=== PATIENT | female | born 1955 | race Caucasian/White ===

== ENCOUNTER → 2016-12-19 | Outpatient (CLI) | payer MEDICARE, OTHER ==
[~2016-12-19] MED LIST: AMLO10 PO; ASPI325T PO; ATOR20TA PO; AUGM500T7 PO; Aspirin Chew CHEW; CLON1TAB PO; EZET10 PO; FENT50T T-DERMAL; GNP3TAB PO; HYDR-3583 PO; HYDR50TA15 PO; LACTG PO; LEVE500 PO; LEVEMIR SQ; LISI-363 PO; LISI-519 PO; MELA5TAB15 PO; METO-338 PO; NOVOLOGP2 SQ; NOVOLOGSS SQ; PANT40TA3 PO; PERC10TA27 PO; PLAV75TA29 PO; POTA-163 PO; SIME80CH CHEW; TIZA4 PO; TIZA4CAP3 PO; VENL-37 PO; VENL75XR PO; WELLTAB39 PO; ZETI10TA5 PO; ZOFR4TAB PO
--- NOTE | 2016-12-19 15:31 | RADRPT ---
EXAM DATE/TIME: 12/19/2016 14:30 [facility] COMPARISON: No previous studies available for comparison. INDICATIONS : Right upper quadrant pain. Evaluate for gallstones. ORAL CONTRAST: Prescribed oral contrast ingested. RADIATION DOSE: 9.96 CTDIvol (mGy) MEDICAL HISTORY : Cerebrovascular disease. Inflammatory bowel disease. Diabetes mellitus type 2. Hypertension. Gallstones. SURGICAL HISTORY : Right below the knee amputation. ENCOUNTER: Initial ACUITY: 4 - 6 months PAIN SCALE: 7/10 LOCATION: Right upper quadrant TECHNIQUE: Volumetric scanning of the abdomen and pelvis was performed. Using automated exposure control and adjustment of the mA and/or kV according to patient size, radiation dose was kept as low as reasonably achievable to obtain optimal diagnostic quality images. FINDINGS: Lung bases are clear. The liver is free of focal defects. Large gallstone is present in the gallbladder with lamination. The gallbladder does appear benign. The body of the stomach is markedly abnormal with marked thickening of the wall of the stomach. In g reatest dimension it measures 1.5 to 1.8 cm. 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 Pancreas is unremarkable. Adrenal glands appear normal. Right and left kidneys are unremarkable. In the pelvis there is a prominent uterus. The bladder is unremarkable. There is no evidence for div erticulitis. Extensive vascular calcifications are noted. Review of bone windows reveals significant degenerative changes in the lumbar spine. CONCLUSION: 1. Marked thickening of the wall of the stomach comprised mostly of the body suspicious for a neoplas tic process, adenocarcinoma linitis plastica type. 2. A large gallstone in a benign appearing gallbladder. 3. I do not see evidence for metastatic disease as yet. 4. Extensive degenerative changes lumbar spine. Krystian Painting MD FACR on December 19, 2016 at 15:11 Board Certified Radiologist. This report was verified electronically.
== END ==
LOC: HRAD 12:53
PROVIDERS: ATTEND Surgery
DX: K80.80 Other cholelithiasis without obstruction (principal)
CPT/HCPCS: 74176

== ENCOUNTER 2017-01-27 07:49 | Inpatient (IN) | payer MEDICARE, OTHER ==
[2017-01-27] VITALS (11 sets, daily range): BP systolic 124–176; BP diastolic 60–85; PULSE 90–133; RESP 18–23; TEMP 98.3–103.2; O2SAT 95–100
[~2017-01-27] VITALS: Ht 162.6 cm; Wt 82.2 kg
[~2017-01-27 07:49] MED LIST changes: -AMLO10 PO; -AUGM500T7 PO; -Aspirin Chew CHEW; -FENT50T T-DERMAL; -GNP3TAB PO; -HYDR-3583 PO; -HYDR50TA15 PO; -LACTG PO; -LISI-519 PO; -MELA5TAB15 PO; -METO-338 PO; -NOVOLOGP2 SQ; -PANT40TA3 PO; -PLAV75TA29 PO; -POTA-163 PO; -SIME80CH CHEW; -TIZA4 PO; -TIZA4CAP3 PO; -VENL75XR PO; -WELLTAB39 PO; -ZETI10TA5 PO; -ZOFR4TAB PO
[2017-01-27] MEDS ORDERED: SODIUM CHLOR 0.9% 1000 ML INJ 1,000 ML IV ONE ×3 (08:03→14:00)
[2017-01-27] MEDS ORDERED: VANCOMYCIN INJ 1,000 MG in SODIUM CHLOR 0.9% 250 ML INJ 250 ML IV STA (08:03)
[2017-01-27] MEDS ORDERED: SODIUM CHLOR 0.9% 1000 ML INJ 100 ML IV ONE (08:03)
[2017-01-27] MEDS ORDERED: PIPERACIL-TAZO 4.5 GM PREMIX 100 ML IV STA (08:03)
[2017-01-27] MEDS ORDERED: ACETAMINOPHEN 650 MG SUPP RECTAL ONE (08:15)
[2017-01-27 08:48] LABS: AUTOMATED NEUTROPHIL # 24.6 TH/MM3 (1.8-7.7); BASOPHIL % 0.1 % (0.0-2.0); HEMATOCRIT 40.9 % (35.0-46.0); LYMPHOCYTE # 1.7 TH/MM3 (1.0-4.8); MEAN CELL VOLUME 89.6 FL (80.0-100.0); MEAN CORPUSCULAR HEMOGLOBIN 29.9 PG (27.0-34.0); MEAN CORPUSCULAR HGB CONC 33.4 % (32.0-36.0); MONO % 4.6 % (0.0-8.0); NEUT % 89.3 % (16.0-70.0); PLATELET COUNT 258 TH/MM3 (150-450); RED BLOOD COUNT 4.57 MIL/MM3 (4.00-5.30); RED CELL DISTRIBUTION WIDTH 12.8 % (11.6-17.2); WHITE BLOOD COUNT 27.5 TH/MM3 (4.0-11.0)
[2017-01-27 08:49] LABS: HEMO FLAGS AUTO DIFF
[2017-01-27 08:59] LABS: ALT (GPT) 31 U/L (10-53); ANION GAP 11 MEQ/L (5-15); AST (GOT) 55 U/L (15-37); BICARBONATE 25.1 MEQ/L (21.0-32.0); BLOOD UREA NITROGEN 43 MG/DL (7-18); CHLORIDE 106 MEQ/L (98-107); GLOMERULAR FILTRATION RATE 15 ML/MIN (>89); POTASSIUM 3.9 MEQ/L (3.5-5.1); SODIUM (NA) 142 MEQ/L (136-145)
[2017-01-27 09:00] LABS: BLOOD GAS CARBOXYHEMOGLOBIN 1.1 % (0-4); BLOOD GAS HCO3 18 mmol/L (22-26); BLOOD GAS METHEMOGLOBIN 0.8 % (0-2); BLOOD GAS O2 HGB SATURATION 93 % (90-100); BLOOD GAS OXYGEN CONTENT 15.3 Vol % (12.0-20.0); BLOOD GAS PCO2 32 mmHg (38-42); BLOOD GAS PO2 77 mmHG (61-120); BLOOD GAS TOTAL HGB 11.7 G/DL (12.0-16.0); CRITICAL VALUE NO; DRAW SITE RT RADIAL; LITER FLOW 2 L/M; NUMBER OF ARTERIAL PUNCTURES 1; OXYGEN DEVICE NASAL CANNULA; STAT YES; TEMP CORR TO 98.6
[2017-01-27 09:01] LABS: ALKALINE PHOSPHATASE 769 U/L (45-117); TOTAL BILIRUBIN ADULT 0.5 MG/DL (0.2-1.0)
--- NOTE | 2017-01-27 09:06 | RADRPT ---
EXAM DATE/TIME: 01/27/2017 08:38 [facility] COMPARISON: CHEST SINGLE AP, June 24, 2015, 19:41. INDICATIONS : Fever. MEDICAL HISTORY : Hypertension. Diabetes mellitus type II. Arthritis. Smoker. SURGICAL HISTORY : None. ENCOUNTER: Initial ACUITY: 1 day PAIN SCORE: Non-responsive. LOCATION: Bilateral chest FINDINGS: Portable AP view of the chest demonstrates a normal-sized cardiac silhouette. Lungs are underinflated with mild opacity at the right lung base. No pleural effusion or pneumothorax is visualized. Bones a nd soft tissues demonstrate no acute finding. There is mild dextroscoliosis of the thoracic spine. Ce rvical spine hardware is visualized. CONCLUSION: Underinflation of mild airspace opacity at the right lung base with appearance favoring atelectasis o rome consolidation. Willy Suh MD on January 27, 2017 at 9:03 Board Certified Radiologist. This report was verified electronically.
[2017-01-27 09:33] LABS: BANDS 20 % (0-6); NEUTROPHIL # MANUAL DIFF 23.9 TH/MM3 (1.8-7.7); POLYS (SEG NEUTROPHILS) 67 % (16-70); WBC DIFF SAMPLE 100
[2017-01-27 09:34] LABS: PLATELET ESTIMATE SMEAR NORMAL (NORMAL); PLATELET MORPHOLOGY ENLARGED (NORMAL); SCAN/DIFF FINAL DIFF MANUAL
[2017-01-27 09:35] LABS: TOXIC VACUOLATION PRESENT (NONE SEEN)
--- NOTE | 2017-01-27 10:18 | PD ---
HPI Chief Complaint: Altered Mental Status Time Seen by Provider: 08:03 Travel History International Travel<30 days: No Contact w/Intl Traveler<30days: No Traveled to known affect area: No History of Present Illness HPI This is a 61-year-old female with a history of CVA, diabetes mellitus, hypertension, who [facility] with altered mental status and fever. The patient had a temperature 101.4 axillary by the paramedics. When they arrived they found her obtunded with vasoconstriction and difficulty finding pulses in her left dorsalis pedis and bilateral radial pulses. The patient is unable to give history secondary obtunded state. PFSH Past Medical History Arthritis: Yes Depression: Yes Cancer: No Cardiovascular Problems: Yes High Cholesterol: Yes Chest Pain: No Congestive Heart Failure: No Cerebrovascular Accident: Yes Diabetes: Yes Diminished Hearing: No Endocrine: Yes Gastrointestinal Disorders: No GERD: No Genitourinary: No Headaches: No Hypertension: Yes Immune Disorder: No Musculoskeletal: Yes (USES WHEELCHAIR) Neurologic: Yes (PERIPHERAL NEUROPATHY) Psychiatric: No Reproductive: No Respiratory: No Immunizations Current: Yes (PPD) Migraines: No Seizures: No Menopausal: No : 4 Para: 2 Miscarriage: 2 Past Surgical History Abdominal Surgery: Yes (4 C-SECTIONS) Section: Yes (X4) Gynecologic Surgery: Yes Other Surgery: Yes Social History Alcohol Use: No Tobacco Use: Yes (A LITTLE LESS THAN 1/2 PACK) Substance Use: No Allergies-Medications (Allergen,Severity, Reaction): Coded Allergies: *MDRO Multi-Drug Resistant Organism (Verified Allergy, Unknown, 01/26/16) Patient reported H/O MRSA Reported Meds & Prescriptions Reported Meds & Active Scripts Active Reported Tizanidine (Tizanidine HCl) 4 Mg Cap 4 Mg PO TID Melatonin 5 Mg Tab 5 Mg PO HS Review of Systems ROS Limitations: Clinical Condition, Altered Mental Status (patient appears septic and is unable to give history.) Except as stated in HPI: all other systems reviewed are Neg General / Constitutional: Positive: Fever HENT: Positive: Lightheadedness Genitourinary: Positive: Other (patient wears a diaper.) Musculoskeletal: Positive: Other (previous right BKA) Skin: Positive Other (pale and cool) Physical Exam Narrative GENERAL: Elderly ill appearing female in no acute respiratory distress. SKIN: Focused skin assessment cool and pale. HEAD: Atraumatic. Normocephalic. EYES: No scleral icterus. No injection or drainage. ENT: No nasal bleeding or discharge. Mucous membranes pink and dry. NECK: Trachea midline. No JVD. CARDIOVASCULAR: Tachycardic in the 130s. No obvious murmurs appreciated RESPIRATORY: No accessory muscle use. Decreased respiratory effort. I do not appreciate any Rales or rhonchi. GASTROINTESTINAL: Abdomen soft, non-tender, nondistended. Hepatic and splenic margins not palpable. MUSCULOSKELETAL: Previous right BKA. Patient had cool extremities. There were delayed cap refill in the left toes and bilateral hands. NEUROLOGICAL: Obtunded. The patient was observed moving however was not following commands. Data Data Last Documented VS Orders Electrocardiogram (01/27/17 08:03) Complete Blood Count With Diff (01/27/17 08:03) Comprehensive Metabolic Panel (01/27/17 08:03) Lactic Acid Sepsis Protocol (01/27/17 08:03) Urinalysis - C+S If Indicated (01/27/17 08:03) Blood Culture (01/27/17 08:03) Chest, Single Ap (01/27/17 08:03) Arterial Blood Gas (Abg) (01/27/17 08:03) Blood Glucose (01/27/17 08:03) Ecg Monitoring (01/27/17 08:03) Iv Access Insert/Monitor (01/27/17 08:03) Oximetry (01/27/17 08:03) Oxygen Administration (01/27/17 08:03) Vancomycin Inj (Vancomycin Inj) (01/27/17 08:03) Piperacil-Tazo 4.5 Gm Premix (Zosyn 4.5 (01/27/17 08:03) Sodium Chlor 0.9% 1000 Ml Inj (Ns 1000 M (01/27/17 08:03) Sodium Chlor 0.9% 1000 Ml Inj (Ns 1000 M (01/27/17 08:03) Sodium Chlor 0.9% 1000 Ml Inj (Ns 1000 M (01/27/17 08:03) C Diff Toxin Pcr (01/27/17 08:08) Acetaminophen Supp (Tylenol Supp) (01/27/17 08:15) Ct Brain W/O Iv Contrast(Rout) (01/27/17 10:52) Admit Order (Ed Use Only) (01/27/17 10:52) MDM Medical Decision Making Medical Screen Exam Complete: Yes Emergency Medical Condition: Yes Differential Diagnosis Sepsis versus CVA versus metabolic derangement. Narrative Course 61-year-old female sent from the prison for altered mental status. The patient had a fever and tachycardia. She met sepsis. SIRS criteria. The patient has been given IV fluid boluses. We do not have a clear source at this time so she was started on Zosyn. The patient has a white count over 20,000. The patient will be admitted to the ICU. The patient was discussed with the component assembler supervisor, Dr. Tam, who is agreed to admit the patient under his service. Critical Care Narrative Aggregate critical care time was 45 minutes. Time to perform other separately billable procedures was not included in the critical care time. My time did not include minutes spent treating any other patients simultaneously or on activities that did not directly contribute to the patient's treatment. The services I provided to this patient were to treat and/or prevent clinically significant deterioration that could result in: [-] I provided critical care services requiring my management, as noted below: Chart data review, documentation time, medication orders and management, vital sign assessments/reviewing monitor data, ordering and reviewing lab tests, ordering and interpreting/reviewing x-rays and diagnostic studies, care of the patient and discussion of the patient with the admitting physicians. Sepsis Criteria SIRS Criteria (2 or more): Temp > 100.9 or < 96.8, Heart rate over 90, WBC > 17274, < 4000 or > 10% bands Severe Sepsis (+one): Hypoperfusion, Lactate >2, Acute Oliguria/Renal Failure Multiple Organ Dysfunction Syn: Evidence -2 organs failing Diagnosis Primary Impression: Sepsis Additional Impressions: Dehydration Diarrhea Uncontrolled diabetes mellitus CKD (chronic kidney disease) stage 3, GFR 30-59 ml/min Patrick Hayes MD January 27, 2017 10:17 Platelet Count 258 TH/MM3 Mean Platelet Volume 10.9 FL Neutrophils (%) (Auto) 89.3 % Lymphocytes (%) (Auto) 6.0 % Monocytes (%) (Auto) 4.6 % Eosinophils (%) (Auto) 0.0 % Basophils (%) (Auto) 0.1 % Neutrophils # (Auto) 24.6 TH/MM3 Lymphocytes # (Auto) 1.7 TH/MM3 Monocytes # (Auto) 1.3 TH/MM3 Eosinophils # (Auto) 0.0 TH/MM3 Basophils # (Auto) 0.0 TH/MM3 CBC Comment AUTO DIFF Differential Total Cells 100 Counted Neutrophils % (Manual) 67 % Band Neutrophils % 20 % Lymphocytes % 8 % Monocytes % 5 % Neutrophils # (Manual) 23.9 TH/MM3 Differential Comment FINAL DIFF MANUAL Toxic Vacuolation PRESENT Platelet Estimate NORMAL Platelet Morphology Comment ENLARGED Red Cell Morphology Comment NORMAL Sodium Level 142 MEQ/L Potassium Level 3.9 MEQ/L Chloride Level 106 MEQ/L Carbon Dioxide Level 25.1 MEQ/L Anion Gap 11 MEQ/L Blood Urea Nitrogen 43 MG/DL Creatinine 3.13 MG/DL Estimat Glomerular Filtration 15 ML/MIN Rate Random Glucose 215 MG/DL Calcium Level 8.7 MG/DL Total Bilirubin 0.5 MG/DL Aspartate Amino Transf 55 U/L (AST/SGOT) Alanine Aminotransferase 31 U/L (ALT/SGPT) Alkaline Phosphatase 769 U/L Total Protein 7.2 GM/DL Albumin 3.0 GM/DL Lactic Acid Level 3.1 mmol/L Blood Gas Puncture Site RT RADIAL Blood Gas Patient Temperature 98.6 Blood Gas HCO3 18 mmol/L Blood Gas Base Excess -6.0 mmol/L Blood Gas Oxygen Saturation 93 % Arterial Blood pH 7.38 Arterial Blood Partial 32 mmHg Pressure CO2 Arterial Blood Partial 77 mmHG Pressure O2 Arterial Blood Oxygen Content 15.3 Vol % Arterial Blood 1.1 % Carboxyhemoglobin Arterial Blood Methemoglobin 0.8 % Blood Gas Hemoglobin 11.7 G/DL Oxygen Delivery Device NASAL CANNULA Blood Gas Liter Flow 2 L/M MDM Medical Decision Making Medical Screen Exam Complete: Yes Emergency Medical Condition: Yes Differential Diagnosis Sepsis versus CVA versus metabolic derangement. Patrick Hayes MD January 27, 2017 10:17
[2017-01-27] MEDS ORDERED: TIZA4CAP3 PO (10:22)
[2017-01-27] MEDS ORDERED: MELA5TAB15 PO (10:22)
[2017-01-27 10:38] LABS: LACTIC ACID GHOST NOT REPORTABLE
[2017-01-27 10:50] LABS: C. DIFF EPI 027 PRESUMPTIVE NEGATIVE (NEGATIVE); C. DIFF TOXIN PCR NEGATIVE (NEGATIVE)
[2017-01-27 11:17] LABS: BACTERIA, URINE MOD /hpf; BLOOD, URINE MOD (NEG); COMMENT (UR) CATH-CULTURE IND; CULTURE IF INDICATED CATH CULTURE IND; GLUCOSE,URINE NEG (NEG); HYALINE CAST, URINE 2 /lpf (RARE); KETONE, URINE NEG (NEG); NITRITE,URINE NEG (NEG); SQUAMOUS EPITHELIAL CELL URINE 1 /hpf (0-5); TRANSITIONAL EPI CELLS, URINE <1 /hpf; URINE COLOR DARK-YELLOW (YELLW/STRAW)
--- NOTE | 2017-01-27 11:58 | RADRPT ---
EXAM DATE/TIME: 01/27/2017 11:26 [facility] COMPARISON: CT BRAIN W/O CONTRAST, January 04, 2014, 12:47. CT ABDOMEN & PELVIS W/O CONTRAST, December 19, 2016, 14:3 0. INDICATIONS : Altered mental status, patient was found unresponsive. RADIATION DOSE: 56.35 CTDIvol (mGy) MEDICAL HISTORY : Hypertension. Cardiovascular disease Diabetes mellitus type 2.CVA SURGICAL HISTORY : ENCOUNTER: Initial ACUITY: 1 day PAIN SCALE: 1/10 LOCATION: TECHNIQUE: Multiple contiguous axial images were obtained of the head. Using automated exposure control and adj ustment of the mA and/or kV according to patient size, radiation dose was kept as low as reasonably a chievable to obtain optimal diagnostic quality images. FINDINGS: CEREBRUM: The ventricles are normal in size and configuration. There is no acute intracranial hemorrhage. No ma ss lesion is identified. The exam does demonstrate lacunar infarct in the left basal ganglia. POSTERIOR FOSSA: The cerebellum and brainstem are intact. The 4th ventricle is midline. The cerebellopontine angle i s unremarkable. EXTRACRANIAL: The visualized portion of the orbits is intact. SKULL: The calvaria is intact. No evidence of skull fracture. CONCLUSION: 1. Old lacunar infarct in the left basal ganglia stable compared to previous dated 01/04/14. 2. No acute intracranial abnormality identified. Christopher Painting MD on January 27, 2017 at 11:45 Board Certified Radiologist. This report was verified electronically.
[2017-01-27] MEDS ORDERED: RESP: ALBUTEROL 2.5 MG/IPRATROPIUM 0.5 MG NEB (PRN) INH (14:00)
[2017-01-27] MEDS ORDERED: MISCELLANEOUS NURSING INFORMATION XX SCH (14:00)
[2017-01-27] MEDS: INSULIN NovoLIN REGULAR SUPPLEMENTAL SCALE SQ SCH ×2 (14:00→20:00)
[2017-01-27] MEDS: PANTOPRAZOLE SODIUM 40 MG VIAL IV SCH (14:00)
[2017-01-27] MEDS: SODIUM CHLOR 0.9% 1000 ML INJ 1,000 ML IV SCH ×3 (14:00→21:00)
[2017-01-27] MEDS ORDERED: Vancomycin Consult Pharmacy 1 EA OTHER SCH (14:00)
[2017-01-27] MEDS ORDERED: CHLORHEXIDINE GLUCONATE 2 % 1 PACK (2 CLOTHS) TOP PRN (14:00)
[2017-01-27] MEDS ORDERED: GLUCAGON 1 MG/ML VIAL OTHER PRN (14:00)
[2017-01-27] MEDS ORDERED: DEXTROSE 50% IN WATER 50 ML VIAL(D50) IV PUSH PRN (14:00)
--- NOTE | 2017-01-27 14:43 | MH ---
cc: GIAN BRAGG M.D. DATE OF ADMISSION: 01/27/2017 DATE OF : 1955. HISTORY OF PRESENT ILLNESS: The patient is a 62 year-old female with past medical history of hypertension, diabetes mellitus, cerebrovascular accident in 2013, dyslipidemia, who presents from nursing facility with fever and altered mental status. She was found to have a temperature of 101.4 was brought in by paramedics and 103.4 rectally. When she arrived initially she was obtunded and unable to give any history secondary to her mental status. A CT scan of the brain was obtained which showed old lacunar infarct in the left basilar ganglia, stable compared to previous studies. No acute intracranial abnormalities identified. The patient was tachycardic, however, her blood pressure was 124/85. Her laboratory data is significant for lactic acid of 3.1, acute renal failure with a blood urea nitrogen of 43, creatinine of 3.13 respectively and leukocytosis with a white blood cell of 27.5. Her urinalysis was compatible with urinary tract infection. Chest x-ray in the emergency room showed under inflation of mild airspace opacity under right lung base with appearance favoring atelectasis over consolidation. In the emergency department she was given two liters of Crystalloids in addition to Vancomycin and Zosyn, she also received a Tylenol suppository 650 mg p.o. times one. After fluid resuscitation, the patients mental status improved and currently she is awake and alert. She reports abdominal pain associated with nausea and vomiting and decreased p.o. intake. She denies any chest pain, shortness of breath, cough, her lactic acid level measured at 3.1. PAST MEDICAL HISTORY: 1. Significant for arthritis. 2. Depression. 3. Hyperlipidemia. 4. Diabetes mellitus. 5. Hypertension. 6. Cerebrovascular accident in 2013. 7. Obesity. 8. Peripheral neuropathy. PAST SURGICAL HISTORY: Previous section times four. Right below-knee amputation. SOCIAL HISTORY: The patient is a nonsmoker, history of tobacco use she is a [facility] resident. ALLERGIES NO KNOWN DRUG ALLERGIES MEDICATIONS: 1. Aspirin 2. Levemir 3. Insulin 4. Percocet 5. Clonazepam 6. Atorvastatin 7. Lisinopril 8. Keppra 9. Zetia. FAMILY HISTORY: Noncontributory. REVIEW OF SYSTEMS As per history of present illness. The rest of the review of systems is limited as the patient is a poor historian. PHYSICAL EXAMINATION: IN GENERAL: A 62 year-old female, lying in bed in no acute respiratory distress. VITAL SIGNS: Temperature 103.2 rectally. Pulse of 92, currently respiratory rate of 18, blood pressure 137/75, saturation 96% on two liters of oxygen. HEAD, EYES, EARS, NOSE, AND THROAT: Atraumatic, normocephalic, Pupils equal, round, reactive to light and accommodation, extraocular muscles intact. Conjunctiva pink, nonicteric sclera, oral mucosa, dry mucous membranes. NECK: Supple, no jugular venous distention. Adenopathy or thyromegaly. Trachea in the midline. CARDIOVASCULAR SYSTEM: Regular rate and rhythm normal S1, S2, no murmurs, rubs or gallops noted. PULMONARY: Bilateral air entry. No rales or wheezing. ABDOMEN: The abdomen is soft. Tenderness on palpation noted, no guarding. Positive bowel sounds. EXTREMITIES: No clubbing, cyanosis or edema. Right below-knee amputation. NEUROLOGIC: Now awake and alert. Post hydration. RADIOLOGIC: Electrocardiogram showed sinus tachycardia with a rate of 101 beats per minute. Anterior septal changes. LABORATORY DATA: Sodium 142, potassium 3.9, chloride 106, co2 25, blood urea nitrogen 43, creatinine 3.13, glucose 215, lactic acid 3.1, aspartate aminotransferase 55, ALT 31, alkaline phosphatase 769, albumin 3, white blood count 27.5. Hemoglobin 13.7, hematocrit 40, platelet count 258. Bands 20, urinalysis showed small leukocyte Estrace, 44 red blood cell, 17 white blood cells, moderate bacteria. RADIOGRAPHIC STUDIES: CT brain showed old lacunar infarct, left basal ganglia. Stable compared to previous study. Otherwise no acute intracranial abnormalities identified. Chest x-ray showed under inflation of airspace opacity of the right lung base with appearance favoring atelectasis over consolidation. IMPRESSION 1. Respiratory insufficiency. 2. Abdominal pain. 3. Sepsis. 4. Urinary tract infection. 5. Lactic acidemia. 6. Acute renal failure. 7. Leukocytosis with bandemia. 8. Hypertension. 9. Diabetes mellitus and dyslipidemia. 10. History of cerebrovascular accident. 11. Obesity. 12. History of arthritis. RECOMMENDATIONS: 1. Monitor neuro-stats closely and avoid any sedatives. 2. CT scan of brain in the emergency room negative for acute intracranial abnormality. 3. Continue with oxygen and maintain stat's above 92%. 4. Bronchodilators in the form of Duoneb q six plus q 2 as needed for shortness of breath. 5. Monitor heart rate and blood pressure closely. Maintain MAP greater then 65 mmHg. Continue with aspirin 325 mg daily. 6. Hold antihypertensive medications for now. 7. Stereo lactic acid monitoring. The patient received two liters of crystalloids in the emergency department. We will give an additional 1 liter bolus of normal saline and continue with IV hydration. 8. Monitor renal function, intake and output and avoid nephrotoxins. Continue with intravenous fluids as stated above in the form of NS at 125 ml per hour and monitor electrolytes closely. 9. Keep npo for now and place on Protonix 40 mg IV daily for gastrointestinal prophylaxis. 10. Monitor liver function tests and we will obtain a CT scan of the abdomen and pelvis without contrast for further evaluation of her abdominal pain. Her C-Difficile tox and PCR is negative in the emergency department. 11. Continue with broad-spectrum antibiotics in the form of vancomycin and Zosyn, monitor for signs of infection which include fever and white blood count. 12. Adjust antibiotic dosage per renal function. Follow up on blood cultures and urine cultures which were preformed in the emergency department. In addition we will check a sputum culture with gram stain. 13. Place on sliding scale insulin with Accu check q six hours for glycemic control. 14. Gastrointestinal prophylaxis with Protonix 40 mg intravenous daily. 15. Deep venous thrombosis prophylaxis with sequential compression devices and Heparin subcutaneous. 16. Further recommendations will be based on hospital course. CRITICAL CARE TIME: 40 minutes excluding procedures. MD BRUNO Robb/yodit /2:05 PM /2:17 PM
--- NOTE | 2017-01-27 15:21 | EKG ---
Date Performed: 01/27/2017 Time Performed: 09:10:57 PTAGE: 61 years EKG: SINUS TACHYCARDIA INFERIOR MYOCARDIAL INFARCTION ANTEROSEPTAL MYOCARDIAL INFARCTION ABNORMA L ECG PREVIOUS TRACING : 07/11/2016 12.03 DOCTOR: Ramon Manuel Interpretating Date/Time 01/27/2017 15:20:24
[2017-01-27] MEDS ORDERED: VANCOMYCIN 500 MG/NS 100 ML IV ONE ×2 (15:30)
--- NOTE | 2017-01-27 15:36 | RADRPT ---
EXAM DATE/TIME: 01/27/2017 14:51 [facility] COMPARISON: No previous studies available for comparison. INDICATIONS : Patient complains of lower abdominal pain. ORAL CONTRAST: No oral contrast ingested. RADIATION DOSE: 10.08 CTDIvol (mGy) MEDICAL HISTORY : Cardiovascular disease. Hypertension. Diabetes mellitus type 2. SURGICAL HISTORY : section. ENCOUNTER: Initial ACUITY: 1 day PAIN SCALE: 6/10 LOCATION: Bilateral lower quadrant TECHNIQUE: Volumetric scanning of the abdomen and pelvis was performed. Using automated exposure control and ad justment of the mA and/or kV according to patient size, radiation dose was kept as low as reasonably achievable to obtain optimal diagnostic quality images. FINDINGS: LOWER LUNGS: There is mild atelectasis or scarring in the posterior lung bases. LIVER: Homogeneous density without lesion. There is no dilation of the biliary tree. The calcified gallston e in the gallbladder neck. Mild gallbladder distention.. SPLEEN: Normal size without lesion. PANCREAS: Within normal limits. KIDNEYS: Normal in size and shape. There is no mass, stone, or hydronephrosis. ADRENAL GLANDS: Within normal limits. VASCULAR: There is no aortic aneurysm. BOWEL/MESENTERY: Mild nonspecific fluid and gaseous distention of bowel. ABDOMINAL WALL: Within normal limits. RETROPERITONEUM: There is no lymphadenopathy. BLADDER: Decompressed with Quesada catheter. REPRODUCTIVE: Within normal limits. INGUINAL: There is no lymphadenopathy or hernia. MUSCULOSKELETAL: Within normal limits for patient age. CONCLUSION: Gallstone. Ileus bowel gas pattern. Willy Mackay MD on January 27, 2017 at 15:31 Board Certified Radiologist. This report was verified electronically.
[2017-01-27] MEDS: ASPIRIN 325 MG TAB PO SCH (16:29)
[2017-01-27] MEDS: PIPERACIL-TAZO 2.25 GM PREMIX 50 ML IV SCH ×2 (16:33→20:59)
[2017-01-27] MEDS: SENNOSIDES SYRUP 8.8 MG/5 ML CUP PO SCH (17:00)
--- NOTE | 2017-01-27 17:17 | PD.CONS ---
HPI Service Nephrology Consult Requested By Dr. Tam Reason for Consult ARF/ckd Primary Care Physician Unknown History of Present Illness 61 year old white female with Diabetes, Hypertension, CVA left side weakness, ischemic cardiomyopathy she is here with fever T max 103.2, AMS, abdominal pain , nausea, unable to eat or deink baseline creatinine was 1.08 in June 2016, currently higher and at 3.13, she has a Quesada catheter dark colored urine, Lactic acid was positive, UTI suspected. Review of Systems Constitutional: COMPLAINS OF: Fatigue Gastrointestinal: COMPLAINS OF: Abdominal pain, Nausea Neurologic: COMPLAINS OF: Localized weakness Psychiatric: COMPLAINS OF: Confusion Past Family Social History Allergies: Coded Allergies: *MDRO Multi-Drug Resistant Organism (Verified Allergy, Unknown, 01/26/16) Patient reported H/O MRSA Past Medical History DM HTN CKD PVD CAD non operable multi vessel disease Ischemic cardiomyopathy RIGHT BKA UTI Anemia CVA Past Surgical History Rt BKA stents in leg scar on neck patient do not recall Reported Medications Reported Meds & Active Scripts Active Reported Tizanidine (Tizanidine HCl) 4 Mg Cap 4 Mg PO TID Melatonin 5 Mg Tab 5 Mg PO HS Active Ordered Medications Current Medications Medications (Trade) Dose Ordered Sig/Jomar Route Start Time Stop Time Status Last Admin (Protonix Inj) 40 mg DAILY IV 01/27/17 14:00 01/27/17 14:00 Miscellaneous Information 1 [id number] XX 01/27/17 14:00 (Chlorhexidine 2% Cloth) 3 pack Taper DAILY@04 TOP 01/28/17 04:00 01/24/18 03:59 Chlorhexidine Gluconate 3 pack 3 pack UNSCH PRN TOP 01/27/17 14:00 (NS 1000 ml Inj) 1,000 ml @ 125 mls/hr Q8H IV 01/27/17 14:00 01/27/17 16:30 (D50w (Vial) Inj) 25 ml UNSCH PRN IV PUSH 01/27/17 14:00 (Glucagon Inj) 1 mg UNSCH PRN OTHER 01/27/17 14:00 Insulin Human Regular 1 1 Q6H SQ 01/27/17 14:00 Pharmacy Profile Note 0 ml @ 0 mls/hr UNSCH OTHER 01/27/17 14:00 (Zosyn 2.25 Gm Premix) 50 ml @ 100 mls/hr Q6H IV 01/27/17 15:00 01/27/17 16:33 (Heparin Inj) 5,000 units Q12HR SQ 01/27/17 21:00 (Aspirin) 325 mg DAILY PO 01/27/17 15:00 01/27/17 16:29 Family History noncontributory Social History [facility] Physical Exam Vital Signs Vital Signs Date Time Temp Pulse Resp B/P Pulse Ox O2 Delivery O2 Flow Rate FiO2 01/27/17 13:02 98.8 92 18 137/75 96 Nasal Cannula 2 01/27/17 11:00 92 20 131/77 96 Nasal Cannula 2 01/27/17 09:32 95 18 135/60 95 Nasal Cannula 2 01/27/17 08:30 Nasal Cannula 2 01/27/17 08:30 96 Room Air 2 01/27/17 08:30 96 Nasal Cannula 2 01/27/17 07:52 103.2 133 18 124/85 Physical Exam GENERAL: Well-nourished, well-developed ill appearing patient. SKIN: Warm and dry. HEAD: Normocephalic. EYES: No scleral icterus. No injection or drainage. NECK: Supple, trachea midline. No JVD or lymphadenopathy. CARDIOVASCULAR: Regular rate and rhythm without murmurs, gallops, or rubs. RESPIRATORY: Breath sounds equal bilaterally. No accessory muscle use. GASTROINTESTINAL: Abdomen soft, non-tender, nondistended. EXTREMITIES: No cyanosis, or edema. Right BKA. NEUROLOGICAL: Awake, alert, confused Laboratory Laboratory Tests Test 01/27/17 01/27/17 01/27/17 01/27/17 08:15 08:19 08:29 08:50 White Blood Count 27.5 Red Blood Count 4.57 Hemoglobin 13.7 Hematocrit 40.9 Mean Corpuscular Volume 89.6 Mean Corpuscular Hemoglobin 29.9 Mean Corpuscular Hemoglobin 33.4 Concent Red Cell Distribution Width 12.8 Platelet Count 258 Mean Platelet Volume 10.9 Neutrophils (%) (Auto) 89.3 Lymphocytes (%) (Auto) 6.0 Monocytes (%) (Auto) 4.6 Eosinophils (%) (Auto) 0.0 Basophils (%) (Auto) 0.1 Neutrophils # (Auto) 24.6 Lymphocytes # (Auto) 1.7 Monocytes # (Auto) 1.3 Eosinophils # (Auto) 0.0 Basophils # (Auto) 0.0 CBC Comment AUTO DIFF Differential Total Cells 100 Counted Neutrophils % (Manual) 67 Band Neutrophils % 20 Lymphocytes % 8 Monocytes % 5 Neutrophils # (Manual) 23.9 Differential Comment FINAL DIFF MANUAL Toxic Vacuolation PRESENT Platelet Estimate NORMAL Platelet Morphology Comment ENLARGED Red Cell Morphology Comment NORMAL Sodium Level 142 Potassium Level 3.9 Chloride Level 106 Carbon Dioxide Level 25.1 Anion Gap 11 Blood Urea Nitrogen 43 Creatinine 3.13 Estimat Glomerular Filtration 15 Rate Random Glucose 215 Calcium Level 8.7 Total Bilirubin 0.5 Aspartate Amino Transf 55 (AST/SGOT) Alanine Aminotransferase 31 (ALT/SGPT) Alkaline Phosphatase 769 Total Protein 7.2 Albumin 3.0 Lactic Acid Level 3.1 Stool C. difficile Toxin (PCR) NEGATIVE Stl C. difficile Toxin PRESUMPTIVE Epiderm 027 NEGATIVE Blood Gas Puncture Site RT RADIAL Blood Gas Patient Temperature 98.6 Blood Gas HCO3 18 Blood Gas Base Excess -6.0 Blood Gas Oxygen Saturation 93 Arterial Blood pH 7.38 Arterial Blood Partial 32 Pressure CO2 Arterial Blood Partial 77 Pressure O2 Arterial Blood Oxygen Content 15.3 Arterial Blood 1.1 Carboxyhemoglobin Arterial Blood Methemoglobin 0.8 Blood Gas Hemoglobin 11.7 Oxygen Delivery Device NASAL CANNULA Blood Gas Liter Flow 2 Test 01/27/17 01/27/17 10:55 15:10 Urine Color DARK-YELLOW Urine Turbidity CLOUDY Urine pH 5.0 Urine Specific Collins 1.026 Urine Protein 30 Urine Glucose (UA) NEG Urine Ketones NEG Urine Occult Blood MOD Urine Nitrite NEG Urine Bilirubin NEG Urine Urobilinogen LESS THAN 2.0 Urine Leukocyte Esterase SMALL Urine RBC 44 Urine WBC 17 Urine Squamous Epithelial 1 Cells Urine Transitional Epithelial <1 Cells Urine Amorphous Sediment OCC Urine Bacteria MOD Urine Hyaline Casts 2 Microscopic Urinalysis Comment CATH-CULTURE IND Lactic Acid Level 2.3 Date/Time Procedure Status Source Growth 01/27/17 15:10 Aerobic Blood Culture Received Blood Peripheral Pending 01/27/17 15:10 Anaerobic Blood Culture Received Blood Peripheral Pending 01/27/17 10:55 Urine Culture Received Urine Catheterized Urine Pending Result Diagram: 01/27/17 0815 01/27/17 0815 Imaging Last Impressions Head CT 01/27/17 1052 Signed Impressions: Service Date/Time: Friday, January 27, 2017 11:26 - CONCLUSION: 1. Old lacunar infarct in the left basal ganglia stable compared to previous dated 01/04/14. 2. No acute intracranial abnormality identified. Christopher Painting MD Chest X-Ray 01/27/17 0803 Signed Impressions: Service Date/Time: Friday, January 27, 2017 08:38 - CONCLUSION: Underinflation of mild airspace opacity at the right lung base with appearance favoring atelectasis over consolidation. Willy Suh MD Abdomen/Pelvis CT 01/27/17 0000 Signed Impressions: Service Date/Time: Friday, January 27, 2017 14:51 - CONCLUSION: Gallstone. Ileus bowel gas pattern. Willy Mackay MD Assessment and Plan Problem List: (1) Acute renal failure Plan: She has dehydration due to sepsis etiology of sepsis, UTI VS Other source BC/UC pending Hydrate and follow renal functions rule out pancreatitis Lipase in am (2) CKD (chronic kidney disease) stage 3, GFR 30-59 ml/min Plan: stable (3) Diabetes Plan: stable (4) Hypertension Plan: follow BP in ICU (5) Cholelithiasis Plan: follow lipase Problem Qualifiers (1) Diabetes: Salome Knowles MD January 27, 2017 17:17
[2017-01-27] MEDS: hydrALAZINE HCL 20 MG/ML VIAL IV PUSH PRN (17:42)
[2017-01-27] MEDS: MORPHINE SULFATE 4 MG/ML INJ IV PUSH PRN (17:43)
[2017-01-27] MEDS ORDERED: HYDROmorphone HCL PF 1 MG/ML VIAL IV ONE (20:45)
[2017-01-27] MEDS: RESP: ALBUTEROL 2.5 MG/IPRATROPIUM 0.5 MG NEB (SCH) INH (20:49)
[2017-01-27] MEDS: DOCUSATE SODIUM 100 MG/10 ML UDC PO SCH (20:59)
[2017-01-27] MEDS: HEPARIN SODIUM - SQ 10,000 UNITS/ML VIAL SQ SCH (21:00)
[2017-01-27] MEDS ORDERED: ACETAMINOPHEN 325 MG TAB PO PRN (21:00)
[2017-01-27 21:05] LABS: BICARBONATE 22.8 MEQ/L (21.0-32.0); POTASSIUM 3.5 MEQ/L (3.5-5.1)
[2017-01-27 21:44] LABS: CALCIUM-PROTEIN CORRECTED 8.2 MG/DL (8.5-10.1)
[2017-01-28] VITALS (26 sets, daily range): BP systolic 114–184; BP diastolic 64–91; PULSE 96–112; RESP 15–41; TEMP 88.2–100.9; O2SAT 94–99
[2017-01-28] MEDS ORDERED: CALCIUM GLUCONATE INJ 2 GM in SODIUM CHLORIDE 0.9% INJ 100 ML IV ONE (00:45)
[2017-01-28] MEDS: INSULIN NovoLIN REGULAR SUPPLEMENTAL SCALE SQ SCH ×4 (01:42→20:06)
[2017-01-28] MEDS: PIPERACIL-TAZO 2.25 GM PREMIX 50 ML IV SCH ×4 (01:43→20:05)
[2017-01-28] MEDS: MORPHINE SULFATE 4 MG/ML INJ IV PUSH PRN (01:43)
[2017-01-28] MEDS: hydrALAZINE HCL 20 MG/ML VIAL IV PUSH PRN ×2 (02:23→09:09)
[2017-01-28] MEDS: CHLORHEXIDINE GLUCONATE 2 % 1 PACK (2 CLOTHS) TOP SCH ×2 (02:24→20:06)
[2017-01-28] MEDS: RESP: ALBUTEROL 2.5 MG/IPRATROPIUM 0.5 MG NEB (SCH) INH ×4 (03:00→21:17)
[2017-01-28] MEDS: HYDROmorphone HCL PF 1 MG/ML VIAL IV PUSH PRN ×3 (03:36→20:03)
[2017-01-28 04:05] LABS: AUTOMATED NEUTROPHIL # 24.3 TH/MM3 (1.8-7.7); BASOPHIL % 0.1 % (0.0-2.0); HEMATOCRIT 32.5 % (35.0-46.0); LYMPH % 5.4 % (9.0-44.0); LYMPHOCYTE # 1.4 TH/MM3 (1.0-4.8); MEAN CELL VOLUME 88.4 FL (80.0-100.0); MEAN CORPUSCULAR HEMOGLOBIN 30.2 PG (27.0-34.0); MEAN CORPUSCULAR HGB CONC 34.1 % (32.0-36.0); MONO % 2.7 % (0.0-8.0); NEUT % 91.8 % (16.0-70.0); PLATELET COUNT 192 TH/MM3 (150-450); RED BLOOD COUNT 3.68 MIL/MM3 (4.00-5.30); WHITE BLOOD COUNT 26.5 TH/MM3 (4.0-11.0)
[2017-01-28 04:09] LABS: HEMO FLAGS AUTO DIFF
[2017-01-28 04:43] LABS: BANDS 22 % (0-6); METAMYELOCYTES 2 % (0-1); NEUTROPHIL # MANUAL DIFF 24.6 TH/MM3 (1.8-7.7); POLYS (SEG NEUTROPHILS) 69 % (16-70); SCAN/DIFF FINAL DIFF MANUAL; WBC DIFF SAMPLE 100
[2017-01-28 04:44] LABS: KERATOCYTES OCC (NORMAL); PLATELET ESTIMATE SMEAR NORMAL (NORMAL); PLATELET MORPHOLOGY NORMAL (NORMAL)
[2017-01-28 04:47] LABS: ALKALINE PHOSPHATASE 542 U/L (45-117); ALT (GPT) 32 U/L (10-53); AMYLASE 20 U/L (25-115); ANION GAP 9 MEQ/L (5-15); AST (GOT) 67 U/L (15-37); BLOOD UREA NITROGEN 43 MG/DL (7-18); CHLORIDE 115 MEQ/L (98-107); GLOMERULAR FILTRATION RATE 31 ML/MIN (>89); POTASSIUM 3.3 MEQ/L (3.5-5.1); SODIUM (NA) 146 MEQ/L (136-145); TOTAL BILIRUBIN ADULT 0.3 MG/DL (0.2-1.0)
[2017-01-28] MEDS: SODIUM CHLOR 0.9% 1000 ML INJ 1,000 ML IV SCH (06:23)
--- NOTE | 2017-01-28 07:29 | HHI.CCPN ---
Subjective Remarks/Hospital Course The patient is a 62 year-old female with past medical history of hypertension, diabetes mellitus, cerebrovascular accident in 2014, dyslipidemia, who presents from nursing facility with fever and altered mental status. She was found to have a temperature of 101.4 was brought in by paramedics and 103.4 rectally. When she arrived initially she was obtunded and unable to give any history secondary to her mental status. A CT scan of the brain was obtained which showed old lacunar infarct in the left basilar ganglia, stable compared to previous studies. No acute intracranial abnormalities identified. The patient was tachycardic, however, her blood pressure was 124/85. Her laboratory data is significant for lactic acid of 3.1, acute renal failure with a blood urea nitrogen of 43, creatinine of 3.13 respectively and leukocytosis with a white blood cell of 27.5. Her urinalysis was compatible with urinary tract infection. Chest x-ray in the emergency room showed under inflation of mild airspace opacity under right lung base with appearance favoring atelectasis over consolidation. In the emergency department she was given two liters of Crystalloids in addition to Vancomycin and Zosyn, she also received a Tylenol suppository 650 mg p.o. times one. After fluid resuscitation, the patients mental status improved and currently she is awake and alert. She reports abdominal pain associated with nausea and vomiting and decreased p.o. intake. She denies any chest pain, shortness of breath, cough, her lactic acid level measured at 3.1. Subjective 01/28: MAXIMUM TEMPERATURE 100.9 Hypertensive overnight. On nasal cannula. Remains confused. BM 1. Objective Vital Signs Date Time Temp Pulse Resp B/P Pulse Ox O2 Delivery O2 Flow Rate FiO2 01/28/17 06:00 100 01/28/17 04:00 100.9 15 173/77 95 01/27/17 20:50 Nasal Cannula 2.00 Intake and Output 01/27/17 01/27/17 01/28/17 08:00 16:00 00:00 Intake Total 780 ml Output Total 501 ml Balance 279 ml Result Diagram: 01/28/17 0339 01/28/17 0339 Other Results Microbiology Date/Time Procedure Status Source Growth 01/27/17 15:10 Aerobic Blood Culture Received Blood Peripheral Pending 01/27/17 15:10 Anaerobic Blood Culture Received Blood Peripheral Pending 01/27/17 10:55 Urine Culture Received Urine Catheterized Urine Pending Imaging Last Impressions Head CT 01/27/17 1052 Signed Impressions: Service Date/Time: Friday, January 27, 2017 11:26 - CONCLUSION: 1. Old lacunar infarct in the left basal ganglia stable compared to previous dated 01/04/14. 2. No acute intracranial abnormality identified. Christopher Painting MD Chest X-Ray 01/27/17 0803 Signed Impressions: Service Date/Time: Friday, January 27, 2017 08:38 - CONCLUSION: Underinflation of mild airspace opacity at the right lung base with appearance favoring atelectasis over consolidation. Willy Suh MD Abdomen/Pelvis CT 01/27/17 0000 Signed Impressions: Service Date/Time: Friday, January 27, 2017 14:51 - CONCLUSION: Gallstone. Ileus bowel gas pattern. Willy Mackay MD Objective Remarks GENERAL: 61-year-old female, critically ill currently resting in bed in no acute distress SKIN: Warm and dry. No rash HEAD: Atraumatic. Normocephalic. EYES: Pupils equal and round. No scleral icterus. No injection or drainage. ENT: No nasal bleeding or discharge. Mucous membranes pink and moist. NECK: Trachea midline. No JVD. CARDIOVASCULAR: Regular rate and rhythm. S1, S2. No S4. RESPIRATORY: No accessory muscle use. Clear to auscultation. Breath sounds equal bilaterally. GASTROINTESTINAL: Abdomen distended. Hypoactive bowel sounds appreciated. MUSCULOSKELETAL: Extremities without significant peripheral edema NEUROLOGICAL: Awake and alert. No obvious cranial nerve deficits. Motor grossly within normal limits. Five out of 5 muscle strength in the arms and legs. Normal speech. A/P Assessment and Plan Neuro/Psych: History of left basal ganglia CVA Depression Peripheral neuropathy Insomnia Holding home medication of Percocet unknown dosage Holding home medication Keppra unknown dosage Holding home medication clonazepam unknown dosage Holding melatonin for insomnia Continue aspirin 325 mg by mouth daily. Morphine/Dilaudid for pain management CV: Coronary artery disease - inoperable Ischemic cardiomyopathy ejection fraction 45% Hypertension Dyslipidemia Heart catheterization by Dr. Jordan 07/10 revealed EF 45%. LAD 70%, left circumflex 70 percent, RCA 80%. Not amenable To CABG Holding home medications Zetia 10 mg by mouth daily. Holding home medication atorvastatin unknown dosage daily On aspirin unknown dosage daily at home. Currently on 325 daily On lisinopril unknown dosage at home. Holding with acute kidney injury As needed labetalol/hydralazine/Nitropaste for hypertension Resp: Nasal cannula to maintain saturations greater than equal to 92% Incentive spirometry while awake Chest x-ray 01/27 revealed bilateral lower lobe atelectasis Bronchodilator therapy due nebs every 6 hours and every 2 hours when necessary dyspnea GI: Ileus Cholelithiasis CT abdomen/pelvis revealed cholelithiasis/ileus ADA diet Had one bowel movement overnight. Protonix for GI prophylaxis Colace/Senokot for bowel regimen Lipase 40 : Quesada for accurate I's and O's in a critically ill patient Endo: Diabetes mellitus neuropathy On Levemir unknown dosage with sliding scale insulin as nursing him. Sliding scale insulin Accu-Cheks every 6 hours to maintain euglycemia/low regimen Renal: Acute on chronic kidney injury Seen by nephrology. Creatinine currently 1.7 No indications for hemodialysis at this time. Switch fluids to half normal saline at 125 cc an hour with elevated sodium Heme: Leukocytosis with bandemia Normocytic anemia Follow CBC daily. Monitor trends ID: Urinary tract infection Day #2 Zosyn/vancomycin Pertinent cultures 01/27 - urine culture -pending 01/27 - blood cultures 2 - pending FEN: Hypernatremia Hypopotassemia Replace electrolytes as clinically indicated Switch IV fluids to half normal saline. Potassium 30 mEq by mouth 1 see orders MSK: Access - Utilize peripheral IV. Central line if indicated Prophylaxis - GI - Protonix - DVT - SCD/heparin subcutaneous Milind Morales MD January 28, 2017 07:29
[2017-01-28] MEDS ORDERED: NITROGLYCERIN 2% OINT 1 GM PACKET TOPICAL PRN (07:45)
[2017-01-28] MEDS: PANTOPRAZOLE SODIUM 40 MG VIAL IV SCH (08:59)
[2017-01-28] MEDS: HEPARIN SODIUM - SQ 10,000 UNITS/ML VIAL SQ SCH ×2 (08:59→19:52)
[2017-01-28] MEDS: SENNOSIDES SYRUP 8.8 MG/5 ML CUP PO SCH (08:59)
[2017-01-28] MEDS: DOCUSATE SODIUM 100 MG/10 ML UDC PO SCH ×2 (08:59→20:10)
[2017-01-28] MEDS: ASPIRIN 325 MG TAB PO SCH (08:59)
[2017-01-28] MEDS: SODIUM CHLOR 0.45% 1000 ML INJ 1,000 ML IV SCH ×2 (09:08→16:49)
[2017-01-28] MEDS ORDERED: DEXTROSE 50% IN WATER 50 ML SYRINGE ONE (09:22)
--- NOTE | 2017-01-28 10:26 | RADRPT ---
EXAM DATE/TIME: 01/28/2017 09:20 [facility] COMPARISON: CT ABDOMEN & PELVIS W/O CONTRAST, January 27, 2017, 14:51. INDICATIONS : Nausea/vomiting. Gallstones on abdomen CT. MEDICAL HISTORY : Hypercholesterolemia. Inflammatory bowel disease. Arthritis. Peripheral neuropathy. CVA. HTN. Abdomin al pain. Osteoporosis. Diabetes. Depression. MRSA. SURGICAL HISTORY : section. Right BKA. Stents in legs. Blood transfusions. ENCOUNTER: Initial ACUITY: 1 day PAIN SCORE: Nonresponsive. LOCATION: Bilateral upper quadrant MEASUREMENTS: LIVER: 11.6 cm length COMMON DUCT: 5 mm RIGHT KIDNEY: 10.0 x 4.0 x 4.5 cm SPLEEN: 9.0 cm length FINDINGS: Study is suboptimal due to overlying bowel gas. LIVER: Normal echotexture without focal lesion or ductal dilatation. The liver is increased in echogenicity . COMMON DUCT: No intraluminal mass or stone visualized. GALLBLADDER: There is a single nonmobile gallstone in the region of the neck measuring up to 1.8 cm with posterior shadowing. There is no definite wall thickening. There is minimal fluid in the right upper quadrant. PANCREAS: The visualized portions are within normal limits. RIGHT KIDNEY: No hydronephrosis, stone or mass. SPLEEN: No focal lesion. CONCLUSION: 1. Cholelithiasis with 1.8 cm gallstone in the region of the neck of the gallbladder which was nonmob ile. There is a small amount of adjacent free fluid. There is no evidence of biliary obstruction. 2. Fatty infiltration of the liver. Ang Moreno MD on January 28, 2017 at 10:21 Board Certified Radiologist. This report was verified electronically.
--- NOTE | 2017-01-28 12:29 | HHI.NPPN ---
Subjective History of Present Illness 61 year old white female with Diabetes, Hypertension, CVA left side weakness, ischemic cardiomyopathy she is here with fever T max 103.2, AMS, abdominal pain , nausea, unable to eat or drink baseline creatinine was 1.08 in June 2016, found to have CHRISTY. Additional Remarks Patient is alert, still not eating, not in distress. Review of Systems General Constitutional: Fatigue Respiratory Lungs: SOB Cardiovascular Cardiac: NOLASCO Objective Data Data 01/27/17 01/28/17 19:00 07:00 Intake Total 1615 ml Output Total 1 ml 900 ml Balance -1 ml 715 ml Intake Oral 0 ml IV Total 1615 ml Output Urine Total 900 ml Stool Total 1 ml # Bowel Movements 1 Vital Signs Date Time Temp Pulse Resp B/P Pulse Ox O2 Delivery O2 Flow Rate FiO2 01/28/17 08:17 98 Nasal Cannula 2.00 01/28/17 06:00 100 01/28/17 04:00 100.9 112 15 173/77 95 01/28/17 04:00 112 01/28/17 02:00 103 01/28/17 00:00 99 26 156/67 99 01/28/17 00:00 96 01/27/17 22:00 96 01/27/17 20:50 99 Nasal Cannula 2.00 01/27/17 20:00 98.6 100 19 153/69 100 01/27/17 20:00 100 01/27/17 18:30 103 23 161/75 100 01/27/17 18:00 91 01/27/17 16:00 98.3 90 22 176/68 99 01/27/17 16:00 97 01/27/17 13:02 98.8 92 18 137/75 96 Nasal Cannula 2 -: 01/28/17 0339 01/28/17 0339 Microbiology 01/27/17 Aerobic Blood Culture - Preliminary, Resulted NO GROWTH IN 1 DAY 01/27/17 Anaerobic Blood Culture - Preliminary, Resulted NO GROWTH IN 1 DAY Physical Exam General Appearance: No Acute Distress, Comfortable Eyes Eye Exam: Pupils Equal Throat Throat Exam: Oral Mucosa [place] & Moist Pulmonary Resp Exam: Breath Sounds Equal, No Distress, Rhonchi, Decreased Bases Cardiology CV Exam: Regular, Normal Sinus Rhythm Gastrointestinal/Abdomen GI Exam: Soft, Non-Tender, Bowel Sounds Present Extremeties Extremities Exam: No Edema (Rt. BKA.) Neurologic Neuro Exam: Alert, Awake Psychiatric Psych Exam: Appropriate Responses Assessment/Plan Problem List: (1) Acute renal failure Plan: She has dehydration due to sepsis etiology of sepsis, UTI VS Other source BC/UC pending Hydrate and follow renal functions Lipase is normal. Creatinine now improving. Continue IVF and antibiotics. (2) CKD (chronic kidney disease) stage 3, GFR 30-59 ml/min Plan: stable (3) Diabetes Plan: stable (4) Hypertension Plan: follow BP in ICU (5) Cholelithiasis Plan: follow lipase Problem Qualifiers (1) Diabetes: Salazar Mcgill MD January 28, 2017 12:29
[2017-01-29] VITALS (26 sets, daily range): BP systolic 139–164; BP diastolic 63–72; PULSE 81–101; RESP 8–33; TEMP 98.1–99.7; O2SAT 85–99
[2017-01-29] MEDS: SODIUM CHLOR 0.45% 1000 ML INJ 1,000 ML IV SCH ×3 (00:12→15:51)
[2017-01-29] MEDS: PIPERACIL-TAZO 2.25 GM PREMIX 50 ML IV SCH ×2 (00:13→08:45)
[2017-01-29] MEDS: INSULIN NovoLIN REGULAR SUPPLEMENTAL SCALE SQ SCH ×4 (02:00→22:10)
[2017-01-29] MEDS: LABETALOL HCL 100 MG/20 ML VIAL IV PUSH PRN ×2 (03:06→05:40)
[2017-01-29 05:24] LABS: AUTOMATED NEUTROPHIL # 25.7 TH/MM3 (1.8-7.7); EOSINOPHIL % 0.1 % (0.0-4.0); HEMATOCRIT 27.7 % (35.0-46.0); LYMPH % 4.5 % (9.0-44.0); LYMPHOCYTE # 1.2 TH/MM3 (1.0-4.8); MEAN CORPUSCULAR HEMOGLOBIN 29.7 PG (27.0-34.0); MEAN CORPUSCULAR HGB CONC 33.7 % (32.0-36.0); MONO % 2.4 % (0.0-8.0); PLATELET COUNT 176 TH/MM3 (150-450); RED BLOOD COUNT 3.15 MIL/MM3 (4.00-5.30); WHITE BLOOD COUNT 27.6 TH/MM3 (4.0-11.0)
[2017-01-29 05:37] LABS: HEMO FLAGS AUTO DIFF
[2017-01-29 05:40] LABS: ALKALINE PHOSPHATASE 413 U/L (45-117); ALT (GPT) 40 U/L (10-53); ANION GAP 9 MEQ/L (5-15); AST (GOT) 192 U/L (15-37); BICARBONATE 21.4 MEQ/L (21.0-32.0); BLOOD UREA NITROGEN 32 MG/DL (7-18); CHLORIDE 111 MEQ/L (98-107); GLOMERULAR FILTRATION RATE 40 ML/MIN (>89); MAGNESIUM 1.7 MG/DL (1.5-2.5); POTASSIUM 3.2 MEQ/L (3.5-5.1); SODIUM (NA) 141 MEQ/L (136-145); TOTAL BILIRUBIN ADULT 0.2 MG/DL (0.2-1.0)
[2017-01-29] MEDS: RESP: ALBUTEROL 2.5 MG/IPRATROPIUM 0.5 MG NEB (SCH) INH ×3 (08:13→20:34)
[2017-01-29] MEDS: hydrALAZINE HCL 20 MG/ML VIAL IV PUSH PRN ×2 (08:44→22:11)
[2017-01-29] MEDS: ASPIRIN 325 MG TAB PO SCH (08:44)
[2017-01-29] MEDS: SENNOSIDES SYRUP 8.8 MG/5 ML CUP PO SCH (08:44)
[2017-01-29] MEDS: DOCUSATE SODIUM 100 MG/10 ML UDC PO SCH ×2 (08:44→22:09)
[2017-01-29] MEDS: PANTOPRAZOLE SODIUM 40 MG VIAL IV SCH (08:44)
[2017-01-29] MEDS: HEPARIN SODIUM - SQ 10,000 UNITS/ML VIAL SQ SCH ×2 (08:44→22:09)
[2017-01-29] MEDS: HYDROmorphone HCL PF 1 MG/ML VIAL IV PUSH PRN ×4 (08:45→22:31)
[2017-01-29 09:56] LABS: BANDS 25 % (0-6); NEUTROPHIL # MANUAL DIFF 25.7 TH/MM3 (1.8-7.7); POLYS (SEG NEUTROPHILS) 68 % (16-70); WBC DIFF SAMPLE 100
[2017-01-29 09:59] LABS: ACANTHOCYTES 1+ (NORMAL); DOHLE BODIES PRESENT (NONE SEEN)
[2017-01-29 10:00] LABS: PLATELET ESTIMATE SMEAR NORMAL (NORMAL); PLATELET MORPHOLOGY NORMAL (NORMAL); SCAN/DIFF FINAL DIFF MANUAL
[2017-01-29] MEDS ORDERED: VANCOMYCIN 1,000 MG/NS 250 ML IV ONE ×2 (12:30)
--- NOTE | 2017-01-29 12:34 | HHI.NPPN ---
Subjective History of Present Illness 61 year old white female with Diabetes, Hypertension, CVA left side weakness, ischemic cardiomyopathy she is here with fever T max 103.2, AMS, abdominal pain , nausea, unable to eat or drink baseline creatinine was 1.08 in June 2016, found to have CHRISTY. Additional Remarks Patient is alert, still not eating, has mild abd. pain. Review of Systems General Constitutional: Fatigue Respiratory Lungs: SOB Cardiovascular Cardiac: NOLASCO Objective Data Data 01/28/17 01/29/17 19:00 07:00 Intake Total 1635 ml 1795 ml Output Total 550 ml 700 ml Balance 1085 ml 1095 ml Intake Oral 400 ml 175 ml IV Total 1235 ml 1620 ml Output Urine Total 550 ml 700 ml # Bowel Movements 1 3 Vital Signs Date Time Temp Pulse Resp B/P Pulse Ox O2 Delivery O2 Flow Rate FiO2 01/29/17 08:13 95 Nasal Cannula 2.00 01/29/17 06:00 82 01/29/17 04:00 99.7 87 20 154/67 94 01/29/17 04:00 87 01/29/17 02:00 90 01/29/17 00:00 98.1 97 16 152/67 95 01/29/17 00:00 97 01/28/17 22:00 103 01/28/17 21:17 97 Nasal Cannula 1.50 01/28/17 20:33 16 01/28/17 20:00 103 01/28/17 20:00 97.9 103 28 184/83 96 01/28/17 16:00 88.2 102 41 175/91 95 01/28/17 15:31 102 36 161/79 96 01/28/17 15:01 100 38 114/67 95 01/28/17 15:00 100 38 94 01/28/17 14:31 109 31 164/86 95 01/28/17 14:00 106 17 155/70 96 01/28/17 13:30 112 25 174/79 96 01/28/17 13:00 107 21 165/73 97 -: 01/29/17 0429 01/29/17428 Physical Exam General Appearance: No Acute Distress, Comfortable Eyes Eye Exam: Pupils Equal Throat Throat Exam: Oral Mucosa [place] & Moist Pulmonary Resp Exam: Breath Sounds Equal, No Distress, Rhonchi, Decreased Bases Cardiology CV Exam: Regular, Normal Sinus Rhythm Gastrointestinal/Abdomen GI Exam: Soft, Non-Tender, Bowel Sounds Present Extremeties Extremities Exam: No Edema (Rt. BKA.) Neurologic Neuro Exam: Alert, Awake Psychiatric Psych Exam: Appropriate Responses Assessment/Plan Problem List: (1) Acute renal failure Plan: She has dehydration due to sepsis etiology of sepsis, UTI VS Other source BC/UC pending Hydrate and follow renal functions Lipase is normal. Continue IVF and antibiotics. Creatinine continue to improve. Encourage oral intake. D/W daughter at bed side. (2) CKD (chronic kidney disease) stage 3, GFR 30-59 ml/min Plan: stable (3) Diabetes Plan: stable (4) Hypertension Plan: follow BP in ICU (5) Cholelithiasis Plan: follow lipase Problem Qualifiers (1) Diabetes: Salazar Mcgill MD January 29, 2017 12:34
[2017-01-29] MEDS: MAGNESIUM SULFATE 1 GM PREMIX 100 ML IV SCH ×2 (13:58→15:50)
[2017-01-29] MEDS: PIPERACIL-TAZO 3.375 GM PREMIX 50 ML IV SCH ×2 (13:58→22:09)
[2017-01-29] MEDS ORDERED: POTASSIUM CHLORIDE 10 MEQ CONTROLLED RELEASE TAB PO ONE (14:00)
--- NOTE | 2017-01-29 15:39 | HHI.CCPN ---
Subjective Remarks/Hospital Course The patient is a 62 year-old female with past medical history of hypertension, diabetes mellitus, cerebrovascular accident in 2014, dyslipidemia, who presents from nursing facility with fever and altered mental status. She was found to have a temperature of 101.4 was brought in by paramedics and 103.4 rectally. When she arrived initially she was obtunded and unable to give any history secondary to her mental status. A CT scan of the brain was obtained which showed old lacunar infarct in the left basilar ganglia, stable compared to previous studies. No acute intracranial abnormalities identified. The patient was tachycardic, however, her blood pressure was 124/85. Her laboratory data is significant for lactic acid of 3.1, acute renal failure with a blood urea nitrogen of 43, creatinine of 3.13 respectively and leukocytosis with a white blood cell of 27.5. Her urinalysis was compatible with urinary tract infection. Chest x-ray in the emergency room showed under inflation of mild airspace opacity under right lung base with appearance favoring atelectasis over consolidation. In the emergency department she was given two liters of Crystalloids in addition to Vancomycin and Zosyn, she also received a Tylenol suppository 650 mg p.o. times one. After fluid resuscitation, the patients mental status improved and currently she is awake and alert. She reports abdominal pain associated with nausea and vomiting and decreased p.o. intake. She denies any chest pain, shortness of breath, cough, her lactic acid level measured at 3.1. 01/28: MAXIMUM TEMPERATURE 100.9 Hypertensive overnight. On nasal cannula. Remains confused. BM 1. Subjective 01/29: Tmax 99.8. Still complaining of diffuse abdominal pain. Positive BM. Gretchen on 2 L nasal cannula. Creatinine much improved. Objective Vital Signs Date Time Temp Pulse Resp B/P Pulse Ox O2 Delivery O2 Flow Rate FiO2 01/29/17 08:13 95 Nasal Cannula 2.00 01/29/17 06:00 82 01/29/17 04:00 99.7 20 154/67 Intake and Output 01/28/17 01/28/17 01/29/17 08:00 16:00 00:00 Intake Total 835 ml 1635 ml 895 ml Output Total 400 ml 550 ml 400 ml Balance 435 ml 1085 ml 495 ml Result Diagram: 01/29/17 0429 01/29/17 0429 Other Results Microbiology Date/Time Procedure Status Source Growth 01/27/17 15:10 Aerobic Blood Culture - Preliminary Resulted Blood Peripheral NO GROWTH IN 2 DAYS 01/27/17 15:10 Anaerobic Blood Culture - Preliminary Resulted Blood Peripheral NO GROWTH IN 2 DAYS 01/27/17 10:55 Urine Culture - Final Complete Urine Catheterized Urine NO GROWTH IN 48 HOURS. Imaging Last Impressions Liver Ultrasound 01/28/17 0000 Signed Impressions: Service Date/Time: Saturday, January 28, 2017 09:20 - CONCLUSION: 1. Cholelithiasis with 1.8 cm gallstone in the region of the neck of the gallbladder which was nonmobile. There is a small amount of adjacent free fluid. There is no evidence of biliary obstruction. 2. Fatty infiltration of the liver. Ang Moreno MD Head CT 01/27/17 1052 Signed Impressions: Service Date/Time: Friday, January 27, 2017 11:26 - CONCLUSION: 1. Old lacunar infarct in the left basal ganglia stable compared to previous dated 01/04/14. 2. No acute intracranial abnormality identified. Christopher Painting MD Chest X-Ray 01/27/17 0803 Signed Impressions: Service Date/Time: Friday, January 27, 2017 08:38 - CONCLUSION: Underinflation of mild airspace opacity at the right lung base with appearance favoring atelectasis over consolidation. Willy Suh MD Abdomen/Pelvis CT 01/27/17 0000 Signed Impressions: Service Date/Time: Friday, January 27, 2017 14:51 - CONCLUSION: Gallstone. Ileus bowel gas pattern. Willy Mackay MD Objective Remarks GENERAL: 61-year-old female, critically ill currently resting in bed in no acute distress SKIN: Warm and dry. No rash HEAD: Atraumatic. Normocephalic. EYES: Pupils equal and round. No scleral icterus. No injection or drainage. ENT: No nasal bleeding or discharge. Mucous membranes pink and moist. NECK: Trachea midline. No JVD. CARDIOVASCULAR: Regular rate and rhythm. S1, S2. No S4. RESPIRATORY: No accessory muscle use. Clear to auscultation. Breath sounds equal bilaterally. GASTROINTESTINAL: Abdomen distended. Hypoactive bowel sounds appreciated. Tender to palpation epigastric region. MUSCULOSKELETAL: Extremities without significant peripheral edema NEUROLOGICAL: Awake and alert. No obvious cranial nerve deficits. Motor grossly within normal limits. Five out of 5 muscle strength in the arms and legs. Normal speech. A/P Assessment and Plan Neuro/Psych: History of left basal ganglia CVA Depression Peripheral neuropathy Insomnia Holding home medication of Percocet unknown dosage Holding home medication Keppra unknown dosage Holding home medication clonazepam unknown dosage Holding melatonin for insomnia Continue aspirin 325 mg by mouth daily. Dilaudid 0.5 mg every 2 hours when necessary for pain management CV: Coronary artery disease - inoperable Ischemic cardiomyopathy ejection fraction 45% Hypertension Dyslipidemia Heart catheterization by Dr. Jordan 07/10 revealed EF 45%. LAD 70%, left circumflex 70 percent, RCA 80%. Not amenable To CABG Holding home medications Zetia 10 mg by mouth daily. Holding home medication atorvastatin unknown dosage daily On aspirin unknown dosage daily at home. Currently on 325 milligrams daily On lisinopril unknown dosage at home. Holding with acute kidney injury As needed labetalol/hydralazine/Nitropaste for hypertension Resp: Nasal cannula to maintain saturations greater than equal to 92% Incentive spirometry while awake Chest x-ray 01/27 revealed bilateral lower lobe atelectasis Bronchodilator therapy due nebs every 6 hours and every 2 hours when necessary dyspnea GI: Ileus Cholelithiasis CT abdomen/pelvis revealed cholelithiasis/ileus Liver ultrasound 01/28 revealed gallstone in neck of gallbladder. Nonmobile. HIDA scan ordered today 01/29 ADA diet Had 4 bowel movement overnight. Protonix for GI prophylaxis Colace/Senokot for bowel regimen Lipase 40 : Quesada for accurate I's and O's in a critically ill patient Endo: Diabetes mellitus neuropathy On Levemir unknown dosage with sliding scale insulin as nursing him. Sliding scale insulin Accu-Cheks every 6 hours to maintain euglycemia/low regimen Renal: Acute on chronic kidney injury Seen by nephrology. Creatinine currently turning downward 1.34 No indications for hemodialysis at this time. Switch fluids to half normal saline at 75 cc an hour with elevated sodium Heme: Leukocytosis with bandemia Normocytic anemia Follow CBC daily. Monitor trends Gallbladder etiology questionable ID: Urinary tract infection Day #3 Zosyn/vancomycin Pertinent cultures 01/27 - urine culture -no growth 01/27 - blood cultures 2 -no growth FEN: Hypopotassemia Replace electrolytes as clinically indicated Switch IV fluids to half normal saline. Potassium 30 mEq by mouth 1 see orders MSK: Access - Utilize peripheral IV. Central line if indicated Prophylaxis - GI - Protonix - DVT - SCD/heparin subcutaneous Critical Care: The total care time was 35 minutes. Time to perform other separately billable procedures was not included in the critical care time. Milind Morales MD January 29, 2017 15:39
[2017-01-29] MEDS: POTASSIUM CHLOR 10 MEQ PREMIX 100 ML IV SCH ×3 (15:52→18:41)
--- NOTE | 2017-01-29 17:37 | RADRPT ---
EXAM DATE/TIME: 01/29/2017 16:30 [facility] COMPARISON: No previous studies available for comparison. INDICATIONS : Nasogastric tube placement. MEDICAL HISTORY : Hypercholesterolemia. Arthritis. Hypertension. SURGICAL HISTORY : section. ENCOUNTER: Subsequent ACUITY: 4 - 6 days PAIN SCORE: 10/10 LOCATION: Bilateral Abdomen FINDINGS: Supine view of the abdomen was performed. The abdominal bowel gas pattern again reveals gaseous dist ention of small and large bowel. No abnormal masses, calcifications, or organomegaly is seen. The os seous structures are unremarkable except for advanced degenerative changes in the lumbar spine. CONCLUSION: 1. NG tube in stomach. Stable ileus. Mal Moore MD on January 29, 2017 at 17:34 Board Certified Radiologist. This report was verified electronically.
--- NOTE | 2017-01-29 17:37 | RADRPT ---
EXAM DATE/TIME: 01/29/2017 15:39 [facility] COMPARISON: CT ABDOMEN & PELVIS W/O CONTRAST, January 27, 2017, 14:51. INDICATIONS : Evaluate for obstruction. MEDICAL HISTORY : Hypercholesterolemia. Inflammatory bowel disease. CVA. HTN. Osteoporosis. Diabetes. SURGICAL HISTORY : section. ENCOUNTER: Initial ACUITY: 3 days PAIN SCORE: 9/10 LOCATION: Bilateral abdomen. FINDINGS: There is gaseous distention of large bowel and small bowel in a pattern similar to prior CT from January 27. No free air identified. CONCLUSION: 1. Gaseous distention of bowel similar to January [address] equity research associate film from [address]. Findings most characteristic of i leus. Mal Moore MD on January 29, 2017 at 17:31 Board Certified Radiologist. This report was verified electronically.
[2017-01-29] MEDS: CHLORHEXIDINE GLUCONATE 2 % 1 PACK (2 CLOTHS) TOP SCH (22:09)
[2017-01-30] VITALS (13 sets, daily range): BP systolic 146–189; BP diastolic 66–84; PULSE 71–106; RESP 12–20; TEMP 98.2–99; O2SAT 92–96
[2017-01-30] MEDS: HYDROmorphone HCL PF 1 MG/ML VIAL IV PUSH PRN ×5 (01:39→23:06)
[2017-01-30] MEDS: PIPERACIL-TAZO 3.375 GM PREMIX 50 ML IV SCH ×4 (01:40→21:32)
[2017-01-30] MEDS: INSULIN NovoLIN REGULAR SUPPLEMENTAL SCALE SQ SCH ×4 (01:54→20:00)
[2017-01-30] MEDS: SODIUM CHLOR 0.45% 1000 ML INJ 1,000 ML IV SCH ×2 (04:05→16:38)
[2017-01-30] MEDS: RESP: ALBUTEROL 2.5 MG/IPRATROPIUM 0.5 MG NEB (SCH) INH ×4 (04:08→22:51)
[2017-01-30 04:36] LABS: AUTOMATED NEUTROPHIL # 28.9 TH/MM3 (1.8-7.7); BASOPHIL % 0.1 % (0.0-2.0); EOSINOPHIL # 0.1 TH/MM3 (0-0.4); EOSINOPHIL % 0.4 % (0.0-4.0); HEMATOCRIT 27.2 % (35.0-46.0); LYMPH % 3.9 % (9.0-44.0); LYMPHOCYTE # 1.2 TH/MM3 (1.0-4.8); MEAN CELL VOLUME 88.1 FL (80.0-100.0); MEAN CORPUSCULAR HEMOGLOBIN 29.6 PG (27.0-34.0); MEAN CORPUSCULAR HGB CONC 33.6 % (32.0-36.0); MONO % 2.9 % (0.0-8.0); NEUT % 92.7 % (16.0-70.0); PLATELET COUNT 172 TH/MM3 (150-450); RED BLOOD COUNT 3.08 MIL/MM3 (4.00-5.30); WHITE BLOOD COUNT 31.3 TH/MM3 (4.0-11.0)
[2017-01-30 04:41] LABS: HEMO FLAGS AUTO DIFF
[2017-01-30 05:11] LABS: ALKALINE PHOSPHATASE 334 U/L (45-117); ALT (GPT) 43 U/L (10-53); ANION GAP 9 MEQ/L (5-15); AST (GOT) 201 U/L (15-37); BICARBONATE 20.6 MEQ/L (21.0-32.0); BLOOD UREA NITROGEN 23 MG/DL (7-18); CHLORIDE 109 MEQ/L (98-107); GLOMERULAR FILTRATION RATE 47 ML/MIN (>89); MAGNESIUM 1.9 MG/DL (1.5-2.5); POTASSIUM 3.3 MEQ/L (3.5-5.1); SODIUM (NA) 139 MEQ/L (136-145); TOTAL BILIRUBIN ADULT 0.3 MG/DL (0.2-1.0)
[2017-01-30] MEDS: POTASSIUM CHLOR 20 MEQ PREMIX 100 ML IV SCH ×2 (05:47→09:50)
[2017-01-30] MEDS ORDERED: SODIUM CHLORIDE IV ONE ×2 (06:00)
[2017-01-30] MEDS ORDERED: SODIUM PHOSPHATE IV ONE ×2 (06:00)
--- NOTE | 2017-01-30 06:01 | RADRPT ---
EXAM DATE/TIME: 01/30/2017 05:04 [facility] COMPARISON: ABDOMEN KUB ONLY, January 29, 2017, 16:30. INDICATIONS : Abdominal pain. MEDICAL HISTORY : Hypercholesterolemia. Arthritis. Hypertension SURGICAL HISTORY : section. ENCOUNTER: Subsequent ACUITY: 3 days PAIN SCORE: Non-responsive. LOCATION: Bilateral chest FINDINGS: A single portable supine view of the abdomen in the frontal projection shows no interval change. Gas- distention of the colon is noted. No significant small bowel dilatation observed on the current study . Scoliotic curvature. No organomegaly. Stomach is decompressed with an NG tube. Scoliotic curvature of the spine. CONCLUSION: Unchanged gaseous distention of the colon. Jc Ortiz Jr., MD on January 30, 2017 at 5:58 Board Certified Radiologist. This report was verified electronically.
[2017-01-30 07:03] LABS: BANDS 14 % (0-6); METAMYELOCYTES 1 % (0-1); POLYS (SEG NEUTROPHILS) 81 % (16-70); WBC DIFF SAMPLE 100
[2017-01-30 07:04] LABS: ACANTHOCYTES 1+ (NORMAL)
[2017-01-30 07:05] LABS: KERATOCYTES OCC (NORMAL); TOXIC VACUOLATION PRESENT (NONE SEEN)
[2017-01-30 07:06] LABS: OVALOCYTES 1+ (NORMAL); PLATELET MORPHOLOGY NORMAL (NORMAL); SCAN/DIFF FINAL DIFF MANUAL
[2017-01-30] MEDS: DOCUSATE SODIUM 100 MG/10 ML UDC PO SCH ×2 (07:38→21:00)
[2017-01-30] MEDS: SENNOSIDES SYRUP 8.8 MG/5 ML CUP PO SCH (07:38)
[2017-01-30] MEDS: LABETALOL HCL 100 MG/20 ML VIAL IV PUSH PRN ×4 (09:50→21:34)
[2017-01-30] MEDS: PANTOPRAZOLE SODIUM 40 MG VIAL IV SCH (09:50)
[2017-01-30] MEDS: HEPARIN SODIUM - SQ 10,000 UNITS/ML VIAL SQ SCH (09:50)
[2017-01-30] MEDS: ASPIRIN 325 MG TAB PO SCH (09:51)
[2017-01-30] MEDS ORDERED: MAGNESIUM SULFATE INJ 4 GM in SODIUM CHLORIDE 0.9% INJ 92 ML IV PRN (10:30)
[2017-01-30] MEDS ORDERED: POTASSIUM PHOSPHATE MONOBASIC 500 MG TAB PO PRN (10:30)
[2017-01-30] MEDS ORDERED: SODIUM PHOSPHATE INJ 30 MMOL in SODIUM CHLOR 0.9% 250 ML INJ 240 ML IV PRN (10:30)
[2017-01-30] MEDS ORDERED: POTASSIUM PHOSPHATE MONOBASIC 500 MG TAB PO/TUBE PRN (10:30)
[2017-01-30] MEDS ORDERED: POTASSIUM CHLOR 40 MEQ PREMIX 100 ML IV PRN ×2 (10:30)
[2017-01-30] MEDS ORDERED: MAGNESIUM OXIDE 400 MG TAB PO PRN (10:30)
[2017-01-30] MEDS ORDERED: POTASSIUM CHLORIDE 25 MEQ EFFERVESCENT TAB PO PRN (10:30)
[2017-01-30] MEDS ORDERED: POTASSIUM CHLOR 20 MEQ PREMIX 100 ML IV PRN (10:30)
[2017-01-30] MEDS ORDERED: MAGNESIUM SULFATE INJ 2 GM in SODIUM CHLORIDE 0.9% INJ 96 ML IV PRN (10:30)
--- NOTE | 2017-01-30 10:39 | HHI.CCPN ---
Subjective Remarks/Hospital Course The patient is a 62 year-old female with past medical history of hypertension, diabetes mellitus, cerebrovascular accident in 2014, dyslipidemia, who presents from nursing facility with fever and altered mental status. She was found to have a temperature of 101.4 was brought in by paramedics and 103.4 rectally. When she arrived initially she was obtunded and unable to give any history secondary to her mental status. A CT scan of the brain was obtained which showed old lacunar infarct in the left basilar ganglia, stable compared to previous studies. No acute intracranial abnormalities identified. The patient was tachycardic, however, her blood pressure was 124/85. Her laboratory data is significant for lactic acid of 3.1, acute renal failure with a blood urea nitrogen of 43, creatinine of 3.13 respectively and leukocytosis with a white blood cell of 27.5. Her urinalysis was compatible with urinary tract infection. Chest x-ray in the emergency room showed under inflation of mild airspace opacity under right lung base with appearance favoring atelectasis over consolidation. In the emergency department she was given two liters of Crystalloids in addition to Vancomycin and Zosyn, she also received a Tylenol suppository 650 mg p.o. times one. After fluid resuscitation, the patients mental status improved and currently she is awake and alert. She reports abdominal pain associated with nausea and vomiting and decreased p.o. intake. She denies any chest pain, shortness of breath, cough, her lactic acid level measured at 3.1. 01/28: MAXIMUM TEMPERATURE 100.9 Hypertensive overnight. On nasal cannula. Remains confused. BM 1. Subjective 01/29: Tmax 99.8. Still complaining of diffuse abdominal pain. Positive BM. Gretchen on 2 L nasal cannula. Creatinine much improved. 01/30 No acute events overnight. For HIDA scan. Renal function continue to improve with Cr: 1.17 today from 1.34. Objective Vital Signs Date Time Temp Pulse Resp B/P Pulse Ox O2 Delivery O2 Flow Rate FiO2 01/30/17 08:45 95 01/30/17 06:00 93 01/30/17 04:36 16 01/30/17 04:00 98.2 169/79 01/29/17 08:13 Nasal Cannula 2.00 Intake and Output 01/29/17 01/29/17 01/30/17 08:00 16:00 00:00 Intake Total 900 ml 1650 ml 1255 ml Output Total 300 ml 350 ml 410 ml Balance 600 ml 1300 ml 845 ml Result Diagram: 01/30/17 0358 01/30/17 0358 Other Results Laboratory Tests Test 01/30/17 01/30/17 03:55 03:58 Lactic Acid Level 1.1 mmol/L White Blood Count 31.3 TH/MM3 Red Blood Count 3.08 MIL/MM3 Hemoglobin 9.1 GM/DL Hematocrit 27.2 % Mean Corpuscular Volume 88.1 FL Mean Corpuscular Hemoglobin 29.6 PG Mean Corpuscular Hemoglobin 33.6 % Concent Red Cell Distribution Width 13.0 % Platelet Count 172 TH/MM3 Mean Platelet Volume 10.1 FL Neutrophils (%) (Auto) 92.7 % Lymphocytes (%) (Auto) 3.9 % Monocytes (%) (Auto) 2.9 % Eosinophils (%) (Auto) 0.4 % Basophils (%) (Auto) 0.1 % Neutrophils # (Auto) 28.9 TH/MM3 Lymphocytes # (Auto) 1.2 TH/MM3 Monocytes # (Auto) 0.9 TH/MM3 Eosinophils # (Auto) 0.1 TH/MM3 Basophils # (Auto) 0.0 TH/MM3 CBC Comment AUTO DIFF Differential Total Cells 100 Counted Neutrophils % (Manual) 81 % Band Neutrophils % 14 % Lymphocytes % 2 % Monocytes % 2 % Neutrophils # (Manual) 30.0 TH/MM3 Metamyelocytes 1 % Differential Comment FINAL DIFF MANUAL Toxic Vacuolation PRESENT Platelet Morphology Comment NORMAL Ovalocytes 1+ Acanthocytes 1+ Keratocytes OCC Sodium Level 139 MEQ/L Potassium Level 3.3 MEQ/L Chloride Level 109 MEQ/L Carbon Dioxide Level 20.6 MEQ/L Anion Gap 9 MEQ/L Blood Urea Nitrogen 23 MG/DL Creatinine 1.17 MG/DL Estimat Glomerular Filtration 47 ML/MIN Rate Random Glucose 192 MG/DL Calcium Level 8.1 MG/DL Phosphorus Level 1.5 MG/DL Magnesium Level 1.9 MG/DL Total Bilirubin 0.3 MG/DL Aspartate Amino Transf 201 U/L (AST/SGOT) Alanine Aminotransferase 43 U/L (ALT/SGPT) Alkaline Phosphatase 334 U/L Total Protein 5.4 GM/DL Albumin 1.7 GM/DL Lipase 46 U/L Imaging Last Impressions Abdomen X-Ray 01/30/17 0600 Signed Impressions: Service Date/Time: Monday, January 30, 2017 05:04 - CONCLUSION: Unchanged gaseous distention of the colon. Jc Ortiz Jr., MD Liver Ultrasound 01/28/17 0000 Signed Impressions: Service Date/Time: Saturday, January 28, 2017 09:20 - CONCLUSION: 1. Cholelithiasis with 1.8 cm gallstone in the region of the neck of the gallbladder which was nonmobile. There is a small amount of adjacent free fluid. There is no evidence of biliary obstruction. 2. Fatty infiltration of the liver. Ang Moreno MD Head CT 01/27/17 1052 Signed Impressions: Service Date/Time: Friday, January 27, 2017 11:26 - CONCLUSION: 1. Old lacunar infarct in the left basal ganglia stable compared to previous dated 01/04/14. 2. No acute intracranial abnormality identified. Christopher Painting MD Chest X-Ray 01/27/17 0803 Signed Impressions: Service Date/Time: Friday, January 27, 2017 08:38 - CONCLUSION: Underinflation of mild airspace opacity at the right lung base with appearance favoring atelectasis over consolidation. Willy Suh MD Abdomen/Pelvis CT 01/27/17 0000 Signed Impressions: Service Date/Time: Friday, January 27, 2017 14:51 - CONCLUSION: Gallstone. Ileus bowel gas pattern. Willy Mackay MD Objective Remarks GENERAL: 61-year-old female, critically ill currently resting in bed in no acute distress SKIN: Warm and dry. No rash HEAD: Atraumatic. Normocephalic. EYES: Pupils equal and round. No scleral icterus. No injection or drainage. ENT: No nasal bleeding or discharge. Mucous membranes pink and moist. NECK: Trachea midline. No JVD. CARDIOVASCULAR: Regular rate and rhythm. S1, S2. No S4. RESPIRATORY: No accessory muscle use. Clear to auscultation. Breath sounds equal bilaterally. GASTROINTESTINAL: Abdomen distended. Hypoactive bowel sounds appreciated. Tender to palpation epigastric region. MUSCULOSKELETAL: Extremities without significant peripheral edema NEUROLOGICAL: Awake and alert. No obvious cranial nerve deficits. Motor grossly within normal limits. Five out of 5 muscle strength in the arms and legs. Normal speech. A/P Assessment and Plan Neuro/Psych: History of left basal ganglia CVA Depression Peripheral neuropathy Insomnia Monitor neuro status and avoid any sedatives Continue aspirin 325 mg by mouth daily. Dilaudid 0.5 mg every 2 hours when necessary for pain management CV: Coronary artery disease - inoperable Ischemic cardiomyopathy ejection fraction 45% Hypertension Dyslipidemia Monitor HR and BP keep MAP>65mmHg. Place on Lopressor 50mg Q12 for rate control. Heart catheterization by Dr. Jordan 07/10 revealed EF 45%. LAD 70%, left circumflex 70 percent, RCA 80%. Not amenable To CABG On ASA 325 milligrams daily As needed labetalol/hydralazine/Nitropaste for hypertension Resp: Continue with oxygen keep sat > 92% Incentive spirometry while awake, check CXR today Chest x-ray 01/27 revealed bilateral lower lobe atelectasis Bronchodilator therapy due nebs every 6 hours and every 2 hours when necessary dyspnea GI: Ileus Cholelithiasis CT abdomen/pelvis revealed cholelithiasis/ileus Liver ultrasound 01/28 revealed gallstone in neck of gallbladder. Nonmobile. For HIDA scan today Keep NPO Protonix for GI prophylaxis Colace/Senokot for bowel regimen KUB this morning showed gaseous distention of colon-unchanged GI eval. Endo: Diabetes mellitus neuropathy On Levemir unknown dosage with sliding scale insulin as nursing him. Sliding scale insulin Accu-Cheks every 6 hours to maintain euglycemia/low regimen Renal: Acute on chronic kidney injury Seen by nephrology. Creatinine improving with Cr: 1.17 today from 1.34 Monitor renal function, I/O's, electrolytes replacement as needed On 1/2NS@75ml/hr Heme: Leukocytosis with bandemia Normocytic anemia Monitor CBC ID: Urinary tract infection Continue abx (Zosyn/vancomycin)monitor for signs of infections ( Fever, WBC) ID eval for worsening leukocytosis Pertinent cultures 01/27 - urine culture -no growth 01/27 - blood cultures 2 -no growth MSK: Access - Utilize peripheral IV. Central line if indicated Prophylaxis - GI - Protonix - DVT - SCD/heparin subcutaneous Level 3 Carlo Tam MD January 30, 2017 10:39
[2017-01-30] MEDS: METOPROLOL TARTRATE 50 MG TAB PO SCH ×2 (10:58→21:32)
--- NOTE | 2017-01-30 11:18 | RADRPT ---
EXAM DATE/TIME: 01/30/2017 10:56 [facility] COMPARISON: CHEST SINGLE AP, January 27, 2017, 8:38. INDICATIONS : Short of breath, atelectasis. MEDICAL HISTORY : None. SURGICAL HISTORY : None. ENCOUNTER: Subsequent ACUITY: 3 days PAIN SCORE: Non-responsive. LOCATION: Bilateral chest FINDINGS: Single view the chest demonstrates generalized interstitial vascular prominence especially within the bases. Subsegmental airspace disease is also noted in both bases. Nasogastric tube is in place. Heart is mildly enlarged. CONCLUSION: Mild pulmonary congestion with bibasilar airspace disease and mild cardiomegaly. Geovanny Yañez MD on January 30, 2017 at 11:15 Board Certified Radiologist. This report was verified electronically.
--- NOTE | 2017-01-30 11:27 | PD.CONS ---
HPI History of Present Illness This is a 61 year old female who was brought to the ER for evaluation of altered mental status and fever. She was noted to have a fever of 103.4 rectally on arrival to the ER. She was admitted for sepsis with leukocytosis and bandemia, respiratory insufficiency, abdominal pain, UTI, acute renal failure, and management of her chronic medical problems. She complained of abdominal pain and Abdomen/Pelvis CT (01/27/17)---> Gallstone. Ileus bowel gas pattern. LFTs were mildly elevated on admission with T. Bilirubin 0.3, AST 67, ALT 32, Alk Phosph 542. Liver US (01/28/17)----> 1. Cholelithiasis with 1.8 cm gallstone in the region of the neck of the gallbladder which was nonmobile. There is a small amount of adjacent free fluid. There is no evidence of biliary obstruction. 2. Fatty infiltration of the liver. She was started on anbiotics, colace, senakot. Repeat Abdomen X-Ray (01/30/17)---> Unchanged gaseous distention of the colon. Her LFTs have also been trending up with a T. Bili of 0.3, AST 201, ALT 43, ALk Phosph 334 today. GI was consulted for colonic ileus and worsening LFTs. Colonoscopy (04/21/15)---> colitis in sigmoid colon. Pathology revealed colonic mucosa with mild lamina propria fibrosis- as can be seen in the setting of early ischemia and mucosal prolapse. She reports that she has been having abdominal pain for the past two months. She states that she was told that this was related to her gallbladder. She states that she did see a surgeon as outpatient, but was told that she was not a candidate for a cholecystectomy because of her heart. It is unclear if the surgeon told her this, or the starting gate driver, but she believes the starting gate driver. She states that she has been having intermittent abdominal pain in her RLQ- she is unable to describe. She has associated bloating and nausea with this. She has tried Gas- X at home, but states it does not work. She also has constipation, but states she does not take anything for this. (Priscila Andrew) PFSH Past Medical History Arthritis Depression DM HTN Peripheral Neuropathy Pancreatitis Colitis Cholelithiasis DM HTN CKD PVD CAD non operable multi vessel disease Ischemic cardiomyopathy Hx UTI Anemia CVA Past Surgical History x 4 Neck Fusion Right BKA Stents in leg (Priscila Andrew) Coded Allergies: *MDRO Multi-Drug Resistant Organism (Verified Allergy, Unknown, 01/26/16) Patient reported H/O MRSA Medications Allergies Coded Allergies Type Severity Reaction Last Updated Verified *MDRO Multi-Drug Resistant Organism Allergy Unknown 01/26/16 Yes Active Scripts Medications Dose Route/Sig Days Date Category Tizanidine (Tizanidine HCl) 4 Mg Cap 4 Mg PO TID 01/27/17 Reported Melatonin 5 Mg Tab 5 Mg PO HS 01/27/17 Reported Family History Significant for both parents having DM Social History No ETOH Smokes a few cigarettes per day, states she is trying to quit. (Priscila Andrew) Review of Systems Constitutional: COMPLAINS OF: Fatigue, Fever, Chills Cardiovascular: DENIES: Chest pain Gastrointestinal: COMPLAINS OF: Abdominal pain, Constipation, Nausea, Swelling of Abdomen, DENIES: Black stools, Bloody stools, Vomiting, Heartburn Musculoskeletal: COMPLAINS OF: Back pain Hematologic/lymphatic: DENIES: Bruising Neurologic: DENIES: Headache Psychiatric: COMPLAINS OF: Confusion (Priscila Andrew) GI Exam Vitals I&O Vital Signs Date Time Temp Pulse Resp B/P Pulse Ox O2 Delivery O2 Flow Rate FiO2 01/30/17 08:45 95 01/30/17 06:00 93 01/30/17 04:36 16 01/30/17 04:00 98.2 94 12 169/79 94 01/30/17 04:00 94 01/30/17 02:00 101 01/30/17 00:00 99.0 100 14 158/70 92 01/30/17 00:00 106 01/29/17 22:00 101 01/29/17 20:00 92 01/29/17 20:00 98.3 92 18 157/71 95 01/29/17 16:00 99.0 90 10 144/64 91 01/29/17 15:30 83 19 151/67 96 01/29/17 15:00 81 19 150/66 97 01/29/17 14:30 85 19 157/70 97 01/29/17 14:01 86 25 152/67 95 01/29/17 14:00 88 33 90 01/29/17 13:30 87 17 150/70 98 01/29/17 13:00 85 17 150/67 98 01/29/17 12:30 87 20 149/69 99 01/29/17 12:00 99.1 83 19 156/69 97 01/29/17 11:30 88 19 148/67 97 01/29/17 11:00 88 13 142/65 97 I/O 01/29/17 01/29/17 01/29/17 01/30/17 01/30/17 01/30/17 07:00 15:00 23:00 07:00 15:00 23:00 Intake Total 900 ml 1650 ml 1255 ml 160 ml Output Total 300 ml 350 ml 410 ml 275 ml Balance 600 ml 1300 ml 845 ml -115 ml Intake Oral 150 ml 400 ml IV Total 750 ml 1250 ml 1255 ml 160 ml Output Urine Total 300 ml 350 ml 400 ml 275 ml Gastric Drainage Total 10 ml # Bowel Movements 2 0 1 2 Imaging Last Impressions Abdomen X-Ray 01/30/17 0600 Signed Impressions: Service Date/Time: Monday, January 30, 2017 05:04 - CONCLUSION: Unchanged gaseous distention of the colon. Jc Ortiz Jr., MD Liver Ultrasound 01/28/17 0000 Signed Impressions: Service Date/Time: Saturday, January 28, 2017 09:20 - CONCLUSION: 1. Cholelithiasis with 1.8 cm gallstone in the region of the neck of the gallbladder which was nonmobile. There is a small amount of adjacent free fluid. There is no evidence of biliary obstruction. 2. Fatty infiltration of the liver. Ang Moreno MD Head CT 01/27/17 1052 Signed Impressions: Service Date/Time: Friday, January 27, 2017 11:26 - CONCLUSION: 1. Old lacunar infarct in the left basal ganglia stable compared to previous dated 01/04/14. 2. No acute intracranial abnormality identified. Christopher Painting MD Chest X-Ray 01/27/17 0803 Signed Impressions: Service Date/Time: Friday, January 27, 2017 08:38 - CONCLUSION: Underinflation of mild airspace opacity at the right lung base with appearance favoring atelectasis over consolidation. Willy Suh MD Abdomen/Pelvis CT 01/27/17 0000 Signed Impressions: Service Date/Time: Friday, January 27, 2017 14:51 - CONCLUSION: Gallstone. Ileus bowel gas pattern. Willy Mackay MD Laboratory Test 01/30/17 01/30/17 03:55 03:58 Lactic Acid Level 1.1 mmol/L White Blood Count 31.3 TH/MM3 Red Blood Count 3.08 MIL/MM3 Hemoglobin 9.1 GM/DL Hematocrit 27.2 % Mean Corpuscular Volume 88.1 FL Mean Corpuscular Hemoglobin 29.6 PG Mean Corpuscular Hemoglobin 33.6 % Concent Red Cell Distribution Width 13.0 % Platelet Count 172 TH/MM3 Mean Platelet Volume 10.1 FL Neutrophils (%) (Auto) 92.7 % Lymphocytes (%) (Auto) 3.9 % Monocytes (%) (Auto) 2.9 % Eosinophils (%) (Auto) 0.4 % Basophils (%) (Auto) 0.1 % Neutrophils # (Auto) 28.9 TH/MM3 Lymphocytes # (Auto) 1.2 TH/MM3 Monocytes # (Auto) 0.9 TH/MM3 Eosinophils # (Auto) 0.1 TH/MM3 Basophils # (Auto) 0.0 TH/MM3 CBC Comment AUTO DIFF Differential Total Cells 100 Counted Neutrophils % (Manual) 81 % Band Neutrophils % 14 % Lymphocytes % 2 % Monocytes % 2 % Neutrophils # (Manual) 30.0 TH/MM3 Metamyelocytes 1 % Differential Comment FINAL DIFF MANUAL Toxic Vacuolation PRESENT Platelet Morphology Comment NORMAL Ovalocytes 1+ Acanthocytes 1+ Keratocytes OCC Sodium Level 139 MEQ/L Potassium Level 3.3 MEQ/L Chloride Level 109 MEQ/L Carbon Dioxide Level 20.6 MEQ/L Anion Gap 9 MEQ/L Blood Urea Nitrogen 23 MG/DL Creatinine 1.17 MG/DL Estimat Glomerular Filtration 47 ML/MIN Rate Random Glucose 192 MG/DL Calcium Level 8.1 MG/DL Phosphorus Level 1.5 MG/DL Magnesium Level 1.9 MG/DL Total Bilirubin 0.3 MG/DL Aspartate Amino Transf 201 U/L (AST/SGOT) Alanine Aminotransferase 43 U/L (ALT/SGPT) Alkaline Phosphatase 334 U/L Total Protein 5.4 GM/DL Albumin 1.7 GM/DL Lipase 46 U/L Date/Time Procedure Status Source Growth 01/27/17 15:10 Aerobic Blood Culture - Preliminary Resulted Blood Peripheral NO GROWTH IN 2 DAYS 01/27/17 15:10 Anaerobic Blood Culture - Preliminary Resulted Blood Peripheral NO GROWTH IN 2 DAYS 01/27/17 10:55 Urine Culture - Final Complete Urine Catheterized Urine NO GROWTH IN 48 HOURS. Physical Examination HEENT: Normocephalic; atraumatic; no jaundice. CHEST: CTA, diminished CARDIAC: RRR ABDOMEN: Soft, mild diffuse abdominal tenderness, worse in RLQ, no hepatosplenomegaly; bowel sounds are present in all four quadrants. EXTREMITIES: Right BKA SKIN: Normal; no rash; no jaundice. ROUTER OPERATOR: No focal deficits; Lethargic and oriented times two, poor historian ( Priscila Andrew) Assessment and Plan Plan ASSESSMENT: - Abdominal pain, Nausea. Abdomen/Pelvis CT (01/27/17)---> Gallstone. Ileus bowel gas pattern. LFTs were mildly elevated on admission with T. Bilirubin 0.3, AST 67, ALT 32, Alk Phosph 542. Liver US (01/28/17)----> 1. Cholelithiasis with 1.8 cm gallstone in the region of the neck of the gallbladder which was nonmobile. There is a small amount of adjacent free fluid. There is no evidence of biliary obstruction. 2. Fatty infiltration of the liver. LFTs have been gradually increasing. Going for HIDA scan today. Vanco/Zosyn - Colonic Ileus. Has hx of constipation. Senokot, Colace. Repeat Abdomen X- Ray (01/30/17)---> Unchanged gaseous distention of the colon. She is passing stool. - Elevated LFTs. Trending up. Does have cholelithiasis in the neck of the GB and there is some fluid around the gallbladder. Likely some degree of cholecystitis. Will await HIDA. ? Cholecystomy tube placement. - Cholelithiasis/? Cholecystitis. 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 Vanco/Zosyn - Anemia, normocytic. 9.1/27.2. - Sepsis, Leukocytosis, Bandemia. ? UTI- No growth 48 hours. BCX pending. Possible biliary. ? Cholecystomy tube. - CHRISTY. Per nephrology - Hx left basal ganglia CVA, Depression, Peripheral neuropathy - CAD, ischemic cardiomyopathy, hyperlipidemia, DM, per primary. PLAN: - NPO - Await HIDA - Start Reglan 5mg IV q8h - SSE x 2 today - Cont. Abx- Zosyn, Vanco - Monitor CBC, CMP - Supportive care - ? Cholecystomy tube placement - Further recommendations to follow based on results of above - Pt seen and examined by Dr. Turner and myself and this note is written on her behalf (Priscila Andrew) Physician Comments seen, examined agree with above HIDA scan shows nonvisualization of gallbladder apparently she was seen by surgery op, unclear what surgeon she saw, was told she is not a candidate for surgery due to multiple medical issues we will ask IR for cholecystostomy tube stool for c diff add falgyl iv for now consider ID consult (Radha Turner MD) Priscila Andrew January 30, 2017 11:27 Radha Turner MD January 30, 2017 15:17
[2017-01-30] MEDS ORDERED: VANCOMYCIN INJ 1,500 MG in SODIUM CHLORID 0.9% 500 ML INJ 500 ML IV SCH (12:00)
[2017-01-30] MEDS: METOCLOPRAMIDE HCL 10 MG/2 ML VIAL IV PUSH SCH ×2 (14:16→21:33)
--- NOTE | 2017-01-30 14:57 | RADRPT ---
EXAM DATE/TIME: 01/30/2017 11:15 This report includes an Addendum and supersedes previous reports for this exam. [facility] COMPARISON: CT ABDOMEN & PELVIS W/O CONTRAST, January 27, 2017, 14:51. INDICATIONS : Cholelithiasis. DOSE: 4.2 mCi Tc99m Mebrofenin IV MEDICAL HISTORY : Renal insufficiency. Hypertension. Diabetes mellitus type 2. Smoker. CVA. SURGICAL HISTORY : section. Right BKA. ENCOUNTER: Initial ACUITY: 2 days PAIN SCALE: 0/10 LOCATION: Bilateral upper quadrant TECHNIQUE: Following the intravenous administration of radiotracer, dynamic sequential images were performed wit h continuous acquisition. FINDINGS: Activity seen in the intrahepatic ducts and common duct within 10 minutes. There is moderate biliary enteric reflux. There is nonvisualization of gallbladder 2 hours. Findings would be consistent wit h either acute or chronic cholecystitis. CONCLUSION: Nonvisualization of the gallbladder 2 hours. Patient does have gallstones in a prom inent gallbladder. Krystian Painting MD FACR on January 30, 2017 at 14:54 Board Certified Radiologist. This report was verified electronically. ADDENDUM: 20 hour delayed imaging of the hepatobiliary system continues to demonstrate nonvisualization of the gallbladder characteristic of cystic duct obstruction. Geovanny Yañez MD on January 31, 2017 at 9:07 Board Certified Radiologist. This report was verified electronically.
--- NOTE | 2017-01-30 15:01 | HHI.NPPN ---
Subjective History of Present Illness 61 year old white female with Diabetes, Hypertension, CVA left side weakness, ischemic cardiomyopathy she is here with fever T max 103.2, AMS, abdominal pain , nausea, unable to eat or drink baseline creatinine was 1.08 in June 2016, found to have CHRISTY. Additional Remarks Patient is alert, still not eating, has mild abd. pain. Review of Systems General Constitutional: Fatigue Respiratory Lungs: SOB Cardiovascular Cardiac: [place] Objective Data Data 01/29/17 01/30/17 19:00 07:00 Intake Total 1650 ml 1415 ml Output Total 350 ml 685 ml Balance 1300 ml 730 ml Intake Oral 400 ml IV Total 1250 ml 1415 ml Output Urine Total 350 ml 675 ml Gastric Drainage Total 10 ml # Bowel Movements 0 3 Vital Signs Date Time Temp Pulse Resp B/P Pulse Ox O2 Delivery O2 Flow Rate FiO2 01/30/17 12:00 82 01/30/17 10:00 90 01/30/17 08:45 95 01/30/17 08:00 98.3 94 18 166/77 94 01/30/17 08:00 94 01/30/17 06:00 93 01/30/17 04:36 16 01/30/17 04:00 98.2 94 12 169/79 94 01/30/17 04:00 94 01/30/17 02:00 101 01/30/17 00:00 99.0 100 14 158/70 92 01/30/17 00:00 106 01/29/17 22:00 101 01/29/17 20:00 92 01/29/17 20:00 98.3 92 18 157/71 95 01/29/17 16:00 99.0 90 10 144/64 91 01/29/17 15:30 83 19 151/67 96 01/29/17 15:00 81 19 150/66 97 -: 01/30/17 0358 01/30/17 0358 Physical Exam General Appearance: No Acute Distress, Comfortable Eyes Eye Exam: Pupils Equal Throat Throat Exam: Oral Mucosa [place] & Moist Pulmonary Resp Exam: Breath Sounds Equal, No Distress, Rhonchi, Decreased Bases Cardiology CV Exam: Regular, Normal Sinus Rhythm Gastrointestinal/Abdomen GI Exam: Soft, Non-Tender, Bowel Sounds Present Extremeties Extremities Exam: No Edema (Rt. BKA.) Neurologic Neuro Exam: Alert, Awake Psychiatric Psych Exam: Appropriate Responses Assessment/Plan Problem List: (1) Acute renal failure Plan: She has dehydration due to sepsis etiology of sepsis, UTI VS Other source BC/UC negative Hydrate and follow renal functions K replaced Cr 1.17 Continue IVF and antibiotics. Creatinine continue to improve. Encourage oral intake. Renal to follow as needed (2) CKD (chronic kidney disease) stage 3, GFR 30-59 ml/min Plan: stable (3) Diabetes Plan: stable (4) Hypertension Plan: follow BP in ICU (5) Cholelithiasis Plan: follow lipase Problem Qualifiers (1) Diabetes: Salome Knowles MD January 30, 2017 15:01
[2017-01-30] MEDS ORDERED: metroNIDAZOLE 500 MG INJ 100 ML IV SCH (16:00)
--- NOTE | 2017-01-30 16:49 | PD.CONS ---
History of Present Illness Service Infectious disease Consult Requested By Dr Paresh Tam Reason for Consult Evaluate patient with worsening leukocytosis Primary Care Physician Unknown Diagnoses: History of Present Illness Patient seen and examined. Records reviewed. Patient is a 62-year-old female, came from the retirement, admitted for altered mental status and fever. She apparently was obtunded. Patient received fluid resuscitation in the emergency room. She has been febrile. Her white count was elevated, and she had evidence of elevated creatinine. She also had elevated lactic acid. Her mental status improved and since then she has complained of abdominal pain. Imaging studies showing some gallstones, on CT and ultrasound, and her HIDA scan is positive. There was no: Bile duct by location however. Her urinalysis also did show some pyuria, but her urine culture is negative. Blood cultures are negative so far. Her WBC remained elevated, and it's actually increasing. Her kidney function has improved. Her blood cultures have been negative. GI has been consult and evaluating the patient as well. Her temperatures have improved. Patient had an abdominal CT December 19 as an outpatient for evaluation of abdominal pain. At that time which showed that she had gallstones, and there was no evidence of gallbladder distention. On her current CT now it's showing some gallbladder distention with gallstones. Infectious disease consultation has been requested to evaluate her worsening leukocytosis. Review of Systems Constitutional: COMPLAINS OF: Fever, Chills Eyes: DENIES: Eye pain Ears, nose, mouth, throat: DENIES: Nasal discharge, Oral lesions, Throat pain, Ear Pain, Sinus Pain, Odynophagia Respiratory: DENIES: Cough, Shortness of breath Cardiovascular: DENIES: Chest pain, Palpitations Gastrointestinal: COMPLAINS OF: Abdominal pain, DENIES: Diarrhea, Nausea, Vomiting, Difficulty Swallowing Genitourinary: COMPLAINS OF: Dysuria Musculoskeletal: DENIES: Joint pain Integumentary: DENIES: Rash Neurologic: DENIES: Headache Psychiatric: COMPLAINS OF: Confusion, DENIES: Hallucinations Past Family Social History Allergies: Coded Allergies: *MDRO Multi-Drug Resistant Organism (Verified Allergy, Unknown, 01/26/16) Patient reported H/O MRSA Past Medical History Arthritis Depression Diabetes Hypertension Peripheral Neuropathy Pancreatitis Colitis Cholelithiasis CKD PVD CAD non operable multi vessel disease Ischemic cardiomyopathy Hx UTI Anemia CVA Past Surgical History x 4 Neck Fusion Right BKA 2013 Stents in leg Revascularizations for her PVD Active Ordered Medications Tylenol Albuterol Aspirin Colace Heparin Hydralazine Dilaudid Insulin Labetalol Magnesium Reglan Lopressor Flagyl Topical nitrates Protonix Zosyn Potassium Vancomycin Social History No ETOH Smokes a few cigarettes per day, states she is trying to quit. No illicit drugs Came from the retirement Physical Exam Vital Signs Vital Signs Date Time Temp Pulse Resp B/P Pulse Ox O2 Delivery O2 Flow Rate FiO2 01/30/17 16:00 71 01/30/17 16:00 98.5 71 20 146/66 96 01/30/17 14:00 74 01/30/17 12:00 82 01/30/17 12:00 98.9 84 18 159/73 95 01/30/17 10:00 90 01/30/17 08:45 95 01/30/17 08:00 98.3 94 18 166/77 94 01/30/17 08:00 94 01/30/17 06:00 93 01/30/17 04:36 16 01/30/17 04:00 98.2 94 12 169/79 94 01/30/17 04:00 94 01/30/17 02:00 101 01/30/17 00:00 99.0 100 14 158/70 92 01/30/17 00:00 106 01/29/17 22:00 101 01/29/17 20:00 92 01/29/17 20:00 98.3 92 18 157/71 95 Physical Exam GENERAL: This is a well-nourished, well-developed female, awake and alert, not in respiratory distress. SKIN: Warm and moist. No generalized rash or ecchymosis. HEAD: Atraumatic. Normocephalic. No temporal or scalp tenderness. EYES: [place] conjunctivae, no petechia or hemorrhage. Pupils equal round and reactive. Extraocular motions intact. No scleral icterus. No injection or drainage. ENT: Nose without bleeding, or purulent drainage. Moist oral mucosa. Throat without erythema, or exudate. Uvula midline. Airway patent. NECK: Trachea midline. No JVD or lymphadenopathy. Supple, nontender, no meningeal signs. Has a scar on her neck compatible with her next surgery. CARDIOVASCULAR: Regular rate and rhythm without murmurs, gallops, or rubs. RESPIRATORY: . Breath sounds equal bilaterally. Has some rales at the bases bilaterally. No wheezing or rhonchi. GASTROINTESTINAL: Abdomen soft, not distended, bowel sounds are present and hypoactive, has diffuse abdominal tenderness but very prominent in the right upper quadrant. Guarding or rebound. MUSCULOSKELETAL: Extremities without clubbing, cyanosis, or edema. Has well healed stump in the RLE, S/P RBA. No joint effusion, or edema noted. No calf tenderness. L foot warm and well perfused. NEUROLOGICAL: Awake and alert. Cranial nerves II through XII intact. Five out of 5 muscle strength in all muscle groups. Normal speech. PSYCH: Normal affect, calm and cooperative LINE: No evidence of infection : Quesada in place, urine looks clear Laboratory Laboratory Tests Test 01/30/17 01/30/17 03:55 03:58 Lactic Acid Level 1.1 White Blood Count 31.3 Red Blood Count 3.08 Hemoglobin 9.1 Hematocrit 27.2 Mean Corpuscular Volume 88.1 Mean Corpuscular Hemoglobin 29.6 Mean Corpuscular Hemoglobin 33.6 Concent Red Cell Distribution Width 13.0 Platelet Count 172 Mean Platelet Volume 10.1 Neutrophils (%) (Auto) 92.7 Lymphocytes (%) (Auto) 3.9 Monocytes (%) (Auto) 2.9 Eosinophils (%) (Auto) 0.4 Basophils (%) (Auto) 0.1 Neutrophils # (Auto) 28.9 Lymphocytes # (Auto) 1.2 Monocytes # (Auto) 0.9 Eosinophils # (Auto) 0.1 Basophils # (Auto) 0.0 CBC Comment AUTO DIFF Differential Total Cells 100 Counted Neutrophils % (Manual) 81 Band Neutrophils % 14 Lymphocytes % 2 Monocytes % 2 Neutrophils # (Manual) 30.0 Metamyelocytes 1 Differential Comment FINAL DIFF MANUAL Toxic Vacuolation PRESENT Platelet Morphology Comment NORMAL Ovalocytes 1+ Acanthocytes 1+ Keratocytes OCC Sodium Level 139 Potassium Level 3.3 Chloride Level 109 Carbon Dioxide Level 20.6 Anion Gap 9 Blood Urea Nitrogen 23 Creatinine 1.17 Estimat Glomerular Filtration 47 Rate Random Glucose 192 Calcium Level 8.1 Phosphorus Level 1.5 Magnesium Level 1.9 Total Bilirubin 0.3 Aspartate Amino Transf 201 (AST/SGOT) Alanine Aminotransferase 43 (ALT/SGPT) Alkaline Phosphatase 334 Total Protein 5.4 Albumin 1.7 Lipase 46 Date/Time Procedure Status Source Growth 01/27/17 15:10 Aerobic Blood Culture - Preliminary Resulted Blood Peripheral NO GROWTH IN 3 DAYS 01/27/17 15:10 Anaerobic Blood Culture - Preliminary Resulted Blood Peripheral NO GROWTH IN 3 DAYS 01/27/17 10:55 Urine Culture - Final Complete Urine Catheterized Urine NO GROWTH IN 48 HOURS. Result Diagram: 01/30/17 0358 01/30/17 0358 Imaging RADIOLOGY STUDIES/FILMS REVIEWED Abdomen X-Ray 01/30/17 0600 Signed Impressions: Service Date/Time: Monday, January 30, 2017 05:04 - CONCLUSION: Unchanged gaseous distention of the colon. Jc Ortiz Jr., MD Hepatobiliary Scan Nuclear Medicine 01/30/17 0000 Signed Impressions: Service Date/Time: Monday, January 30, 2017 11:15 - CONCLUSION: Nonvisualization of the gallbladder 2 hours. Patient does have gallstones in a prominent gallbladder. Krystian Painting MD FACR Chest X-Ray 01/30/17 0000 Signed Impressions: Service Date/Time: Monday, January 30, 2017 10:56 - CONCLUSION: Mild pulmonary congestion with bibasilar airspace disease and mild cardiomegaly. Geovanny Yañez MD Liver Ultrasound 01/28/17 0000 Signed Impressions: Service Date/Time: Saturday, January 28, 2017 09:20 - CONCLUSION: 1. Cholelithiasis with 1.8 cm gallstone in the region of the neck of the gallbladder which was nonmobile. There is a small amount of adjacent free fluid. There is no evidence of biliary obstruction. 2. Fatty infiltration of the liver. Ang Moreno MD Head CT 01/27/17 1052 Signed Impressions: Service Date/Time: Friday, January 27, 2017 11:26 - CONCLUSION: 1. Old lacunar infarct in the left basal ganglia stable compared to previous dated 01/04/14. 2. No acute intracranial abnormality identified. Christopher Painting MD Abdomen/Pelvis CT 01/27/17 0000 Signed Impressions: Service Date/Time: Friday, January 27, 2017 14:51 - CONCLUSION: Gallstone. Ileus bowel gas pattern. Willy Mackay MD Assessment and Plan Assessment and Plan IMPRESSION Sepsis with possible acute cholecystitis Leukocytosis, due to intraabdominal process Known HTN, PVD, CAD (+) UA Diarrhea RECOMMENDATION Continue Zosyn Stop Vancomycin On IV Flagyl - C diff has been ordered GI has ordered tube cholecystostomy Follow C/S Follow CBC Monitor progress I will follow along with you Thank you for this consultation Discussed Condition With D/W Nisreen Escoto MD January 30, 2017 16:49
[2017-01-30 17:05] LABS: APTT (PATIENT) 68.5 SEC (24.3-30.1); INTERNATIONAL NORMALIZED RATIO 2.6 RATIO
[2017-01-30] MEDS: metroNIDAZOLE 500 MG INJ 100 ML IV SCH (23:07)
[2017-01-31] VITALS (19 sets, daily range): BP systolic 136–192; BP diastolic 63–81; PULSE 77–88; RESP 10–20; TEMP 98–98.7; O2SAT 90–97
[2017-01-31] MEDS: HYDROmorphone HCL PF 1 MG/ML VIAL IV PUSH PRN ×8 (01:06→20:03)
[2017-01-31] MEDS: PIPERACIL-TAZO 3.375 GM PREMIX 50 ML IV SCH ×4 (01:06→19:42)
[2017-01-31] MEDS: INSULIN NovoLIN REGULAR SUPPLEMENTAL SCALE SQ SCH ×4 (02:00→19:42)
[2017-01-31] MEDS: LABETALOL HCL 100 MG/20 ML VIAL IV PUSH PRN ×2 (02:09→03:05)
[2017-01-31] MEDS: CHLORHEXIDINE GLUCONATE 2 % 1 PACK (2 CLOTHS) TOP SCH (03:05)
[2017-01-31] MEDS: RESP: ALBUTEROL 2.5 MG/IPRATROPIUM 0.5 MG NEB (SCH) INH ×3 (03:40→15:54)
[2017-01-31] MEDS: METOCLOPRAMIDE HCL 10 MG/2 ML VIAL IV PUSH SCH ×3 (04:03→21:40)
[2017-01-31] MEDS: hydrALAZINE HCL 20 MG/ML VIAL IV PUSH PRN ×2 (04:04→08:32)
[2017-01-31 05:58] LABS: AUTOMATED NEUTROPHIL # 24.9 TH/MM3 (1.8-7.7); BASOPHIL % 0.1 % (0.0-2.0); EOSINOPHIL # 0.3 TH/MM3 (0-0.4); EOSINOPHIL % 0.9 % (0.0-4.0); HEMATOCRIT 28.6 % (35.0-46.0); LYMPH % 5.4 % (9.0-44.0); LYMPHOCYTE # 1.5 TH/MM3 (1.0-4.8); MEAN CELL VOLUME 89.3 FL (80.0-100.0); MEAN CORPUSCULAR HEMOGLOBIN 29.5 PG (27.0-34.0); NEUT % 89.6 % (16.0-70.0); PLATELET COUNT 195 TH/MM3 (150-450); RED CELL DISTRIBUTION WIDTH 13.4 % (11.6-17.2); WHITE BLOOD COUNT 27.8 TH/MM3 (4.0-11.0)
[2017-01-31 06:10] LABS: HEMO FLAGS AUTO DIFF
[2017-01-31 06:30] LABS: ALKALINE PHOSPHATASE 315 U/L (45-117); ALT (GPT) 36 U/L (10-53); ANION GAP 12 MEQ/L (5-15); AST (GOT) 164 U/L (15-37); BICARBONATE 17.5 MEQ/L (21.0-32.0); BLOOD UREA NITROGEN 21 MG/DL (7-18); CHLORIDE 110 MEQ/L (98-107); GLOMERULAR FILTRATION RATE 49 ML/MIN (>89); MAGNESIUM 1.7 MG/DL (1.5-2.5); POTASSIUM 3.6 MEQ/L (3.5-5.1); SODIUM (NA) 139 MEQ/L (136-145); TOTAL BILIRUBIN ADULT 0.5 MG/DL (0.2-1.0)
[2017-01-31] MEDS: SENNOSIDES SYRUP 8.8 MG/5 ML CUP PO SCH (07:12)
[2017-01-31] MEDS: DOCUSATE SODIUM 100 MG/10 ML UDC PO SCH ×2 (07:12→19:41)
[2017-01-31 08:09] LABS: BANDS 17 % (0-6); NEUTROPHIL # MANUAL DIFF 25.9 TH/MM3 (1.8-7.7); PLASMA CELLS 1 % (0-0); POLYS (SEG NEUTROPHILS) 76 % (16-70); WBC DIFF SAMPLE 100
[2017-01-31 08:10] LABS: KERATOCYTES OCC (NORMAL)
[2017-01-31 08:11] LABS: ACANTHOCYTES OCC (NORMAL); SCAN/DIFF FINAL DIFF MANUAL
[2017-01-31] MEDS: SODIUM CHLOR 0.45% 1000 ML INJ 1,000 ML IV SCH (08:12)
[2017-01-31] MEDS: PANTOPRAZOLE SODIUM 40 MG VIAL IV SCH (08:32)
[2017-01-31] MEDS: metroNIDAZOLE 500 MG INJ 100 ML IV SCH ×3 (08:32→23:57)
[2017-01-31] MEDS: METOPROLOL TARTRATE 50 MG TAB PO SCH ×2 (08:33→19:42)
[2017-01-31] MEDS ORDERED: BUMETANIDE INJ 1 MG/4 ML VIAL IV PUSH ONE (10:00)
--- NOTE | 2017-01-31 10:16 | HHI.CCPN ---
Subjective Remarks/Hospital Course The patient is a 62 year-old female with past medical history of hypertension, diabetes mellitus, cerebrovascular accident in 2014, dyslipidemia, who presents from nursing facility with fever and altered mental status. She was found to have a temperature of 101.4 was brought in by paramedics and 103.4 rectally. When she arrived initially she was obtunded and unable to give any history secondary to her mental status. A CT scan of the brain was obtained which showed old lacunar infarct in the left basilar ganglia, stable compared to previous studies. No acute intracranial abnormalities identified. The patient was tachycardic, however, her blood pressure was 124/85. Her laboratory data is significant for lactic acid of 3.1, acute renal failure with a blood urea nitrogen of 43, creatinine of 3.13 respectively and leukocytosis with a white blood cell of 27.5. Her urinalysis was compatible with urinary tract infection. Chest x-ray in the emergency room showed under inflation of mild airspace opacity under right lung base with appearance favoring atelectasis over consolidation. In the emergency department she was given two liters of Crystalloids in addition to Vancomycin and Zosyn, she also received a Tylenol suppository 650 mg p.o. times one. After fluid resuscitation, the patients mental status improved and currently she is awake and alert. She reports abdominal pain associated with nausea and vomiting and decreased p.o. intake. She denies any chest pain, shortness of breath, cough, her lactic acid level measured at 3.1. 01/28: MAXIMUM TEMPERATURE 100.9 Hypertensive overnight. On nasal cannula. Remains confused. BM 1. Subjective 01/29: Tmax 99.8. Still complaining of diffuse abdominal pain. Positive BM. Gretchen on 2 L nasal cannula. Creatinine much improved. 01/30 No acute events overnight. For HIDA scan. Renal function continue to improve with Cr: 1.17 today from 1.34. 01/31 No events overnight. HIDA scan yesterday showed no visualization of gall bladder for perc cholecystostomy tube placement by IR today. Afebrile. Objective Vital Signs Date Time Temp Pulse Resp B/P Pulse Ox O2 Delivery O2 Flow Rate FiO2 01/31/17 09:32 97 21 01/31/17 06:00 79 01/31/17 05:51 16 01/31/17 04:00 98.7 192/81 01/29/17 08:13 Nasal Cannula 2.00 Intake and Output 01/30/17 01/30/17 01/31/17 08:00 16:00 00:00 Intake Total 160 ml 1170 ml 1342 ml Output Total 275 ml 435 ml 300 ml Balance -115 ml 735 ml 1042 ml Result Diagram: 01/31/17 0500 01/31/17 0500 Other Results Laboratory Tests Test 01/30/17 01/30/17 01/31/17 16:17 16:33 05:00 Prothrombin Time 30.0 SEC Prothromb Time International 2.6 RATIO Ratio Activated Partial 68.5 SEC Thromboplast Time Phosphorus Level 3.2 MG/DL 2.8 MG/DL White Blood Count 27.8 TH/MM3 Red Blood Count 3.20 MIL/MM3 Hemoglobin 9.4 GM/DL Hematocrit 28.6 % Mean Corpuscular Volume 89.3 FL Mean Corpuscular Hemoglobin 29.5 PG Mean Corpuscular Hemoglobin 33.0 % Concent Red Cell Distribution Width 13.4 % Platelet Count 195 TH/MM3 Mean Platelet Volume 10.2 FL Neutrophils (%) (Auto) 89.6 % Lymphocytes (%) (Auto) 5.4 % Monocytes (%) (Auto) 4.0 % Eosinophils (%) (Auto) 0.9 % Basophils (%) (Auto) 0.1 % Neutrophils # (Auto) 24.9 TH/MM3 Lymphocytes # (Auto) 1.5 TH/MM3 Monocytes # (Auto) 1.1 TH/MM3 Eosinophils # (Auto) 0.3 TH/MM3 Basophils # (Auto) 0.0 TH/MM3 CBC Comment AUTO DIFF Differential Total Cells 100 Counted Neutrophils % (Manual) 76 % Band Neutrophils % 17 % Lymphocytes % 6 % Neutrophils # (Manual) 25.9 TH/MM3 Differential Comment FINAL DIFF MANUAL Plasma Cells 1 % Toxic Vacuolation Acanthocytes OCC Keratocytes OCC Sodium Level 139 MEQ/L Potassium Level 3.6 MEQ/L Chloride Level 110 MEQ/L Carbon Dioxide Level 17.5 MEQ/L Anion Gap 12 MEQ/L Blood Urea Nitrogen 21 MG/DL Creatinine 1.12 MG/DL Estimat Glomerular Filtration 49 ML/MIN Rate Random Glucose 171 MG/DL Calcium Level 7.7 MG/DL Magnesium Level 1.7 MG/DL Total Bilirubin 0.5 MG/DL Aspartate Amino Transf 164 U/L (AST/SGOT) Alanine Aminotransferase 36 U/L (ALT/SGPT) Alkaline Phosphatase 315 U/L Total Protein 5.4 GM/DL Albumin 1.6 GM/DL Imaging Last Impressions Abdomen X-Ray 01/30/17 0600 Signed Impressions: Service Date/Time: Monday, January 30, 2017 05:04 - CONCLUSION: Unchanged gaseous distention of the colon. Jc Ortiz Jr., MD Hepatobiliary Scan Nuclear Medicine 01/30/17 0000 Signed Impressions: Service Date/Time: Monday, January 30, 2017 11:15 - CONCLUSION: Nonvisualization of the gallbladder 2 hours. Patient does have gallstones in a prominent gallbladder. Krystian Painting MD FACRADDENDUM: 20 hour delayed imaging of the hepatobiliary system continues to demonstrate nonvisualization of the gallbladder characteristic of cystic duct obstruction. Geovanny Yañez MD Chest X-Ray 01/30/17 0000 Signed Impressions: Service Date/Time: Monday, January 30, 2017 10:56 - CONCLUSION: Mild pulmonary congestion with bibasilar airspace disease and mild cardiomegaly. Geovanny Yañez MD Liver Ultrasound 01/28/17 0000 Signed Impressions: Service Date/Time: Saturday, January 28, 2017 09:20 - CONCLUSION: 1. Cholelithiasis with 1.8 cm gallstone in the region of the neck of the gallbladder which was nonmobile. There is a small amount of adjacent free fluid. There is no evidence of biliary obstruction. 2. Fatty infiltration of the liver. Ang Moreno MD Head CT 01/27/17 1052 Signed Impressions: Service Date/Time: Friday, January 27, 2017 11:26 - CONCLUSION: 1. Old lacunar infarct in the left basal ganglia stable compared to previous dated 01/04/14. 2. No acute intracranial abnormality identified. Christopher Painting MD Abdomen/Pelvis CT 01/27/17 0000 Signed Impressions: Service Date/Time: Friday, January 27, 2017 14:51 - CONCLUSION: Gallstone. Ileus bowel gas pattern. Willy Mackay MD Objective Remarks GENERAL: 61-year-old female resting in bed in no acute distress SKIN: Warm and dry. No rash HEAD: Atraumatic. Normocephalic. EYES: Pupils equal and round. No scleral icterus. No injection or drainage. ENT: No nasal bleeding or discharge. Mucous membranes pink and moist. NECK: Trachea midline. No JVD. CARDIOVASCULAR: Regular rate and rhythm. S1, S2. No S4. RESPIRATORY: No accessory muscle use. Clear to auscultation. Breath sounds equal bilaterally. GASTROINTESTINAL: Abdomen distended. Hypoactive bowel sounds appreciated. Tender to palpation epigastric region. MUSCULOSKELETAL: Extremities without significant peripheral edema NEUROLOGICAL: Awake and alert. No obvious cranial nerve deficits. Motor grossly within normal limits. Five out of 5 muscle strength in the arms and legs. Normal speech. A/P Assessment and Plan Neuro/Psych: History of left basal ganglia CVA Depression Peripheral neuropathy Insomnia Monitor neuro status and avoid any sedatives Continue aspirin 325 mg by mouth daily. Dilaudid 0.5 mg every 2 hours when necessary for pain management CV: Coronary artery disease - inoperable Ischemic cardiomyopathy ejection fraction 45% Hypertension Dyslipidemia Monitor HR and BP keep MAP>65mmHg. on Lopressor 50mg Q12, add Hydralazine 50mg Q8 Heart catheterization by Dr. Jordan 07/10 revealed EF 45%. LAD 70%, left circumflex 70 percent, RCA 80%. Not amenable To CABG On ASA 325 milligrams daily As needed labetalol/hydralazine/Nitropaste for hypertension Resp: Continue with oxygen keep sat > 92% Incentive spirometry while awake, Bronchodilator therapy due nebs every 6 hours and every 2 hours when necessary dyspnea GI: Ileus Cholelithiasis HIDA scan - no visualization of gall bladder. ? cystic duct obstruction. For perc cholecystostomy tube placement by IR today. GI is following CT abdomen/pelvis revealed cholelithiasis/ileus Liver ultrasound 01/28 revealed gallstone in neck of gallbladder. Nonmobile. Keep NPO Protonix for GI prophylaxis Colace/Senokot for bowel regimen KUB showed gaseous distention of colon-unchanged . Endo: Diabetes mellitus neuropathy On Levemir unknown dosage with sliding scale insulin as nursing him. Sliding scale insulin Accu-Cheks every 6 hours to maintain euglycemia/low regimen Renal: CHRISTY- resolving Seen by nephrology. Creatinine improving with Cr: 1.12 today. Monitor renal function, I/O's, electrolytes replacement as needed d/c IVF, diurese with Bumex 1mg x1 ( Fluid overload) Heme: Leukocytosis with bandemia Normocytic anemia Coagulopathy Monitor CBC, INR /PT give 2units FFP preprocedure. ID: Urinary tract infection Continue abx (Zosyn/IV Flagyl)monitor for signs of infections ( Fever, WBC) ID is following. Follow up on cxs. C-diff PCR is negative. For perc cholecystostomy tube placement by IR today Pertinent cultures 5/5 - urine culture -no growth 5/5 - blood cultures 2 -no growth MSK: Access - Utilize peripheral IV. Prophylaxis - GI - Protonix - DVT - SCD/heparin SQ on hold for procedure today. Level 3 Carlo Tam MD January 31, 2017 10:15
[2017-01-31 10:44] LABS: PROTHROMBIN TIME - PATIENT 34.6 SEC (9.8-11.6)
[2017-01-31] MEDS: hydrALAZINE HCL 50 MG TAB PO SCH ×2 (13:18→21:40)
--- NOTE | 2017-01-31 13:42 | HHI.GIFU ---
Subjective Remarks Resting in bed. Still with abdominal pain- no improvement. Scheduled for cholecystomy tube today, but was found to have elevated INR and is now getting 2 units FFP- 1st unit in. (Priscila Andrew) Objective Vitals I&O Vital Signs Date Time Temp Pulse Resp B/P Pulse Ox O2 Delivery O2 Flow Rate FiO2 01/31/17 09:32 97 21 01/31/17 06:00 79 01/31/17 05:51 16 01/31/17 04:00 98.7 84 12 192/81 97 01/31/17 04:00 84 01/31/17 02:00 77 01/31/17 00:00 98.4 80 18 156/74 91 01/31/17 00:00 80 01/30/17 22:00 84 01/30/17 20:00 98.5 80 18 189/84 96 01/30/17 20:00 80 01/30/17 18:00 72 01/30/17 16:00 71 01/30/17 16:00 98.5 71 20 146/66 96 01/30/17 14:00 74 I/O 01/30/17 01/30/17 01/30/17 01/31/17 01/31/17 01/31/17 07:00 15:00 23:00 07:00 15:00 23:00 Intake Total 160 ml 1170 ml 1342 ml 429 ml Output Total 275 ml 435 ml 300 ml 430 ml Balance -115 ml 735 ml 1042 ml -1 ml Intake Oral 120 ml 100 ml IV Total 160 ml 1050 ml 1242 ml 429 ml Output Urine Total 275 ml 425 ml 300 ml 300 ml Gastric Drainage Total 10 ml 130 ml # Bowel Movements 2 1 1 Laboratory Laboratory Tests Test 01/30/17 01/30/17 01/31/17 01/31/17 16:17 16:33 05:00 09:56 Prothrombin Time 30.0 Prothromb Time International 2.6 Ratio Activated Partial 68.5 Thromboplast Time Phosphorus Level 3.2 2.8 White Blood Count 27.8 Red Blood Count 3.20 Hemoglobin 9.4 Hematocrit 28.6 Mean Corpuscular Volume 89.3 Mean Corpuscular Hemoglobin 29.5 Mean Corpuscular Hemoglobin 33.0 Concent Red Cell Distribution Width 13.4 Platelet Count 195 Mean Platelet Volume 10.2 Neutrophils (%) (Auto) 89.6 Lymphocytes (%) (Auto) 5.4 Monocytes (%) (Auto) 4.0 Eosinophils (%) (Auto) 0.9 Basophils (%) (Auto) 0.1 Neutrophils # (Auto) 24.9 Lymphocytes # (Auto) 1.5 Monocytes # (Auto) 1.1 Eosinophils # (Auto) 0.3 Basophils # (Auto) 0.0 CBC Comment AUTO DIFF Differential Total Cells 100 Counted Neutrophils % (Manual) 76 Band Neutrophils % 17 Lymphocytes % 6 Neutrophils # (Manual) 25.9 Differential Comment FINAL DIFF MANUAL Plasma Cells 1 Toxic Vacuolation Acanthocytes OCC Keratocytes OCC Sodium Level 139 Potassium Level 3.6 Chloride Level 110 Carbon Dioxide Level 17.5 Anion Gap 12 Blood Urea Nitrogen 21 Creatinine 1.12 Estimat Glomerular Filtration 49 Rate Random Glucose 171 Calcium Level 7.7 Magnesium Level 1.7 Total Bilirubin 0.5 Aspartate Amino Transf 164 (AST/SGOT) Alanine Aminotransferase 36 (ALT/SGPT) Alkaline Phosphatase 315 Total Protein 5.4 Albumin 1.6 Blood Bank Comment Test 01/31/17 10:16 Prothrombin Time 34.6 Prothromb Time International 3.0 Ratio Date/Time Procedure Status Source Growth 01/27/17 15:10 Aerobic Blood Culture - Preliminary Resulted Blood Peripheral NO GROWTH IN 4 DAYS 01/27/17 15:10 Anaerobic Blood Culture - Preliminary Resulted Blood Peripheral NO GROWTH IN 4 DAYS 01/27/17 10:55 Urine Culture - Final Complete Urine Catheterized Urine NO GROWTH IN 48 HOURS. Imaging Last Impressions Abdomen X-Ray 01/30/17 0600 Signed Impressions: Service Date/Time: Monday, January 30, 2017 05:04 - CONCLUSION: Unchanged gaseous distention of the colon. Jc Ortiz Jr., MD Hepatobiliary Scan Nuclear Medicine 01/30/17 0000 Signed Impressions: Service Date/Time: Monday, January 30, 2017 11:15 - CONCLUSION: Nonvisualization of the gallbladder 2 hours. Patient does have gallstones in a prominent gallbladder. Krystian Painting MD FACRADDENDUM: 20 hour delayed imaging of the hepatobiliary system continues to demonstrate nonvisualization of the gallbladder characteristic of cystic duct obstruction. Geovanny Yañez MD Chest X-Ray 01/30/17 0000 Signed Impressions: Service Date/Time: Monday, January 30, 2017 10:56 - CONCLUSION: Mild pulmonary congestion with bibasilar airspace disease and mild cardiomegaly. Geovanny Yañez MD Liver Ultrasound 01/28/17 0000 Signed Impressions: Service Date/Time: Saturday, January 28, 2017 09:20 - CONCLUSION: 1. Cholelithiasis with 1.8 cm gallstone in the region of the neck of the gallbladder which was nonmobile. There is a small amount of adjacent free fluid. There is no evidence of biliary obstruction. 2. Fatty infiltration of the liver. Ang Moreno MD Head CT 01/27/17 1052 Signed Impressions: Service Date/Time: Friday, January 27, 2017 11:26 - CONCLUSION: 1. Old lacunar infarct in the left basal ganglia stable compared to previous dated 01/04/14. 2. No acute intracranial abnormality identified. Christopher Painting MD Abdomen/Pelvis CT 01/27/17 0000 Signed Impressions: Service Date/Time: Friday, January 27, 2017 14:51 - CONCLUSION: Gallstone. Ileus bowel gas pattern. Willy Mackay MD Physical Exam HEENT: Normocephalic; atraumatic; no jaundice. CHEST: CTA, diminished CARDIAC: RRR ABDOMEN: Soft, mild diffuse abdominal tenderness, > RUQ, no hepatosplenomegaly ; bowel sounds are present in all four quadrants. EXTREMITIES: Right BKA SKIN: Normal; no rash; no jaundice. FISH AGENT: No focal deficits; Lethargic and oriented times two, poor historian ( Priscila Andrew) Assessment and Plan Plan ASSESSMENT: - Acute cholecystitis with abdominal pain, nausea, leukocytosis. Abdomen/Pelvis CT (01/27/17)---> Gallstone. Ileus bowel gas pattern. LFTs were mildly elevated on admission with T. Bilirubin 0.3, AST 67, ALT 32 , Alk Phosph 542. Liver US (01/28/17)----> 1. Cholelithiasis with 1.8 cm gallstone in the region of the neck of the gallbladder which was nonmobile. There is a small amount of adjacent free fluid. There is no evidence of biliary obstruction. 2. Fatty infiltration of the liver. HIDA (01/30/17)-----> Nonvisualization of the gallbladder 2 hours. Patient does have gallstones in a prominent gallbladder. ADDENDUM: 20 hour delayed imaging of the hepatobiliary system continues to demonstrate nonvisualization of the gallbladder characteristic of cystic duct obstruction. IR consulted for cholecystomy tube, but INR was elevated 3.0. Getting 2 units FFP. Vitamin K. Plan is to recheck INR one after after transfusion. Flagyl, Zosyn. ID following. - Colonic Ileus. Has hx of constipation. Senokot, Colace. Repeat Abdomen X- Ray (01/30/17)---> Unchanged gaseous distention of the colon. She is passing stool. Reglan. Check for CDiff. S/P SSE. Rpt. KUB in am. - Elevated LFTs, likely related to cholecystitis. Imaging as above. Plan for cholecystomy tube placement. Abx per ID. - Cholelithiasis/Cholecystitis. 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 IR consulted for Cholecystomy tube. Zosyn. Flagyl. - Anemia, normocytic. 9.4/28.6. - Sepsis, Leukocytosis, Bandemia. ? UTI- No growth 48 hours. BCX no growth 4 days. Likely related to acute cholecystitis, Cholecystomy tube ordered. - Coagulopathy. INR 3.0. On #1/2 FFP, Vitamin K - CHRISTY. Per nephrology - Hx left basal ganglia CVA, Depression, Peripheral neuropathy - CAD, ischemic cardiomyopathy, hyperlipidemia, DM, per primary. PLAN: - NPO - Plan is for cholecystomy tube by IR once INR corrected - 2 units FFP ordered. - Vitamin K ordered - Reglan 5mg IV q8h - KUB in am - Cont. Abx per ID- Zosyn Flagyl - Monitor labs - Supportive care - Further recommendations to follow based on results of above - Pt seen and examined by Dr. Turner and myself and this note is written on her behalf (Priscila Andrew) Physician Comments agree with above (Radha Turner MD) Priscila Andrew January 31, 2017 13:42 Radha Turner MD January 31, 2017 19:34
--- NOTE | 2017-01-31 13:42 | HHI.IDPN ---
Subjective Subjective Remarks 61 year old female from SNF admitted with altered mental status and fevers. has had abdominal pain. CT with gallstones. HIDA scan (+) Has had elevated WBC Notes reviewed For placement of GB tube - but INR high Temps ok BP ok Making urine Cultures reviewed C diff negative Antibiotics Zosyn Flagyl Past Medical History Arthritis Depression Diabetes Hypertension Peripheral Neuropathy Pancreatitis Colitis Cholelithiasis CKD PVD CAD non operable multi vessel disease Ischemic cardiomyopathy Hx UTI Anemia CVA Past Surgical History x 4 Neck Fusion Right BKA 2013 Stents in leg Revascularizations for her PVD Allergies: Coded Allergies: *MDRO Multi-Drug Resistant Organism (Verified Allergy, Unknown, 01/26/16) Patient reported H/O MRSA Objective . Vital Signs Date Time Temp Pulse Resp B/P Pulse Ox O2 Delivery O2 Flow Rate FiO2 01/31/17 09:32 97 21 01/31/17 06:00 79 01/31/17 05:51 16 01/31/17 04:00 98.7 84 12 192/81 97 01/31/17 04:00 84 01/31/17 02:00 77 01/31/17 00:00 98.4 80 18 156/74 91 01/31/17 00:00 80 01/30/17 22:00 84 01/30/17 20:00 98.5 80 18 189/84 96 01/30/17 20:00 80 01/30/17 18:00 72 01/30/17 16:00 71 01/30/17 16:00 98.5 71 20 146/66 96 01/30/17 14:00 74 01/30/17 01/30/17 01/31/17 14:59 22:59 06:59 Intake Total 1170 ml 1342 ml 429 ml Output Total 435 ml 300 ml 430 ml Balance 735 ml 1042 ml -1 ml Intake Oral 120 ml 100 ml IV Total 1050 ml 1242 ml 429 ml Output Urine Total 425 ml 300 ml 300 ml Gastric Drainage Total 10 ml 130 ml # Bowel Movements 1 1 . Laboratory Tests Test 01/30/17 01/31/17 03:58 05:00 White Blood Count 31.3 TH/MM3 27.8 TH/MM3 Red Blood Count 3.08 MIL/MM3 3.20 MIL/MM3 Hemoglobin 9.1 GM/DL 9.4 GM/DL Hematocrit 27.2 % 28.6 % Mean Corpuscular Volume 88.1 FL 89.3 FL Mean Corpuscular Hemoglobin 29.6 PG 29.5 PG Mean Corpuscular Hemoglobin 33.6 % 33.0 % Concent Red Cell Distribution Width 13.0 % 13.4 % Platelet Count 172 TH/MM3 195 TH/MM3 Mean Platelet Volume 10.1 FL 10.2 FL Neutrophils (%) (Auto) 92.7 % 89.6 % Lymphocytes (%) (Auto) 3.9 % 5.4 % Monocytes (%) (Auto) 2.9 % 4.0 % Eosinophils (%) (Auto) 0.4 % 0.9 % Basophils (%) (Auto) 0.1 % 0.1 % Neutrophils # (Auto) 28.9 TH/MM3 24.9 TH/MM3 Lymphocytes # (Auto) 1.2 TH/MM3 1.5 TH/MM3 Monocytes # (Auto) 0.9 TH/MM3 1.1 TH/MM3 Eosinophils # (Auto) 0.1 TH/MM3 0.3 TH/MM3 Basophils # (Auto) 0.0 TH/MM3 0.0 TH/MM3 CBC Comment AUTO DIFF AUTO DIFF Differential Total Cells 100 100 Counted Neutrophils % (Manual) 81 % 76 % Band Neutrophils % 14 % 17 % Lymphocytes % 2 % 6 % Monocytes % 2 % Neutrophils # (Manual) 30.0 TH/MM3 25.9 TH/MM3 Metamyelocytes 1 % Differential Comment FINAL DIFF FINAL DIFF MANUAL MANUAL Toxic Vacuolation PRESENT Platelet Morphology Comment NORMAL Ovalocytes 1+ Acanthocytes 1+ OCC Keratocytes OCC OCC Plasma Cells 1 % Laboratory Tests Test 01/30/17 01/30/17 01/30/17 01/31/17 03:55 03:58 16:33 05:00 Lactic Acid Level 1.1 mmol/L Sodium Level 139 MEQ/L 139 MEQ/L Potassium Level 3.3 MEQ/L 3.6 MEQ/L Chloride Level 109 MEQ/L 110 MEQ/L Carbon Dioxide Level 20.6 MEQ/L 17.5 MEQ/L Anion Gap 9 MEQ/L 12 MEQ/L Blood Urea Nitrogen 23 MG/DL 21 MG/DL Creatinine 1.17 MG/DL 1.12 MG/DL Estimat Glomerular Filtration 47 ML/MIN 49 ML/MIN Rate Random Glucose 192 MG/DL 171 MG/DL Calcium Level 8.1 MG/DL 7.7 MG/DL Phosphorus Level 1.5 MG/DL 3.2 MG/DL 2.8 MG/DL Magnesium Level 1.9 MG/DL 1.7 MG/DL Total Bilirubin 0.3 MG/DL 0.5 MG/DL Aspartate Amino Transf 201 U/L 164 U/L (AST/SGOT) Alanine Aminotransferase 43 U/L 36 U/L (ALT/SGPT) Alkaline Phosphatase 334 U/L 315 U/L Total Protein 5.4 GM/DL 5.4 GM/DL Albumin 1.7 GM/DL 1.6 GM/DL Lipase 46 U/L Imaging Last Impressions Abdomen X-Ray 01/30/17 0600 Signed Impressions: Service Date/Time: Monday, January 30, 2017 05:04 - CONCLUSION: Unchanged gaseous distention of the colon. Jc Ortiz Jr., MD Hepatobiliary Scan Nuclear Medicine 01/30/17 0000 Signed Impressions: Service Date/Time: Monday, January 30, 2017 11:15 - CONCLUSION: Nonvisualization of the gallbladder 2 hours. Patient does have gallstones in a prominent gallbladder. Krystian Painting MD FACRADDENDUM: 20 hour delayed imaging of the hepatobiliary system continues to demonstrate nonvisualization of the gallbladder characteristic of cystic duct obstruction. Geovanny Yañez MD Chest X-Ray 01/30/17 0000 Signed Impressions: Service Date/Time: Monday, January 30, 2017 10:56 - CONCLUSION: Mild pulmonary congestion with bibasilar airspace disease and mild cardiomegaly. Geovanny Yañez MD Liver Ultrasound 01/28/17 0000 Signed Impressions: Service Date/Time: Saturday, January 28, 2017 09:20 - CONCLUSION: 1. Cholelithiasis with 1.8 cm gallstone in the region of the neck of the gallbladder which was nonmobile. There is a small amount of adjacent free fluid. There is no evidence of biliary obstruction. 2. Fatty infiltration of the liver. Ang Moreno MD Head CT 01/27/17 1052 Signed Impressions: Service Date/Time: Friday, January 27, 2017 11:26 - CONCLUSION: 1. Old lacunar infarct in the left basal ganglia stable compared to previous dated 01/04/14. 2. No acute intracranial abnormality identified. Christopher Painting MD Abdomen/Pelvis CT 01/27/17 0000 Signed Impressions: Service Date/Time: Friday, January 27, 2017 14:51 - CONCLUSION: Gallstone. Ileus bowel gas pattern. Willy Mackay MD Physical Exam GENERAL: awake and alert, not in respiratory distress. SKIN: Warm and moist. No generalized rash or ecchymosis. HEAD: Atraumatic. Normocephalic. No temporal or scalp tenderness. EYES: [place] conjunctivae, no petechia or hemorrhage. No scleral icterus. No injection or drainage. ENT: Nose without bleeding, or purulent drainage. Moist oral mucosa. NECK: Supple, nontender, no meningeal signs. Has a scar on her neck compatible with her next surgery. CARDIOVASCULAR: Regular rate and rhythm without murmurs, gallops, or rubs. RESPIRATORY: . Breath sounds equal bilaterally. Has some rales at the bases bilaterally. No wheezing or rhonchi. GASTROINTESTINAL: Abdomen soft, not distended, bowel sounds are present and hypoactive, has diffuse abdominal tenderness but very prominent in the right upper quadrant. Guarding or rebound. MUSCULOSKELETAL: Extremities without clubbing, cyanosis, or edema. Has well healed stump in the RLE, S/P RBA. No joint effusion, or edema noted. No calf tenderness. L foot warm and well perfused. NEUROLOGICAL: Awake and alert. Cranial nerves II through XII intact. Five out of 5 muscle strength in all muscle groups. Normal speech. PSYCH: Normal affect, calm and cooperative LINE: No evidence of infection : Quesada in place, urine looks clear Assessment & Plan Remarks IMPRESSION Sepsis with possible acute cholecystitis - has gallstones, RUW tenderness and (+) HIDA scan Leukocytosis, due to intraabdominal process Known HTN, PVD, CAD (+) UA Diarrhea, c diff negative RECOMMENDATION Continue Zosyn Stop Flagyl GI has ordered tube cholecystostomy - IR to do, once INR down Follow C/S Follow CBC Monitor progress D/W Nisreen Escoto MD January 31, 2017 13:42
[2017-01-31] MEDS ORDERED: PHYTONADIONE 10 MG/ML VIAL SQ ONE (13:45)
[2017-01-31 15:53] LABS: PROTHROMBIN TIME - PATIENT 23.2 SEC (9.8-11.6)
[2017-01-31 22:12] LABS: C. DIFF EPI 027 PRESUMPTIVE NEGATIVE (NEGATIVE); C. DIFF TOXIN PCR NEGATIVE (NEGATIVE)
[2017-01-31 23:00] LABS: INTERNATIONAL NORMALIZED RATIO 1.3 RATIO; PROTHROMBIN TIME - PATIENT 14.4 SEC (9.8-11.6)
[2017-01-31] MEDS ORDERED: PHARMACY ORDERED LAB ONE (23:45)
[2017-02-01] VITALS (42 sets, daily range): BP systolic 154–198; BP diastolic 66–87; PULSE 69–97; RESP 10–42; TEMP 98–98.7; O2SAT 74–100
[2017-02-01] MEDS: INSULIN NovoLIN REGULAR SUPPLEMENTAL SCALE SQ SCH ×4 (01:09→20:00)
[2017-02-01] MEDS: hydrALAZINE HCL 20 MG/ML VIAL IV PUSH PRN ×4 (01:10→19:06)
[2017-02-01] MEDS: HYDROmorphone HCL PF 1 MG/ML VIAL IV PUSH PRN ×7 (01:10→22:06)
[2017-02-01] MEDS: CHLORHEXIDINE GLUCONATE 2 % 1 PACK (2 CLOTHS) TOP SCH (02:22)
[2017-02-01] MEDS: PIPERACIL-TAZO 3.375 GM PREMIX 50 ML IV SCH ×4 (02:35→20:42)
[2017-02-01] MEDS: hydrALAZINE HCL 50 MG TAB PO SCH ×3 (04:36→20:45)
[2017-02-01] MEDS: METOCLOPRAMIDE HCL 10 MG/2 ML VIAL IV PUSH SCH ×3 (04:36→20:45)
[2017-02-01 06:07] LABS: AUTOMATED NEUTROPHIL # 17.4 TH/MM3 (1.8-7.7); BASOPHIL % 0.1 % (0.0-2.0); EOSINOPHIL # 0.3 TH/MM3 (0-0.4); EOSINOPHIL % 1.3 % (0.0-4.0); HEMATOCRIT 25.8 % (35.0-46.0); HEMO FLAGS DIFF FINAL; LYMPH % 7.7 % (9.0-44.0); LYMPHOCYTE # 1.6 TH/MM3 (1.0-4.8); MEAN CORPUSCULAR HEMOGLOBIN 29.7 PG (27.0-34.0); MEAN CORPUSCULAR HGB CONC 33.4 % (32.0-36.0); MONO % 6.2 % (0.0-8.0); NEUT % 84.7 % (16.0-70.0); PLATELET COUNT 222 TH/MM3 (150-450); RED BLOOD COUNT 2.89 MIL/MM3 (4.00-5.30); RED CELL DISTRIBUTION WIDTH 13.4 % (11.6-17.2); WHITE BLOOD COUNT 20.5 TH/MM3 (4.0-11.0)
[2017-02-01 06:11] LABS: INTERNATIONAL NORMALIZED RATIO 1.1 RATIO; PROTHROMBIN TIME - PATIENT 12.7 SEC (9.8-11.6)
[2017-02-01 06:29] LABS: ALKALINE PHOSPHATASE 218 U/L (45-117); ALT (GPT) 29 U/L (10-53); ANION GAP 16 MEQ/L (5-15); AST (GOT) 107 U/L (15-37); BICARBONATE 20.2 MEQ/L (21.0-32.0); BLOOD UREA NITROGEN 24 MG/DL (7-18); CHLORIDE 107 MEQ/L (98-107); GLOMERULAR FILTRATION RATE 41 ML/MIN (>89); MAGNESIUM 1.9 MG/DL (1.5-2.5); SODIUM (NA) 143 MEQ/L (136-145); TOTAL BILIRUBIN ADULT 0.8 MG/DL (0.2-1.0)
[2017-02-01] MEDS: POTASSIUM CHLOR 20 MEQ PREMIX 100 ML IV PRN ×2 (06:52→12:29)
[2017-02-01] MEDS ORDERED: fentaNYL CITRATE 250 MCG/5 ML AMP ONE (08:55)
[2017-02-01] MEDS ORDERED: MIDAZOLAM HCL 5 MG/5 ML VIAL ONE (08:55)
[2017-02-01] MEDS ORDERED: ONDANSETRON HCL 4 MG/2 ML VIAL ONE (08:56)
[2017-02-01] MEDS: DOCUSATE SODIUM 100 MG/10 ML UDC PO SCH ×2 (09:00→20:45)
[2017-02-01] MEDS: SENNOSIDES SYRUP 8.8 MG/5 ML CUP PO SCH (09:00)
--- NOTE | 2017-02-01 10:20 | PD.RAD ---
Post Procedure Progress Note Pre Procedure Diagnosis: (1) Acute cholecystitis due to biliary calculus Post Procedure Diagnosis: (1) Acute cholecystitis due to biliary calculus Procedure Date: February 01, 2017 Supervising Radiologist: Geovanny Yañez Proceduralist/Assist: Ildefonso Olson, RT(R), Sonia Feliz RT(R) Anesthesia: Local, Conscious Sedation Plan of Activity Patient to Unit: Critical Care Patient Condition: Poor See PACS Report for procedural detail/treatment Drainage Procedure Procedure 1 Imaging Guidance: Fluoroscopy, Ultrasound Side: Right Procedure Type: Cholecystostomy Procedure: Placement Slovenian: 8 Drainage: [place] drainage Fluid Description: Bilious, Complicated Geovanny Yañez MD February 01, 2017 10:20
[2017-02-01] MEDS ORDERED: IOHEXOL 350 MG/ML 50 ML BTL (for RAD DIAG) OTHER ONE (10:34)
[2017-02-01] MEDS: METOPROLOL TARTRATE 50 MG TAB PO SCH ×2 (10:38→20:45)
[2017-02-01] MEDS: PANTOPRAZOLE SODIUM 40 MG VIAL IV SCH (10:38)
[2017-02-01] MEDS: metroNIDAZOLE 500 MG INJ 100 ML IV SCH ×2 (10:38→16:53)
--- NOTE | 2017-02-01 11:57 | RADRPT ---
EXAM DATE/TIME: 02/01/2017 08:44 [place] COMPARISON: No previous studies available for comparison. INDICATIONS : Patient presents with cholelithiasis in need of cholecystostomy tube placement for drainage. MEDICAL HISTORY : Diabetes CVA 2013 HTN Obesity Hyperlipidemia Arthritis Neuropathy SURGICAL HISTORY : x4 Right below knee amputation ENCOUNTER: Initial ACUITY: 1 week PAIN SCORE: 10/10 LOCATION: Bilateral Umbilical FLUORO TIME: 6.8 minutes IMAGE SERIES: 2 SEDATION TIME: 55 minutes CONTRAST: 40 cc Omnipaque (iohexol) 350 MEDICATION(S): 1.) 5 mg midazolam (Versed) IV 2.) 250 mcg fentanyl (Sublimaze) IV 3.) 4 mg ondansetron (Zofran) IV DEVICE(S): 1.) 8 [place] 25CM Skater catheter PROCEDURE : 1. Ultrasound guided puncture of the gallbladder. 2. Percutaneous cholangiogram. 3. Percutaneous cholecystostomy tube placement. 4. Conscious sedation with continuous EKG and oximetry monitoring. The risks, benefits and alternatives to the procedure were explained and verbal and written consent w as obtained. The site was prepped in sterile fashion. Full sterile technique was used, including ca p, mask, sterile gloves and gown and a large sterile sheet. Hand hygiene and 2% chlorhexidine and/or betadine/alcohol prep was utilized per protocol for cutaneous antisepsis. The skin and subcutaneous tissues were infiltrated with local anesthetic solution. With ultrasound and fluoroscopic guidance the gallbladder was punctured with a micropuncture set and a 4 [place] dilator was placed. Injection of positive contrast demonstrates position within the gallb ladder. A 0.035 guidewire was placed within the gallbladder lumen and dilatation was performed to ac cept the prescribed catheter. An 8 [place] locking pigtail catheter was inserted. Thick black bile was placed to bag drainage. Conscious sedation was performed with the prescribed dosages and duration as above in the presence of an independent trained radiology nurse to assist in the monitoring of the patient. EKG and oximetry remained stable throughout the procedure. The patient tolerated the procedure well and there were n o complications. The patient was sent to post anesthesia recovery in stable condition. CONCLUSION: Uncomplicated percutaneous cholecystostomy as above. Geovanny Yañez MD on February 01, 2017 at 11:50 Board Certified Radiologist. This report was verified electronically.
--- NOTE | 2017-02-01 12:35 | HHI.CCPN ---
Subjective Remarks/Hospital Course The patient is a 62 year-old female with past medical history of hypertension, diabetes mellitus, cerebrovascular accident in 2014, dyslipidemia, who presents from nursing facility with fever and altered mental status. She was found to have a temperature of 101.4 was brought in by paramedics and 103.4 rectally. When she arrived initially she was obtunded and unable to give any history secondary to her mental status. A CT scan of the brain was obtained which showed old lacunar infarct in the left basilar ganglia, stable compared to previous studies. No acute intracranial abnormalities identified. The patient was tachycardic, however, her blood pressure was 124/85. Her laboratory data is significant for lactic acid of 3.1, acute renal failure with a blood urea nitrogen of 43, creatinine of 3.13 respectively and leukocytosis with a white blood cell of 27.5. Her urinalysis was compatible with urinary tract infection. Chest x-ray in the emergency room showed under inflation of mild airspace opacity under right lung base with appearance favoring atelectasis over consolidation. In the emergency department she was given two liters of Crystalloids in addition to Vancomycin and Zosyn, she also received a Tylenol suppository 650 mg p.o. times one. After fluid resuscitation, the patients mental status improved and currently she is awake and alert. She reports abdominal pain associated with nausea and vomiting and decreased p.o. intake. She denies any chest pain, shortness of breath, cough, her lactic acid level measured at 3.1. 01/28: MAXIMUM TEMPERATURE 100.9 Hypertensive overnight. On nasal cannula. Remains confused. BM 1. 01/29: Tmax 99.8. Still complaining of diffuse abdominal pain. Positive BM. Gretchen on 2 L nasal cannula. Creatinine much improved. 01/30 No acute events overnight. For HIDA scan. Renal function continue to improve with Cr: 1.17 today from 1.34. 01/31 No events overnight. HIDA scan yesterday showed no visualization of gall bladder for perc cholecystostomy tube placement by IR today. Afebrile. Subjective 02/01: Status post placement of cholecystostomy tube today. States abdominal pain. Positive BM 7. Afebrile. Currently on room air. Objective Vital Signs Date Time Temp Pulse Resp B/P Pulse Ox O2 Delivery O2 Flow Rate FiO2 02/01/17 11:00 76 23 155/69 90 02/01/17 08:00 98.1 01/31/17 23:15 21 01/29/17 08:13 Nasal Cannula 2.00 Intake and Output 01/31/17 01/31/17 02/01/17 08:00 16:00 00:00 Intake Total 429 ml 441 ml 1570 ml Output Total 430 ml 955 ml 400 ml Balance -1 ml -514 ml 1170 ml Result Diagram: 02/01/17 0431 02/01/17 0431 Other Results Microbiology Date/Time Procedure Status Source Growth 01/27/17 15:10 Aerobic Blood Culture - Final Complete Blood Peripheral NO GROWTH IN 5 DAYS 01/27/17 15:10 Anaerobic Blood Culture - Final Complete Blood Peripheral NO GROWTH IN 5 DAYS Imaging Last Impressions Percutaneous Cholangiogram 02/01/17 0000 Signed Impressions: Service Date/Time: Wednesday, February 01, 2017 08:44 - CONCLUSION: Uncomplicated percutaneous cholecystostomy as above. Geovanny Yañez MD Abdomen X-Ray 01/30/17 0600 Signed Impressions: Service Date/Time: Monday, January 30, 2017 05:04 - CONCLUSION: Unchanged gaseous distention of the colon. Jc Ortiz Jr., MD Hepatobiliary Scan Nuclear Medicine 01/30/17 0000 Signed Impressions: Service Date/Time: Monday, January 30, 2017 11:15 - CONCLUSION: Nonvisualization of the gallbladder 2 hours. Patient does have gallstones in a prominent gallbladder. Krystian Painting MD FACRADDENDUM: 20 hour delayed imaging of the hepatobiliary system continues to demonstrate nonvisualization of the gallbladder characteristic of cystic duct obstruction. Geovanny Yañez MD Chest X-Ray 01/30/17 0000 Signed Impressions: Service Date/Time: Monday, January 30, 2017 10:56 - CONCLUSION: Mild pulmonary congestion with bibasilar airspace disease and mild cardiomegaly. Geovanny Yañez MD Liver Ultrasound 01/28/17 0000 Signed Impressions: Service Date/Time: Saturday, January 28, 2017 09:20 - CONCLUSION: 1. Cholelithiasis with 1.8 cm gallstone in the region of the neck of the gallbladder which was nonmobile. There is a small amount of adjacent free fluid. There is no evidence of biliary obstruction. 2. Fatty infiltration of the liver. Ang Moreno MD Head CT 01/27/17 1052 Signed Impressions: Service Date/Time: Friday, January 27, 2017 11:26 - CONCLUSION: 1. Old lacunar infarct in the left basal ganglia stable compared to previous dated 01/04/14. 2. No acute intracranial abnormality identified. Christopher Painting MD Abdomen/Pelvis CT 01/27/17 0000 Signed Impressions: Service Date/Time: Friday, January 27, 2017 14:51 - CONCLUSION: Gallstone. Ileus bowel gas pattern. Willy Mackay MD Objective Remarks GENERAL: 61-year-old female resting in bed in no acute distress SKIN: Warm and dry. No rash HEAD: Atraumatic. Normocephalic. EYES: Pupils equal and round. No scleral icterus. No injection or drainage. ENT: No nasal bleeding or discharge. Mucous membranes pink and moist. NG tube in right nares NECK: Trachea midline. No JVD. CARDIOVASCULAR: Regular rate and rhythm. S1, S2. No S4. RESPIRATORY: No accessory muscle use. Clear to auscultation. Breath sounds equal bilaterally. GASTROINTESTINAL: Abdomen distended. Hypoactive bowel sounds appreciated. Tender to palpation epigastric region. MUSCULOSKELETAL: Extremities without significant peripheral edema NEUROLOGICAL: Awake and alert. No obvious cranial nerve deficits. Motor grossly within normal limits. Five out of 5 muscle strength in the arms and legs. Normal speech. A/P Assessment and Plan Neuro/Psych: History of left basal ganglia CVA Depression Peripheral neuropathy Insomnia Monitor neuro status and avoid any sedatives Resume ASA 325 mg by mouth daily. 02/02 Dilaudid 0.5 mg every 2 hours when necessary for pain management CV: Coronary artery disease - inoperable Ischemic cardiomyopathy ejection fraction 45% Hypertension Dyslipidemia Monitor HR and BP keep MAP>65mmHg. Lopressor 50mg Q12, add Hydralazine 50mg Q8 Heart catheterization by Dr. Jordan 07/10 revealed EF 45%. LAD 70%, left circumflex 70 percent, RCA 80%. Not amenable To CABG On ASA 325 milligrams daily to be resumed 02/02 As needed labetalol/hydralazine/Nitropaste for hypertension Resp: Continue with oxygen keep sat > 92% Incentive spirometry while awake, Bronchodilator therapy due nebs every 6 hours and every 2 hours when necessary dyspnea GI: Ileus Cholelithiasis HIDA scan - no visualization of gall bladder. ? cystic duct obstruction. For perc cholecystostomy tube placement by IR today. GI is following CT abdomen/pelvis revealed cholelithiasis/ileus Liver ultrasound 01/28 revealed gallstone in neck of gallbladder. Nonmobile. Keep NPO Protonix for GI prophylaxis Colace/Senokot for bowel regimen KUB showed gaseous distention of colon-unchanged Endo: Diabetes mellitus neuropathy On Levemir unknown dosage with sliding scale insulin as nursing him. Sliding scale insulin Accu-Cheks every 6 hours to maintain euglycemia/low regimen Renal: CHRISTY- resolving Seen by nephrology. Creatinine stable Monitor renal function, I/O's, electrolytes replacement as needed Heme: Leukocytosis with bandemia Normocytic anemia Coagulopathy Monitor CBC, INR /PT give 2units FFP preprocedure. ID: Urinary tract infection Continue abx (Zosyn)monitor for signs of infections (Fever, WBC) ID is following. Follow up on cxs. C-diff PCR is negative. For perc cholecystostomy tube placement by IR today Pertinent cultures 01/27 - urine culture -no growth 01/27 - blood cultures 2 -no growth MSK: Access - Utilize peripheral IV. Prophylaxis - GI - Protonix - DVT - SCD/heparin SQ on hold for procedure today. Level 2 Milind Morales MD February 01, 2017 12:35
--- NOTE | 2017-02-01 14:26 | HHI.GIFU ---
Subjective Remarks Pt resting in bed, in no apparent distress. She denies n/v, abdominal pain at this time. per RN she had 4 x BM last night and now has rectal bag. (Jeannie Muniz) Objective Vitals I&O Vital Signs Date Time Temp Pulse Resp B/P Pulse Ox O2 Delivery O2 Flow Rate FiO2 02/01/17 11:00 76 23 155/69 90 02/01/17 10:45 79 23 91 02/01/17 10:33 90 26 154/76 80 02/01/17 10:33 90 26 154/76 80 02/01/17 10:33 90 02/01/17 10:30 86 24 95 02/01/17 08:10 92 02/01/17 08:00 98.1 85 29 173/79 97 02/01/17 08:00 85 02/01/17 06:00 80 02/01/17 04:00 98.0 75 26 188/84 95 02/01/17 04:00 79 02/01/17 02:00 73 02/01/17 00:00 77 02/01/17 00:00 98.2 78 33 158/87 94 01/31/17 23:15 94 21 01/31/17 22:00 77 01/31/17 21:36 24 01/31/17 20:00 85 01/31/17 20:00 98.6 85 19 170/74 97 01/31/17 18:00 85 01/31/17 17:00 87 19 168/72 93 01/31/17 16:18 98.0 81 20 148/67 97 01/31/17 15:00 85 20 148/65 95 01/31/17 14:30 88 16 155/67 95 I/O 01/31/17 01/31/17 01/31/17 02/01/17 02/01/17 02/01/17 07:00 15:00 23:00 07:00 15:00 23:00 Intake Total 429 ml 441 ml 1570 ml 415 ml Output Total 430 ml 430 ml 925 ml 450 ml Balance -1 ml 11 ml 645 ml -35 ml Intake Oral 0 ml 480 ml IV Total 429 ml 441 ml 90 ml 415 ml FFP 1000 ml Output Urine Total 300 ml 415 ml 925 ml 250 ml Stool Total 0 ml Gastric Drainage Total 130 ml 15 ml 200 ml # Bowel Movements 1 3 3 Laboratory Laboratory Tests Test 01/31/17 01/31/17 01/31/17 01/31/17 15:35 16:59 17:50 22:38 Prothrombin Time 23.2 14.4 Prothromb Time International 2.0 1.3 Ratio Blood Bank Comment Stool C. difficile Toxin (PCR) NEGATIVE Stl C. difficile Toxin PRESUMPTIVE Epiderm 027 NEGATIVE Test 02/01/17 04:31 White Blood Count 20.5 Red Blood Count 2.89 Hemoglobin 8.6 Hematocrit 25.8 Mean Corpuscular Volume 89.0 Mean Corpuscular Hemoglobin 29.7 Mean Corpuscular Hemoglobin 33.4 Concent Red Cell Distribution Width 13.4 Platelet Count 222 Mean Platelet Volume 9.9 Neutrophils (%) (Auto) 84.7 Lymphocytes (%) (Auto) 7.7 Monocytes (%) (Auto) 6.2 Eosinophils (%) (Auto) 1.3 Basophils (%) (Auto) 0.1 Neutrophils # (Auto) 17.4 Lymphocytes # (Auto) 1.6 Monocytes # (Auto) 1.3 Eosinophils # (Auto) 0.3 Basophils # (Auto) 0.0 CBC Comment DIFF FINAL Differential Comment Prothrombin Time 12.7 Prothromb Time International 1.1 Ratio Sodium Level 143 Potassium Level 3.0 Chloride Level 107 Carbon Dioxide Level 20.2 Anion Gap 16 Blood Urea Nitrogen 24 Creatinine 1.31 Estimat Glomerular Filtration 41 Rate Random Glucose 203 Calcium Level 8.1 Phosphorus Level 2.4 Magnesium Level 1.9 Total Bilirubin 0.8 Aspartate Amino Transf 107 (AST/SGOT) Alanine Aminotransferase 29 (ALT/SGPT) Alkaline Phosphatase 218 Total Protein 6.3 Albumin 2.2 Date/Time Procedure Status Source Growth 01/27/17 15:10 Aerobic Blood Culture - Final Complete Blood Peripheral NO GROWTH IN 5 DAYS 01/27/17 15:10 Anaerobic Blood Culture - Final Complete Blood Peripheral NO GROWTH IN 5 DAYS Imaging Last Impressions Percutaneous Cholangiogram 02/01/17 0000 Signed Impressions: Service Date/Time: Wednesday, February 01, 2017 08:44 - CONCLUSION: Uncomplicated percutaneous cholecystostomy as above. Geovanny Yañez MD Abdomen X-Ray 01/30/17 0600 Signed Impressions: Service Date/Time: Monday, January 30, 2017 05:04 - CONCLUSION: Unchanged gaseous distention of the colon. Jc Otriz Jr., MD Hepatobiliary Scan Nuclear Medicine 01/30/17 0000 Signed Impressions: Service Date/Time: Monday, January 30, 2017 11:15 - CONCLUSION: Nonvisualization of the gallbladder 2 hours. Patient does have gallstones in a prominent gallbladder. Krystian Painting MD FACRADDENDUM: 20 hour delayed imaging of the hepatobiliary system continues to demonstrate nonvisualization of the gallbladder characteristic of cystic duct obstruction. Geovanny Yañez MD Chest X-Ray 01/30/17 Signed Impressions: Service Date/Time: Monday, January 30, 2017 10:56 - CONCLUSION: Mild pulmonary congestion with bibasilar airspace disease and mild cardiomegaly. Geovanny Yañez MD Liver Ultrasound 01/28/17 Signed Impressions: Service Date/Time: Saturday, January 28, 2017 09:20 - CONCLUSION: 1. Cholelithiasis with 1.8 cm gallstone in the region of the neck of the gallbladder which was nonmobile. There is a small amount of adjacent free fluid. There is no evidence of biliary obstruction. 2. Fatty infiltration of the liver. Ang Moreno MD Head CT 01/27/17 1052 Signed Impressions: Service Date/Time: Friday, January 27, 2017 11:26 - CONCLUSION: 1. Old lacunar infarct in the left basal ganglia stable compared to previous dated 01/04/14. 2. No acute intracranial abnormality identified. Christopher Painting MD Abdomen/Pelvis CT 01/27/17 0000 Signed Impressions: Service Date/Time: Friday, January 27, 2017 14:51 - CONCLUSION: Gallstone. Ileus bowel gas pattern. Willy Mackay MD Physical Exam HEENT: Normocephalic; atraumatic; no jaundice. NGT CHEST: CTA, diminished CARDIAC: RRR ABDOMEN: Soft, nontender, no hepatosplenomegaly; bowel sounds are present in all four quadrants. cholecystomy tube site dressing clean EXTREMITIES: Right BKA SKIN: Normal; no rash; no jaundice. CHIEF DEPUTY: No focal deficits; Lethargic and oriented times two, poor historian ( Jeannie Muniz) Assessment and Plan Plan ASSESSMENT: - Acute cholecystitis with abdominal pain, nausea, leukocytosis. s/p cholecystomy placement. Abdomen/Pelvis CT (01/27/17)---> Gallstone. Ileus bowel gas pattern. LFTs were mildly elevated on admission with T. Bilirubin 0.3, AST 67, ALT 32 , Alk Phosph 542. Liver US (01/28/17)----> 1. Cholelithiasis with 1.8 cm gallstone in the region of the neck of the gallbladder which was nonmobile. There is a small amount of adjacent free fluid. There is no evidence of biliary obstruction. 2. Fatty infiltration of the liver. HIDA (01/30/17)-----> Nonvisualization of the gallbladder 2 hours. Patient does have gallstones in a prominent gallbladder. ADDENDUM: 20 hour delayed imaging of the hepatobiliary system continues to demonstrate nonvisualization of the gallbladder characteristic of cystic duct obstruction. IR consulted for cholecystomy tube, but INR was elevated 3.0. s/p 2 units FFP. Vitamin K. Flagyl, Zosyn. ID following. - Colonic Ileus. + BM X 4 last night. Has hx of constipation. Senokot, Colace. Repeat Abdomen X-Ray (01/30/17)---> Unchanged gaseous distention of the colon. She is passing stool. Reglan. neg for CDiff. S/P SSE. - Elevated LFTs, likely related to cholecystitis. Imaging as above. s/p cholecystostomy Abx per ID. - Cholelithiasis/Cholecystitis. 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 IR consulted for Cholecystomy tube. Zosyn. Flagyl. - Anemia, normocytic. 8.6, 25.8. - Sepsis, Leukocytosis, Bandemia. ? UTI- No growth 48 hours. BCX no growth 4 days. Likely related to acute cholecystitis,s/p cholecystomy tube. - Coagulopathy. improving s/p 2 x FFP, INR 1.1. Vitamin K - CHRISTY. Per nephrology - Hx left basal ganglia CVA, Depression, Peripheral neuropathy - CAD, ischemic cardiomyopathy, hyperlipidemia, DM, per primary. PLAN: - clears - Reglan 5mg IV q8h - Cont. Abx per ID- Zosyn, Flagyl - Monitor labs - Supportive care - Further recommendations to follow based on results of above - Pt seen and examined by Dr. Turner and myself and this note is written on her behalf (Jeannie Muniz) Jeannie Muniz February 01, 2017 14:26 Radha Turner MD February 01, 2017 19:56
[2017-02-01] MEDS ORDERED: CALCIUM CARBONATE 500 MG CHEWABLE TAB CHEW PRN (16:15)
[2017-02-01] MEDS ORDERED: HYDROmorphone HCL PF 1 MG/ML VIAL IV PUSH ONE ×2 (18:00)
--- NOTE | 2017-02-01 18:12 | HHI.IDPN ---
Subjective Subjective Remarks 61 year old female from SNF admitted with altered mental status and fevers. has had abdominal pain. CT with gallstones. 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 Vital Signs Date Time Temp Pulse Resp B/P Pulse Ox O2 Delivery O2 Flow Rate FiO2 02/01/17 11:00 76 23 155/69 90 02/01/17 10:45 79 23 91 02/01/17 10:33 90 26 154/76 80 02/01/17 10:33 90 26 154/76 80 02/01/17 10:33 90 02/01/17 10:30 86 24 95 02/01/17 08:10 92 02/01/17 08:00 98.1 85 29 173/79 97 02/01/17 08:00 85 02/01/17 06:00 80 02/01/17 04:00 98.0 75 26 188/84 95 02/01/17 04:00 79 02/01/17 02:00 73 02/01/17 00:00 77 02/01/17 00:00 98.2 78 33 158/87 94 01/31/17 23:15 94 21 01/31/17 22:00 77 01/31/17 21:36 24 01/31/17 20:00 85 01/31/17 20:00 98.6 85 19 170/74 97 01/31/17 01/31/17 02/01/17 14:59 22:59 06:59 Intake Total 441 ml 1570 ml 415 ml Output Total 430 ml 925 ml 450 ml Balance 11 ml 645 ml -35 ml Intake Oral 0 ml 480 ml IV Total 441 ml 90 ml 415 ml FFP 1000 ml Output Urine Total 415 ml 925 ml 250 ml Stool Total 0 ml Gastric Drainage Total 15 ml 200 ml # Bowel Movements 1 3 3 . Laboratory Tests Test 01/31/17 02/01/17 05:00 04:31 White Blood Count 27.8 TH/MM3 20.5 TH/MM3 Red Blood Count 3.20 MIL/MM3 2.89 MIL/MM3 Hemoglobin 9.4 GM/DL 8.6 GM/DL Hematocrit 28.6 % 25.8 % Mean Corpuscular Volume 89.3 FL 89.0 FL Mean Corpuscular Hemoglobin 29.5 PG 29.7 PG Mean Corpuscular Hemoglobin 33.0 % 33.4 % Concent Red Cell Distribution Width 13.4 % 13.4 % Platelet Count 195 TH/MM3 222 TH/MM3 Mean Platelet Volume 10.2 FL 9.9 FL Neutrophils (%) (Auto) 89.6 % 84.7 % Lymphocytes (%) (Auto) 5.4 % 7.7 % Monocytes (%) (Auto) 4.0 % 6.2 % Eosinophils (%) (Auto) 0.9 % 1.3 % Basophils (%) (Auto) 0.1 % 0.1 % Neutrophils # (Auto) 24.9 TH/MM3 17.4 TH/MM3 Lymphocytes # (Auto) 1.5 TH/MM3 1.6 TH/MM3 Monocytes # (Auto) 1.1 TH/MM3 1.3 TH/MM3 Eosinophils # (Auto) 0.3 TH/MM3 0.3 TH/MM3 Basophils # (Auto) 0.0 TH/MM3 0.0 TH/MM3 CBC Comment AUTO DIFF DIFF FINAL Differential Total Cells 100 Counted Neutrophils % (Manual) 76 % Band Neutrophils % 17 % Lymphocytes % 6 % Neutrophils # (Manual) 25.9 TH/MM3 Differential Comment FINAL DIFF MANUAL Plasma Cells 1 % Toxic Vacuolation Acanthocytes OCC Keratocytes OCC Laboratory Tests Test 01/31/17 02/01/17 05:00 04:31 Sodium Level 139 MEQ/L 143 MEQ/L Potassium Level 3.6 MEQ/L 3.0 MEQ/L Chloride Level 110 MEQ/L 107 MEQ/L Carbon Dioxide Level 17.5 MEQ/L 20.2 MEQ/L Anion Gap 12 MEQ/L 16 MEQ/L Blood Urea Nitrogen 21 MG/DL 24 MG/DL Creatinine 1.12 MG/DL 1.31 MG/DL Estimat Glomerular Filtration 49 ML/MIN 41 ML/MIN Rate Random Glucose 171 MG/DL 203 MG/DL Calcium Level 7.7 MG/DL 8.1 MG/DL Phosphorus Level 2.8 MG/DL 2.4 MG/DL Magnesium Level 1.7 MG/DL 1.9 MG/DL Total Bilirubin 0.5 MG/DL 0.8 MG/DL Aspartate Amino Transf 164 U/L 107 U/L (AST/SGOT) Alanine Aminotransferase 36 U/L 29 U/L (ALT/SGPT) Alkaline Phosphatase 315 U/L 218 U/L Total Protein 5.4 GM/DL 6.3 GM/DL Albumin 1.6 GM/DL 2.2 GM/DL Imaging Last Impressions Abdomen X-Ray 01/30/17 0600 Signed Impressions: Service Date/Time: Monday, January 30, 2017 05:04 - CONCLUSION: Unchanged gaseous distention of the colon. Jc Ortiz Jr., MD Hepatobiliary Scan Nuclear Medicine 01/30/17 0000 Signed Impressions: Service Date/Time: Monday, January 30, 2017 11:15 - CONCLUSION: Nonvisualization of the gallbladder 2 hours. Patient does have gallstones in a prominent gallbladder. Krystian Painting MD FACRADDENDUM: 20 hour delayed imaging of the hepatobiliary system continues to demonstrate nonvisualization of the gallbladder characteristic of cystic duct obstruction. Geovanny Yañez MD Chest X-Ray 01/30/17 0000 Signed Impressions: Service Date/Time: Monday, January 30, 2017 10:56 - CONCLUSION: Mild pulmonary congestion with bibasilar airspace disease and mild cardiomegaly. Geovanny Yañez MD Liver Ultrasound 01/28/17 0000 Signed Impressions: Service Date/Time: Saturday, January 28, 2017 09:20 - CONCLUSION: 1. Cholelithiasis with 1.8 cm gallstone in the region of the neck of the gallbladder which was nonmobile. There is a small amount of adjacent free fluid. There is no evidence of biliary obstruction. 2. Fatty infiltration of the liver. Ang Moreno MD Head CT 01/27/17 1052 Signed Impressions: Service Date/Time: Friday, January 27, 2017 11:26 - CONCLUSION: 1. Old lacunar infarct in the left basal ganglia stable compared to previous dated 01/04/14. 2. No acute intracranial abnormality identified. Christopher Painting MD Abdomen/Pelvis CT 01/27/17 0000 Signed Impressions: Service Date/Time: Friday, January 27, 2017 14:51 - CONCLUSION: Gallstone. Ileus bowel gas pattern. Willy Mackay MD Physical Exam GENERAL: awake and alert, looks pale, mild SOB SKIN: Warm and moist. No generalized rash or ecchymosis. HEAD: Atraumatic. Normocephalic. No temporal or scalp tenderness. EYES: [place] conjunctivae, no petechia or hemorrhage. No scleral icterus. No injection or drainage. ENT: Nose without bleeding, or purulent drainage. Moist oral mucosa. NECK: Supple, nontender, no meningeal signs. Has a scar on her neck compatible with her next surgery. CARDIOVASCULAR: Regular rate and rhythm without murmurs, gallops, or rubs. RESPIRATORY: . Breath sounds equal bilaterally. decreased BS at bases. GASTROINTESTINAL: Abdomen mildly distended, bowel sounds are present and hypoactive, has diffuse abdominal tenderness. Has GB tube with biloius dark green fluid. No guarding or rebound. MUSCULOSKELETAL: Extremities without clubbing, cyanosis, or edema. Has well healed stump in the RLE, S/P RBA. No joint effusion, or edema noted. No calf tenderness. L foot warm and well perfused. NEUROLOGICAL: NOn-focal PSYCH: Normal affect, calm and cooperative LINE: No evidence of infection : Quesada in place, urine looks clear Assessment & Plan Remarks IMPRESSION Sepsis with possible acute cholecystitis - has gallstones, RUW tenderness and (+) HIDA scan Leukocytosis, due to intraabdominal process Known HTN, PVD, CAD (+) UA Diarrhea, c diff negative RECOMMENDATION Continue Zosyn Give dose of vanco today Bile fluid for C/S 2 BC today CXR in AM Follow C/S Follow CBC Monitor progress D/W Nisreen Escoto MD February 01, 2017 18:12
[2017-02-01] MEDS ORDERED: VANCOMYCIN INJ 1,000 MG in SODIUM CHLOR 0.9% 250 ML INJ 250 ML IV ONE (18:15)
[2017-02-02] VITALS (17 sets, daily range): BP systolic 155–197; BP diastolic 67–88; PULSE 60–89; RESP 16–28; TEMP 98–98.8; O2SAT 94–98
[2017-02-02] MEDS: hydrALAZINE HCL 20 MG/ML VIAL IV PUSH PRN ×3 (00:58→19:07)
[2017-02-02] MEDS: INSULIN NovoLIN REGULAR SUPPLEMENTAL SCALE SQ SCH ×4 (01:02→20:00)
[2017-02-02] MEDS ORDERED: PANTOPRAZOLE SODIUM 40 MG VIAL IV PUSH ONE (01:30)
[2017-02-02] MEDS: HYDROmorphone HCL PF 1 MG/ML VIAL IV PUSH PRN ×5 (01:37→20:57)
[2017-02-02 01:39] LABS: AUTOMATED NEUTROPHIL # 15.2 TH/MM3 (1.8-7.7); BASOPHIL % 0.1 % (0.0-2.0); EOSINOPHIL # 0.2 TH/MM3 (0-0.4); EOSINOPHIL % 0.9 % (0.0-4.0); HEMO FLAGS DIFF FINAL; LYMPH % 10.2 % (9.0-44.0); LYMPHOCYTE # 1.9 TH/MM3 (1.0-4.8); MEAN CELL VOLUME 90.8 FL (80.0-100.0); NEUT % 80.8 % (16.0-70.0); PLATELET COUNT 263 TH/MM3 (150-450); RED BLOOD COUNT 3.08 MIL/MM3 (4.00-5.30); RED CELL DISTRIBUTION WIDTH 13.6 % (11.6-17.2); WHITE BLOOD COUNT 18.8 TH/MM3 (4.0-11.0)
[2017-02-02 01:48] LABS: ALT (GPT) 30 U/L (10-53); ANION GAP 9 MEQ/L (5-15); AST (GOT) 93 U/L (15-37); BICARBONATE 22.7 MEQ/L (21.0-32.0); BLOOD UREA NITROGEN 26 MG/DL (7-18); CHLORIDE 109 MEQ/L (98-107); GLOMERULAR FILTRATION RATE 40 ML/MIN (>89); MAGNESIUM 1.8 MG/DL (1.5-2.5); POTASSIUM 3.3 MEQ/L (3.5-5.1); SODIUM (NA) 141 MEQ/L (136-145)
[2017-02-02 01:50] LABS: ALKALINE PHOSPHATASE 195 U/L (45-117); CREATINE KINASE 273 U/L (26-192); TOTAL BILIRUBIN ADULT 0.5 MG/DL (0.2-1.0)
[2017-02-02 02:02] LABS: CKMB 2.9 NG/ML (0.5-3.6)
[2017-02-02] MEDS ORDERED: PANTOPRAZOLE INJ 80 MG in SODIUM CHLORIDE 0.9% INJ 100 ML IV SCH (02:30)
--- NOTE | 2017-02-02 03:09 | RADRPT ---
EXAM DATE/TIME: 02/02/2017 02:07 [facility] COMPARISON: CHEST SINGLE AP, January 30, 2017, 10:56. INDICATIONS : Shortness of breath, possible pulmonary disease. MEDICAL HISTORY : Hypercholesterolemia. Arthritis. Hypertension. SURGICAL HISTORY : section. ENCOUNTER: Subsequent ACUITY: 1 week PAIN SCORE: 0/10 LOCATION: Bilateral chest FINDINGS: A single portable frontal view the chest shows myocardium IV. Bilateral pleural effusions and bibasil ar infiltrates. Small effusions. Nasogastric tube courses off the inferior margin of the film. Cervic al spinal fusion plate. CONCLUSION: Radiographic findings suggesting pulmonary edema. Jc Ortiz Jr., MD on February 02, 2017 at 3:07 Board Certified Radiologist. This report was verified electronically.
--- NOTE | 2017-02-02 03:10 | RADRPT ---
EXAM DATE/TIME: 02/02/2017 02:11 [facility] COMPARISON: ABDOMEN KUB ONLY, January 30, 2017, 5:04. INDICATIONS : Abdominal pain. MEDICAL HISTORY : Hypercholesterolemia. Arthritis. Hypertension. SURGICAL HISTORY : section. ENCOUNTER: Subsequent ACUITY: 4 - 6 days PAIN SCORE: 5/10 LOCATION: Bilateral Abdomen FINDINGS: A single portable supine view the abdomen shows a gas-distended colon. This is stable. There is been interval placement of a cholecystostomy tube. A calcified stone is noted. Degenerative spine seen. CONCLUSION: Unchanged gaseous distention of the colon. Jc Ortiz Jr., MD on February 02, 2017 at 3:08 Board Certified Radiologist. This report was verified electronically.
[2017-02-02] MEDS: PIPERACIL-TAZO 3.375 GM PREMIX 50 ML IV SCH ×4 (03:46→20:57)
[2017-02-02] MEDS: CHLORHEXIDINE GLUCONATE 2 % 1 PACK (2 CLOTHS) TOP SCH (04:00)
[2017-02-02] MEDS: hydrALAZINE HCL 50 MG TAB PO SCH ×3 (06:10→20:56)
[2017-02-02] MEDS: METOCLOPRAMIDE HCL 10 MG/2 ML VIAL IV PUSH SCH ×3 (06:10→20:57)
[2017-02-02] MEDS: SENNOSIDES SYRUP 8.8 MG/5 ML CUP PO SCH (08:00)
[2017-02-02] MEDS: DOCUSATE SODIUM 100 MG/10 ML UDC PO SCH ×2 (08:00→20:57)
[2017-02-02] MEDS: METOPROLOL TARTRATE 50 MG TAB PO SCH ×2 (08:00→20:56)
[2017-02-02] MEDS: SODIUM CHLORIDE 0.9% 10 ML VIAL IRRIGATION SCH (08:01)
[2017-02-02] MEDS: MAGNESIUM SULFATE 1 GM PREMIX 100 ML IV SCH ×2 (11:17→12:42)
[2017-02-02] MEDS: PANTOPRAZOLE SODIUM 40 MG VIAL IV PUSH SCH ×2 (11:17→23:17)
--- NOTE | 2017-02-02 13:38 | HHI.IDPN ---
Subjective Subjective Remarks 61 year old female from SNF admitted with altered mental status and fevers. has had abdominal pain. CT with gallstones. 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 Vital Signs Date Time Temp Pulse Resp B/P Pulse Ox O2 Delivery O2 Flow Rate FiO2 02/02/17 12:00 98.7 70 23 162/72 97 02/02/17 12:00 60 02/02/17 11:33 16 02/02/17 10:00 68 02/02/17 08:00 80 02/02/17 08:00 98.4 80 17 163/72 96 02/02/17 06:00 66 02/02/17 04:00 74 02/02/17 04:00 74 16 155/67 96 02/02/17 03:00 74 19 166/70 94 02/02/17 02:00 73 02/02/17 02:00 73 19 174/74 96 02/02/17 01:12 77 26 170/76 95 02/02/17 01:03 69 21 176/84 96 02/02/17 01:00 75 20 197/88 95 02/02/17 00:03 73 28 189/84 96 02/02/17 00:00 69 02/02/17 00:00 98.8 69 26 185/81 96 02/01/17 23:00 70 32 184/84 96 02/01/17 22:00 75 21 179/79 97 02/01/17 22:00 75 02/01/17 21:59 97 21 02/01/17 21:00 77 34 197/79 97 02/01/17 20:00 98.7 77 27 181/79 85 02/01/17 20:00 77 02/01/17 18:15 84 02/01/17 18:01 87 02/01/17 18:00 84 02/01/17 16:45 82 18 174/66 84 02/01/17 16:45 82 02/01/17 16:30 84 10 178/79 91 02/01/17 16:30 84 02/01/17 16:15 86 02/01/17 16:15 86 30 182/77 98 02/01/17 16:00 97 02/01/17 16:00 98.3 97 36 188/86 91 02/01/17 15:45 91 33 198/86 76 02/01/17 15:45 91 33 198/86 76 02/01/17 15:45 91 02/01/17 15:30 80 22 176/83 100 02/01/17 15:30 80 02/01/17 15:30 80 22 176/83 100 02/01/17 15:15 83 29 175/84 78 02/01/17 15:15 83 02/01/17 15:15 83 29 175/84 78 02/01/17 15:00 84 02/01/17 15:00 84 33 168/82 97 02/01/17 15:00 84 33 168/82 97 02/01/17 14:45 82 28 164/74 91 02/01/17 14:45 82 28 164/74 91 02/01/17 14:45 82 02/01/17 14:31 88 02/01/17 14:31 88 35 194/68 81 02/01/17 14:31 88 35 194/68 81 02/01/17 14:30 88 32 81 02/01/17 14:15 86 33 186/74 93 02/01/17 14:15 86 33 186/74 93 02/01/17 14:15 86 02/01/17 14:00 89 35 162/84 89 02/01/17 14:00 89 35 162/84 89 02/01/17 14:00 89 02/01/17 13:45 89 42 168/71 74 02/01/17 13:45 89 02/01/17 13:45 89 42 168/71 74 02/01/17 02/01/17 02/02/17 15:00 23:00 07:00 Intake Total 1681 ml 1051 ml 827 ml Output Total 800 ml 1060 ml 1060 ml Balance 881 ml -9 ml -233 ml Intake Oral 1200 ml 480 ml 480 ml IV Total 481 ml 571 ml 287 ml Other 60 ml Output Urine Total 350 ml 300 ml 250 ml Gastric Drainage Total 450 ml 650 ml 750 ml Drainage Total 110 ml 60 ml # Bowel Movements 50 50 100 . Laboratory Tests Test 02/01/17 02/02/17 04:31 01:10 White Blood Count 20.5 TH/MM3 18.8 TH/MM3 Red Blood Count 2.89 MIL/MM3 3.08 MIL/MM3 Hemoglobin 8.6 GM/DL 9.0 GM/DL Hematocrit 25.8 % 28.0 % Mean Corpuscular Volume 89.0 FL 90.8 FL Mean Corpuscular Hemoglobin 29.7 PG 29.0 PG Mean Corpuscular Hemoglobin 33.4 % 32.0 % Concent Red Cell Distribution Width 13.4 % 13.6 % Platelet Count 222 TH/MM3 263 TH/MM3 Mean Platelet Volume 9.9 FL 9.2 FL Neutrophils (%) (Auto) 84.7 % 80.8 % Lymphocytes (%) (Auto) 7.7 % 10.2 % Monocytes (%) (Auto) 6.2 % 8.0 % Eosinophils (%) (Auto) 1.3 % 0.9 % Basophils (%) (Auto) 0.1 % 0.1 % Neutrophils # (Auto) 17.4 TH/MM3 15.2 TH/MM3 Lymphocytes # (Auto) 1.6 TH/MM3 1.9 TH/MM3 Monocytes # (Auto) 1.3 TH/MM3 1.5 TH/MM3 Eosinophils # (Auto) 0.3 TH/MM3 0.2 TH/MM3 Basophils # (Auto) 0.0 TH/MM3 0.0 TH/MM3 CBC Comment DIFF FINAL DIFF FINAL Differential Comment Laboratory Tests Test 02/01/17 02/02/17 02/02/17 04:31 01:10 10:23 Sodium Level 143 MEQ/L 141 MEQ/L Potassium Level 3.0 MEQ/L 3.3 MEQ/L 3.6 MEQ/L Chloride Level 107 MEQ/L 109 MEQ/L Carbon Dioxide Level 20.2 MEQ/L 22.7 MEQ/L Anion Gap 16 MEQ/L 9 MEQ/L Blood Urea Nitrogen 24 MG/DL 26 MG/DL Creatinine 1.31 MG/DL 1.34 MG/DL Estimat Glomerular Filtration 41 ML/MIN 40 ML/MIN Rate Random Glucose 203 MG/DL 292 MG/DL Calcium Level 8.1 MG/DL 8.1 MG/DL Phosphorus Level 2.4 MG/DL 2.4 MG/DL Magnesium Level 1.9 MG/DL 1.8 MG/DL Total Bilirubin 0.8 MG/DL 0.5 MG/DL Aspartate Amino Transf 107 U/L 93 U/L (AST/SGOT) Alanine Aminotransferase 29 U/L 30 U/L (ALT/SGPT) Alkaline Phosphatase 218 U/L 195 U/L Total Protein 6.3 GM/DL 6.0 GM/DL Albumin 2.2 GM/DL 2.0 GM/DL Total Creatine Kinase 273 U/L Creatine Kinase MB 2.9 NG/ML Creatine Kinase MB % 1.1 % Microbiology Date/Time Procedure Status Source Growth 02/01/17 19:20 Aerobic Blood Culture - Preliminary Resulted Blood Peripheral NO GROWTH IN 1 DAY 02/01/17 19:20 Anaerobic Blood Culture - Preliminary Resulted Blood Peripheral NO GROWTH IN 1 DAY 02/01/17 19:25 Aerobic Blood Culture - Preliminary Resulted Blood Peripheral NO GROWTH IN 1 DAY 02/01/17 19:25 Anaerobic Blood Culture - Preliminary Resulted Blood Peripheral NO GROWTH IN 1 DAY 02/01/17 22:20 Gram Stain - Final Resulted Fluid Bile Fluid 02/01/17 22:20 Body Fluid Culture - Preliminary Resulted Fluid Bile Fluid NO GROWTH IN 24 HOURS. Imaging Last Impressions Abdomen X-Ray 01/30/17 0600 Signed Impressions: Service Date/Time: Monday, January 30, 2017 05:04 - CONCLUSION: Unchanged gaseous distention of the colon. Jc Ortiz Jr., MD Hepatobiliary Scan Nuclear Medicine 01/30/17 0000 Signed Impressions: Service Date/Time: Monday, January 30, 2017 11:15 - CONCLUSION: Nonvisualization of the gallbladder 2 hours. Patient does have gallstones in a prominent gallbladder. Krystian Painting MD FACRADDENDUM: 20 hour delayed imaging of the hepatobiliary system continues to demonstrate nonvisualization of the gallbladder characteristic of cystic duct obstruction. Geovanny Yañez MD Chest X-Ray 01/30/17 0000 Signed Impressions: Service Date/Time: Monday, January 30, 2017 10:56 - CONCLUSION: Mild pulmonary congestion with bibasilar airspace disease and mild cardiomegaly. Geovanny Yañez MD Liver Ultrasound 01/28/17 0000 Signed Impressions: Service Date/Time: Saturday, January 28, 2017 09:20 - CONCLUSION: 1. Cholelithiasis with 1.8 cm gallstone in the region of the neck of the gallbladder which was nonmobile. There is a small amount of adjacent free fluid. There is no evidence of biliary obstruction. 2. Fatty infiltration of the liver. Ang Moreno MD Head CT 01/27/17 1052 Signed Impressions: Service Date/Time: Friday, January 27, 2017 11:26 - CONCLUSION: 1. Old lacunar infarct in the left basal ganglia stable compared to previous dated 01/04/14. 2. No acute intracranial abnormality identified. Christopher Painting MD Abdomen/Pelvis CT 01/27/17 0000 Signed Impressions: Service Date/Time: Friday, January 27, 2017 14:51 - CONCLUSION: Gallstone. Ileus bowel gas pattern. Willy Mackay MD Physical Exam GENERAL: awake and alert, comfortable, on RA SKIN: Warm and moist. No generalized rash or ecchymosis. HEAD: Atraumatic. Normocephalic. No temporal or scalp tenderness. EYES: [place] conjunctivae, no petechia or hemorrhage. No scleral icterus. No injection or drainage. ENT: Nose without bleeding, or purulent drainage. Moist oral mucosa. NECK: Supple, nontender, no meningeal signs. Has a scar on her neck compatible with her next surgery. CARDIOVASCULAR: Regular rate and rhythm without murmurs, gallops, or rubs. RESPIRATORY: . Breath sounds equal bilaterally. decreased BS at bases. GASTROINTESTINAL: Abdomen mild tenderness, sl distended. Has GB tube with biloius dark green fluid. No guarding or rebound. MUSCULOSKELETAL: Extremities without clubbing, cyanosis, or edema. 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 No calf tenderness. L foot warm and well perfused. NEUROLOGICAL: NOn-focal PSYCH: Normal affect, calm and cooperative LINE: No evidence of infection : Quesada in place, urine looks clear Assessment & Plan Remarks IMPRESSION Sepsis with possible acute cholecystitis - has gallstones, RUW tenderness and (+) HIDA scan Leukocytosis, due to intraabdominal process, decreasing Known HTN, PVD, CAD (+) UA Diarrhea, c diff negative RECOMMENDATION Continue Zosyn Follow new C/S Follow CBC Monitor progress Nisreen Garcia MD February 02, 2017 13:38
--- NOTE | 2017-02-02 14:31 | HHI.CCPN ---
Subjective Remarks/Hospital Course The patient is a 62 year-old female with past medical history of hypertension, diabetes mellitus, cerebrovascular accident in 2014, dyslipidemia, who presents from nursing facility with fever and altered mental status. She was found to have a temperature of 101.4 was brought in by paramedics and 103.4 rectally. When she arrived initially she was obtunded and unable to give any history secondary to her mental status. A CT scan of the brain was obtained which showed old lacunar infarct in the left basilar ganglia, stable compared to previous studies. No acute intracranial abnormalities identified. The patient was tachycardic, however, her blood pressure was 124/85. Her laboratory data is significant for lactic acid of 3.1, acute renal failure with a blood urea nitrogen of 43, creatinine of 3.13 respectively and leukocytosis with a white blood cell of 27.5. Her urinalysis was compatible with urinary tract infection. Chest x-ray in the emergency room showed under inflation of mild airspace opacity under right lung base with appearance favoring atelectasis over consolidation. In the emergency department she was given two liters of Crystalloids in addition to Vancomycin and Zosyn, she also received a Tylenol suppository 650 mg p.o. times one. After fluid resuscitation, the patients mental status improved and currently she is awake and alert. She reports abdominal pain associated with nausea and vomiting and decreased p.o. intake. She denies any chest pain, shortness of breath, cough, her lactic acid level measured at 3.1. 01/28: MAXIMUM TEMPERATURE 100.9 Hypertensive overnight. On nasal cannula. Remains confused. BM 1. 01/29: Tmax 99.8. Still complaining of diffuse abdominal pain. Positive BM. Gretchen on 2 L nasal cannula. Creatinine much improved. 01/30 No acute events overnight. For HIDA scan. Renal function continue to improve with Cr: 1.17 today from 1.34. 01/31 No events overnight. HIDA scan yesterday showed no visualization of gall bladder for perc cholecystostomy tube placement by IR today. Afebrile. 02/01: Status post placement of cholecystostomy tube today. States abdominal pain. Positive BM 7. Afebrile. Currently on room air. Subjective 02/02: Currently resting in bed. Wants to eat and drink. Afebrile. Abdominal pain improved with increased narcotics but ileus persist obviously Objective Vital Signs Date Time Temp Pulse Resp B/P Pulse Ox O2 Delivery O2 Flow Rate FiO2 02/02/17 12:00 98.7 70 23 162/72 97 02/01/17 21:59 21 01/29/17 08:13 Nasal Cannula 2.00 Intake and Output 02/01/17 02/01/17 02/02/17 08:00 16:00 00:00 Intake Total 415 ml 1681 ml 1051 ml Output Total 450 ml 800 ml 1060 ml Balance -35 ml 881 ml -9 ml Result Diagram: 02/02/17 0110 02/02/17 1023 Other Results Microbiology Date/Time Procedure Status Source Growth 02/01/17 22:20 Gram Stain - Final Resulted Fluid Bile Fluid 02/01/17 22:20 Body Fluid Culture - Preliminary Resulted Fluid Bile Fluid NO GROWTH IN 24 HOURS. 02/01/17 19:25 Aerobic Blood Culture - Preliminary Resulted Blood Peripheral NO GROWTH IN 1 DAY 02/01/17 19:25 Anaerobic Blood Culture - Preliminary Resulted Blood Peripheral NO GROWTH IN 1 DAY Imaging Last Impressions Abdomen X-Ray 02/02/17 0600 Signed Impressions: Service Date/Time: January 02:11 - CONCLUSION: Unchanged gaseous distention of the colon. Jc Ortiz Jr., MD Chest X-Ray 02/02/17 0000 Signed Impressions: Service Date/Time: January 02:07 - CONCLUSION: Radiographic findings suggesting pulmonary edema. Jc Ortiz Jr., MD Percutaneous Cholangiogram 02/01/17 0000 Signed Impressions: Service Date/Time: Wednesday, February 01, 2017 08:44 - CONCLUSION: Uncomplicated percutaneous cholecystostomy as above. Geovanny Yañez MD Hepatobiliary Scan Nuclear Medicine 01/30/17 0000 Signed Impressions: Service Date/Time: Monday, January 30, 2017 11:15 - CONCLUSION: Nonvisualization of the gallbladder 2 hours. Patient does have gallstones in a prominent gallbladder. Krystian Painting MD FACRADDENDUM: 20 hour delayed imaging of the hepatobiliary system continues to demonstrate nonvisualization of the gallbladder characteristic of cystic duct obstruction. Geovanny Yañez MD Liver Ultrasound 01/28/17 0000 Signed Impressions: Service Date/Time: Saturday, January 28, 2017 09:20 - CONCLUSION: 1. Cholelithiasis with 1.8 cm gallstone in the region of the neck of the gallbladder which was nonmobile. There is a small amount of adjacent free fluid. There is no evidence of biliary obstruction. 2. Fatty infiltration of the liver. Ang Moreno MD Head CT 01/27/17 1052 Signed Impressions: Service Date/Time: Friday, January 27, 2017 11:26 - CONCLUSION: 1. Old lacunar infarct in the left basal ganglia stable compared to previous dated 01/04/14. 2. No acute intracranial abnormality identified. Christopher Painting MD Abdomen/Pelvis CT 01/27/17 0000 Signed Impressions: Service Date/Time: Friday, January 27, 2017 14:51 - CONCLUSION: Gallstone. Ileus bowel gas pattern. Willy Mackay MD Objective Remarks GENERAL: 61-year-old female resting in bed in no acute distress SKIN: Warm and dry. No rash HEAD: Atraumatic. Normocephalic. EYES: Pupils equal and round. No scleral icterus. No injection or drainage. ENT: No nasal bleeding or discharge. Mucous membranes pink and moist. NG tube in right nares NECK: Trachea midline. No JVD. CARDIOVASCULAR: Regular rate and rhythm. S1, S2. No S4. RESPIRATORY: No accessory muscle use. Clear to auscultation. Breath sounds equal bilaterally. GASTROINTESTINAL: Abdomen distended. Hypoactive bowel sounds appreciated. Tender to palpation epigastric region. MUSCULOSKELETAL: Extremities without significant peripheral edema NEUROLOGICAL: Awake and alert. No obvious cranial nerve deficits. Motor grossly within normal limits. Five out of 5 muscle strength in the arms and legs. Normal speech. A/P Assessment and Plan Neuro/Psych: History of left basal ganglia CVA Depression Peripheral neuropathy Insomnia Monitor neuro status and avoid any sedatives Resume ASA 325 mg by mouth daily. 02/02 Dilaudid 0.5 mg every 2 hours when necessary for pain management with 1 mg for breakthrough pain CV: Coronary artery disease - inoperable Ischemic cardiomyopathy ejection fraction 45% Hypertension Dyslipidemia Monitor HR and BP keep MAP>65mmHg. Lopressor 50mg Q8, add Hydralazine 50mg Q8 Heart catheterization by Dr. Jordan 07/10 revealed EF 45%. LAD 70%, left circumflex 70 percent, RCA 80%. Not amenable To CABG On ASA 325 milligrams daily to be resumed 02/02 As needed labetalol/hydralazine/Nitropaste for hypertension Resp: Continue with oxygen keep sat > 92% Incentive spirometry while awake, Bronchodilator therapy due nebs every 6 hours and every 2 hours when necessary dyspnea GI: Ileus Cholelithiasis HIDA scan - no visualization of gall bladder. ? cystic duct obstruction. For perc cholecystostomy tube placement by IR today. GI is following CT abdomen/pelvis revealed cholelithiasis/ileus Liver ultrasound 01/28 revealed gallstone in neck of gallbladder. Nonmobile. Keep NPO Protonix for GI prophylaxis Colace/Senokot for bowel regimen Reglan 5 every 8 for prokinetic agent KUB 02/02 showed gaseous distention of colon-unchanged Endo: Diabetes mellitus neuropathy On Levemir unknown dosage with sliding scale insulin as nursing him. Sliding scale insulin Accu-Cheks every 6 hours to maintain euglycemia/low regimen Renal: CHRISTY- resolving Seen by nephrology. Creatinine stable Monitor renal function, I/O's, electrolytes replacement as needed Heme: Leukocytosis with bandemia Normocytic anemia Coagulopathy Monitor CBC, INR /PT give 2units FFP preprocedure. ID: Urinary tract infection Continue abx (Zosyn)monitor for signs of infections (Fever, WBC) ID is following. Follow up on cxs. C-diff PCR is negative. For perc cholecystostomy tube placement by IR today Pertinent cultures 02/01 - blood cultures 2 - no growth 01/27 - urine culture -no growth 01/27 - blood cultures 2 -no growth FEN: Hypokalemia Hypophosphatemia 40 mEq KCl/by tube/15 mmol sodium phosphate IV 1. Recheck in a.m. Access - Utilize peripheral IV. Prophylaxis - GI - Protonix - DVT - SCD/heparin SQ on hold for procedure today. Level 2 Milind Morales MD February 02, 2017 14:31
[2017-02-02] MEDS ORDERED: POTASSIUM CHLORIDE 20 MEQ PWD PACKET PO ONE (14:45)
[2017-02-02] MEDS ORDERED: SODIUM PHOSPHATE INJ 15 MMOL in SODIUM CHLORIDE 0.9% INJ 150 ML IV ONE (15:00)
--- NOTE | 2017-02-02 15:26 | HHI.GIFU ---
Subjective Remarks Resting in bed. Thirsty, wants ice chips. Still with some abdominal pain, states better. Nurse reports no bm today. Denies fevers. (Priscila Andrew) Objective Vitals I&O Vital Signs Date Time Temp Pulse Resp B/P Pulse Ox O2 Delivery O2 Flow Rate FiO2 02/02/17 12:00 98.7 70 23 162/72 97 02/02/17 12:00 60 02/02/17 11:33 16 02/02/17 10:00 68 02/02/17 08:00 80 02/02/17 08:00 98.4 80 17 163/72 96 02/02/17 06:00 66 02/02/17 04:00 74 02/02/17 04:00 74 16 155/67 96 02/02/17 03:00 74 19 166/70 94 02/02/17 02:00 73 02/02/17 02:00 73 19 174/74 96 02/02/17 01:12 77 26 170/76 95 02/02/17 01:03 69 21 176/84 96 02/02/17 01:00 75 20 197/88 95 02/02/17 00:03 73 28 189/84 96 02/02/17 00:00 69 02/02/17 00:00 98.8 69 26 185/81 96 02/01/17 23:00 70 32 184/84 96 02/01/17 22:00 75 21 179/79 97 02/01/17 22:00 75 02/01/17 21:59 97 21 02/01/17 21:00 77 34 197/79 97 02/01/17 20:00 98.7 77 27 181/79 85 02/01/17 20:00 77 02/01/17 18:15 84 02/01/17 18:01 87 02/01/17 18:00 84 02/01/17 16:45 82 18 174/66 84 02/01/17 16:45 82 02/01/17 16:30 84 10 178/79 91 02/01/17 16:30 84 02/01/17 16:15 86 02/01/17 16:15 86 30 182/77 98 02/01/17 16:00 97 02/01/17 16:00 98.3 97 36 188/86 91 02/01/17 15:45 91 33 198/86 76 02/01/17 15:45 91 33 198/86 76 02/01/17 15:45 91 02/01/17 15:30 80 22 176/83 100 02/01/17 15:30 80 02/01/17 15:30 80 22 176/83 100 I/O 02/01/17 02/01/17 02/01/17 02/02/17 02/02/17 02/02/17 07:00 15:00 23:00 07:00 15:00 23:00 Intake Total 415 ml 1681 ml 1051 ml 827 ml Output Total 450 ml 800 ml 1060 ml 1060 ml Balance -35 ml 881 ml -9 ml -233 ml Intake Oral 1200 ml 480 ml 480 ml IV Total 415 ml 481 ml 571 ml 287 ml Other 60 ml Output Urine Total 250 ml 350 ml 300 ml 250 ml Gastric Drainage Total 200 ml 450 ml 650 ml 750 ml Drainage Total 110 ml 60 ml # Bowel Movements 3 50 50 100 Laboratory Laboratory Tests Test 02/02/17 02/02/17 01:10 10:23 White Blood Count 18.8 Red Blood Count 3.08 Hemoglobin 9.0 Hematocrit 28.0 Mean Corpuscular Volume 90.8 Mean Corpuscular Hemoglobin 29.0 Mean Corpuscular Hemoglobin 32.0 Concent Red Cell Distribution Width 13.6 Platelet Count 263 Mean Platelet Volume 9.2 Neutrophils (%) (Auto) 80.8 Lymphocytes (%) (Auto) 10.2 Monocytes (%) (Auto) 8.0 Eosinophils (%) (Auto) 0.9 Basophils (%) (Auto) 0.1 Neutrophils # (Auto) 15.2 Lymphocytes # (Auto) 1.9 Monocytes # (Auto) 1.5 Eosinophils # (Auto) 0.2 Basophils # (Auto) 0.0 CBC Comment DIFF FINAL Differential Comment Sodium Level 141 Potassium Level 3.3 3.6 Chloride Level 109 Carbon Dioxide Level 22.7 Anion Gap 9 Blood Urea Nitrogen 26 Creatinine 1.34 Estimat Glomerular Filtration 40 Rate Random Glucose 292 Calcium Level 8.1 Phosphorus Level 2.4 Magnesium Level 1.8 Total Bilirubin 0.5 Aspartate Amino Transf 93 (AST/SGOT) Alanine Aminotransferase 30 (ALT/SGPT) Alkaline Phosphatase 195 Total Creatine Kinase 273 Creatine Kinase MB 2.9 Creatine Kinase MB % 1.1 Total Protein 6.0 Albumin 2.0 Random Vancomycin Level 17.8 Date/Time Procedure Status Source Growth 02/01/17 22:20 Gram Stain - Final Resulted Fluid Bile Fluid 02/01/17 22:20 Body Fluid Culture - Preliminary Resulted Fluid Bile Fluid NO GROWTH IN 24 HOURS. 02/01/17 19:25 Aerobic Blood Culture - Preliminary Resulted Blood Peripheral NO GROWTH IN 1 DAY 02/01/17 19:25 Anaerobic Blood Culture - Preliminary Resulted Blood Peripheral NO GROWTH IN 1 DAY Imaging Last Impressions Abdomen X-Ray 02/02/17 0600 Signed Impressions: Service Date/Time: January 02:11 - CONCLUSION: Unchanged gaseous distention of the colon. Jc Ortiz Jr., MD Chest X-Ray 02/02/17 0000 Signed Impressions: Service Date/Time: January 02:07 - CONCLUSION: Radiographic findings suggesting pulmonary edema. Jc Ortiz Jr., MD Percutaneous Cholangiogram 02/01/17 0000 Signed Impressions: Service Date/Time: Wednesday, February 01, 2017 08:44 - CONCLUSION: Uncomplicated percutaneous cholecystostomy as above. Geovanny Yañez MD Hepatobiliary Scan Nuclear Medicine 01/30/17 0000 Signed Impressions: Service Date/Time: Monday, January 30, 2017 11:15 - CONCLUSION: Nonvisualization of the gallbladder 2 hours. Patient does have gallstones in a prominent gallbladder. Krystian Painting MD FACRADDENDUM: 20 hour delayed imaging of the hepatobiliary system continues to demonstrate nonvisualization of the gallbladder characteristic of cystic duct obstruction. Geovanny Yañez MD Liver Ultrasound 01/28/17 0000 Signed Impressions: Service Date/Time: Saturday, January 28, 2017 09:20 - CONCLUSION: 1. Cholelithiasis with 1.8 cm gallstone in the region of the neck of the gallbladder which was nonmobile. There is a small amount of adjacent free fluid. There is no evidence of biliary obstruction. 2. Fatty infiltration of the liver. Ang Moreno MD Head CT 01/27/17 1052 Signed Impressions: Service Date/Time: Friday, January 27, 2017 11:26 - CONCLUSION: 1. Old lacunar infarct in the left basal ganglia stable compared to previous dated 01/04/14. 2. No acute intracranial abnormality identified. Christopher Painting MD Abdomen/Pelvis CT 01/27/17 0000 Signed Impressions: Service Date/Time: Friday, January 27, 2017 14:51 - CONCLUSION: Gallstone. Ileus bowel gas pattern. Willy Mackay MD Physical Exam HEENT: Normocephalic; atraumatic; no jaundice. NGT CHEST: CTA, diminished CARDIAC: RRR ABDOMEN: Soft, nontender, mildly distended, no hepatosplenomegaly; bowel sounds hypoactive. cholecystomy tube site dressing clean EXTREMITIES: Right BKA SKIN: Normal; no rash; no jaundice. DATA SPECIALIST: No focal deficits; Lethargic and oriented times two, poor historian ( Priscila Andrew) Assessment and Plan Plan ASSESSMENT: - Acute cholecystitis with abdominal pain, nausea, leukocytosis. Abdomen/Pelvis CT (01/27/17)---> Gallstone. Ileus bowel gas pattern. LFTs were mildly elevated on admission with T. Bilirubin 0.3, AST 67, ALT 32 , Alk Phosph 542. Liver US (01/28/17)----> 1. Cholelithiasis with 1.8 cm gallstone in the region of the neck of the gallbladder which was nonmobile. There is a small amount of adjacent free fluid. There is no evidence of biliary obstruction. 2. Fatty infiltration of the liver. HIDA (01/30/17)-----> Nonvisualization of the gallbladder 2 hours. Patient does have gallstones in a prominent gallbladder. ADDENDUM: 20 hour delayed imaging of the hepatobiliary system continues to demonstrate nonvisualization of the gallbladder characteristic of cystic duct obstruction. S/P Cholecystomy tube placement (02/01). ID following. Zosyn. WBC slowly trending down. - Colonic Ileus. Has hx of constipation. Getting pain meds. S/P SSE. Senokot, Colace, Reglan. Cdiff negative. Repeat Abdomen X-Ray (02/02/17)---> Unchanged gaseous distention of the colon. Will give one bottle of magnesium citrate, Relistor. - Elevated LFTs, likely related to cholecystitis. Imaging as above. s/p cholecystostomy tube placement (02/01), LFT improving. Zosyn per ID. - Cholelithiasis/Cholecystitis. 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 S/P Cholecystomy tube. Zosyn. - Anemia, normocytic. 9.0/28.0 - Sepsis, Leukocytosis, Bandemia. ? UTI- No growth 48 hours. BCX no growth 1 days. Likely related to acute cholecystitis,s/p cholecystomy tube. Abx per ID - Coagulopathy. improving s/p 4 units FFP, Vitamin K - CHRISTY. Per nephrology - Hx left basal ganglia CVA, Depression, Peripheral neuropathy - CAD, ischemic cardiomyopathy, hyperlipidemia, DM, per primary. PLAN: - Clamp NGT. - Okay for clears - Magnesium citrate 300cc x 1 - Relistor 12mg sq x 1 - Reglan 5mg IV q8h - Cont. Senokot, Colace - KUB in am - Cont. Abx per ID- Zosyn - Monitor labs - Supportive care - Further recommendations to follow based on results of above - Pt seen and examined by Dr. Turner and myself and this note is written on her behalf (Priscila Andrew) Physician Comments seen, examined agree with above (Radha Turner MD) Priscila Andrew February 02, 2017 15:26 Radha Turner MD February 02, 2017 16:08
[2017-02-02] MEDS ORDERED: MAGNESIUM CITRATE SOLN 300 ML BTL PO ONE (15:30)
[2017-02-02] MEDS ORDERED: METHYLNALTREXONE BROMIDE 12 MG/0.6 ML VIAL SQ ONE (16:00)
[2017-02-02] MEDS: LABETALOL HCL 100 MG/20 ML VIAL IV PUSH PRN (23:14)
[2017-02-03] VITALS (11 sets, daily range): BP systolic 130–163; BP diastolic 60–68; PULSE 56–85; RESP 20–22; TEMP 97.7–98.1; O2SAT 95–98
[2017-02-03] MEDS: hydrALAZINE HCL 20 MG/ML VIAL IV PUSH PRN (00:04)
[2017-02-03] MEDS: HYDROmorphone HCL PF 1 MG/ML VIAL IV PUSH PRN ×4 (00:07→22:54)
[2017-02-03] MEDS: INSULIN NovoLIN REGULAR SUPPLEMENTAL SCALE SQ SCH ×4 (01:32→19:58)
[2017-02-03] MEDS: LABETALOL HCL 100 MG/20 ML VIAL IV PUSH PRN ×2 (01:40→19:50)
[2017-02-03] MEDS: PIPERACIL-TAZO 3.375 GM PREMIX 50 ML IV SCH ×4 (02:56→19:52)
[2017-02-03] MEDS: CHLORHEXIDINE GLUCONATE 2 % 1 PACK (2 CLOTHS) TOP SCH (03:16)
[2017-02-03] MEDS: METOCLOPRAMIDE HCL 10 MG/2 ML VIAL IV PUSH SCH ×3 (05:51→22:49)
[2017-02-03] MEDS: hydrALAZINE HCL 50 MG TAB PO SCH ×3 (05:51→22:49)
--- NOTE | 2017-02-03 06:02 | RADRPT ---
EXAM DATE/TIME: 02/03/2017 02:45 [facility] COMPARISON: ABDOMEN KUB ONLY, February 02, 2017, 2:11. INDICATIONS : Evaluate for ileus. MEDICAL HISTORY : Hypercholesterolemia. Arthritis. Hypertension. SURGICAL HISTORY : section. ENCOUNTER: Subsequent ACUITY: 4 - 6 days PAIN SCORE: Non-responsive. LOCATION: Abdomen FINDINGS: There continues to be some gaseous distention of the colon. This has not significantly changed compar ed to the prior study. The NG tube remains in the stomach. No significant lesion of the small bowel. CONCLUSION: No significant interval change. Jai iWley MD on February 03, 2017 at 6:00 Board Certified Radiologist. This report was verified electronically.
[2017-02-03] MEDS: METOPROLOL TARTRATE 50 MG TAB PO SCH ×2 (08:29→20:20)
[2017-02-03] MEDS: SENNOSIDES SYRUP 8.8 MG/5 ML CUP PO SCH (08:29)
[2017-02-03] MEDS: DOCUSATE SODIUM 100 MG/10 ML UDC PO SCH ×2 (08:29→19:52)
[2017-02-03 08:31] LABS: AUTOMATED NEUTROPHIL # 15.1 TH/MM3 (1.8-7.7); BASOPHIL % 0.2 % (0.0-2.0); EOSINOPHIL # 0.2 TH/MM3 (0-0.4); EOSINOPHIL % 0.9 % (0.0-4.0); HEMATOCRIT 26.6 % (35.0-46.0); HEMO FLAGS DIFF FINAL; LYMPH % 12.3 % (9.0-44.0); LYMPHOCYTE # 2.3 TH/MM3 (1.0-4.8); MEAN CELL VOLUME 90.4 FL (80.0-100.0); MEAN CORPUSCULAR HEMOGLOBIN 29.3 PG (27.0-34.0); MEAN CORPUSCULAR HGB CONC 32.4 % (32.0-36.0); MONO % 7.9 % (0.0-8.0); NEUT % 78.7 % (16.0-70.0); PLATELET COUNT 355 TH/MM3 (150-450); RED BLOOD COUNT 2.94 MIL/MM3 (4.00-5.30); RED CELL DISTRIBUTION WIDTH 13.4 % (11.6-17.2); WHITE BLOOD COUNT 19.2 TH/MM3 (4.0-11.0)
[2017-02-03] MEDS: SODIUM CHLORIDE 0.9% 10 ML VIAL IRRIGATION SCH (09:00)
[2017-02-03 09:04] LABS: ALKALINE PHOSPHATASE 172 U/L (45-117); ALT (GPT) 24 U/L (10-53); ANION GAP 8 MEQ/L (5-15); AST (GOT) 66 U/L (15-37); BICARBONATE 23.7 MEQ/L (21.0-32.0); BLOOD UREA NITROGEN 26 MG/DL (7-18); CHLORIDE 111 MEQ/L (98-107); GLOMERULAR FILTRATION RATE 43 ML/MIN (>89); POTASSIUM 3.7 MEQ/L (3.5-5.1); SODIUM (NA) 143 MEQ/L (136-145); TOTAL BILIRUBIN ADULT 0.4 MG/DL (0.2-1.0)
[2017-02-03] MEDS: PANTOPRAZOLE SODIUM 40 MG VIAL IV PUSH SCH ×2 (12:11→22:49)
--- NOTE | 2017-02-03 14:32 | HHI.GIFU ---
Subjective Remarks Pt has large amount of gastric output- but is drinking large amounts of clear liquids. She is not having any nausea or vomiting. Nurse reports that she had multiple large bowel movements yesterday evening. She has also had liquid bm's today. No abdominal pain. (Priscila Andrew) Objective Vitals I&O Vital Signs Date Time Temp Pulse Resp B/P Pulse Ox O2 Delivery O2 Flow Rate FiO2 02/03/17 10:00 60 02/03/17 09:00 20 02/03/17 08:00 85 02/03/17 08:00 97.9 75 20 142/65 96 02/03/17 06:00 73 02/03/17 04:00 64 02/03/17 04:00 98.0 63 20 130/60 95 02/03/17 02:00 71 02/03/17 00:00 70 02/03/17 00:00 98.1 71 22 158/68 96 02/02/17 22:00 76 02/02/17 20:00 89 02/02/17 20:00 98.0 88 26 180/76 96 02/02/17 18:00 88 02/02/17 16:00 98.4 81 20 167/82 98 02/02/17 16:00 86 I/O 02/02/17 02/02/17 02/02/17 02/03/17 02/03/17 02/03/17 06:59 14:59 22:59 06:59 14:59 22:59 Intake Total 827 ml 500 ml 671 ml 593 ml Output Total 1060 ml 550 ml 1300 ml 1770 ml Balance -233 ml -50 ml -629 ml -1177 ml Intake Oral 480 ml 150 ml 360 ml 360 ml IV Total 287 ml 350 ml 311 ml 233 ml Other 60 ml Output Urine Total 250 ml 300 ml 250 ml 300 ml Stool Total 100 ml 50 ml Gastric Drainage Total 750 ml 100 ml 850 ml 1400 ml Drainage Total 60 ml 150 ml 100 ml 20 ml # Bowel Movements 100 Laboratory Laboratory Tests Test 02/03/17 07:57 White Blood Count 19.2 Red Blood Count 2.94 Hemoglobin 8.6 Hematocrit 26.6 Mean Corpuscular Volume 90.4 Mean Corpuscular Hemoglobin 29.3 Mean Corpuscular Hemoglobin 32.4 Concent Red Cell Distribution Width 13.4 Platelet Count 355 Mean Platelet Volume 9.2 Neutrophils (%) (Auto) 78.7 Lymphocytes (%) (Auto) 12.3 Monocytes (%) (Auto) 7.9 Eosinophils (%) (Auto) 0.9 Basophils (%) (Auto) 0.2 Neutrophils # (Auto) 15.1 Lymphocytes # (Auto) 2.3 Monocytes # (Auto) 1.5 Eosinophils # (Auto) 0.2 Basophils # (Auto) 0.0 CBC Comment DIFF FINAL Differential Comment Sodium Level 143 Potassium Level 3.7 Chloride Level 111 Carbon Dioxide Level 23.7 Anion Gap 8 Blood Urea Nitrogen 26 Creatinine 1.27 Estimat Glomerular Filtration 43 Rate Random Glucose 219 Calcium Level 7.8 Total Bilirubin 0.4 Aspartate Amino Transf 66 (AST/SGOT) Alanine Aminotransferase 24 (ALT/SGPT) Alkaline Phosphatase 172 Total Protein 6.0 Albumin 1.9 Date/Time Procedure Status Source Growth 02/02/17 20:45 Stool Occult Blood (SHERIDAN) - Final Complete Stool Stool HEMOCCULT POSITIVE 02/01/17 22:20 Gram Stain - Final Resulted Fluid Bile Fluid 02/01/17 22:20 Body Fluid Culture - Preliminary Resulted Fluid Bile Fluid NO GROWTH IN 48 HOURS. 02/01/17 19:25 Aerobic Blood Culture - Preliminary Resulted Blood Peripheral NO GROWTH IN 2 DAYS 02/01/17 19:25 Anaerobic Blood Culture - Preliminary Resulted Blood Peripheral NO GROWTH IN 2 DAYS Imaging Last Impressions Abdomen X-Ray 02/03/17 0600 Signed Impressions: Service Date/Time: Friday, February 03, 2017 02:45 - CONCLUSION: No significant interval change. Jai Wiley MD Chest X-Ray 02/02/17 0000 Signed Impressions: Service Date/Time: January 02:07 - CONCLUSION: Radiographic findings suggesting pulmonary edema. Jc Ortiz Jr., MD Percutaneous Cholangiogram 02/01/17 0000 Signed Impressions: Service Date/Time: Wednesday, February 01, 2017 08:44 - CONCLUSION: Uncomplicated percutaneous cholecystostomy as above. Geovanny Yañez MD Hepatobiliary Scan Nuclear Medicine 01/30/17 0000 Signed Impressions: Service Date/Time: Monday, January 30, 2017 11:15 - CONCLUSION: Nonvisualization of the gallbladder 2 hours. Patient does have gallstones in a prominent gallbladder. Krystian Painting MD FACRADDENDUM: 20 hour delayed imaging of the hepatobiliary system continues to demonstrate nonvisualization of the gallbladder characteristic of cystic duct obstruction. Geovanny Yañez MD Liver Ultrasound 01/28/17 0000 Signed Impressions: Service Date/Time: Saturday, January 28, 2017 09:20 - CONCLUSION: 1. Cholelithiasis with 1.8 cm gallstone in the region of the neck of the gallbladder which was nonmobile. There is a small amount of adjacent free fluid. There is no evidence of biliary obstruction. 2. Fatty infiltration of the liver. Ang Moreno MD Head CT 01/27/17 1052 Signed Impressions: Service Date/Time: Friday, January 27, 2017 11:26 - CONCLUSION: 1. Old lacunar infarct in the left basal ganglia stable compared to previous dated 01/04/14. 2. No acute intracranial abnormality identified. Christopher Painting MD Abdomen/Pelvis CT 01/27/17 0000 Signed Impressions: Service Date/Time: Friday, January 27, 2017 14:51 - CONCLUSION: Gallstone. Ileus bowel gas pattern. iWlly Mackay MD Physical Exam HEENT: Normocephalic; atraumatic; no jaundice. NGT CHEST: CTA, diminished CARDIAC: RRR ABDOMEN: Soft, nontender, mildly distended- improved from yesterday, no hepatosplenomegaly; bowel sounds hypoactive. cholecystomy tube site dressing clean EXTREMITIES: Right BKA SKIN: Normal; no rash; no jaundice. [employer]: No focal deficits; Lethargic and oriented times two (Priscila Andrew [facility]) Assessment and Plan Plan ASSESSMENT: - Colonic Ileus. Has hx of constipation. Getting pain meds. S/P SSE. Senokot, Colace, Reglan, Magnesium citrate (02/02), Relistor (02/02). Nurse reports that she had multiple large bowel movements last night and again today. Cdiff negative. Repeat Abdomen X-Ray (02/03/17)---> No significant interval change. However, clinically, she is much improved and seemed to respond to Magnesium citrate/relistor. She has NGT still and is putting out a large amount, but is taking a large amount of clear liquids. No n/v. No abdominal pain. Will clamp NGT, if no n/v in 4 hours, then d/c. Will advance diet and monitor abdomen/bowel movements. Clinically, much improved. - Acute cholecystitis with abdominal pain, nausea, leukocytosis. Abdomen/Pelvis CT (01/27/17)---> Gallstone. Ileus bowel gas pattern. LFTs were mildly elevated on admission with T. Bilirubin 0.3, AST 67, ALT 32 , Alk Phosph 542. Liver US (01/28/17)----> 1. Cholelithiasis with 1.8 cm gallstone in the region of the neck of the gallbladder which was nonmobile. There is a small amount of adjacent free fluid. There is no evidence of biliary obstruction. 2. Fatty infiltration of the liver. HIDA (01/30/17)-----> Nonvisualization of the gallbladder 2 hours. Patient does have gallstones in a prominent gallbladder. ADDENDUM: 20 hour delayed imaging of the hepatobiliary system continues to demonstrate nonvisualization of the gallbladder characteristic of cystic duct obstruction. S/P Cholecystomy tube placement (02/01). ID following. Zosyn. WBC 19.2. LFT improving. - Elevated LFTs, likely related to cholecystitis. Imaging as above. s/p cholecystostomy tube placement (02/01), LFT improving. Zosyn per ID. - Cholelithiasis/Cholecystitis. 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 S/P Cholecystomy tube. Zosyn. - Anemia, normocytic. 8.6/26.6. Hemoccult (+). No obvious active bleeding. - Sepsis, Leukocytosis, Bandemia. ? UTI- No growth 48 hours. BCX no growth 1 days. Likely related to acute cholecystitis,s/p cholecystomy tube. Abx per ID - Coagulopathy. improving s/p 4 units FFP, Vitamin K - CHRISTY. Creat. 1.27. Per nephrology - Hx left basal ganglia CVA, Depression, Peripheral neuropathy - CAD, ischemic cardiomyopathy, hyperlipidemia, DM, per primary. PLAN: - Full liquids - Clamp NGT- if no n/v in 4 hours, then d/c - Cont. Senokot - Cont. Colace - Cont. Reglan - Cont. Abx per ID- Zosyn - Monitor labs - S/P Relistor 12mg sq x 1 (02/02/17) - S/P Cholecystomy tube (02/01) - Monitor labs - Supportive care - Further recommendations to follow based on results of above - Pt seen and examined by Dr. Turner and myself and this note is written on her behalf (Priscila Andrew) Physician Comments seen, examined agree with above dc ngt (Radha Turner MD) Priscila Andrew February 03, 2017 14:32 Radha Turner MD February 03, 2017 16:28
--- NOTE | 2017-02-03 15:02 | HHI.IDPN ---
Subjective Subjective Remarks 61 year old female from [facility] admitted with altered mental status and fevers. has had abdominal pain. CT with gallstones. 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 Vital Signs Date Time Temp Pulse Resp B/P Pulse Ox O2 Delivery O2 Flow Rate FiO2 02/03/17 10:00 60 02/03/17 09:00 20 02/03/17 08:00 85 02/03/17 08:00 97.9 75 20 142/65 96 02/03/17 06:00 73 02/03/17 04:00 64 02/03/17 04:00 98.0 63 20 130/60 95 02/03/17 02:00 71 02/03/17 00:00 70 02/03/17 00:00 98.1 71 22 158/68 96 02/02/17 22:00 76 02/02/17 20:00 89 02/02/17 20:00 98.0 88 26 180/76 96 02/02/17 18:00 88 02/02/17 16:00 98.4 81 20 167/82 98 02/02/17 16:00 86 02/02/17 02/02/17 02/03/17 15:00 23:00 07:00 Intake Total 500 ml 671 ml 593 ml Output Total 550 ml 1300 ml 1770 ml Balance -50 ml -629 ml -1177 ml Intake Oral 150 ml 360 ml 360 ml IV Total 350 ml 311 ml 233 ml Output Urine Total 300 ml 250 ml 300 ml Stool Total 100 ml 50 ml Gastric Drainage Total 100 ml 850 ml 1400 ml Drainage Total 150 ml 100 ml 20 ml . Laboratory Tests Test 02/02/17 02/03/17 01:10 07:57 White Blood Count 18.8 TH/MM3 19.2 TH/MM3 Red Blood Count 3.08 MIL/MM3 2.94 MIL/MM3 Hemoglobin 9.0 GM/DL 8.6 GM/DL Hematocrit 28.0 % 26.6 % Mean Corpuscular Volume 90.8 FL 90.4 FL Mean Corpuscular Hemoglobin 29.0 PG 29.3 PG Mean Corpuscular Hemoglobin 32.0 % 32.4 % Concent Red Cell Distribution Width 13.6 % 13.4 % Platelet Count 263 TH/MM3 355 TH/MM3 Mean Platelet Volume 9.2 FL 9.2 FL Neutrophils (%) (Auto) 80.8 % 78.7 % Lymphocytes (%) (Auto) 10.2 % 12.3 % Monocytes (%) (Auto) 8.0 % 7.9 % Eosinophils (%) (Auto) 0.9 % 0.9 % Basophils (%) (Auto) 0.1 % 0.2 % Neutrophils # (Auto) 15.2 TH/MM3 15.1 TH/MM3 Lymphocytes # (Auto) 1.9 TH/MM3 2.3 TH/MM3 Monocytes # (Auto) 1.5 TH/MM3 1.5 TH/MM3 Eosinophils # (Auto) 0.2 TH/MM3 0.2 TH/MM3 Basophils # (Auto) 0.0 TH/MM3 0.0 TH/MM3 CBC Comment DIFF FINAL DIFF FINAL Differential Comment Laboratory Tests Test 02/02/17 02/02/17 02/03/17 01:10 10:23 07:57 Sodium Level 141 MEQ/L 143 MEQ/L Potassium Level 3.3 MEQ/L 3.6 MEQ/L 3.7 MEQ/L Chloride Level 109 MEQ/L 111 MEQ/L Carbon Dioxide Level 22.7 MEQ/L 23.7 MEQ/L Anion Gap 9 MEQ/L 8 MEQ/L Blood Urea Nitrogen 26 MG/DL 26 MG/DL Creatinine 1.34 MG/DL 1.27 MG/DL Estimat Glomerular Filtration 40 ML/MIN 43 ML/MIN Rate Random Glucose 292 MG/DL 219 MG/DL Calcium Level 8.1 MG/DL 7.8 MG/DL Phosphorus Level 2.4 MG/DL Magnesium Level 1.8 MG/DL Total Bilirubin 0.5 MG/DL 0.4 MG/DL Aspartate Amino Transf 93 U/L 66 U/L (AST/SGOT) Alanine Aminotransferase 30 U/L 24 U/L (ALT/SGPT) Alkaline Phosphatase 195 U/L 172 U/L Total Creatine Kinase 273 U/L Creatine Kinase MB 2.9 NG/ML Creatine Kinase MB % 1.1 % Total Protein 6.0 GM/DL 6.0 GM/DL Albumin 2.0 GM/DL 1.9 GM/DL Microbiology Date/Time Procedure Status Source Growth 02/01/17 19:20 Aerobic Blood Culture - Preliminary Resulted Blood Peripheral NO GROWTH IN 2 DAYS 02/01/17 19:20 Anaerobic Blood Culture - Final Resulted Blood Peripheral QNS - SEE AEROBE REPORT 02/01/17 19:25 Aerobic Blood Culture - Preliminary Resulted Blood Peripheral NO GROWTH IN 2 DAYS 02/01/17 19:25 Anaerobic Blood Culture - Preliminary Resulted Blood Peripheral NO GROWTH IN 2 DAYS 02/01/17 22:20 Gram Stain - Final Resulted Fluid Bile Fluid 02/01/17 22:20 Body Fluid Culture - Preliminary Resulted Fluid Bile Fluid NO GROWTH IN 48 HOURS. 02/02/17 20:45 Stool Occult Blood (SHERIDAN) - Final Complete Stool Stool HEMOCCULT POSITIVE Imaging Last Impressions Abdomen X-Ray 01/30/17 0600 Signed Impressions: Service Date/Time: Monday, January 30, 2017 05:04 - CONCLUSION: Unchanged gaseous distention of the colon. Jc Ortiz Jr., MD Hepatobiliary Scan Nuclear Medicine 01/30/17 0000 Signed Impressions: Service Date/Time: Monday, January 30, 2017 11:15 - CONCLUSION: Nonvisualization of the gallbladder 2 hours. Patient does have gallstones in a prominent gallbladder. Krystian Painting MD FACRADDENDUM: 20 hour delayed imaging of the hepatobiliary system continues to demonstrate nonvisualization of the gallbladder characteristic of cystic duct obstruction. Geovanny Yañez MD Chest X-Ray 01/30/17 0000 Signed Impressions: Service Date/Time: Monday, January 30, 2017 10:56 - CONCLUSION: Mild pulmonary congestion with bibasilar airspace disease and mild cardiomegaly. Geovanny Yañez MD Liver Ultrasound 01/28/17 0000 Signed Impressions: Service Date/Time: Saturday, January 28, 2017 09:20 - CONCLUSION: 1. Cholelithiasis with 1.8 cm gallstone in the region of the neck of the gallbladder which was nonmobile. There is a small amount of adjacent free fluid. There is no evidence of biliary obstruction. 2. Fatty infiltration of the liver. Ang Moreno MD Head CT 01/27/17 1052 Signed Impressions: Service Date/Time: Friday, January 27, 2017 11:26 - CONCLUSION: 1. Old lacunar infarct in the left basal ganglia stable compared to previous dated 01/04/14. 2. No acute intracranial abnormality identified. Christopher Painting MD Abdomen/Pelvis CT 01/27/17 0000 Signed Impressions: Service Date/Time: Friday, January 27, 2017 14:51 - CONCLUSION: Gallstone. Ileus bowel gas pattern. Willy Mackay MD Physical Exam GENERAL: awake and alert, comfortable, on RA SKIN: Warm and moist. No generalized rash or ecchymosis. HEAD: Atraumatic. Normocephalic. No temporal or scalp tenderness. EYES: [place] conjunctivae, no petechia or hemorrhage. No scleral icterus. No injection or drainage. ENT: Nose without bleeding, or purulent drainage. Moist oral mucosa. NECK: Supple, nontender, no meningeal signs. Has a scar on her neck compatible with her next surgery. CARDIOVASCULAR: Regular rate and rhythm without murmurs, gallops, or rubs. RESPIRATORY: . Breath sounds equal bilaterally. decreased BS at bases. GASTROINTESTINAL: Abdomen mild tenderness, sl distended. Has GB tube with biloius dark green fluid. No guarding or rebound. MUSCULOSKELETAL: Extremities without clubbing, cyanosis, or edema. 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 No calf tenderness. L foot warm and well perfused. NEUROLOGICAL: NOn-focal PSYCH: Normal affect, calm and cooperative LINE: No evidence of infection : Quesada in place, urine looks clear Assessment & Plan Remarks IMPRESSION Sepsis with possible acute cholecystitis - has gallstones, RUW tenderness and (+) HIDA scan Leukocytosis, due to intraabdominal process, stable, persistent Known HTN, PVD, CAD (+) UA Diarrhea, c diff negative RECOMMENDATION Continue Zosyn Follow new C/S Follow CBC Monitor progress Other ID covering for sd 02/04-02/06 Nisreen Garcia MD February 03, 2017 15:02
--- NOTE | 2017-02-03 16:06 | HHI.PR ---
Subjective Remarks f/u for infection and N/V patient stated able to tolerate PO intake better and is feeling better. She is AAO X 2 (knows name and location) and knows the president. Denied any abdominal pain, SOB, CP, or palpitations. Objective Vitals Vital Signs Date Time Temp Pulse Resp B/P Pulse Ox O2 Delivery O2 Flow Rate FiO2 02/03/17 10:00 60 02/03/17 09:00 20 02/03/17 08:00 85 02/03/17 08:00 97.9 75 20 142/65 96 02/03/17 06:00 73 02/03/17 04:00 64 02/03/17 04:00 98.0 63 20 130/60 95 02/03/17 02:00 71 02/03/17 00:00 70 02/03/17 00:00 98.1 71 22 158/68 96 02/02/17 22:00 76 02/02/17 20:00 89 02/02/17 20:00 98.0 88 26 180/76 96 02/02/17 18:00 88 I/O 02/02/17 02/02/17 02/02/17 02/03/17 02/03/17 02/03/17 06:59 14:59 22:59 06:59 14:59 22:59 Intake Total 827 ml 500 ml 671 ml 593 ml Output Total 1060 ml 550 ml 1300 ml 1770 ml Balance -233 ml -50 ml -629 ml -1177 ml Intake Oral 480 ml 150 ml 360 ml 360 ml IV Total 287 ml 350 ml 311 ml 233 ml Other 60 ml Output Urine Total 250 ml 300 ml 250 ml 300 ml Stool Total 100 ml 50 ml Gastric Drainage Total 750 ml 100 ml 850 ml 1400 ml Drainage Total 60 ml 150 ml 100 ml 20 ml # Bowel Movements 100 Result Diagram: 02/03/17 0757 02/03/17 0757 Objective Remarks GENERAL: in NAD HEENT: NG in place. CARDIOVASCULAR: Regular rate and rhythm without murmurs, gallops, or rubs. RESPIRATORY: Breath sounds equal bilaterally. No accessory muscle use. GASTROINTESTINAL: Abdomen soft, non-tender, nondistended. MUSCULOSKELETAL: No cyanosis, or edema. BACK: Nontender without obvious deformity. No CVA tenderness. Medications and IVs Current Medications Vancomycin HCl 1000 mg/Sodium Chloride 250 ml @ 250 mls/hr ONCE STAT IV Last administered on 01/27/17 08:55; Start 01/27/17 at 08:03; Stop 01/27/17 at 09:02; Status DC Piperacillin Sod/ Tazobactam Sod 100 ml @ 200 mls/hr ONCE STAT IV Last administered on 01/27/17 08:15; Start 01/27/17 at 08:03; Stop 01/27/17 at 08:32; Status DC Sodium Chloride 1,000 ml @ 1,000 mls/hr Q1H ONCE IV Last administered on 08:03; Start 01/27/17 at 08:03; Stop 01/27/17 at 09:02; Status DC Sodium Chloride 1,000 ml @ 1,000 mls/hr Q1H ONCE IV Last administered on 08:20; Start 01/27/17 at 08:03; Stop 01/27/17 at 09:02; Status DC Sodium Chloride (NS 1000 ml Inj) 100 ml @ 1,000 mls/hr Q6M ONCE IV Last administered on 01/27/17 08:03; Start 01/27/17 at 08:03; Stop 01/27/17 at 08:08; Status DC Acetaminophen (Tylenol Supp) 650 mg ONCE ONCE RECTAL Last administered on 08:15; Start 01/27/17 at 08:15; Stop 01/27/17 at 08:16; Status DC Pantoprazole Sodium (Protonix Inj) 40 mg DAILY IV Last administered on 10:38; Start 01/27/17 at 14:00; Stop 02/02/17 at 10:52; Status DC Albuterol/ Ipratropium (Duoneb Neb) 1 ampule Q6HR NEB INH Last administered on 01/31/17 15:54; Start 01/27/17 at 16:00; Stop 01/31/17 at 16:00; Status DC Albuterol/ Ipratropium (Duoneb Neb) 1 ampule Q2HR NEB PRN INH WHEEZING Last administered on 02/01/17 15:28; Start 01/27/17 at 14:00 Miscellaneous Information 1 Q361D XX ; Start 01/27/17 at 14:00 Chlorhexidine Gluconate (Chlorhexidine 2% Cloth) Taper DAILY@04 TOP Last administered on 02/01/17 02:22; Start 01/28/17 at 04:00; Stop 01/24/18 at 03:59 Chlorhexidine Gluconate 3 pack 3 pack UNSCH PRN TOP HYGIENIC CARE; Start at 14:00 Sodium Chloride (NS 1000 ml Inj) 1,000 ml @ 125 mls/hr Q8H IV Last administered on 01/28/17 06:23; Start 01/27/17 at 14:00; Stop 01/28/17 at 07:43; Status DC Dextrose (D50w (Vial) Inj) 25 ml UNSCH PRN IV PUSH HYPOGLYCEMIA-SEE COMMENTS Last administered on 01/28/17 09:47; Start 01/27/17 at 14:00 Glucagon (Glucagon Inj) 1 mg UNSCH PRN OTHER HYPOGLYCEMIA-SEE COMMENTS; Start 01/27/17 at 14:00 Insulin Human Regular 1 1 Q6H SQ Last administered on 02/03/17 14:15; Start at 14:00 Pharmacy Profile Note 0 ml @ 0 mls/hr UNSCH OTHER ; Start 01/27/17 at 14:00; Stop 01/30/17 at 17:10; Status DC Piperacillin Sod/ Tazobactam Sod 50 ml @ 100 mls/hr Q6H IV Last administered on 01/29/17 08:45; Start 01/27/17 at 15:00; Stop 01/29/17 at 12:17; Status DC Sodium Chloride (NS 1000 ml Inj) 1,000 ml @ 999 mls/hr BOLUS ONCE IV Last administered on 01/27/17 14:00; Start 01/27/17 at 14:00; Stop 01/27/17 at 15:00; Status DC Heparin Sodium (Porcine) (Heparin Inj) 5,000 units Q12HR SQ Last administered on 01/30/17 09:50; Start 01/27/17 at 21:00; Stop 01/31/17 at 09:57; Status DC Aspirin 325 mg 325 mg DAILY PO Last administered on 01/30/17 09:51; Start at 15:00; Status Hold Vancomycin HCl/ Sodium Chloride (Vancomycin Inj/ NS Inj) 100 ml @ 200 mls/hr ONCE ONCE IV Last administered on 01/27/17 16:33; Start 01/27/17 at 15:30; Stop 01/27/17 at 15:59; Status DC Docusate Sodium (Colace Liq) 100 mg Q12HR PO Last administered on 02/03/17 08: 29; Start 01/27/17 at 21:00 Sennosides (Senna Liq) 8.8 mg DAILY PO Last administered on 02/03/17 08:29; Start 01/27/17 at 17:00 Morphine Sulfate (Morphine Inj) 1 mg Q4H PRN IV PUSH pain Last administered on 01/28/17 01:43; Start 01/27/17 at 17:30; Stop 01/28/17 at 07:55; Status DC Hydralazine HCl (Apresoline Inj) 10 mg Q6H PRN IV PUSH SYS BP GREATER THAN 160 MMHG Last administered on 01/28/17 02:23; Start 01/27/17 at 17:30; Stop 01/28/17 at 07:43; Status DC Hydromorphone HCl (Dilaudid Pf Inj) 0.5 mg NOW ONCE IV Last administered on 20:59; Start 01/27/17 at 20:45; Stop 01/27/17 at 20:46; Status DC Acetaminophen 650 mg 650 mg Q6H PRN PO FEVER Last administered on 01/28/17 04: 09; Start 01/27/17 at 21:00 Calcium Gluconate/ Sodium Chloride (Calcium Gluconate Inj/NS Inj) 120 ml @ 120 mls/hr ONCE ONCE IV Last administered on 01/28/17 01:42; Start 01/28/17 at 00: 45; Stop 01/28/17 at 01:44; Status DC Hydromorphone HCl (Dilaudid Pf Inj) 0.5 mg Q4H PRN IV PUSH PAIN SCALE 5 TO 10 Last administered on 01/29/17 12:43; Start 01/28/17 at 03:30; Stop 01/29/17 at 15: 32; Status DC Hydralazine HCl (Apresoline Inj) 10 mg Q1HR PRN IV PUSH SYS BP GREATER THAN 160 MMHG Last administered on 02/03/17 00:04; Start 01/28/17 at 08:00 Labetalol HCl (Trandate Inj) 10 mg Q1HR PRN IV PUSH SBP>160, DBP>90, HR>65 Last administered on 02/03/17 01:40; Start 01/28/17 at 07:45 Nitroglycerin 2 inch 2 inch Q6HR PRN TOPICAL SBP>160, DBP>90 Last administered on 02/02/17 20:57; Start 01/28/17 at 07:45 Sodium Chloride (1/2 NS 1000 ml Inj) 1,000 ml @ 75 mls/hr [id number] IV Last administered on 01/30/17 16:38; Start 01/28/17 at 08:00; Stop 01/31/17 at 10:16; Status DC Dextrose 50 ml 50 ml STK-MED ONCE .ROUTE ; Start 01/28/17 at 09:22; Stop 01/28/17 at 09:23; Status DC Piperacillin Sod/ Tazobactam Sod 50 ml @ 100 mls/hr Q6H IV Last administered on 02/03/17 14:05; Start 01/29/17 at 15:00 Vancomycin HCl 1000 mg/Sodium Chloride 250 ml @ 250 mls/hr ONCE ONCE IV Last administered on 01/29/17 12:43; Start 01/29/17 at 12:30; Stop 01/29/17 at 13:29; Status DC Magnesium Sulfate/ Dextrose (Magnesium Sulfate 1 Gm Premix) 100 ml @ 100 mls/ hr Q1H IV Last administered on 01/29/17 15:50; Start 01/29/17 at 14:00; Stop 01/29/17 at 15:59; Status DC Potassium Chloride 30 meq 30 meq ONCE ONCE PO Last administered on 01/29/17 13 :58; Start 01/29/17 at 14:00; Stop 01/29/17 at 14:01; Status DC Potassium Chloride (KCl 10 Meq Premix Inj) 100 ml @ 100 mls/hr Q1H IV Last administered on 01/29/17 18:41; Start 01/29/17 at 15:00; Stop 01/29/17 at 17:59; Status DC Hydromorphone HCl 0.5 mg 0.5 mg Q2HR PRN IV PUSH PAIN SCALE 5 TO 10 Last administered on 02/03/17 02:56; Start 01/29/17 at 16:00 Potassium Chloride 100 ml @ 50 mls/hr Q2H IV Last administered on 01/30/17 09: 50; Start 01/30/17 at 06:00; Stop 01/30/17 at 09:59; Status DC Sodium Phosphate 30 mmol/Sodium Chloride 260 ml @ 43.333 mls/ hr ONCE ONCE IV Last administered on 01/30/17 05:56; Start 01/30/17 at 06:00; Stop 01/30/17 at 11:59; Status DC Vancomycin HCl 1500 mg/Sodium Chloride 515 ml @ 250 mls/hr Q24H IV Last administered on 01/30/17 10:56; Start 01/30/17 at 12:00; Stop 01/30/17 at 17:10; Status DC Potassium Chloride 100 ml @ 50 mls/hr Q2H PRN IV For Potassium 2.8 - 3.2 mEq/L ; Start 01/30/17 at 10:30 Potassium Chloride (KCl 20 Meq Premix Inj) 100 ml @ 50 mls/hr Q2H PRN IV For Potassium 2.8 - 3.2 mEq/L Last administered on 02/01/17 12:29; Start 01/30/17 at 10:30 Potassium Bicarb/ Potassium Chloride 50 meq 50 meq UNSCH PRN PO For Potassium 3.3 - 3.5 mEq/L; Start 01/30/17 at 10:30 Potassium Chloride 100 ml @ 25 mls/hr UNSCH PRN IV For Potassium 3.3 - 3.5 mEq /L; Start 01/30/17 at 10:30 Potassium Chloride 100 ml @ 50 mls/hr Q2H PRN IV For Potassium 3.3 - 3.5 mEq/ L Last administered on 02/02/17 03:48; Start 01/30/17 at 10:30 Magnesium Sulfate/ Sodium Chloride (Magnesium Sulfate Inj/NS Inj) 100 ml @ 50 mls/hr UNSCH PRN IV For Magnesium 0.9 - 1.1 mg/dL; Start 01/30/17 at 10:30 Magnesium Oxide 800 mg 800 mg UNSCH PRN PO For Magnesium 1.2 - 1.6 mg/dL; Start 01/30/17 at 10:30 Magnesium Sulfate/ Sodium Chloride (Magnesium Sulfate Inj/NS Inj) 100 ml @ 50 mls/hr UNSCH PRN IV For Magnesium 1.2 - 1.6 mg/dL; Start 01/30/17 at 10:30 Potassium Phosphate 2000 mg 2,000 mg Q4H PRN PO For Phosphorus < 2.5 mg/dL Last administered on 02/01/17 10:46; Start 01/30/17 at 10:30 Sodium Phosphate/ Sodium Chloride (Sodium Phosphate Inj/NS 250 ml Inj) 250 ml @ 42 mls/hr UNSCH PRN IV For Phosphorus < 2.5 mg/dL; Start 01/30/17 at 10:30 Potassium Phosphate (K-Phos) 2,000 mg UNSCH PRN PO/TUBE SEE LABEL COMMENTS; Start 01/30/17 at 10:30 Miscellaneous Information SPECIFIC LAB TO BE DRAWN:VANCO TROUGH DATE... ONCE ONCE .XX ; Start 01/31/17 at 23:45; Stop 01/31/17 at 23:45; Status DC Metoprolol Tartrate (Lopressor) 50 mg Q12HR PO Last administered on 02/03/17 08:29; Start 01/30/17 at 11:00 Metoclopramide HCl 5 mg 5 mg Q8HR IV PUSH Last administered on 02/03/17 13:40 ; Start 01/30/17 at 14:00 Metronidazole 100 ml @ 100 mls/hr Q12H IV Last administered on 01/30/17 16:34 ; Start 01/30/17 at 16:00; Stop 01/30/17 at 17:10; Status DC Metronidazole (Flagyl 500 Mg Inj) 100 ml @ 100 mls/hr Q8H IV Last administered on 02/01/17 16:53; Start 01/31/17 at 00:00; Stop 02/01/17 at 18:11 ; Status DC Hydralazine HCl (Apresoline) 50 mg Q8HR PO Last administered on 02/03/17 13:39 ; Start 01/31/17 at 14:00 Bumetanide (Bumex Inj) 1 mg ONCE ONCE IV PUSH Last administered on 01/31/17 11 :28; Start 01/31/17 at 10:00; Stop 01/31/17 at 10:18; Status DC Phytonadione (Vitamin K Inj) 10 mg ONCE ONCE SQ Last administered on 01/31/17 14:37; Start 01/31/17 at 13:45; Stop 01/31/17 at 13:46; Status DC Midazolam HCl (Versed Inj) 5 mg STK-MED ONCE .ROUTE Last administered on 08:55; Start 02/01/17 at 08:55; Stop 02/01/17 at 08:56; Status DC Fentanyl Citrate (fentaNYL INJ) 250 mcg STK-MED ONCE .ROUTE Last administered on 02/01/17 08:55; Start 02/01/17 at 08:55; Stop 02/01/17 at 08:56; Status DC Ondansetron HCl (Zofran Inj) 4 mg STK-MED ONCE .ROUTE Last administered on 02/01 08:56; Start 02/01/17 at 08:56; Stop 02/01/17 at 08:57; Status DC Sodium Chloride (NS Inj) 10 ml DAILY IRRIGATION Last administered on 02/03/17 09:00; Start 02/02/17 at 09:00 Iohexol (Omnipaque 350 Inj) 40 ml STK-MED ONCE OTHER Last administered on 10:07; Start 02/01/17 at 10:34; Stop 02/01/17 at 10:35; Status DC Calcium Carbonate (Tums Chew) 500 mg Q2H PRN CHEW dyspepsia Last administered on 02/01/17 17:07; Start 02/01/17 at 16:15 Hydromorphone HCl (Dilaudid Pf Inj) 1 mg NOW ONCE IV PUSH Last administered on 02/01/17 18:00; Start 02/01/17 at 18:00; Stop 02/01/17 at 18:01; Status DC Hydromorphone HCl (Dilaudid Pf Inj) 1 mg ONCE ONCE IV PUSH ; Start 02/01/17 at 18:00; Stop 02/01/17 at 18:02; Status DC Hydromorphone HCl 1 mg 1 mg Q4H PRN IV PUSH breakthrough pain Last administered on 02/03/17 08:30; Start 02/01/17 at 18:15 Vancomycin HCl 1000 mg/Sodium Chloride 250 ml @ 250 mls/hr ONCE ONCE IV Last administered on 02/01/17 19:06; Start 02/01/17 at 18:15; Stop 02/01/17 at 19:14 ; Status DC Pantoprazole Sodium/Sodium Chloride (Protonix Inj/NS Inj) 100 ml @ 10 mls/hr Q10H IV Last administered on 02/02/17 01:36; Start 02/02/17 at 02:30; Stop 08/11 at 10:50; Status DC Pantoprazole Sodium 40 mg 40 mg ONCE ONCE IV PUSH Last administered on 01:36; Start 02/02/17 at 01:30; Stop 02/02/17 at 01:31; Status DC Magnesium Sulfate/ Dextrose (Magnesium Sulfate 1 Gm Premix) 100 ml @ 100 mls/ hr Q1H IV Last administered on 02/02/17 12:42; Start 02/02/17 at 11:00; Stop 02/02/17 at 12:59; Status DC Pantoprazole Sodium (Protonix Inj) 40 mg Q12H IV PUSH Last administered on 02/03 12:11; Start 02/02/17 at 11:00 Potassium Chloride 40 meq 40 meq ONCE ONCE PO Last administered on 02/02/17 14:45; Start 02/02/17 at 14:45; Stop 02/02/17 at 14:46; Status DC Sodium Phosphate/ Sodium Chloride (Sodium Phosphate Inj/NS Inj) 155 ml @ 38.75 mls/ hr ONCE ONCE IV Last administered on 02/02/17 17:27; Start 02/02/17 at 15:00; Stop 02/02/17 at 18:59; Status DC Magnesium Citrate (Citroma Liq) 300 ml ONCE ONCE PO Last administered on 16:17; Start 02/02/17 at 15:30; Stop 02/02/17 at 15:32; Status DC Methylnaltrexone [place] (Relistor Inj) 6 mg ONCE ONCE SQ Last administered on 02/02/17 17:26; Start 02/02/17 at 16:00; Stop 02/02/17 at 16:27; Status DC A/P Assessment and Plan Ileus Cholelithiasis Improving tolerating diet. HIDA scan - no visualization of gall bladder. ? cystic duct obstruction. s/p perc cholecystostomy tube placement on 02/02/17 by IR. GI is following CT abdomen/pelvis revealed cholelithiasis/ileus Liver ultrasound 01/28 revealed gallstone in neck of gallbladder. Nonmobile. Protonix for GI prophylaxis Colace/Senokot for bowel regimen on zosyn, blood cultures negative so far. Reglan 5 every 8 for prokinetic agent KUB 02/02 showed gaseous distention of colon-unchanged per GI if tolerate NG clamp can d/c NG tube. History of left basal ganglia CVA Depression Peripheral neuropathy Insomnia Monitor neuro status and avoid any sedatives continue ASA 325 mg by mouth daily. 02/02 Dilaudid 0.5 mg every 2 hours when necessary for pain management with 1 mg for breakthrough pain Coronary artery disease - inoperable Ischemic cardiomyopathy ejection fraction 45% Hypertension Dyslipidemia Monitor HR and BP keep MAP>65mmHg. Lopressor 50mg Q8, add Hydralazine 50mg Q8 Heart catheterization by Dr. Jordan 07/10 revealed EF 45%. LAD 70%, left circumflex 70 percent, RCA 80%. Not amenable To CABG On ASA 325 milligrams daily to be resumed 02/02 As needed labetalol/hydralazine/Nitropaste for hypertension Diabetes mellitus neuropathy On Levemir unknown dosage with sliding scale insulin as nursing him. Sliding scale insulin Accu-Cheks every 6 hours to maintain euglycemia/low regimen CHRISTY- IMPROVING Seen by nephrology. Creatinine stable Monitor renal function, I/O's, electrolytes replacement as needed Leukocytosis with bandemia Normocytic anemia Coagulopathy Monitor CBC, INR /PT s/p 2units FFP preprocedure. Hypokalemia Hypophosphatemia replenish PRN. Prophylaxis - GI - Protonix - DVT - SCD/heparin SQ Andree Conteh MD February 03, 2017 16:06 Renal: CHRISTY- resolving Seen by nephrology. Creatinine stable Monitor renal function, I/O's, electrolytes replacement as needed Heme: Leukocytosis with bandemia Normocytic anemia Coagulopathy Monitor CBC, INR /PT give 2units FFP preprocedure. ID: Urinary tract infection Continue abx (Zosyn)monitor for signs of infections (Fever, WBC) ID is following. Follow up on cxs. C-diff PCR is negative. For perc cholecystostomy tube placement by IR today Pertinent cultures 02/01 - blood cultures 2 - no growth 01/27 - urine culture -no growth 5/5 - blood cultures 2 -no growth FEN: Hypokalemia Hypophosphatemia 40 mEq KCl/by tube/15 mmol sodium phosphate IV 1. Recheck in a.m. Access - Utilize peripheral IV. Prophylaxis - GI - Protonix - DVT - SCD/heparin SQ on hold for procedure today. Andree Conteh MD February 03, 2017 16:06
[2017-02-04] VITALS (10 sets, daily range): BP systolic 129–171; BP diastolic 62–77; PULSE 54–73; RESP 12–31; TEMP 96–98.2; O2SAT 95–100
[2017-02-04] MEDS: INSULIN NovoLIN REGULAR SUPPLEMENTAL SCALE SQ SCH ×4 (01:44→21:12)
[2017-02-04] MEDS: PIPERACIL-TAZO 3.375 GM PREMIX 50 ML IV SCH ×4 (02:38→20:10)
[2017-02-04] MEDS: CHLORHEXIDINE GLUCONATE 2 % 1 PACK (2 CLOTHS) TOP SCH (03:02)
[2017-02-04] MEDS: METOCLOPRAMIDE HCL 10 MG/2 ML VIAL IV PUSH SCH ×3 (04:54→22:40)
[2017-02-04] MEDS: hydrALAZINE HCL 50 MG TAB PO SCH ×3 (04:54→22:40)
[2017-02-04 06:57] LABS: MEAN CORPUSCULAR HEMOGLOBIN 30.4 PG (27.0-34.0); MEAN CORPUSCULAR HGB CONC 33.8 % (32.0-36.0); PLATELET COUNT 377 TH/MM3 (150-450); RED BLOOD COUNT 2.89 MIL/MM3 (4.00-5.30); RED CELL DISTRIBUTION WIDTH 13.5 % (11.6-17.2); REVIEW FLAG FINAL; WHITE BLOOD COUNT 17.9 TH/MM3 (4.0-11.0)
[2017-02-04 07:17] LABS: BICARBONATE 24.1 MEQ/L (21.0-32.0); POTASSIUM 3.4 MEQ/L (3.5-5.1)
[2017-02-04] MEDS ORDERED: POTASSIUM CHLORIDE 20 MEQ CONTROLLED RELEASE TAB PO ONE (08:15)
--- NOTE | 2017-02-04 08:48 | HHI.PR ---
Subjective Remarks Follow up infection, nausea, vomiting. Patient seen and examined. Patient sitting up in bed, alert. Denies any further nausea or vomiting. Tolerating liquid PO intake. Does state she has some continued right abdominal pain. Denies any recent fever, chills, cough, shortness of breath or chest pain. Objective Vitals Vital Signs Date Time Temp Pulse Resp B/P Pulse Ox O2 Delivery O2 Flow Rate FiO2 02/04/17 04:00 55 02/04/17 04:00 97.5 54 23 160/70 100 02/04/17 02:00 58 02/04/17 00:00 67 02/04/17 00:00 97.9 57 12 129/62 100 02/03/17 23:35 16 02/03/17 22:00 67 02/03/17 20:00 97.7 56 20 149/67 98 02/03/17 18:00 67 02/03/17 16:00 83 02/03/17 16:00 98.1 83 21 163/65 97 02/03/17 14:00 78 02/03/17 10:00 60 I/O 02/03/17 02/03/17 02/03/17 02/04/17 02/04/17 02/04/17 07:00 15:00 23:00 07:00 15:00 23:00 Intake Total 593 ml 440 ml 310 ml 298 ml Output Total 1770 ml 1210 ml 350 ml 420 ml Balance -1177 ml -770 ml -40 ml -122 ml Intake Oral 360 ml 320 ml 240 ml 240 ml IV Total 233 ml 120 ml 70 ml 58 ml Output Urine Total 300 ml 200 ml 350 ml 300 ml Stool Total 50 ml 60 ml 0 ml 100 ml Gastric Drainage Total 1400 ml 800 ml Drainage Total 20 ml 150 ml 20 ml Result Diagram: 02/04/17 0538 02/04/17 0538 Imaging Last Impressions Abdomen X-Ray 02/03/17 0600 Signed Impressions: Service Date/Time: Friday, February 03, 2017 02:45 - CONCLUSION: No significant interval change. Jai Wiley MD Chest X-Ray 02/02/17 0000 Signed Impressions: Service Date/Time: January 02:07 - CONCLUSION: Radiographic findings suggesting pulmonary edema. Jc Ortiz Jr., MD Percutaneous Cholangiogram 02/01/17 0000 Signed Impressions: Service Date/Time: Wednesday, February 01, 2017 08:44 - CONCLUSION: Uncomplicated percutaneous cholecystostomy as above. Geovanny Yañez MD Hepatobiliary Scan Nuclear Medicine 01/30/17 0000 Signed Impressions: Service Date/Time: Monday, January 30, 2017 11:15 - CONCLUSION: Nonvisualization of the gallbladder 2 hours. Patient does have gallstones in a prominent gallbladder. Krystian Painting MD FACRADDENDUM: 20 hour delayed imaging of the hepatobiliary system continues to demonstrate nonvisualization of the gallbladder characteristic of cystic duct obstruction. Geovanny Yañez MD Liver Ultrasound 01/28/17 0000 Signed Impressions: Service Date/Time: Saturday, January 28, 2017 09:20 - CONCLUSION: 1. Cholelithiasis with 1.8 cm gallstone in the region of the neck of the gallbladder which was nonmobile. There is a small amount of adjacent free fluid. There is no evidence of biliary obstruction. 2. Fatty infiltration of the liver. Ang Moreno MD Head CT 01/27/17 1052 Signed Impressions: Service Date/Time: Friday, January 27, 2017 11:26 - CONCLUSION: 1. Old lacunar infarct in the left basal ganglia stable compared to previous dated 01/04/14. 2. No acute intracranial abnormality identified. Christopher Painting MD Abdomen/Pelvis CT 01/27/17 0000 Signed Impressions: Service Date/Time: Friday, January 27, 2017 14:51 - CONCLUSION: Gallstone. Ileus bowel gas pattern. Willy Mackay MD Objective Remarks GENERAL: Well-nourished, well-developed patient in NAD. CARDIOVASCULAR: Regular rate and rhythm. S1, S2 noted. No murmur appreciated. RESPIRATORY: No accessory muscle use. Clear to auscultation bilaterally, right base slightly decreased compared to the left. GASTROINTESTINAL: Abdomen soft, non-tender, nondistended. Normoactive bowel sounds x4. MUSCULOSKELETAL: No obvious deformities. Extremities without edema. NEUROLOGICAL: Awake and alert. No obvious cranial nerve deficits. Motor grossly within normal limits. 5/5 muscle strength in bilateral upper and lower extremities. Normal speech. EXTREMITIES: Right AKA noted. PSYCHIATRIC: Appropriate mood and affect; insight and judgment normal. Urinary Catheter: Yes Assessment to: Continue Vascular Central Line Catheter: No A/P Assessment and Plan Ileus Cholelithiasis - NGT removed last evening. Tolerating PO fluid intake. GI following, appreciate input in advancing diet. - No events overnight. Patient stable. Transfer patient to medical/surgical floor. DC telemetry. Encourage IS q1 hr while awake - HIDA scan reviewed by my, no visualization of gall bladder. Questionable cystic duct obstruction. s/p perc cholecystostomy tube placement on 02/02/17 by IR. - CT abdomen/pelvis reviewed by me, cholelithiasis/ileus. - Liver ultrasound 01/28 reviewed by me, gallstone in neck of gallbladder. Nonmobile. - Protonix for GI prophylaxis - Colace/Senokot for bowel regimen - Continue Zosyn. blood cultures NGTD. WBC trending down 17.9 today - Continue Reglan 5 every 8 for prokinetic agent - KUB 02/02 showed gaseous distention of colon-unchanged History of left basal ganglia CVA Depression Peripheral neuropathy Insomnia - Monitor neuro status and avoid any sedatives. - Continue ASA 325 mg by mouth daily. 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 No arrhythmias noted. Discontinue telemetry on transfer to floor. - Continue Lopressor 50mg Q8, continue Hydralazine 50mg Q8h - Heart catheterization by Dr. Jordan on 07/10 revealed EF 45%. LAD 70%, left circumflex 70 percent, RCA 80%. Not amenable to CABG - On ASA 325 milligrams daily. - DC hydralazine IV upon transfer to floor. Change to hydralazine 10 mg PO Q6h PRN. Diabetes mellitus neuropathy - Will check hemoglobin A1c. - Supposedly patient is on sliding scale insulin at longterm. Request medication reconciliation update per nursing. - Sliding scale insulin Accu-Cheks every 6 hours to maintain euglycemia/low regimen Acute kidney injury - Nephrology following. Creatinine improving, 1.17 today 02/04. - Monitor renal function, I/O's, electrolytes replacement as needed. Leukocytosis with bandemia Normocytic anemia Coagulopathy - WBC initially 27.5 on admission. Trending down, 17.9 today 02/04. CBC in am. - Monitor CBC, INR /PT s/p 2units FFP preprocedure. Platelets stable. Hypokalemia: Potassium 3.4 today, 02/04. Replace with Potassium 40 meq PO x 1 now. BMP in am. GI prophylaxis: Continue Protonix DVT prophylaxis: SCD/heparin SQ Written by Desire Azul, acting as scribe for Dr. Ash on 02/04/17 at 08:36. This note was transcribed by scribe Desire Azul. I, Dr. Rosi Ash personally performed the history, physical exam, and medical decision making; and confirmed the accuracy of the information in the transcribed note. Authenticated by Dr. Rosi Ash on 02/04/17 at 08:36. Discharge Planning transfer to regular floor. f/u WBC. Continue IV abx. Desire Azul February 04, 2017 08:48 Rosi Ash MD February 04, 2017 10:36
[2017-02-04] MEDS: SODIUM CHLORIDE 0.9% 10 ML VIAL IRRIGATION SCH (09:00)
[2017-02-04] MEDS ORDERED: POTASSIUM CHLORIDE 20 MEQ CONTROLLED RELEASE TAB PO SCH (09:00)
[2017-02-04] MEDS: METOPROLOL TARTRATE 50 MG TAB PO SCH ×2 (09:13→20:10)
[2017-02-04] MEDS: SENNOSIDES SYRUP 8.8 MG/5 ML CUP PO SCH (09:16)
[2017-02-04] MEDS: DOCUSATE SODIUM 100 MG/10 ML UDC PO SCH ×2 (09:16→20:09)
[2017-02-04] MEDS: HYDROmorphone HCL PF 1 MG/ML VIAL IV PUSH PRN ×4 (09:23→22:41)
[2017-02-04] MEDS: PANTOPRAZOLE SODIUM 40 MG VIAL IV PUSH SCH ×2 (11:17→22:40)
--- NOTE | 2017-02-04 15:21 | HHI.GIFU ---
Subjective Remarks Transferred to medical floor. Tolerating diet since NGT removed. No n/v. Mild RUQ tenderness. + BM. (Priscila Andrew) Objective Vitals I&O Vital Signs Date Time Temp Pulse Resp B/P Pulse Ox O2 Delivery O2 Flow Rate FiO2 02/04/17 12:00 96.6 65 22 171/69 100 02/04/17 10:00 66 02/04/17 08:51 98 Nasal Cannula 2.00 02/04/17 08:00 70 02/04/17 08:00 98.2 63 31 155/67 97 02/04/17 04:00 55 02/04/17 04:00 97.5 54 23 160/70 100 02/04/17 02:00 58 02/04/17 00:00 67 02/04/17 00:00 97.9 57 12 129/62 100 02/03/17 23:35 16 02/03/17 22:00 67 02/03/17 20:00 97.7 56 20 149/67 98 02/03/17 18:00 67 02/03/17 16:00 83 02/03/17 16:00 98.1 83 21 163/65 97 I/O 02/03/17 02/03/17 02/03/17 02/04/17 02/04/17 02/04/17 07:00 15:00 23:00 07:00 15:00 23:00 Intake Total 593 ml 440 ml 310 ml 298 ml Output Total 1770 ml 1210 ml 350 ml 420 ml 425 ml Balance -1177 ml -770 ml -40 ml -122 ml -425 ml Intake Oral 360 ml 320 ml 240 ml 240 ml IV Total 233 ml 120 ml 70 ml 58 ml Output Urine Total 300 ml 200 ml 350 ml 300 ml 200 ml Stool Total 50 ml 60 ml 0 ml 100 ml 225 ml Gastric Drainage Total 1400 ml 800 ml Drainage Total 20 ml 150 ml 20 ml Laboratory Laboratory Tests Test 02/03/17 02/04/17 21:48 05:38 Random Glucose 276 248 White Blood Count 17.9 Red Blood Count 2.89 Hemoglobin 8.8 Hematocrit 26.0 Mean Corpuscular Volume 90.0 Mean Corpuscular Hemoglobin 30.4 Mean Corpuscular Hemoglobin 33.8 Concent Red Cell Distribution Width 13.5 Platelet Count 377 Mean Platelet Volume 9.2 Sodium Level 141 Potassium Level 3.4 Chloride Level 108 Carbon Dioxide Level 24.1 Anion Gap 9 Blood Urea Nitrogen 22 Creatinine 1.17 Estimat Glomerular Filtration 47 Rate Calcium Level 7.8 Date/Time Procedure Status Source Growth 02/02/17 20:45 Stool Occult Blood (SHERIDAN) - Final Complete Stool Stool HEMOCCULT POSITIVE 02/01/17 22:20 Gram Stain - Final Complete Fluid Bile Fluid 02/01/17 22:20 Body Fluid Culture - Final Complete Fluid Bile Fluid NO GROWTH IN 72 HRS.--AEROBICALLY OR ... 02/01/17 19:25 Aerobic Blood Culture - Preliminary Resulted Blood Peripheral NO GROWTH IN 3 DAYS 02/01/17 19:25 Anaerobic Blood Culture - Preliminary Resulted Blood Peripheral NO GROWTH IN 3 DAYS Imaging Last Impressions Abdomen X-Ray 02/03/17 0600 Signed Impressions: Service Date/Time: Friday, February 03, 2017 02:45 - CONCLUSION: No significant interval change. Jai Wiley MD Chest X-Ray 02/02/17 0000 Signed Impressions: Service Date/Time: January 02:07 - CONCLUSION: Radiographic findings suggesting pulmonary edema. Jc Ortiz Jr., MD Percutaneous Cholangiogram 02/01/17 0000 Signed Impressions: Service Date/Time: Wednesday, February 01, 2017 08:44 - CONCLUSION: Uncomplicated percutaneous cholecystostomy as above. Geovanny Yañez MD Hepatobiliary Scan Nuclear Medicine 01/30/17 0000 Signed Impressions: Service Date/Time: Monday, January 30, 2017 11:15 - CONCLUSION: Nonvisualization of the gallbladder 2 hours. Patient does have gallstones in a prominent gallbladder. Krystian Painting MD FACRADDENDUM: 20 hour delayed imaging of the hepatobiliary system continues to demonstrate nonvisualization of the gallbladder characteristic of cystic duct obstruction. Geovanny Yañez MD Liver Ultrasound 01/28/17 0000 Signed Impressions: Service Date/Time: Saturday, January 28, 2017 09:20 - CONCLUSION: 1. Cholelithiasis with 1.8 cm gallstone in the region of the neck of the gallbladder which was nonmobile. There is a small amount of adjacent free fluid. There is no evidence of biliary obstruction. 2. Fatty infiltration of the liver. Ang Moreno MD Head CT 01/27/17 1052 Signed Impressions: Service Date/Time: Friday, January 27, 2017 11:26 - CONCLUSION: 1. Old lacunar infarct in the left basal ganglia stable compared to previous dated 01/04/14. 2. No acute intracranial abnormality identified. Christopher Painting MD Abdomen/Pelvis CT 01/27/17 0000 Signed Impressions: Service Date/Time: Friday, January 27, 2017 14:51 - CONCLUSION: Gallstone. Ileus bowel gas pattern. Willy Mackay MD Physical Exam HEENT: Normocephalic; atraumatic; no jaundice. CHEST: CTA, diminished CARDIAC: RRR ABDOMEN: Soft,mild ruq tenderness, nontender, no hepatosplenomegaly; bowel sounds hypoactive. cholecystomy tube site dressing clean EXTREMITIES: Right BKA SKIN: Normal; no rash; no jaundice. [employer]: No focal deficits; Lethargic and oriented times two (Priscila Andrew) Assessment and Plan Plan ASSESSMENT: - Colonic Ileus. Has hx of constipation. Getting pain meds. S/P SSE. Senokot, Colace, Reglan, Magnesium citrate (02/02), Relistor (02/02). Nurse reports that she had multiple large bowel movements last night and again today. Cdiff negative. Repeat Abdomen X-Ray (02/03/17)---> No significant interval change. However, clinically, she is much improved and seemed to respond to Magnesium citrate/relistor. NGT was removed yesterday and she is tolerating diet, + BM, less distention. - Acute cholecystitis with abdominal pain, nausea, leukocytosis. Abdomen/Pelvis CT (01/27/17)---> Gallstone. Ileus bowel gas pattern. LFTs were mildly elevated on admission with T. Bilirubin 0.3, AST 67, ALT 32 , Alk Phosph 542. Liver US (01/28/17)----> 1. Cholelithiasis with 1.8 cm gallstone in the region of the neck of the gallbladder which was nonmobile. There is a small amount of adjacent free fluid. There is no evidence of biliary obstruction. 2. Fatty infiltration of the liver. HIDA (01/30/17)-----> Nonvisualization of the gallbladder 2 hours. Patient does have gallstones in a prominent gallbladder. ADDENDUM: 20 hour delayed imaging of the hepatobiliary system continues to demonstrate nonvisualization of the gallbladder characteristic of cystic duct obstruction. S/P Cholecystomy tube placement (02/01). ID following. Zosyn. WBC 17.9. LFT improving. - Elevated LFTs, likely related to cholecystitis. Imaging as above. s/p cholecystostomy tube placement (02/01), LFT improving. Zosyn per ID. - Cholelithiasis/Cholecystitis. 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 S/P Cholecystomy tube. Zosyn. - Anemia, normocytic. 8.8/26.0. Hemoccult (+). No obvious active bleeding. - Sepsis, Leukocytosis, Bandemia. ? UTI- No growth 48 hours. BCX no growth 3 days. Likely related to acute cholecystitis,s/p cholecystomy tube. Abx per ID - Coagulopathy. improving s/p 4 units FFP, Vitamin K - CHRISTY. Creat. 1.17. Per nephrology - Hx left basal ganglia CVA, Depression, Peripheral neuropathy - CAD, ischemic cardiomyopathy, hyperlipidemia, DM, per primary. PLAN: - CHRISTIAN - Cont. Senokot - Cont. Colace - Cont. Reglan - Cont. Abx per ID- Zosyn - S/P Relistor 12mg sq x 1 (02/02/17) - S/P Cholecystomy tube (02/01) - GI will sign off, please reconsult as needed - Pt seen and examined by Dr. Turner and myself and this note is written on her behalf (Priscila Andrew) Priscila Andrew February 04, 2017 15:21 Radha Turner MD February 11, 2017 09:50
[2017-02-04 19:23] LABS: C. DIFF EPI 027 PRESUMPTIVE NEGATIVE (NEGATIVE); C. DIFF TOXIN PCR NEGATIVE (NEGATIVE)
[2017-02-05] VITALS: BP 148/66; PULSE 68; RESP 19; TEMP 96.8; O2SAT 98
[2017-02-05] MEDS: HYDROmorphone HCL PF 1 MG/ML VIAL IV PUSH PRN ×5 (01:40→22:19)
[2017-02-05] MEDS: INSULIN NovoLIN REGULAR SUPPLEMENTAL SCALE SQ SCH ×4 (01:54→20:28)
[2017-02-05 04:00] VITALS: BP 170/72; PULSE 69; RESP 19; TEMP 97.2; O2SAT 97
[2017-02-05] MEDS: CHLORHEXIDINE GLUCONATE 2 % 1 PACK (2 CLOTHS) TOP SCH (04:00)
[2017-02-05] MEDS: PIPERACIL-TAZO 3.375 GM PREMIX 50 ML IV SCH ×4 (04:31→20:15)
[2017-02-05] MEDS: hydrALAZINE HCL 50 MG TAB PO SCH ×3 (05:01→22:19)
[2017-02-05] MEDS: METOCLOPRAMIDE HCL 10 MG/2 ML VIAL IV PUSH SCH ×3 (05:01→22:19)
[2017-02-05] MEDS: METOPROLOL TARTRATE 50 MG TAB PO SCH ×2 (07:58→20:16)
[2017-02-05] MEDS: DOCUSATE SODIUM 100 MG/10 ML UDC PO SCH ×2 (07:59→20:15)
[2017-02-05] MEDS: SENNOSIDES SYRUP 8.8 MG/5 ML CUP PO SCH (07:59)
[2017-02-05 08:00] VITALS: BP 144/67; PULSE 73; RESP 20; TEMP 97.7; O2SAT 99
[2017-02-05] MEDS: SODIUM CHLORIDE 0.9% 10 ML VIAL IRRIGATION SCH (08:00)
[2017-02-05 08:50] VITALS: O2SAT 98
[2017-02-05 09:34] LABS: AUTOMATED NEUTROPHIL # 9.5 TH/MM3 (1.8-7.7); BASOPHIL % 0.2 % (0.0-2.0); EOSINOPHIL # 0.3 TH/MM3 (0-0.4); EOSINOPHIL % 2.2 % (0.0-4.0); HEMATOCRIT 24.8 % (35.0-46.0); HEMO FLAGS DIFF FINAL; LYMPH % 17.1 % (9.0-44.0); LYMPHOCYTE # 2.2 TH/MM3 (1.0-4.8); MEAN CELL VOLUME 91.8 FL (80.0-100.0); MEAN CORPUSCULAR HEMOGLOBIN 30.1 PG (27.0-34.0); MEAN CORPUSCULAR HGB CONC 32.7 % (32.0-36.0); MONO % 6.8 % (0.0-8.0); NEUT % 73.7 % (16.0-70.0); PLATELET COUNT 334 TH/MM3 (150-450); RED CELL DISTRIBUTION WIDTH 13.8 % (11.6-17.2); WHITE BLOOD COUNT 12.9 TH/MM3 (4.0-11.0)
[2017-02-05 09:49] LABS: BICARBONATE 22.3 MEQ/L (21.0-32.0); MAGNESIUM 1.8 MG/DL (1.5-2.5); POTASSIUM 3.4 MEQ/L (3.5-5.1)
[2017-02-05] MEDS ORDERED: POTASSIUM CHLORIDE 20 MEQ CONTROLLED RELEASE TAB PO ONE (10:00)
[2017-02-05] MEDS ORDERED: ACETAMINOPHEN/HYDROcodone 325 MG/7.5 MG TAB PO PRN (10:30)
--- NOTE | 2017-02-05 10:31 | HHI.PR ---
Subjective Remarks Pt complaining of urethral spasm around the infante insertion site. She wants " all of this to come off" referring to DINAH, arelis and ruben. Pt confirms she didn't have a infante prior to admission and doesn't use home oxygen. currently has no abdominal pain but states that after she eats she does get some. no nausea or vomiting, CP or SOB Objective Vitals Vital Signs Date Time Temp Pulse Resp B/P Pulse Ox O2 Delivery O2 Flow Rate FiO2 02/05/17 08:50 98 Nasal Cannula 2.00 02/05/17 08:00 97.7 73 20 144/67 99 02/05/17 04:00 97.2 69 19 170/72 97 02/05/17 00:00 96.8 68 19 148/66 98 02/04/17 20:00 96.5 73 20 169/77 95 02/04/17 16:00 96.0 64 20 170/68 99 02/04/17 15:29 100 Nasal Cannula 2.00 02/04/17 12:00 96.6 65 22 171/69 100 02/04/17 12:00 96.6 65 22 171/69 100 I/O 02/04/17 02/04/17 02/04/17 02/05/17 02/05/17 02/05/17 06:59 14:59 22:59 06:59 14:59 22:59 Intake Total 298 ml 480 ml 240 ml Output Total 420 ml 425 ml 325 ml 325 ml Balance -122 ml -425 ml 155 ml -85 ml Intake Oral 240 ml 480 ml 240 ml IV Total 58 ml Output Urine Total 300 ml 200 ml 325 ml 250 ml Stool Total 100 ml 225 ml Drainage Total 20 ml 75 ml # Bowel Movements 4 1 Result Diagram: 02/05/17 0836 02/05/17 0836 Imaging Last Impressions Abdomen X-Ray 02/03/17 0600 Signed Impressions: Service Date/Time: Friday, February 03, 2017 02:45 - CONCLUSION: No significant interval change. Jai Wiley MD Chest X-Ray 02/02/17 0000 Signed Impressions: Service Date/Time: January 02:07 - CONCLUSION: Radiographic findings suggesting pulmonary edema. Jc Ortiz Jr., MD Percutaneous Cholangiogram 02/01/17 0000 Signed Impressions: Service Date/Time: Wednesday, February 01, 2017 08:44 - CONCLUSION: Uncomplicated percutaneous cholecystostomy as above. Geovanny Yañez MD Hepatobiliary Scan Nuclear Medicine 01/30/17 0000 Signed Impressions: Service Date/Time: Monday, January 30, 2017 11:15 - CONCLUSION: Nonvisualization of the gallbladder 2 hours. Patient does have gallstones in a prominent gallbladder. Krystian Painting MD FACRADDENDUM: 20 hour delayed imaging of the hepatobiliary system continues to demonstrate nonvisualization of the gallbladder characteristic of cystic duct obstruction. Geovanny Yañez MD Liver Ultrasound 01/28/17 0000 Signed Impressions: Service Date/Time: Saturday, January 28, 2017 09:20 - CONCLUSION: 1. Cholelithiasis with 1.8 cm gallstone in the region of the neck of the gallbladder which was nonmobile. There is a small amount of adjacent free fluid. There is no evidence of biliary obstruction. 2. Fatty infiltration of the liver. Ang Moreno MD Head CT 01/27/17 1052 Signed Impressions: Service Date/Time: Friday, January 27, 2017 11:26 - CONCLUSION: 1. Old lacunar infarct in the left basal ganglia stable compared to previous dated 01/04/14. 2. No acute intracranial abnormality identified. Christopher Painting MD Abdomen/Pelvis CT 01/27/17 0000 Signed Impressions: Service Date/Time: Friday, January 27, 2017 14:51 - CONCLUSION: Gallstone. Ileus bowel gas pattern. Willy Mackay MD Objective Remarks GENERAL: Well-nourished, well-developed patient in NAD. CARDIOVASCULAR: Regular rate and rhythm. S1, S2 noted. No murmur appreciated. RESPIRATORY: No accessory muscle use. Clear to auscultation bilaterally GASTROINTESTINAL: Abdomen soft, non-tender, nondistended. Normoactive bowel sounds x4. MUSCULOSKELETAL: No obvious deformities. Extremities without edema. NEUROLOGICAL: Awake and alert. No obvious cranial nerve deficits. Motor grossly within normal limits. Normal speech. EXTREMITIES: Right AKA noted. PSYCHIATRIC: Appropriate mood and affect; insight and judgment normal. A/P Assessment and Plan Ileus Cholelithiasis - NGT removed last evening. Tolerating PO fluid intake. GI consult appreciated and they have signed off. pt on a heart healthy diet - No events overnight. Patient stable. Encourage IS q1 hr while awake - HIDA scan reviewed by my, no visualization of gall bladder. Questionable cystic duct obstruction. s/p perc cholecystostomy tube placement on 02/02/17 by IR. - CT abdomen/pelvis reviewed by me, cholelithiasis/ileus. - Liver ultrasound 01/28, gallstone in neck of gallbladder. Nonmobile. - Protonix for GI prophylaxis - Colace/Senokot for bowel regimen - Continue Zosyn. blood cultures NGTD. WBC trending down 12.9 today. discuss w ID in AM regarding length of Abx - Continue Reglan 5 every 8 for prokinetic agent - KUB 02/02 showed gaseous distention of colon-unchanged History of left basal ganglia CVA Depression Peripheral neuropathy Insomnia - Monitor neuro status and avoid any sedatives. - Continue ASA 325 mg by mouth daily. 02/02 - Dilaudid 0.5 mg every 2 hours PRN for pain management with 1 mg for breakthrough pain Coronary artery disease - inoperable Ischemic cardiomyopathy ejection fraction 45% Hypertension Dyslipidemia - nurse monitoring reviewed by me. No arrhythmias noted. Discontinue telemetry on transfer to floor. - Continue Lopressor 50mg Q8, continue Hydralazine 50mg Q8h. added amlodipine 10mg po daily. - Heart catheterization by Dr. Jordan on 07/10 revealed EF 45%. LAD 70%, left circumflex 70 percent, RCA 80%. Not amenable to CABG - On ASA 325 milligrams daily. - hydralazine 10 mg PO Q6h PRN. Diabetes mellitus neuropathy - Will check hemoglobin A1c. - Supposedly patient is on sliding scale insulin at long-term. Request medication reconciliation update per nursing. - Sliding scale insulin Accu-Cheks every 6 hours to maintain euglycemia/low regimen Acute kidney injury - Nephrology following. Creatinine improving, 1.17 today 02/04. - Monitor renal function, I/O's, electrolytes replacement as needed. Leukocytosis with bandemia Normocytic anemia Coagulopathy - WBC initially 27.5 on admission. Trending down, 12.9 today 02/05. CBC in am. - Monitor CBC, INR /PT s/p 2units FFP preprocedure. Platelets stable. Hypokalemia: Potassium 3.4 today, 02/04. Replace with Potassium 40 meq PO x 1 now. BMP in am. GI prophylaxis: Continue Protonix DVT prophylaxis: SCD/heparin SQ Discharge Planning f/u WBC. Continue IV abx. Rosi Ash MD February 05, 2017 10:31
[2017-02-05] MEDS: ACETAMINOPHEN/HYDROcodone 325 MG/10 MG TAB PO PRN ×2 (11:38→20:14)
[2017-02-05] MEDS: LACTOBACILLUS ACIDOPHILUS 1 GM PACKET PO SCH ×3 (11:38→20:15)
[2017-02-05] MEDS: PANTOPRAZOLE SODIUM 40 MG VIAL IV PUSH SCH ×2 (11:40→22:19)
[2017-02-05 11:55] LABS: HEMOGLOBIN A1a 1.1 %; HEMOGLOBIN A1b 2.5 %; HEMOGLOBIN Ao 79.3 %; HEMOGLOBIN LA1C 3.3 %
[2017-02-05 12:00] VITALS: BP 165/74; PULSE 74; RESP 20; TEMP 98.4; O2SAT 96
[2017-02-05 20:00] VITALS: BP 172/77; PULSE 67; RESP 18; TEMP 97.4; O2SAT 96
[2017-02-06] VITALS (10 sets, daily range): BP systolic 155–190; BP diastolic 51–77; PULSE 60–79; RESP 17–18; TEMP 97.3–98.2; O2SAT 93–99
[2017-02-06] MEDS: ACETAMINOPHEN/HYDROcodone 325 MG/10 MG TAB PO PRN ×4 (02:09→23:22)
[2017-02-06] MEDS: PIPERACIL-TAZO 3.375 GM PREMIX 50 ML IV SCH ×4 (02:12→20:05)
[2017-02-06] MEDS: INSULIN NovoLIN REGULAR SUPPLEMENTAL SCALE SQ SCH ×4 (02:18→20:18)
[2017-02-06] MEDS: CHLORHEXIDINE GLUCONATE 2 % 1 PACK (2 CLOTHS) TOP SCH (04:00)
[2017-02-06] MEDS: METOCLOPRAMIDE HCL 10 MG/2 ML VIAL IV PUSH SCH ×3 (06:00→22:22)
[2017-02-06] MEDS: hydrALAZINE HCL 50 MG TAB PO SCH ×4 (06:23→23:22)
[2017-02-06] MEDS: hydrALAZINE HCL 10 MG TAB PO PRN (07:23)
[2017-02-06] MEDS: DOCUSATE SODIUM 100 MG/10 ML UDC PO SCH ×2 (07:39→20:06)
[2017-02-06] MEDS: SENNOSIDES SYRUP 8.8 MG/5 ML CUP PO SCH (07:40)
[2017-02-06 08:34] LABS: AUTOMATED NEUTROPHIL # 8.8 TH/MM3 (1.8-7.7); BASOPHIL % 0.3 % (0.0-2.0); EOSINOPHIL # 0.4 TH/MM3 (0-0.4); HEMATOCRIT 25.4 % (35.0-46.0); HEMO FLAGS DIFF FINAL; LYMPH % 17.5 % (9.0-44.0); LYMPHOCYTE # 2.1 TH/MM3 (1.0-4.8); MEAN CELL VOLUME 88.9 FL (80.0-100.0); MEAN CORPUSCULAR HGB CONC 32.7 % (32.0-36.0); MONO % 6.5 % (0.0-8.0); NEUT % 72.7 % (16.0-70.0); PLATELET COUNT 414 TH/MM3 (150-450); RED BLOOD COUNT 2.86 MIL/MM3 (4.00-5.30); RED CELL DISTRIBUTION WIDTH 13.7 % (11.6-17.2); WHITE BLOOD COUNT 12.1 TH/MM3 (4.0-11.0)
[2017-02-06 08:42] LABS: BICARBONATE 22.9 MEQ/L (21.0-32.0)
[2017-02-06 08:46] LABS: POTASSIUM 3.5 MEQ/L (3.5-5.1)
--- NOTE | 2017-02-06 08:57 | HHI.PR ---
Subjective Remarks Pt tells me "I want to go home". States that she has pain after she eats. Currently would like some pain meds and states that she takes pain meds chronically at home. Denies any CP/SOB/N/V Discussed w RN, pt's stools is mucosy in consistency and she has them in large amounts. Objective Vitals Vital Signs Date Time Temp Pulse Resp B/P Pulse Ox O2 Delivery O2 Flow Rate FiO2 02/06/17 08:23 75 184/75 02/06/17 08:00 97.5 79 18 190/77 93 02/06/17 04:00 97.3 60 18 156/69 96 02/06/17 00:00 97.5 61 17 160/70 97 02/05/17 20:00 97.4 67 18 172/77 96 02/05/17 12:00 98.4 74 20 165/74 96 02/05/17 11:00 99 Nasal Cannula 1.00 I/O 02/05/17 02/05/17 02/05/17 02/06/17 02/06/17 02/06/17 07:00 15:00 23:00 07:00 15:00 23:00 Intake Total 240 ml 720 ml 240 ml 240 ml Output Total 325 ml 150 ml 400 ml Balance -85 ml 720 ml 90 ml -160 ml Intake Oral 240 ml 720 ml 240 ml 240 ml Output Urine Total 250 ml 150 ml 200 ml Drainage Total 75 ml 200 ml # Voids 0 1 # Bowel Movements 1 2 1 Result Diagram: 02/06/17 0714 02/06/17 0714 Imaging Last Impressions Abdomen X-Ray 02/03/17 0600 Signed Impressions: Service Date/Time: Friday, February 03, 2017 02:45 - CONCLUSION: No significant interval change. Jai Wiley MD Chest X-Ray 02/02/17 0000 Signed Impressions: Service Date/Time: January 02:07 - CONCLUSION: Radiographic findings suggesting pulmonary edema. Jc Ortiz Jr., MD Percutaneous Cholangiogram 02/01/17 0000 Signed Impressions: Service Date/Time: Wednesday, February 01, 2017 08:44 - CONCLUSION: Uncomplicated percutaneous cholecystostomy as above. Geovanny Yañez MD Hepatobiliary Scan Nuclear Medicine 01/30/17 0000 Signed Impressions: Service Date/Time: Monday, January 30, 2017 11:15 - CONCLUSION: Nonvisualization of the gallbladder 2 hours. Patient does have gallstones in a prominent gallbladder. Krystian Painting MD FACRADDENDUM: 20 hour delayed imaging of the hepatobiliary system continues to demonstrate nonvisualization of the gallbladder characteristic of cystic duct obstruction. Geovanny Yañez MD Liver Ultrasound 01/28/17 0000 Signed Impressions: Service Date/Time: Saturday, January 28, 2017 09:20 - CONCLUSION: 1. Cholelithiasis with 1.8 cm gallstone in the region of the neck of the gallbladder which was nonmobile. There is a small amount of adjacent free fluid. There is no evidence of biliary obstruction. 2. Fatty infiltration of the liver. Ang Moreno MD Head CT 01/27/17 1052 Signed Impressions: Service Date/Time: Friday, January 27, 2017 11:26 - CONCLUSION: 1. Old lacunar infarct in the left basal ganglia stable compared to previous dated 01/04/14. 2. No acute intracranial abnormality identified. Christopher Painting MD Abdomen/Pelvis CT 01/27/17 0000 Signed Impressions: Service Date/Time: Friday, January 27, 2017 14:51 - CONCLUSION: Gallstone. Ileus bowel gas pattern. Willy Mackay MD Objective Remarks GENERAL: Well-nourished, well-developed patient in NAD. CARDIOVASCULAR: Regular rate and rhythm. No murmur appreciated. RESPIRATORY: No accessory muscle use. Clear to auscultation bilaterally GASTROINTESTINAL: Abdomen soft, non-tender, nondistended. Normoactive bowel sounds x4. MUSCULOSKELETAL: No obvious deformities. Extremities without edema. NEUROLOGICAL: Awake and alert. No obvious cranial nerve deficits. Motor grossly within normal limits. Normal speech. EXTREMITIES: Right AKA noted. A/P Assessment and Plan Ileus Cholelithiasis - s/p NGT which has now been removed. Now on a heart healthy diet. GI consult appreciated and they have signed off. - No events overnight. Patient stable. Encourage IS q1 hr while awake - HIDA scan reviewed by my, no visualization of gall bladder. Questionable cystic duct obstruction. s/p perc cholecystostomy tube placement on 02/02/17 by IR. - CT abdomen/pelvis showing cholelithiasis/ileus. - Liver ultrasound 01/28, gallstone in neck of gallbladder. Nonmobile. - Protonix for GI prophylaxis - hold Colace/Senokot for bowel regimen - Continue Zosyn. blood cultures NGTD. WBC trending down 12.9 today. discuss w ID in AM regarding length of Abx - Continue Reglan 5 every 8 for prokinetic agent - KUB 02/02 showed gaseous distention of colon-unchanged - on zosyn per ID. Loose stools w mucous: - ordered stool studies, and held stool softeners. History of left basal ganglia CVA Depression Peripheral neuropathy Insomnia - Monitor neuro status and avoid any sedatives. - Continue ASA 325 mg by mouth daily. 02/02 - Dilaudid 0.5 mg every 2 hours PRN for pain management with 1 mg for breakthrough pain Coronary artery disease - inoperable Ischemic cardiomyopathy ejection fraction 45% Hypertension Dyslipidemia - Continue Lopressor 50mg Q8, continue Hydralazine 50mg Q8h. added amlodipine 10mg po daily. - Heart catheterization by Dr. Jordan on 07/10 revealed EF 45%. LAD 70%, left circumflex 70 percent, RCA 80%. Not amenable to CABG - On ASA 325 milligrams daily. - hydralazine 10 mg PO Q6h PRN. -increased hydralazine to 50mg QID, if no improvement, consider adding HCTZ Diabetes mellitus neuropathy - hemoglobin A1c 7.9. - Supposedly patient is on sliding scale insulin at [facility]. Request medication reconciliation update per nursing. - Sliding scale insulin Accu-Cheks every 6 hours to maintain euglycemia/low regimen Acute kidney injury - Nephrology following. Creatinine improving, 1.02 today 02/06. - Monitor renal function, I/O's, electrolytes replacement as needed. Leukocytosis with bandemia Normocytic anemia Coagulopathy - WBC initially 27.5 on admission. Trending down, 12.1 today 02/06. CBC in am. - Monitor CBC, INR /PT s/p 2units FFP preprocedure. Platelets stable. Hypokalemia: Potassium 3.5 today, 02/06. Replace with Potassium 20 meq PO x 1 now. BMP in am. GI prophylaxis: Continue Protonix DVT prophylaxis: SCD/heparin SQ Discharge Planning f/u WBC. Continue IV abx for now f/u on stool studies. monitor BP's and adjust BP meds Anticipate d/c to SNF in 1-2 days Rosi Ash MD February 06, 2017 08:57
[2017-02-06] MEDS ORDERED: POTASSIUM CHLORIDE 20 MEQ CONTROLLED RELEASE TAB PO ONE (09:00)
[2017-02-06] MEDS: SODIUM CHLORIDE 0.9% 10 ML VIAL IRRIGATION SCH (09:41)
[2017-02-06] MEDS: METOPROLOL TARTRATE 50 MG TAB PO SCH ×2 (09:41→20:05)
[2017-02-06] MEDS: LACTOBACILLUS ACIDOPHILUS 1 GM PACKET PO SCH ×4 (09:41→20:06)
[2017-02-06] MEDS: PANTOPRAZOLE SODIUM 40 MG VIAL IV PUSH SCH ×2 (09:50→22:22)
--- NOTE | 2017-02-06 18:10 | HHI.IDPN ---
Subjective Subjective Remarks ID X cover for Dr Jose hull reviewed 61 year old female from SNF admitted with altered mental status and fevers. has had abdominal pain. CT with gallstones. 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 Vital Signs Date Time Temp Pulse Resp B/P Pulse Ox O2 Delivery O2 Flow Rate FiO2 02/06/17 17:59 164/74 02/06/17 16:00 98.2 67 18 176/67 99 02/06/17 12:00 97.8 76 18 155/51 95 02/06/17 09:42 99 Room Air 02/06/17 08:23 75 184/75 02/06/17 08:00 97.5 79 18 190/77 93 02/06/17 07:50 95 21 02/06/17 04:00 97.3 60 18 156/69 96 02/06/17 00:00 97.5 61 17 160/70 97 02/05/17 20:00 97.4 67 18 172/77 96 02/05/17 02/05/17 02/06/17 15:00 23:00 07:00 Intake Total 720 ml 240 ml 240 ml Output Total 150 ml 400 ml Balance 720 ml 90 ml -160 ml Intake Oral 720 ml 240 ml 240 ml Output Urine Total 150 ml 200 ml Drainage Total 200 ml # Voids 0 1 # Bowel Movements 2 1 . Laboratory Tests Test 02/05/17 02/06/17 08:36 07:14 White Blood Count 12.9 TH/MM3 12.1 TH/MM3 Red Blood Count 2.70 MIL/MM3 2.86 MIL/MM3 Hemoglobin 8.1 GM/DL 8.3 GM/DL Hematocrit 24.8 % 25.4 % Mean Corpuscular Volume 91.8 FL 88.9 FL Mean Corpuscular Hemoglobin 30.1 PG 29.0 PG Mean Corpuscular Hemoglobin 32.7 % 32.7 % Concent Red Cell Distribution Width 13.8 % 13.7 % Platelet Count 334 TH/MM3 414 TH/MM3 Mean Platelet Volume 8.9 FL 9.2 FL Neutrophils (%) (Auto) 73.7 % 72.7 % Lymphocytes (%) (Auto) 17.1 % 17.5 % Monocytes (%) (Auto) 6.8 % 6.5 % Eosinophils (%) (Auto) 2.2 % 3.0 % Basophils (%) (Auto) 0.2 % 0.3 % Neutrophils # (Auto) 9.5 TH/MM3 8.8 TH/MM3 Lymphocytes # (Auto) 2.2 TH/MM3 2.1 TH/MM3 Monocytes # (Auto) 0.9 TH/MM3 0.8 TH/MM3 Eosinophils # (Auto) 0.3 TH/MM3 0.4 TH/MM3 Basophils # (Auto) 0.0 TH/MM3 0.0 TH/MM3 CBC Comment DIFF FINAL DIFF FINAL Differential Comment Hematology Comments Laboratory Tests Test 02/05/17 02/06/17 08:36 07:14 Sodium Level 139 MEQ/L 139 MEQ/L Potassium Level 3.4 MEQ/L 3.5 MEQ/L Chloride Level 108 MEQ/L 107 MEQ/L Carbon Dioxide Level 22.3 MEQ/L 22.9 MEQ/L Anion Gap 9 MEQ/L 9 MEQ/L Blood Urea Nitrogen 17 MG/DL 13 MG/DL Creatinine 1.11 MG/DL 1.02 MG/DL Estimat Glomerular Filtration 50 ML/MIN 55 ML/MIN Rate Random Glucose 199 MG/DL 183 MG/DL Calcium Level 7.7 MG/DL 7.5 MG/DL Magnesium Level 1.8 MG/DL Microbiology Date/Time Procedure Status Source Growth 02/06/17 10:35 - Final Complete Stool Stool NO ENTERIC PATHOGENS DETECTED BY PCR... 02/06/17 10:35 Cryptosporidium Exam Resulted Stool Stool Pending 02/06/17 10:35 Stool Pus (SHERIDAN) - Final Resulted Stool Stool NO WBC'S SEEN 02/06/17 10:35 Giardia Antigen (SHERIDAN) Resulted Stool Stool Pending Imaging Last Impressions Abdomen X-Ray 02/03/17 0600 Signed Impressions: Service Date/Time: Friday, February 03, 2017 02:45 - CONCLUSION: No significant interval change. Jai Wiley MD Chest X-Ray 02/02/17 0000 Signed Impressions: Service Date/Time: January 02:07 - CONCLUSION: Radiographic findings suggesting pulmonary edema. Jc Ortiz Jr., MD Percutaneous Cholangiogram 02/01/17 0000 Signed Impressions: Service Date/Time: Wednesday, February 01, 2017 08:44 - CONCLUSION: Uncomplicated percutaneous cholecystostomy as above. Geovanny Yañez MD Hepatobiliary Scan Nuclear Medicine 01/30/17 0000 Signed Impressions: Service Date/Time: Monday, January 30, 2017 11:15 - CONCLUSION: Nonvisualization of the gallbladder 2 hours. Patient does have gallstones in a prominent gallbladder. Krystian Painting MD FACRADDENDUM: 20 hour delayed imaging of the hepatobiliary system continues to demonstrate nonvisualization of the gallbladder characteristic of cystic duct obstruction. Geovanny Yañez MD Liver Ultrasound 01/28/17 0000 Signed Impressions: Service Date/Time: Saturday, January 28, 2017 09:20 - CONCLUSION: 1. Cholelithiasis with 1.8 cm gallstone in the region of the neck of the gallbladder which was nonmobile. There is a small amount of adjacent free fluid. There is no evidence of biliary obstruction. 2. Fatty infiltration of the liver. Ang Moreno MD Head CT 01/27/17 1052 Signed Impressions: Service Date/Time: Friday, January 27, 2017 11:26 - CONCLUSION: 1. Old lacunar infarct in the left basal ganglia stable compared to previous dated 01/04/14. 2. No acute intracranial abnormality identified. Christopher Painting MD Abdomen/Pelvis CT 01/27/17 0000 Signed Impressions: Service Date/Time: Friday, January 27, 2017 14:51 - CONCLUSION: Gallstone. Ileus bowel gas pattern. Wlily Mackay MD Physical Exam GENERAL: awake and alert, comfortable, on RA SKIN: Warm and moist. No generalized rash or ecchymosis. EYES: No scleral icterus. ENT: Moist oral mucosa. CARDIOVASCULAR: Regular rate and rhythm without murmurs, gallops, or rubs. RESPIRATORY: . Breath sounds equal bilaterally. decreased BS at bases. GASTROINTESTINAL: Abdomen mild tenderness diffusely wo guarding, rebound, mildly distended. Has GB tube with clear brown fluid. No guarding or rebound. MUSCULOSKELETAL: Extremities without clubbing, cyanosis, or edema. 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 No calf tenderness. L foot warm and well perfused. NEUROLOGICAL: NOn-focal PSYCH: Normal affect, calm and cooperative LINE: No evidence of infection Assessment & Plan Remarks IMPRESSION Sepsis with possible acute cholecystitis - has gallstones, RUQ tenderness and (+) HIDA scan - sp cholecystostomy - cliniaclly improved - transfered out of ICU Leukocytosis, due to intraabdominal process, improving Known HTN, PVD, CAD, poorly controlled DM (+) UA, clx is sterile Diarrhea, c diff negative ARF - resolving RECOMMENDATION Continue Zosyn fu P stool studies Follow new C/S Follow WBC Monitor progress Dr Garcia to resume care in am Kathy Chan MD February 06, 2017 18:10
[2017-02-07] VITALS (7 sets, daily range): BP systolic 147–189; BP diastolic 65–78; PULSE 60–77; RESP 16–22; TEMP 96.4–97.8; O2SAT 94–98
[2017-02-07] MEDS: PIPERACIL-TAZO 3.375 GM PREMIX 50 ML IV SCH ×2 (02:39→09:04)
[2017-02-07] MEDS: INSULIN NovoLIN REGULAR SUPPLEMENTAL SCALE SQ SCH ×4 (02:42→20:21)
[2017-02-07] MEDS: CHLORHEXIDINE GLUCONATE 2 % 1 PACK (2 CLOTHS) TOP SCH (04:00)
[2017-02-07] MEDS: METOCLOPRAMIDE HCL 10 MG/2 ML VIAL IV PUSH SCH (05:41)
[2017-02-07] MEDS: hydrALAZINE HCL 50 MG TAB PO SCH ×3 (05:41→17:21)
[2017-02-07] MEDS: DOCUSATE SODIUM 100 MG/10 ML UDC PO SCH ×2 (09:00→20:21)
[2017-02-07] MEDS: LACTOBACILLUS ACIDOPHILUS 1 GM PACKET PO SCH ×4 (09:05→20:21)
[2017-02-07] MEDS: SODIUM CHLORIDE 0.9% 10 ML VIAL IRRIGATION SCH (09:16)
[2017-02-07] MEDS: ACETAMINOPHEN/HYDROcodone 325 MG/10 MG TAB PO PRN ×2 (09:16→17:22)
--- NOTE | 2017-02-07 10:06 | HHI.PR ---
Subjective Remarks Pt still having lots of loose stools per RN. Pt states she thinks they are a bit better. Hoping to be discharged soon. Ate breakfast. No n/v/CP/SOB Objective Vitals Vital Signs Date Time Temp Pulse Resp B/P Pulse Ox O2 Delivery O2 Flow Rate FiO2 02/07/17 08:00 97.1 71 16 189/71 96 02/07/17 04:00 97.8 63 21 164/75 94 02/07/17 00:00 96.4 72 17 168/78 96 02/06/17 20:26 99 21 02/06/17 20:15 Room Air 02/06/17 20:00 97.5 68 18 158/70 96 02/06/17 17:59 164/74 02/06/17 16:00 98.2 67 18 176/67 99 02/06/17 12:00 97.8 76 18 155/51 95 I/O 02/06/17 02/06/17 02/06/17 02/07/17 02/07/17 02/07/17 07:00 15:00 23:00 07:00 15:00 23:00 Intake Total 240 ml 600 ml 477 ml 505 ml Output Total 400 ml 250 ml 100 ml Balance -160 ml 600 ml 227 ml 405 ml Intake Oral 240 ml 600 ml 360 ml 380 ml IV Total 117 ml 125 ml Output Urine Total 200 ml Drainage Total 200 ml 250 ml 100 ml # Voids 2 3 3 1 # Bowel Movements 1 3 3 2 Result Diagram: 02/06/17 0714 02/06/17 0714 Imaging Last Impressions Abdomen X-Ray 02/03/17 0600 Signed Impressions: Service Date/Time: Friday, February 03, 2017 02:45 - CONCLUSION: No significant interval change. Jai Wiley MD Chest X-Ray 02/02/17 0000 Signed Impressions: Service Date/Time: January 02:07 - CONCLUSION: Radiographic findings suggesting pulmonary edema. Jc Ortiz Jr., MD Percutaneous Cholangiogram 02/01/17 0000 Signed Impressions: Service Date/Time: Wednesday, February 01, 2017 08:44 - CONCLUSION: Uncomplicated percutaneous cholecystostomy as above. Geovanny Yañez MD Hepatobiliary Scan Nuclear Medicine 01/30/17 0000 Signed Impressions: Service Date/Time: Monday, January 30, 2017 11:15 - CONCLUSION: Nonvisualization of the gallbladder 2 hours. Patient does have gallstones in a prominent gallbladder. Krystian Painting MD FACRADDENDUM: 20 hour delayed imaging of the hepatobiliary system continues to demonstrate nonvisualization of the gallbladder characteristic of cystic duct obstruction. Geovanny Yañez MD Liver Ultrasound 01/28/17 0000 Signed Impressions: Service Date/Time: Saturday, January 28, 2017 09:20 - CONCLUSION: 1. Cholelithiasis with 1.8 cm gallstone in the region of the neck of the gallbladder which was nonmobile. There is a small amount of adjacent free fluid. There is no evidence of biliary obstruction. 2. Fatty infiltration of the liver. Ang Moreno MD Head CT 01/27/17 1052 Signed Impressions: Service Date/Time: Friday, January 27, 2017 11:26 - CONCLUSION: 1. Old lacunar infarct in the left basal ganglia stable compared to previous dated 01/04/14. 2. No acute intracranial abnormality identified. Christopher Painting MD Abdomen/Pelvis CT 01/27/17 0000 Signed Impressions: Service Date/Time: Friday, January 27, 2017 14:51 - CONCLUSION: Gallstone. Ileus bowel gas pattern. Willy Mackay MD Objective Remarks GENERAL: Well-nourished, well-developed patient in NAD. CARDIOVASCULAR: Regular rate and rhythm. No murmur appreciated. RESPIRATORY: No accessory muscle use. Clear to auscultation bilaterally GASTROINTESTINAL: Abdomen soft, non-tender, nondistended. Normoactive bowel sounds x4. MUSCULOSKELETAL: No obvious deformities. Extremities without edema. NEUROLOGICAL: Awake and alert. Motor grossly within normal limits. Normal speech. EXTREMITIES: Right AKA noted. A/P Assessment and Plan Ileus Cholelithiasis Diarrhea - s/p NGT which has now been removed. Now on a heart healthy diet. - HIDA scan showed no visualization of gall bladder. Questionable cystic duct obstruction. s/p perc cholecystostomy tube placement on 02/02/17 by IR. - CT abdomen/pelvis showing cholelithiasis/ileus. - Liver ultrasound 01/28, gallstone in neck of gallbladder. Nonmobile. - Protonix for GI prophylaxis - hold Colace/Senokot for bowel regimen. Discussed w GI regarding loose stools/diarrhea. They will re-evaluate pt and recommend holding reglan. Stool studies neg thus far - Continue Zosyn. blood cultures NGTD. WBC trending down 12.1 yesterday. awaiting final recs from ID - KUB 02/02 showed gaseous distention of colon-unchanged Loose stools w mucous: - see above History of left basal ganglia CVA Depression Peripheral neuropathy Insomnia - Monitor neuro status and avoid any sedatives. - Continue ASA 325 mg by mouth daily. 02/02 - norco prn. d/c dilaudid Coronary artery disease - inoperable Ischemic cardiomyopathy ejection fraction 45% Hypertension Dyslipidemia - Heart catheterization by Dr. Jordan on 07/10 revealed EF 45%. LAD 70%, left circumflex 70 percent, RCA 80%. Not amenable to CABG - On ASA 325 milligrams daily. - hydralazine 10 mg PO Q6h PRN. -increased hydralazine to 50mg QID, increased metoprolol to 100mg po BID, on amlodipine 10mg po daily. Diabetes mellitus neuropathy - hemoglobin A1c 7.9. - Supposedly patient is on sliding scale insulin at longterm. Request medication reconciliation update per nursing. - Sliding scale insulin Accu-Cheks every 6 hours to maintain euglycemia/low regimen Acute kidney injury - Nephrology following. Creatinine improving, 1.02 - Monitor renal function, I/O's, electrolytes replacement as needed. Leukocytosis with bandemia Normocytic anemia Coagulopathy - WBC initially 27.5 on admission. Trending down, 12.1 02/06. CBC in am. - Monitor CBC, INR /PT s/p 2units FFP preprocedure. Platelets stable. Hypokalemia: resolved. GI prophylaxis: Continue Protonix DVT prophylaxis: SCD/heparin SQ Discharge Planning f/u WBC. Continue IV abx for now f/u on stool studies, thus far neg. monitor BP's and adjust BP meds Anticipate d/c to SNF in am discuss w IR regarding cholecystostomy management. Attempted to call but no answer at this time, will call later. Rosi Ash MD February 07, 2017 10:06
[2017-02-07 10:23] LABS: AUTOMATED NEUTROPHIL # 7.2 TH/MM3 (1.8-7.7); BASOPHIL % 0.5 % (0.0-2.0); EOSINOPHIL # 0.2 TH/MM3 (0-0.4); EOSINOPHIL % 2.3 % (0.0-4.0); HEMATOCRIT 27.5 % (35.0-46.0); HEMO FLAGS DIFF FINAL; LYMPH % 15.6 % (9.0-44.0); LYMPHOCYTE # 1.5 TH/MM3 (1.0-4.8); MEAN CELL VOLUME 91.7 FL (80.0-100.0); MEAN CORPUSCULAR HEMOGLOBIN 29.8 PG (27.0-34.0); MEAN CORPUSCULAR HGB CONC 32.5 % (32.0-36.0); MONO % 5.8 % (0.0-8.0); NEUT % 75.8 % (16.0-70.0); PLATELET COUNT 383 TH/MM3 (150-450); RED CELL DISTRIBUTION WIDTH 13.7 % (11.6-17.2); WHITE BLOOD COUNT 9.5 TH/MM3 (4.0-11.0)
[2017-02-07 10:35] LABS: BICARBONATE 22.2 MEQ/L (21.0-32.0); POTASSIUM 3.4 MEQ/L (3.5-5.1)
--- NOTE | 2017-02-07 10:36 | HHI.GIFU ---
Subjective Remarks Resting in bed. No n/v. Does have mild RUQ discomfort after meals. Also has a loose bowel movement after meals- no blood or mucous. States this is really only after she eats. Objective Vitals I&O Vital Signs Date Time Temp Pulse Resp B/P Pulse Ox O2 Delivery O2 Flow Rate FiO2 02/07/17 08:00 97.1 71 16 189/71 96 02/07/17 04:00 97.8 63 21 164/75 94 02/07/17 00:00 96.4 72 17 168/78 96 02/06/17 20:26 99 21 02/06/17 20:15 Room Air 02/06/17 20:00 97.5 68 18 158/70 96 02/06/17 17:59 164/74 02/06/17 16:00 98.2 67 18 176/67 99 02/06/17 12:00 97.8 76 18 155/51 95 I/O 02/06/17 02/06/17 02/06/17 02/07/17 02/07/17 02/07/17 07:00 15:00 23:00 07:00 15:00 23:00 Intake Total 240 ml 600 ml 477 ml 505 ml Output Total 400 ml 250 ml 100 ml Balance -160 ml 600 ml 227 ml 405 ml Intake Oral 240 ml 600 ml 360 ml 380 ml IV Total 117 ml 125 ml Output Urine Total 200 ml Drainage Total 200 ml 250 ml 100 ml # Voids 2 3 3 1 # Bowel Movements 1 3 3 2 Laboratory Laboratory Tests Test 02/07/17 10:09 White Blood Count 9.5 Red Blood Count 3.00 Hemoglobin 8.9 Hematocrit 27.5 Mean Corpuscular Volume 91.7 Mean Corpuscular Hemoglobin 29.8 Mean Corpuscular Hemoglobin 32.5 Concent Red Cell Distribution Width 13.7 Platelet Count 383 Mean Platelet Volume 9.1 Neutrophils (%) (Auto) 75.8 Lymphocytes (%) (Auto) 15.6 Monocytes (%) (Auto) 5.8 Eosinophils (%) (Auto) 2.3 Basophils (%) (Auto) 0.5 Neutrophils # (Auto) 7.2 Lymphocytes # (Auto) 1.5 Monocytes # (Auto) 0.5 Eosinophils # (Auto) 0.2 Basophils # (Auto) 0.0 CBC Comment DIFF FINAL Differential Comment Date/Time Procedure Status Source Growth 02/06/17 10:35 Cryptosporidium Exam Resulted Stool Stool Pending 02/06/17 10:35 Stool Pus (SHERIDAN) - Final Resulted Stool Stool NO WBC'S SEEN 02/06/17 10:35 Giardia Antigen (SHERIDAN) Resulted Stool Stool Pending 02/06/17 10:35 - Final Complete Stool Stool NO ENTERIC PATHOGENS DETECTED BY PCR... 02/02/17 20:45 Stool Occult Blood (SHERIDAN) - Final Complete Stool Stool HEMOCCULT POSITIVE Imaging Last Impressions Abdomen X-Ray 02/03/17 0600 Signed Impressions: Service Date/Time: Friday, February 03, 2017 02:45 - CONCLUSION: No significant interval change. Jai Wiley MD Chest X-Ray 02/02/17 0000 Signed Impressions: Service Date/Time: January 02:07 - CONCLUSION: Radiographic findings suggesting pulmonary edema. Jc Ortiz Jr., MD Percutaneous Cholangiogram 02/01/17 0000 Signed Impressions: Service Date/Time: Wednesday, February 01, 2017 08:44 - CONCLUSION: Uncomplicated percutaneous cholecystostomy as above. Geovanny Yañez MD Hepatobiliary Scan Nuclear Medicine 01/30/17 0000 Signed Impressions: Service Date/Time: Monday, January 30, 2017 11:15 - CONCLUSION: Nonvisualization of the gallbladder 2 hours. Patient does have gallstones in a prominent gallbladder. Krystian Painting MD FACRADDENDUM: 20 hour delayed imaging of the hepatobiliary system continues to demonstrate nonvisualization of the gallbladder characteristic of cystic duct obstruction. Geovanny Yañez MD Liver Ultrasound 01/28/17 0000 Signed Impressions: Service Date/Time: Saturday, January 28, 2017 09:20 - CONCLUSION: 1. Cholelithiasis with 1.8 cm gallstone in the region of the neck of the gallbladder which was nonmobile. There is a small amount of adjacent free fluid. There is no evidence of biliary obstruction. 2. Fatty infiltration of the liver. Ang Moreno MD Head CT 01/27/17 1052 Signed Impressions: Service Date/Time: Friday, January 27, 2017 11:26 - CONCLUSION: 1. Old lacunar infarct in the left basal ganglia stable compared to previous dated 01/04/14. 2. No acute intracranial abnormality identified. Christopher Painting MD Abdomen/Pelvis CT 01/27/17 0000 Signed Impressions: Service Date/Time: Friday, January 27, 2017 14:51 - CONCLUSION: Gallstone. Ileus bowel gas pattern. Willy Mackay MD Physical Exam HEENT: Normocephalic; atraumatic; no jaundice. CHEST: CTA, diminished CARDIAC: RRR ABDOMEN: Soft,mild ruq tenderness, nontender, no hepatosplenomegaly; bowel sounds hypoactive. cholecystomy tube site dressing clean EXTREMITIES: Right BKA SKIN: Normal; no rash; no jaundice. 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 RESOLVED. Has hx of constipation. Getting pain meds. S/P SSE. Senokot, Colace, Reglan, Magnesium citrate (02/02), Relistor (02/02). Cdiff negative. She is now having diarrhea. Senokot was discontinued. Colace is being held for diarrhea. She reports that she has a loose stool after each meal. Will discontinue Reglan. - Acute cholecystitis with abdominal pain, nausea, leukocytosis. Abdomen/Pelvis CT (01/27/17)---> Gallstone. Ileus bowel gas pattern. LFTs were mildly elevated on admission with T. Bilirubin 0.3, AST 67, ALT 32 , Alk Phosph 542. Liver US (01/28/17)----> 1. Cholelithiasis with 1.8 cm gallstone in the region of the neck of the gallbladder which was nonmobile. There is a small amount of adjacent free fluid. There is no evidence of biliary obstruction. 2. Fatty infiltration of the liver. HIDA (01/30/17)-----> Nonvisualization of the gallbladder 2 hours. Patient does have gallstones in a prominent gallbladder. ADDENDUM: 20 hour delayed imaging of the hepatobiliary system continues to demonstrate nonvisualization of the gallbladder characteristic of cystic duct obstruction. S/P Cholecystomy tube placement (02/01). ID following. Zosyn. Abx per ID. Will need to fu with GI and IR at discharge - Elevated LFTs, likely related to cholecystitis. Imaging as above. s/p cholecystostomy tube placement (02/01), LFT improving. Zosyn per ID. - Cholelithiasis/Cholecystitis. 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 S/P Cholecystomy tube. Zosyn. - Anemia, normocytic. Hemoccult (+). No obvious active bleeding. - Sepsis, Leukocytosis, Bandemia. ? UTI- No growth 48 hours. BCX no growth 3 days. Likely related to acute cholecystitis,s/p cholecystomy tube. Abx per ID - Coagulopathy. improving s/p 4 units FFP, Vitamin K - CHRISTY, Hx left basal ganglia CVA, Depression, Peripheral neuropathy, CAD, ischemic cardiomyopathy, hyperlipidemia, DM, per primary. PLAN: - CHRISTIAN - D/C Reglan - Abx per ID recommendations - S/P Relistor 12mg sq x 1 (02/02/17) - S/P Cholecystomy tube (02/01) - FU EL[facility] 2 weeks - FU Invasive Radiology in 3-4 weeks - Pt seen and examined by Dr. Bonilla and myself and this note is written on his behalf Priscila Andrew February 07, 2017 10:36
[2017-02-07] MEDS: PANTOPRAZOLE SODIUM 40 MG VIAL IV PUSH SCH ×2 (11:34→22:26)
--- NOTE | 2017-02-07 12:44 | HHI.IDPN ---
Subjective Subjective Remarks 61 year old female from [facility] admitted with altered mental status and fevers. has had abdominal pain. CT with gallstones. 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 Vital Signs Date Time Temp Pulse Resp B/P Pulse Ox O2 Delivery O2 Flow Rate FiO2 02/07/17 08:00 97.1 71 16 189/71 96 02/07/17 04:00 97.8 63 21 164/75 94 02/07/17 00:00 96.4 72 17 168/78 96 02/06/17 20:26 99 21 02/06/17 20:15 Room Air 02/06/17 20:00 97.5 68 18 158/70 96 02/06/17 17:59 164/74 02/06/17 16:00 98.2 67 18 176/67 99 02/06/17 02/06/17 02/07/17 15:00 23:00 07:00 Intake Total 600 ml 477 ml 505 ml Output Total 250 ml 100 ml Balance 600 ml 227 ml 405 ml Intake Oral 600 ml 360 ml 380 ml IV Total 117 ml 125 ml Drainage Total 250 ml 100 ml # Voids 2 3 3 # Bowel Movements 3 3 2 . Laboratory Tests Test 02/06/17 02/07/17 07:14 10:09 White Blood Count 12.1 TH/MM3 9.5 TH/MM3 Red Blood Count 2.86 MIL/MM3 3.00 MIL/MM3 Hemoglobin 8.3 GM/DL 8.9 GM/DL Hematocrit 25.4 % 27.5 % Mean Corpuscular Volume 88.9 FL 91.7 FL Mean Corpuscular Hemoglobin 29.0 PG 29.8 PG Mean Corpuscular Hemoglobin 32.7 % 32.5 % Concent Red Cell Distribution Width 13.7 % 13.7 % Platelet Count 414 TH/MM3 383 TH/MM3 Mean Platelet Volume 9.2 FL 9.1 FL Neutrophils (%) (Auto) 72.7 % 75.8 % Lymphocytes (%) (Auto) 17.5 % 15.6 % Monocytes (%) (Auto) 6.5 % 5.8 % Eosinophils (%) (Auto) 3.0 % 2.3 % Basophils (%) (Auto) 0.3 % 0.5 % Neutrophils # (Auto) 8.8 TH/MM3 7.2 TH/MM3 Lymphocytes # (Auto) 2.1 TH/MM3 1.5 TH/MM3 Monocytes # (Auto) 0.8 TH/MM3 0.5 TH/MM3 Eosinophils # (Auto) 0.4 TH/MM3 0.2 TH/MM3 Basophils # (Auto) 0.0 TH/MM3 0.0 TH/MM3 CBC Comment DIFF FINAL DIFF FINAL Differential Comment Hematology Comments Laboratory Tests Test 02/06/17 02/07/17 07:14 10:09 Sodium Level 139 MEQ/L 138 MEQ/L Potassium Level 3.5 MEQ/L 3.4 MEQ/L Chloride Level 107 MEQ/L 107 MEQ/L Carbon Dioxide Level 22.9 MEQ/L 22.2 MEQ/L Anion Gap 9 MEQ/L 9 MEQ/L Blood Urea Nitrogen 13 MG/DL 13 MG/DL Creatinine 1.02 MG/DL 1.09 MG/DL Estimat Glomerular Filtration 55 ML/MIN 51 ML/MIN Rate Random Glucose 183 MG/DL 255 MG/DL Calcium Level 7.5 MG/DL 7.7 MG/DL Microbiology Date/Time Procedure Status Source Growth 02/06/17 10:35 - Final Complete Stool Stool NO ENTERIC PATHOGENS DETECTED BY PCR... 02/06/17 10:35 Cryptosporidium Exam - Final Complete Stool Stool NEGATIVE - NO CRYPTOSPORIDIUM ANTIGEN... 02/06/17 10:35 Stool Pus (SHERIDAN) - Final Complete Stool Stool NO WBC'S SEEN 02/06/17 10:35 Giardia Antigen (SHERIDAN) - Final Complete Stool Stool NEGATIVE - NO GIARDIA ANTIGEN DETECTE... Imaging Last Impressions Abdomen X-Ray 02/03/17 0600 Signed Impressions: Service Date/Time: Friday, February 03, 2017 02:45 - CONCLUSION: No significant interval change. Jai Wiley MD Chest X-Ray 02/02/17 0000 Signed Impressions: Service Date/Time: January 02:07 - CONCLUSION: Radiographic findings suggesting pulmonary edema. Jc Ortiz Jr., MD Percutaneous Cholangiogram 02/01/17 0000 Signed Impressions: Service Date/Time: Wednesday, February 01, 2017 08:44 - CONCLUSION: Uncomplicated percutaneous cholecystostomy as above. Geovanny Yañez MD Hepatobiliary Scan Nuclear Medicine 01/30/17 0000 Signed Impressions: Service Date/Time: Monday, January 30, 2017 11:15 - CONCLUSION: Nonvisualization of the gallbladder 2 hours. Patient does have gallstones in a prominent gallbladder. Krystian Painting MD FACRADDENDUM: 20 hour delayed imaging of the hepatobiliary system continues to demonstrate nonvisualization of the gallbladder characteristic of cystic duct obstruction. Geovanny Yañez MD Liver Ultrasound 01/28/17 0000 Signed Impressions: Service Date/Time: Saturday, January 28, 2017 09:20 - CONCLUSION: 1. Cholelithiasis with 1.8 cm gallstone in the region of the neck of the gallbladder which was nonmobile. There is a small amount of adjacent free fluid. There is no evidence of biliary obstruction. 2. Fatty infiltration of the liver. Ang Moreno MD Head CT 01/27/17 1052 Signed Impressions: Service Date/Time: Friday, January 27, 2017 11:26 - CONCLUSION: 1. Old lacunar infarct in the left basal ganglia stable compared to previous dated 01/04/14. 2. No acute intracranial abnormality identified. Christopher Painting MD Abdomen/Pelvis CT 01/27/17 0000 Signed Impressions: Service Date/Time: Friday, January 27, 2017 14:51 - CONCLUSION: Gallstone. Ileus bowel gas pattern. Willy Mackay MD Physical Exam GENERAL: awake and alert, comfortable, on RA SKIN: Warm and moist. No generalized rash or ecchymosis. EYES: No scleral icterus. ENT: Moist oral mucosa. CARDIOVASCULAR: Regular rate and rhythm without murmurs, gallops, or rubs. RESPIRATORY: . Breath sounds equal bilaterally. decreased BS at bases. GASTROINTESTINAL: Abdomen mildly distended, with mild diffuse tenderness diffusely, no guarding, no rebound. Has GB tube with greenish brown fluid. MUSCULOSKELETAL: Extremities without clubbing, cyanosis, or edema. 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 No calf tenderness. NEUROLOGICAL: Non-focal PSYCH: Normal affect, calm and cooperative LINE: No evidence of infection Assessment & Plan Remarks IMPRESSION Sepsis with possible acute cholecystitis, resolved - has gallstones, RUQ tenderness and (+) HIDA scan - S/P tube cholecystostomy - clinically improved Leukocytosis, due to intraabdominal process, resolved Known HTN, PVD, CAD, poorly controlled DM (+) UA, clx is sterile Diarrhea, c diff negative ARF - resolving RECOMMENDATION Change to po Augmentin She is clinically doing well from ID standpoint GI and IR following for her GB tube and determining when it will be removed I will sign off She is stable fro D/C from ID standpoint Nisreen Garcia MD February 07, 2017 12:44
[2017-02-07] MEDS ORDERED: METOPROLOL TARTRATE 50 MG TAB PO ONE (14:00)
[2017-02-07] MEDS: AMOXICILLIN/CLAVULANATE K 500 MG TAB PO SCH ×2 (14:45→22:25)
[2017-02-07] MEDS: METOPROLOL TARTRATE 100 MG TAB PO SCH (20:21)
[2017-02-07] MEDS: hydrALAZINE HCL 10 MG TAB PO PRN (22:25)
[2017-02-08] VITALS: BP 160/71; PULSE 58; RESP 22; TEMP 98; O2SAT 96
[2017-02-08] MEDS: INSULIN NovoLIN REGULAR SUPPLEMENTAL SCALE SQ SCH ×3 (00:42→14:00)
[2017-02-08] MEDS: hydrALAZINE HCL 50 MG TAB PO SCH ×4 (00:42→18:02)
[2017-02-08] MEDS: ACETAMINOPHEN/HYDROcodone 325 MG/10 MG TAB PO PRN ×3 (00:42→14:22)
[2017-02-08 04:00] VITALS: BP 177/77; PULSE 61; RESP 22; TEMP 97; O2SAT 98
[2017-02-08] MEDS: CHLORHEXIDINE GLUCONATE 2 % 1 PACK (2 CLOTHS) TOP SCH (04:00)
[2017-02-08] MEDS: AMOXICILLIN/CLAVULANATE K 500 MG TAB PO SCH ×2 (05:19→12:36)
[2017-02-08 06:29] LABS: AUTOMATED NEUTROPHIL # 6.2 TH/MM3 (1.8-7.7); BASOPHIL % 0.5 % (0.0-2.0); EOSINOPHIL # 0.3 TH/MM3 (0-0.4); EOSINOPHIL % 2.8 % (0.0-4.0); HEMATOCRIT 27.5 % (35.0-46.0); HEMO FLAGS DIFF FINAL; LYMPH % 19.5 % (9.0-44.0); LYMPHOCYTE # 1.8 TH/MM3 (1.0-4.8); MEAN CELL VOLUME 91.2 FL (80.0-100.0); MEAN CORPUSCULAR HEMOGLOBIN 29.7 PG (27.0-34.0); MEAN CORPUSCULAR HGB CONC 32.6 % (32.0-36.0); MONO % 7.9 % (0.0-8.0); NEUT % 69.3 % (16.0-70.0); PLATELET COUNT 433 TH/MM3 (150-450); RED BLOOD COUNT 3.01 MIL/MM3 (4.00-5.30); RED CELL DISTRIBUTION WIDTH 13.6 % (11.6-17.2)
[2017-02-08 07:07] LABS: BICARBONATE 24.4 MEQ/L (21.0-32.0); POTASSIUM 3.3 MEQ/L (3.5-5.1)
[2017-02-08 08:00] VITALS: BP 182/67; PULSE 60; RESP 20; TEMP 96.8; O2SAT 99
--- NOTE | 2017-02-08 08:41 | HHI.IDPN ---
Subjective Subjective Remarks 61 year old female from [facility] admitted with altered mental status and fevers. Has had abdominal pain. CT with gallstones. 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 Vital Signs Date Time Temp Pulse Resp B/P Pulse Ox O2 Delivery O2 Flow Rate FiO2 02/08/17 08:00 96.8 60 20 182/67 99 02/08/17 04:00 97.0 61 22 177/77 98 02/08/17 00:00 98.0 58 22 160/71 96 02/07/17 22:25 60 174/77 98 02/07/17 20:00 97.4 66 22 183/75 96 02/07/17 16:00 97.4 62 16 155/70 97 02/07/17 12:00 97.2 77 16 159/78 98 02/07/17 02/07/17 02/08/17 15:00 23:00 07:00 Intake Total 1035 ml 280 ml 480 ml Output Total 300 ml Balance 1035 ml -20 ml 480 ml Intake Oral 960 ml 280 ml 480 ml IV Total 75 ml Drainage Total 300 ml # Voids 2 2 5 # Bowel Movements 2 0 0 . Laboratory Tests Test 02/07/17 02/08/17 10:09 04:36 White Blood Count 9.5 TH/MM3 9.0 TH/MM3 Red Blood Count 3.00 MIL/MM3 3.01 MIL/MM3 Hemoglobin 8.9 GM/DL 8.9 GM/DL Hematocrit 27.5 % 27.5 % Mean Corpuscular Volume 91.7 FL 91.2 FL Mean Corpuscular Hemoglobin 29.8 PG 29.7 PG Mean Corpuscular Hemoglobin 32.5 % 32.6 % Concent Red Cell Distribution Width 13.7 % 13.6 % Platelet Count 383 TH/MM3 433 TH/MM3 Mean Platelet Volume 9.1 FL 9.2 FL Neutrophils (%) (Auto) 75.8 % 69.3 % Lymphocytes (%) (Auto) 15.6 % 19.5 % Monocytes (%) (Auto) 5.8 % 7.9 % Eosinophils (%) (Auto) 2.3 % 2.8 % Basophils (%) (Auto) 0.5 % 0.5 % Neutrophils # (Auto) 7.2 TH/MM3 6.2 TH/MM3 Lymphocytes # (Auto) 1.5 TH/MM3 1.8 TH/MM3 Monocytes # (Auto) 0.5 TH/MM3 0.7 TH/MM3 Eosinophils # (Auto) 0.2 TH/MM3 0.3 TH/MM3 Basophils # (Auto) 0.0 TH/MM3 0.0 TH/MM3 CBC Comment DIFF FINAL DIFF FINAL Differential Comment Laboratory Tests Test 02/07/17 02/08/17 10:09 04:36 Sodium Level 138 MEQ/L 140 MEQ/L Potassium Level 3.4 MEQ/L 3.3 MEQ/L Chloride Level 107 MEQ/L 106 MEQ/L Carbon Dioxide Level 22.2 MEQ/L 24.4 MEQ/L Anion Gap 9 MEQ/L 10 MEQ/L Blood Urea Nitrogen 13 MG/DL 13 MG/DL Creatinine 1.09 MG/DL 1.10 MG/DL Estimat Glomerular Filtration 51 ML/MIN 50 ML/MIN Rate Random Glucose 255 MG/DL 138 MG/DL Calcium Level 7.7 MG/DL 7.9 MG/DL Microbiology Date/Time Procedure Status Source Growth 02/06/17 10:35 - Final Complete Stool Stool NO ENTERIC PATHOGENS DETECTED BY PCR... 02/06/17 10:35 Cryptosporidium Exam - Final Complete Stool Stool NEGATIVE - NO CRYPTOSPORIDIUM ANTIGEN... 02/06/17 10:35 Stool Pus (SHERIDAN) - Final Complete Stool Stool NO WBC'S SEEN 02/06/17 10:35 Giardia Antigen (SHERIDAN) - Final Complete Stool Stool NEGATIVE - NO GIARDIA ANTIGEN DETECTE... Imaging Last Impressions Abdomen X-Ray 02/03/17 0600 Signed Impressions: Service Date/Time: Friday, February 03, 2017 02:45 - CONCLUSION: No significant interval change. Jai Wiley MD Chest X-Ray 02/02/17 0000 Signed Impressions: Service Date/Time: January 02:07 - CONCLUSION: Radiographic findings suggesting pulmonary edema. Jc Ortiz Jr., MD Percutaneous Cholangiogram 02/01/17 0000 Signed Impressions: Service Date/Time: Wednesday, February 01, 2017 08:44 - CONCLUSION: Uncomplicated percutaneous cholecystostomy as above. Geovanny Yañez MD Hepatobiliary Scan Nuclear Medicine 01/30/17 0000 Signed Impressions: Service Date/Time: Monday, January 30, 2017 11:15 - CONCLUSION: Nonvisualization of the gallbladder 2 hours. Patient does have gallstones in a prominent gallbladder. Krystian Painting MD FACRADDENDUM: 20 hour delayed imaging of the hepatobiliary system continues to demonstrate nonvisualization of the gallbladder characteristic of cystic duct obstruction. Geovanny Yañez MD Liver Ultrasound 01/28/17 0000 Signed Impressions: Service Date/Time: Saturday, January 28, 2017 09:20 - CONCLUSION: 1. Cholelithiasis with 1.8 cm gallstone in the region of the neck of the gallbladder which was nonmobile. There is a small amount of adjacent free fluid. There is no evidence of biliary obstruction. 2. Fatty infiltration of the liver. Ang Moreno MD Head CT 01/27/17 1052 Signed Impressions: Service Date/Time: Friday, January 27, 2017 11:26 - CONCLUSION: 1. Old lacunar infarct in the left basal ganglia stable compared to previous dated 01/04/14. 2. No acute intracranial abnormality identified. Christopher Painting MD Abdomen/Pelvis CT 01/27/17 0000 Signed Impressions: Service Date/Time: Friday, January 27, 2017 14:51 - CONCLUSION: Gallstone. Ileus bowel gas pattern. Willy Mackay MD Physical Exam GENERAL: awake and alert, comfortable, on RA SKIN: Warm and moist. No generalized rash or ecchymosis. EYES: No scleral icterus. ENT: Moist oral mucosa. CARDIOVASCULAR: Regular rate and rhythm without murmurs, gallops, or rubs. RESPIRATORY: . Breath sounds equal bilaterally. decreased BS at bases. GASTROINTESTINAL: Abdomen mildly distended, with min tenderness, no guarding, no rebound. Has GB tube with yellow green fluid. MUSCULOSKELETAL: Extremities without clubbing, cyanosis, or edema. 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 No calf tenderness. NEUROLOGICAL: Non-focal PSYCH: Normal affect, calm and cooperative LINE: No evidence of infection Assessment & Plan Remarks IMPRESSION Sepsis with possible acute cholecystitis, resolved - has gallstones, RUQ tenderness and (+) HIDA scan - S/P tube cholecystostomy - clinically improved Leukocytosis, due to intraabdominal process, resolved Known HTN, PVD, CAD, poorly controlled DM (+) UA, clx is sterile Diarrhea, c diff negative, better ARF - resolving RECOMMENDATION Continue po Augmentin - give until 02/17 She is clinically doing well from ID standpoint GI and IR following for her GB tube and determining when it will be removed She is stable fro D/C from ID standpoint Explained plan to patient Nisreen Garcia MD February 08, 2017 08:41
[2017-02-08] MEDS: DOCUSATE SODIUM 100 MG/10 ML UDC PO SCH (09:02)
[2017-02-08] MEDS: hydrALAZINE HCL 10 MG TAB PO PRN (09:02)
[2017-02-08] MEDS: METOPROLOL TARTRATE 100 MG TAB PO SCH (09:02)
[2017-02-08] MEDS: PANTOPRAZOLE SODIUM 40 MG VIAL IV PUSH SCH (09:09)
[2017-02-08] MEDS: LACTOBACILLUS ACIDOPHILUS 1 GM PACKET PO SCH ×3 (09:09→18:02)
[2017-02-08] MEDS ORDERED: LISINOPRIL 5 MG TAB PO SCH (10:45)
--- NOTE | 2017-02-08 10:48 | HHI.PR ---
Subjective Remarks patient feeling better, tolerating po, no nausea or vomiting, no diarrhea Objective Vitals Vital Signs Date Time Temp Pulse Resp B/P Pulse Ox O2 Delivery O2 Flow Rate FiO2 02/08/17 08:00 96.8 60 20 182/67 99 02/08/17 04:00 97.0 61 22 177/77 98 02/08/17 00:00 98.0 58 22 160/71 96 02/07/17 22:25 60 174/77 98 02/07/17 20:00 97.4 66 22 183/75 96 02/07/17 16:00 97.4 62 16 155/70 97 02/07/17 12:00 97.2 77 16 159/78 98 I/O 02/07/17 02/07/17 02/07/17 02/08/17 02/08/17 02/08/17 07:00 15:00 23:00 07:00 15:00 23:00 Intake Total 505 ml 1035 ml 280 ml 480 ml 360 ml Output Total 100 ml 300 ml Balance 405 ml 1035 ml -20 ml 480 ml 360 ml Intake Oral 380 ml 960 ml 280 ml 480 ml 360 ml IV Total 125 ml 75 ml Drainage Total 100 ml 300 ml # Voids 3 2 2 5 # Bowel Movements 2 2 0 0 Result Diagram: 02/08/17 0436 02/08/17 0436 Imaging Last Impressions Abdomen X-Ray 02/03/17 0600 Signed Impressions: Service Date/Time: Friday, February 03, 2017 02:45 - CONCLUSION: No significant interval change. Jai Wiley MD Chest X-Ray 02/02/17 0000 Signed Impressions: Service Date/Time: January 02:07 - CONCLUSION: Radiographic findings suggesting pulmonary edema. Jc Ortiz Jr., MD Percutaneous Cholangiogram 02/01/17 0000 Signed Impressions: Service Date/Time: Wednesday, February 01, 2017 08:44 - CONCLUSION: Uncomplicated percutaneous cholecystostomy as above. Geovanny Yañez MD Hepatobiliary Scan Nuclear Medicine 01/30/17 0000 Signed Impressions: Service Date/Time: Monday, January 30, 2017 11:15 - CONCLUSION: Nonvisualization of the gallbladder 2 hours. Patient does have gallstones in a prominent gallbladder. Krystian Painting MD FACRADDENDUM: 20 hour delayed imaging of the hepatobiliary system continues to demonstrate nonvisualization of the gallbladder characteristic of cystic duct obstruction. Geovanny Yañez MD Liver Ultrasound 01/28/17 0000 Signed Impressions: Service Date/Time: Saturday, January 28, 2017 09:20 - CONCLUSION: 1. Cholelithiasis with 1.8 cm gallstone in the region of the neck of the gallbladder which was nonmobile. There is a small amount of adjacent free fluid. There is no evidence of biliary obstruction. 2. Fatty infiltration of the liver. Ang Moreno MD Head CT 01/27/17 1052 Signed Impressions: Service Date/Time: Friday, January 27, 2017 11:26 - CONCLUSION: 1. Old lacunar infarct in the left basal ganglia stable compared to previous dated 01/04/14. 2. No acute intracranial abnormality identified. Christopher Painting MD Abdomen/Pelvis CT 01/27/17 0000 Signed Impressions: Service Date/Time: Friday, January 27, 2017 14:51 - CONCLUSION: Gallstone. Ileus bowel gas pattern. Willy Mackay MD Objective Remarks awake and alert, NAD anicteric lungs no rales or wheezes regular rhythm abdomen- globularly soft, cholecystomy tube in place extremities good peripheral pulses neuro exam- non focal Procedures cholecystostomy tube placement A/P Assessment and Plan 61 years old female Ileus Cholelithiasis S/P cholecystostomy tube placement 02/01 Diarrhea- resolved - s/p NGT which has now been removed. Now on a heart healthy diet. - HIDA scan showed no visualization of gall bladder. Questionable cystic duct obstruction. s/p perc cholecystostomy tube placement on 02/02/17 by IR. - CT abdomen/pelvis showing cholelithiasis/ileus. - Liver ultrasound 01/28, gallstone in neck of gallbladder. Nonmobile. - Protonix for GI prophylaxis - off colace and Reglan -Po augmentin till 02/17. continue on Lactinex while on antibiotics Loose stools w mucous:- resolved History of left basal ganglia CVA Depression Peripheral neuropathy Insomnia - Monitor neuro status and avoid any sedatives. - Continue ASA by mouth daily. 02/02 - norco prn.. PT daily Coronary artery disease - inoperable Ischemic cardiomyopathy ejection fraction 45% Hypertension Dyslipidemia - Heart catheterization by Dr. Jordan on 07/10 revealed EF 45%. LAD 70%, left circumflex 70 percent, RCA 80%. Not amenable to CABG - On ASA 325 mg daily - hydralazine 10 mg PO Q6h PRN. -increased hydralazine to 50mg QID, increased metoprolol to 100mg po BID, on amlodipine 10mg po daily. monitor and adjust -add YESENIA Lisinorpil 5 mg daily Diabetes mellitus neuropathy - hemoglobin A1c 7.9. Restart Levemer at 10 units hs - Supposedly patient is on sliding scale insulin at [facility]. Request medication reconciliation update per nursing. - Sliding scale insulin Accu-Cheks every 6 hours to maintain euglycemia/low regimen Acute kidney injury- resolved - Nephrology following. Creatinine improving, 1.02 - Monitor renal function, I/O's, electrolytes replacement as needed. Leukocytosis with bandemia Normocytic anemia Coagulopathy - WBC initially 27.5 on admission. Trending down, 12.1 02/06. CBC in am. - Monitor CBC, INR /PT s/p 2units FFP preprocedure. Platelets stable. Hypokalemia: -KCL 20 meq po daily x 3 days. CMP in 203 days at [facility] GI prophylaxis: Continue Protonix DVT prophylaxis: SCD/heparin SQ Discharge Planning f/u WBC. augmentin on DC f/u on stool studies, thus far neg. monitor BP's and adjust BP meds Anticipate d/c to SNF today 02/07- Dr. murillo discussed w Dr. Ortiz, interventional radiologist, regarding cholecystostomy tube and he recommends pt follow up w IR in about 4 weeks for injection through the cholecystectomy tube w possible removal. will need to f/u w them in 2 week as well. Order has been placed under the discharge orders. Per Dr. Otriz, senior care will need to monitor drain output Dr. Murillo d/w IR, GI and CM Betina Morales MD February 08, 2017 10:48
[2017-02-08] MEDS ORDERED: POTASSIUM CHLORIDE 10 MEQ CONTROLLED RELEASE TAB PO ONE (11:00)
[2017-02-08] MEDS ORDERED: HYDR-3583 PO (11:18)
[2017-02-08] MEDS ORDERED: LISI-519 PO (11:18)
[2017-02-08] MEDS ORDERED: PANT40TA3 PO (11:18)
[2017-02-08] MEDS ORDERED: AMLO10 PO (11:18)
[2017-02-08] MEDS ORDERED: LACTG PO (11:18)
[2017-02-08] MEDS ORDERED: METO-338 PO (11:18)
[2017-02-08] MEDS ORDERED: AUGM500T7 PO (11:18)
[2017-02-08] MEDS ORDERED: HYDR50TA15 PO (11:18)
--- NOTE | 2017-02-08 11:21 | HHI.GIFU ---
Subjective Remarks Resting in bed. Feeling much better. Diarrhea resolved. Tolerating diet. No pain at this time. Waiting to go home. Objective Vitals I&O Vital Signs Date Time Temp Pulse Resp B/P Pulse Ox O2 Delivery O2 Flow Rate FiO2 02/08/17 08:00 96.8 60 20 182/67 99 02/08/17 04:00 97.0 61 22 177/77 98 02/08/17 00:00 98.0 58 22 160/71 96 02/07/17 22:25 60 174/77 98 02/07/17 20:00 97.4 66 22 183/75 96 02/07/17 16:00 97.4 62 16 155/70 97 02/07/17 12:00 97.2 77 16 159/78 98 I/O 02/07/17 02/07/17 02/07/17 02/08/17 02/08/17 02/08/17 07:00 15:00 23:00 07:00 15:00 23:00 Intake Total 505 ml 1035 ml 280 ml 480 ml 360 ml Output Total 100 ml 300 ml Balance 405 ml 1035 ml -20 ml 480 ml 360 ml Intake Oral 380 ml 960 ml 280 ml 480 ml 360 ml IV Total 125 ml 75 ml Drainage Total 100 ml 300 ml # Voids 3 2 2 5 # Bowel Movements 2 2 0 0 Laboratory Laboratory Tests Test 02/08/17 04:36 White Blood Count 9.0 Red Blood Count 3.01 Hemoglobin 8.9 Hematocrit 27.5 Mean Corpuscular Volume 91.2 Mean Corpuscular Hemoglobin 29.7 Mean Corpuscular Hemoglobin 32.6 Concent Red Cell Distribution Width 13.6 Platelet Count 433 Mean Platelet Volume 9.2 Neutrophils (%) (Auto) 69.3 Lymphocytes (%) (Auto) 19.5 Monocytes (%) (Auto) 7.9 Eosinophils (%) (Auto) 2.8 Basophils (%) (Auto) 0.5 Neutrophils # (Auto) 6.2 Lymphocytes # (Auto) 1.8 Monocytes # (Auto) 0.7 Eosinophils # (Auto) 0.3 Basophils # (Auto) 0.0 CBC Comment DIFF FINAL Differential Comment Sodium Level 140 Potassium Level 3.3 Chloride Level 106 Carbon Dioxide Level 24.4 Anion Gap 10 Blood Urea Nitrogen 13 Creatinine 1.10 Estimat Glomerular Filtration 50 Rate Random Glucose 138 Calcium Level 7.9 Date/Time Procedure Status Source Growth 02/06/17 10:35 Cryptosporidium Exam - Final Complete Stool Stool NEGATIVE - NO CRYPTOSPORIDIUM ANTIGEN... 02/06/17 10:35 Stool Pus (SHERIDAN) - Final Complete Stool Stool NO WBC'S SEEN 02/06/17 10:35 Giardia Antigen (SHERIDAN) - Final Complete Stool Stool NEGATIVE - NO GIARDIA ANTIGEN DETECTE... 02/06/17 10:35 - Final Complete Stool Stool NO ENTERIC PATHOGENS DETECTED BY PCR... Imaging Last Impressions Abdomen X-Ray 02/03/17 0600 Signed Impressions: Service Date/Time: Friday, February 03, 2017 02:45 - CONCLUSION: No significant interval change. Jai Wiley MD Chest X-Ray 02/02/17 0000 Signed Impressions: Service Date/Time: January 02:07 - CONCLUSION: Radiographic findings suggesting pulmonary edema. Jc Ortiz Jr., MD Percutaneous Cholangiogram 02/01/17 0000 Signed Impressions: Service Date/Time: Wednesday, February 01, 2017 08:44 - CONCLUSION: Uncomplicated percutaneous cholecystostomy as above. Geovanny Yañez MD Hepatobiliary Scan Nuclear Medicine 01/30/17 0000 Signed Impressions: Service Date/Time: Monday, January 30, 2017 11:15 - CONCLUSION: Nonvisualization of the gallbladder 2 hours. Patient does have gallstones in a prominent gallbladder. Krystian Painting MD FACRADDENDUM: 20 hour delayed imaging of the hepatobiliary system continues to demonstrate nonvisualization of the gallbladder characteristic of cystic duct obstruction. Geovanny Yañez MD Liver Ultrasound 01/28/17 0000 Signed Impressions: Service Date/Time: Saturday, January 28, 2017 09:20 - CONCLUSION: 1. Cholelithiasis with 1.8 cm gallstone in the region of the neck of the gallbladder which was nonmobile. There is a small amount of adjacent free fluid. There is no evidence of biliary obstruction. 2. Fatty infiltration of the liver. Ang Moreno MD Head CT 01/27/17 1052 Signed Impressions: Service Date/Time: Friday, January 27, 2017 11:26 - CONCLUSION: 1. Old lacunar infarct in the left basal ganglia stable compared to previous dated 4/12/14. 2. No acute intracranial abnormality identified. Christopher Painting MD Abdomen/Pelvis CT 01/27/17 0000 Signed Impressions: Service Date/Time: Friday, January 27, 2017 14:51 - CONCLUSION: Gallstone. Ileus bowel gas pattern. Willy Mackay MD Physical Exam HEENT: Normocephalic; atraumatic; no jaundice. CHEST: CTA, diminished CARDIAC: RRR ABDOMEN: Soft,mild ruq tenderness, nontender, no hepatosplenomegaly; bowel sounds hypoactive. cholecystomy tube site dressing clean EXTREMITIES: Right BKA SKIN: Normal; no rash; no jaundice. CENTER MGR: No focal deficits; Lethargic and oriented times two Assessment and Plan Plan ASSESSMENT: - Colonic Ileus. RESOLVED. Has hx of constipation. Getting pain meds. S/P SSE. Senokot, Colace, Reglan, Magnesium citrate (02/02), Relistor (02/02). Cdiff negative. She was having diarrhea but this resolved after the senokot and reglan was discontinued. - Acute cholecystitis with abdominal pain, nausea, leukocytosis. Abdomen/Pelvis CT (01/27/17)---> Gallstone. Ileus bowel gas pattern. LFTs were mildly elevated on admission with T. Bilirubin 0.3, AST 67, ALT 32 , Alk Phosph 542. Liver US (01/28/17)----> 1. Cholelithiasis with 1.8 cm gallstone in the region of the neck of the gallbladder which was nonmobile. There is a small amount of adjacent free fluid. There is no evidence of biliary obstruction. 2. Fatty infiltration of the liver. HIDA (01/30/17)-----> Nonvisualization of the gallbladder 2 hours. Patient does have gallstones in a prominent gallbladder. ADDENDUM: 20 hour delayed imaging of the hepatobiliary system continues to demonstrate nonvisualization of the gallbladder characteristic of cystic duct obstruction. S/P Cholecystomy tube placement (02/01). ID following. Zosyn. Abx per ID. Will need to fu with GI and IR at discharge. No abdominal pain. - Elevated LFTs, likely related to cholecystitis. Imaging as above. s/p cholecystostomy tube placement (02/01), LFT improving. Zosyn per ID. - Cholelithiasis/Cholecystitis. 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 S/P Cholecystomy tube. Zosyn. - Anemia, normocytic. Hemoccult (+). No obvious active bleeding. - Sepsis, Leukocytosis, Bandemia. Resolved. - Coagulopathy. improving s/p 4 units FFP, Vitamin K - CHRISTY, Hx left basal ganglia CVA, Depression, Peripheral neuropathy, CAD, ischemic cardiomyopathy, hyperlipidemia, DM, per primary. PLAN: - Okay to d/c home from GI standpoint - Low fat diet - Abx per ID recommendations - FU [facility] 2 weeks - FU Invasive Radiology in 3-4 weeks (Cholecystomy tube) - Pt seen and examined by Dr. Bonilla and myself and this note is written on his behalf Priscila Andrew February 08, 2017 11:21
[2017-02-08] MEDS ORDERED: LEVEMIR SQ (11:23)
[2017-02-08] MEDS ORDERED: Aspirin Chew CHEW (11:38)
[2017-02-08] MEDS ORDERED: POTA-163 PO (11:41)
[2017-02-08 12:00] VITALS: BP 170/72; PULSE 56; RESP 20; TEMP 97.5; O2SAT 96
--- NOTE | 2017-02-08 12:17 | HHI.DS ---
Discharge Summary Admission Date January 27, 2017 at 10:55 Discharge Date: February 08, 2017 Admitting Diagnosis SEPSIS, Acute Kidney injury, Diabetes Mellitus, hx of CVA (1) Sepsis ICD Code: A41.9 Diagnosis: Principal (2) Acute renal failure ICD Code: N17.9 Diagnosis: Principal Procedures cholecystostomy tube placement Brief History - From Admission The patient is a 62 year-old female with past medical history of hypertension, diabetes mellitus, cerebrovascular accident in 2013, dyslipidemia, who presents from nursing facility with fever and altered mental status. She was found to have a temperature of 101.4 was brought in by paramedics and 103.4 rectally. When she arrived initially she was obtunded and unable to give any history secondary to her mental status. A CT scan of the brain was obtained which showed old lacunar infarct in the left basilar ganglia, stable compared to previous studies. No acute intracranial abnormalities identified. The patient was tachycardic, however, her blood pressure was 124/85. Her laboratory data is significant for lactic acid of 3.1, acute renal failure with a blood urea nitrogen of 43, creatinine of 3.13 respectively and leukocytosis with a white blood cell of 27.5. Her urinalysis was compatible with urinary tract infection. Chest x-ray in the emergency room showed under inflation of mild airspace opacity under right lung base with appearance favoring atelectasis over consolidation. In the emergency department she was given two liters of Crystalloids in addition to Vancomycin and Zosyn, she also received a Tylenol suppository 650 mg p.o. times one. After fluid resuscitation, the patients mental status improved and currently she is awake and alert. She reports abdominal pain associated with nausea and vomiting and decreased p.o. intake. She denies any chest pain, shortness of breath, cough, her lactic acid level measured at 3.1. CBC/BMP: 02/08/17 0436 02/08/17 0436 Significant Findings Laboratory Tests Test 02/06/17 02/07/17 02/08/17 07:14 10:09 04:36 White Blood Count 12.1 TH/MM3 (4.0-11.0) Red Blood Count 2.86 MIL/MM3 3.00 MIL/MM3 3.01 MIL/MM3 (4.00-5.30) (4.00-5.30) (4.00-5.30) Hemoglobin 8.3 GM/DL 8.9 GM/DL 8.9 GM/DL (11.6-15.3) (11.6-15.3) (11.6-15.3) Hematocrit 25.4 % 27.5 % 27.5 % (35.0-46.0) (35.0-46.0) (35.0-46.0) Neutrophils (%) (Auto) 72.7 % 75.8 % (16.0-70.0) (16.0-70.0) Neutrophils # (Auto) 8.8 TH/MM3 (1.8-7.7) Creatinine 1.02 MG/DL 1.09 MG/DL 1.10 MG/DL (0.50-1.00) (0.50-1.00) (0.50-1.00) Estimat Glomerular Filtration 55 ML/MIN (>89) 51 ML/MIN (>89) 50 ML/MIN (>89) Rate Random Glucose 183 MG/DL 255 MG/DL 138 MG/DL (74-106) (74-106) (74-106) Calcium Level 7.5 MG/DL 7.7 MG/DL 7.9 MG/DL (8.5-10.1) (8.5-10.1) (8.5-10.1) Potassium Level 3.4 MEQ/L 3.3 MEQ/L (3.5-5.1) (3.5-5.1) Imaging Last Impressions Abdomen X-Ray 02/03/17 0600 Signed Impressions: Service Date/Time: Friday, February 03, 2017 02:45 - CONCLUSION: No significant interval change. Jai Wiley MD Chest X-Ray 02/02/17 0000 Signed Impressions: Service Date/Time: January 02:07 - CONCLUSION: Radiographic findings suggesting pulmonary edema. Jc Ortiz Jr., MD Percutaneous Cholangiogram 02/01/17 0000 Signed Impressions: Service Date/Time: Wednesday, February 01, 2017 08:44 - CONCLUSION: Uncomplicated percutaneous cholecystostomy as above. Geovanny Yañez MD Hepatobiliary Scan Nuclear Medicine 01/30/17 0000 Signed Impressions: Service Date/Time: Monday, January 30, 2017 11:15 - CONCLUSION: Nonvisualization of the gallbladder 2 hours. Patient does have gallstones in a prominent gallbladder. Krystian Painting MD FACRADDENDUM: 20 hour delayed imaging of the hepatobiliary system continues to demonstrate nonvisualization of the gallbladder characteristic of cystic duct obstruction. Geovanny Yañez MD Liver Ultrasound 01/28/17 0000 Signed Impressions: Service Date/Time: Saturday, January 28, 2017 09:20 - CONCLUSION: 1. Cholelithiasis with 1.8 cm gallstone in the region of the neck of the gallbladder which was nonmobile. There is a small amount of adjacent free fluid. There is no evidence of biliary obstruction. 2. Fatty infiltration of the liver. Ang Moreno MD Head CT 01/27/17 1052 Signed Impressions: Service Date/Time: Friday, January 27, 2017 11:26 - CONCLUSION: 1. Old lacunar infarct in the left basal ganglia stable compared to previous dated 01/04/14. 2. No acute intracranial abnormality identified. Christopher Painting MD Abdomen/Pelvis CT 01/27/17 0000 Signed Impressions: Service Date/Time: Friday, January 27, 2017 14:51 - CONCLUSION: Gallstone. Ileus bowel gas pattern. Willy Mackay MD PE at Discharge awake and alert, NAD anicteric lungs no rales or wheezes regular rhythm abdomen- globularly soft, cholecystomy tube in place extremities good peripheral pulses neuro exam- non focal Pt update on day of discharge afebrile, no abdominal pain, nausea or vomiting Hospital Course 61 years old female Ileus Cholelithiasis S/P cholecystostomy tube placement 02/01 Diarrhea- resolved - s/p NGT which has now been removed. Now on a heart healthy diet. - HIDA scan showed no visualization of gall bladder. Questionable cystic duct obstruction. s/p perc cholecystostomy tube placement on 02/02/17 by IR. - CT abdomen/pelvis showing cholelithiasis/ileus. - Liver ultrasound 01/28, gallstone in neck of gallbladder. Nonmobile. - Protonix for GI prophylaxis - off colace and Reglan -Po augmentin till 02/17. continue on Lactinex while on antibiotics Loose stools w mucous:- resolved History of left basal ganglia CVA Depression Peripheral neuropathy Insomnia - Monitor neuro status and avoid any sedatives. - Continue ASA by mouth daily. 02/02 Coronary artery disease - inoperable Ischemic cardiomyopathy ejection fraction 45% Hypertension Dyslipidemia - Heart catheterization by Dr. Jordan on 07/10 revealed EF 45%. LAD 70%, left circumflex 70 percent, RCA 80%. Not amenable to CABG - On ASA 325 mg daily - hydralazine 10 mg PO Q6h PRN. -increased hydralazine to 50mg QID, increased metoprolol to 100mg po BID, on amlodipine 10mg po daily. monitor and adjust -add JOANN Lisinorpil 5 mg daily will benefit from JOANN being a diabetic. check BMP in 2-3 days Diabetes mellitus neuropathy - hemoglobin A1c 7.9. Restart Levemer at 10 units hs - Supposedly patient is on sliding scale insulin at [facility]. Request medication reconciliation update per nursing. - Sliding scale insulin Accu-Cheks every 6 hours to maintain euglycemia/low regimen Acute kidney injury- resolved - Nephrology following. Creatinine improving, 1.02 - Monitor renal function, I/O's, electrolytes replacement as needed. Leukocytosis with bandemia Normocytic anemia Coagulopathy - WBC initially 27.5 on admission. Trending down, 12.1 02/06. CBC in am. - Monitor CBC, INR /PT s/p 2units FFP preprocedure. Platelets stable. Hypokalemia -replace with po KCL 20 meq po x 3 days. started on Joann. BMP in 2-3 days GI prophylaxis: Continue Protonix DVT prophylaxis: SCD/heparin SQ Discharge Planning f/u WBC. augmentin on DC monitor BP's and adjust BP meds Anticipate d/c to SNF today 02/07- Dr. murillo discussed w Dr. Ortiz, interventional radiologist, regarding cholecystostomy tube and he recommends pt follow up w IR in about 4 weeks for injection through the cholecystectomy tube w possible removal. will need to f/u w them in 2 week as well. Order has been placed under the discharge orders. Per Dr. Ortiz, group home will need to monitor drain output Dr. Murillo d/w IR, GI and CM Pt Condition on Discharge: Stable Discharge Disposition: Discharge to SNF Discharge Time: <= 30 minutes Discharge Instructions DIET: Follow Instructions for: Heart Healthy Diet, Diabetic Diet Speech Therapy-Diet Recommends: Regular Activities you can perform: Weight Bearing as Neo Activities to Avoid: Strenuous Activity Follow up Referrals: Gastroenterology - 3 Weeks with Tai Barrow MD Interventional Radiology - 4 Weeks Please inject through cholecystectomy tube w possible removal. New Orders: COMP MET PROF (CMP) - 02/10/17 New Medications: Insulin Detemir Inj (Levemir Inj) 1,000 unit/ 10 ML Vial 10 UNITS SQ HS Do not mix with any other Insulin. Blood Sugar Management Days 30 Ref 0 VIAL Amlodipine (Norvasc) 10 Mg Tab 10 MG PO DAILY HTN Days 30 TAB Amoxicillin-Clavulanate (Augmentin) 500-125 mg Tab 500 MG PO Q8HR Infection Days 10 TAB Hydralazine (Hydralazine) 50 Mg Tab 50 MG PO Q6HR HTN Days 30 TAB Hydrocodone-Acetaminophen (Hydrocodone-Acetaminophen) 10-325 mg Tab 1 TAB PO Q6H PRN PAIN SCALE 5 TO 10 #15 TAB Lactobacillus Acidophilus (Floranex) 1 Gm Pkt 1 GM PO QID abdia Days 10 PACKET Lisinopril (Lisinopril) 5 Mg Tab 5 MG PO DAILY htn Days 30 TAB Metoprolol Tartrate (Lopressor) 100 Mg Tab 100 MG PO Q12HR htn Days 30 TAB Pantoprazole (Pantoprazole) 40 Mg Tab 40 MG PO DAILY gi Days 30 TAB Discontinued Medications: Melatonin (Melatonin) 5 Mg Tab 5 MG PO HS Provide Good Sleep Ref 0 TAB Tizanidine (Tizanidine) 4 Mg Cap 4 MG PO TID Muscle Spasm Ref 0 CAP Betina Morales MD February 08, 2017 11:24
[2017-02-08 15:50] VITALS: BP 188/79; PULSE 61; RESP 20; TEMP 97.1; O2SAT 96
[2017-02-09] MEDS ORDERED: ASPIRIN 81 MG CHEW TAB CHEW SCH (09:00)
[2017-02-09] MEDS ORDERED: PANTOPRAZOLE SOD 40 MG DELAYED RELEASE TAB PO SCH (09:00)
== END 2017-02-08 18:45 | DRG 872 ==
LOC: NEPC 07:49 → NEDA 10:55 → HIMN 15:30 → HOCA 02-04 11:35
PROVIDERS: ADMIT Internal Medicine; ATTEND Internal Medicine
PROC: 30233K1 Transfusion of Nonautologous Frozen Plasma into Peripheral Vein, Percutaneous Approach (ICD-10-PCS; 2017-01-31)
PROC: 0F9430Z Drainage of Gallbladder with Drainage Device, Percutaneous Approach (ICD-10-PCS; principal; 2017-02-01)
DX: A41.9 Sepsis, unspecified organism (principal); K56.3 Gallstone ileus; E87.0 Hyperosmolality and hypernatremia; E87.2 Acidosis; N17.9 Acute kidney failure, unspecified; D68.9 Coagulation defect, unspecified; N18.3 Chronic kidney disease, stage 3 (moderate); J98.11 Atelectasis; I69.351 Hemiplegia and hemiparesis following cerebral infarction affecting right dominant side; K80.01 Calculus of gallbladder with acute cholecystitis with obstruction; E11.22 Type 2 diabetes mellitus with diabetic chronic kidney disease; E11.40 Type 2 diabetes mellitus with diabetic neuropathy, unspecified; I12.9 Hypertensive chronic kidney disease with stage 1 through stage 4 chronic kidney disease, or unspecified chronic kidney disease; E78.5 Hyperlipidemia, unspecified; Z89.511 Acquired absence of right leg below knee; I25.5 Ischemic cardiomyopathy; E86.0 Dehydration; R11.0 Nausea; E87.6 Hypokalemia; R65.20 Severe sepsis without septic shock; E11.65 Type 2 diabetes mellitus with hyperglycemia; E66.9 Obesity, unspecified; I73.9 Peripheral vascular disease, unspecified; I25.10 Atherosclerotic heart disease of native coronary artery without angina pectoris; K76.0 Fatty (change of) liver, not elsewhere classified; D64.9 Anemia, unspecified; G47.00 Insomnia, unspecified; E87.70 Fluid overload, unspecified; E83.39 Other disorders of phosphorus metabolism; E11.42 Type 2 diabetes mellitus with diabetic polyneuropathy; M19.90 Unspecified osteoarthritis, unspecified site; F32.9 Major depressive disorder, single episode, unspecified; Z68.31 Body mass index [BMI] 31.0-31.9, adult; Z79.4 Long term (current) use of insulin; Z86.14 Personal history of Methicillin resistant Staphylococcus aureus infection; Z87.891 Personal history of nicotine dependence; Z98.1 Arthrodesis status
CPT/HCPCS: 36430; 36600; 47490; 70450; 71010; 74000; 74176; 76705; 76937; 78226; 80048; 80053; 80202; 81001; 82150; 82272; 82550; 82552; 82805; 82947; 82948; 83036; 83605; 83690; 83735; 84100; 84132; 84155; 85007; 85025; 85027; 85610; 85730; 86927; 87040; 87070; 87086; 87205; 87328; 87329; 87493; 87506; 87641; 93005; 94150; 94640; 94664; 96361; 96365; 96367; 99152; 99153; A9537; C1729; C1769; C9113; J0360; J0610; J1170; J1644; J2212; J2250; J2270; J2405; J2543; J2765; J3010; J3370; J3430; J3475; J3480; J7030; J7040; J7050; P9017; Q9967

== ENCOUNTER 2017-02-14 13:06 | Inpatient (IN) | payer MEDICARE, OTHER ==
[~2017-02-14] VITALS: Ht 162.6 cm; Wt 77.8 kg
[~2017-02-14 13:06] MED LIST changes: +AMLO10 PO; -ASPI325T PO; -ATOR20TA PO; +AUGM500T7 PO; +Aspirin Chew CHEW; -CLON1TAB PO; -EZET10 PO; +HYDR-3583 PO; +HYDR50TA15 PO; +LACTG PO; -LEVE500 PO; -LISI-363 PO; +LISI-519 PO; +METO-338 PO; -NOVOLOGSS SQ; +PANT40TA3 PO; -PERC10TA27 PO; +POTA-163 PO; -VENL-37 PO
[2017-02-14 13:25] VITALS: BP 155/82; PULSE 93; RESP 32; TEMP 100; O2SAT 83
[2017-02-14] MEDS ORDERED: RESP: ALBUTEROL 2.5 MG/IPRATROPIUM 0.5 MG NEB (SCH) NEB ONE (13:30)
--- NOTE | 2017-02-14 13:47 | PD ---
HPI Chief Complaint: Altered Mental Status Time Seen by Provider: 13:19 Travel History International Travel<30 days: No Contact w/Intl Traveler<30days: No Traveled to known affect area: No History of Present Illness HPI The patient was seen and examined in the presence of the nurse. This patient is transferred to the ER for evaluation from the correction. She complains of right upper quadrant pain. Vomited 2 times today. She has a percutaneous cholecystostomy tube in place and is on Augmentin. Symptoms severity is moderate. No alleviating factors. Duration 2 days PFSH Past Medical History Arthritis: Yes Depression: Yes Cancer: No Cardiovascular Problems: Yes High Cholesterol: Yes Chest Pain: No Congestive Heart Failure: No Cerebrovascular Accident: Yes Diabetes: Yes Patient Takes Glucophage: No Diminished Hearing: No Endocrine: Yes Gastrointestinal Disorders: No GERD: No Genitourinary: No Headaches: No Hypertension: Yes Immune Disorder: No Musculoskeletal: Yes (USES WHEELCHAIR) Neurologic: Yes (PERIPHERAL NEUROPATHY) Psychiatric: No Reproductive: No Respiratory: No Immunizations Current: Yes (PPD) Migraines: No Seizures: No Tetanus Vaccination: < 5 Years Influenza Vaccination: Yes Menopausal: No : 4 Para: 2 Miscarriage: 2 : 0 Past Surgical History Abdominal Surgery: Yes (4 C-SECTIONS) Section: Yes (X4) Gynecologic Surgery: Yes Other Surgery: Yes Social History Alcohol Use: No Tobacco Use: No Substance Use: No Allergies-Medications (Allergen,Severity, Reaction): Coded Allergies: *MDRO Multi-Drug Resistant Organism (Verified Allergy, Unknown, 01/26/16) Patient reported H/O MRSA Reported Meds & Prescriptions Reported Meds & Active Scripts Active Pantoprazole (Pantoprazole Sodium) 40 Mg Tab 40 Mg PO DAILY 30 Days Lopressor (Metoprolol Tartrate) 100 Mg Tab 100 Mg PO Q12HR 30 Days Lisinopril 5 Mg Tab 5 Mg PO DAILY 30 Days Hydrocodone-Acetaminophen 10-325 mg Tab 1 Tab PO Q6H PRN Reported Novolog Inj (Insulin Aspart) 1,000 Unit/10 Ml Vial 2-12 Units SQ TIDAC Max dose at bedtime ( ) units; sugars less than 70,(0) units; sugars 150-199,(2) units; sugars 200-249,(4) units; sugars 250-299,(7) units; sugars 300-349,(10) units; sugars greater than 349,(12)units Levemir Inj (Insulin Detemir) 1,000 unit/ 10 ML Vial 40 Units SQ DAILY IN THE MORNING Do not mix with any other Insulin. Levemir Inj (Insulin Detemir) 1,000 unit/ 10 ML Vial 30 Units SQ HS Do not mix with any other Insulin. Zanaflex (Tizanidine HCl) 4 Mg Tab 4-12 Mg PO HS PRN Percocet (Oxycodone-Acetaminophen) 10-325 mg Tab 1 Tab PO BID PRN Zofran (Ondansetron HCl) 4 Mg Tab 4 Mg PO Q6HR PRN Effexor XR 24 HR (Venlafaxine HCl) 75 Mg Cap 225 Mg PO DAILY Duragesic Patch 72 HR (Fentanyl) 50 Mcg/Hr Patch 50 Mcg T-DERMAL Q72H Remove old patch when new one placed. Plavix (Clopidogrel Bisulfate) 75 Mg Tab 75 Mg PO DAILY Wellbutrin Xl 24 HR (Bupropion HCl) 300 Mg Tab 300 Mg PO DAILY Simethicone 80 Mg Chw 160 Mg CHEW Q4HR PRN Gnp Melatonin (Melatonin) 3 Mg Tab 6 Mg PO HS Keppra (Levetiracetam) 500 Mg Tab 500 Mg PO Q12HR Review of Systems General / Constitutional: Positive: Fever Eyes: No: Visual changes HENT: No: Headaches Cardiovascular: Positive: Edema, No: Chest Pain or Discomfort Respiratory: No: Shortness of Breath Gastrointestinal: Positive: Nausea, Vomiting, Abdominal Pain Genitourinary: No: Dysuria Musculoskeletal: Positive: Edema, No: Pain Skin: No Rash Neurologic: No: Weakness Psychiatric: No: Depression Endocrine: No: Polydipsia Hematologic/Lymphatic: No: Easy Bruising Physical Exam Narrative GENERAL: Disheveled somewhat lethargic well-developed patient in no apparent distress. SKIN: Focused skin assessment reveals no rash and nodules. Skin is Warm and dry. HEAD: Atraumatic. Normocephalic. EYES: Pupils equal and round. No scleral icterus. No injection or drainage. ENT: No nasal bleeding or discharge. Mucous membranes pink and moist. NECK: Trachea midline. No JVD. CARDIOVASCULAR: Regular rate and rhythm. No murmur appreciated. RESPIRATORY: No accessory muscle use. Has sparse basilar crackles with some rhonchi. Breath sounds equal bilaterally. GASTROINTESTINAL: Abdomen soft, right upper quadrant is tender without rebound or guarding. Percutaneous cholecystostomy tube ends in a drainage bag with 70 cc of dark green/blackish liquid, nondistended. Hepatic and splenic margins not palpable. MUSCULOSKELETAL: Has right sided AKA. No clubbing. No cyanosis. Left leg has mild edema. NEUROLOGICAL: Awake and alert. No obvious cranial nerve deficits. Motor grossly within normal limits. Normal speech. PSYCHIATRIC: Appropriate mood and affect; insight and judgment normal. Data Data Last Documented VS Vital Signs Date Time Temp Pulse Resp B/P Pulse Ox O2 Delivery O2 Flow Rate FiO2 02/14/17 14:47 89 93/50 02/14/17 13:48 93 Nasal Cannula 2.00 02/14/17 13:25 100.0 32 Orders Complete Blood Count With Diff (02/14/17 13:29) Comprehensive Metabolic Panel (02/14/17 13:29) Lipase (02/14/17 13:29) Prothrombin Time / Inr (Pt) (02/14/17 13:29) Act Partial Throm Time (Ptt) (02/14/17 13:29) Iv Access Insert/Monitor (02/14/17 13:29) Ecg Monitoring (02/14/17 13:29) Oximetry (02/14/17 13:29) NPO (02/14/17 13:29) Sodium Chloride 0.9% Flush (Ns Flush) (02/14/17 13:30) Chest, Single Ap (02/14/17 13:29) Albuterol-Ipratropium Neb (Duoneb Neb) (02/14/17 13:30) Furosemide Inj (Lasix Inj) (02/14/17 14:15) Piperacil-Tazo 3.375 Gm Premix (Zosyn 3. (02/14/17 14:15) Blood Culture (02/14/17 14:36) Urinalysis - C+S If Indicated (02/14/17 14:36) B-Type Natriuretic Peptide (02/14/17 14:36) Resp Request For Service (02/14/17 ) Admit To Inpatient (02/14/17 ) Inpatient Certification (02/14/17 ) Urine Culture (02/14/17 15:00) Arterial Blood Gas (Abg) (02/14/17 15:52) Urinalysis - C+S If Indicated (02/14/17 16:34) Admit Order (Ed Use Only) (02/14/17 16:43) Labs Laboratory Tests Test 02/14/17 02/14/17 02/14/17 02/14/17 13:30 15:00 15:30 15:52 White Blood Count 9.7 TH/MM3 Red Blood Count 2.92 MIL/MM3 Hemoglobin 8.8 GM/DL Hematocrit 27.0 % Mean Corpuscular Volume 92.5 FL Mean Corpuscular Hemoglobin 30.0 PG Mean Corpuscular Hemoglobin 32.4 % Concent Red Cell Distribution Width 13.9 % Platelet Count 387 TH/MM3 Mean Platelet Volume 9.3 FL Neutrophils (%) (Auto) 83.3 % Lymphocytes (%) (Auto) 11.0 % Monocytes (%) (Auto) 5.3 % Eosinophils (%) (Auto) 0.1 % Basophils (%) (Auto) 0.3 % Neutrophils # (Auto) 8.1 TH/MM3 Lymphocytes # (Auto) 1.1 TH/MM3 Monocytes # (Auto) 0.5 TH/MM3 Eosinophils # (Auto) 0.0 TH/MM3 Basophils # (Auto) 0.0 TH/MM3 CBC Comment DIFF FINAL Differential Comment Prothrombin Time 13.6 SEC Prothromb Time International 1.2 RATIO Ratio Activated Partial 26.1 SEC Thromboplast Time Sodium Level 140 MEQ/L Potassium Level 5.3 MEQ/L Chloride Level 104 MEQ/L Carbon Dioxide Level 22.6 MEQ/L Anion Gap 13 MEQ/L Blood Urea Nitrogen 20 MG/DL Creatinine 1.33 MG/DL Estimat Glomerular Filtration 40 ML/MIN Rate Random Glucose 96 MG/DL Calcium Level 8.8 MG/DL Total Bilirubin 0.5 MG/DL Aspartate Amino Transf 229 U/L (AST/SGOT) Alanine Aminotransferase 106 U/L (ALT/SGPT) Alkaline Phosphatase 125 U/L Total Protein 7.1 GM/DL Albumin 2.3 GM/DL Lipase 47 U/L Urine Color YELLOW Urine Turbidity CLEAR Urine pH 5.5 Urine Specific [place] 1.017 Urine Protein mg/dL 30 mg/dL Urine Glucose (UA) mg/dL NEG mg/dL Urine Ketones mg/dL NEG mg/dL Urine Occult Blood NEG Urine Nitrite NEG Urine Bilirubin NEG Urine Urobilinogen MG/DL LESS THAN 2.0 MG/DL Urine Leukocyte Esterase NEG Urine RBC /hpf 1 /hpf Urine WBC /hpf 1 /hpf Urine Squamous Epithelial /hpf Cells Urine Transitional Epithelial /hpf Cells Urine Amorphous Sediment RARE Urine Bacteria /hpf RARE /hpf Microscopic Urinalysis Comment CULT NOT INDICATED Urine Yeast (Budding) OCC Blood Gas Puncture Site RT RADIAL Blood Gas Patient Temperature 98.6 Blood Gas HCO3 18 mmol/L Blood Gas Base Excess -5.0 mmol/L Blood Gas Oxygen Saturation 87 % Arterial Blood pH 7.44 Arterial Blood Partial 28 mmHg Pressure CO2 Arterial Blood Partial 57 mmHG Pressure O2 Arterial Blood Oxygen Content 10.8 Vol % Arterial Blood 1.4 % Carboxyhemoglobin Arterial Blood Methemoglobin 0.5 % Blood Gas Hemoglobin 8.8 G/DL Blood Gas Inspired Oxygen 21 % [facility] Medical Decision Making Medical Screen Exam Complete: Yes Emergency Medical Condition: Yes Medical Record Reviewed: Yes Differential Diagnosis Cholecystitis, hepatitis, hypoventilation, pneumonia Narrative Course I have reviewed the patient's electronic medical record. Reviewed her admission history and physical and discharge summary from just 6 days ago IV placed CBC shows anemia at 8.8 hemoglobin with normal white count Metabolic profile shows minor hyperkalemia and minor renal insufficiency LFTs elevated in the 200 region Lipase is normal Coagulation studies are normal I reviewed her chest x-ray which is abnormal but similar to prior. I suspect this represents pulmonary edema but may also reviewed reflect some degree of infective infiltrate Patient is hypoxic on room air with saturation of 88% She is 94% on 2 L nasal cannula I gave her a nebulizer treatment I gave her IV Zosyn and 60 no grams IV Lasix Quesada catheter placed to measure accurate output Patient will require admission to the hospital. I reviewed with hospitalist. Diagnosis Primary Impression: Acute hypoxemic respiratory failure Additional Impressions: Pulmonary edema Qualified Code: J81.0 - Acute pulmonary edema Abdominal pain Qualified Code: R10.11 - Right upper quadrant abdominal pain Admitting Information Admitting Physician Requests: Admit Karthikeyan Ferguson MD February 14, 2017 13:47
[2017-02-14 13:48] VITALS: O2SAT 93
[2017-02-14 13:59] LABS: AUTOMATED NEUTROPHIL # 8.1 TH/MM3 (1.8-7.7); BASOPHIL % 0.3 % (0.0-2.0); EOSINOPHIL % 0.1 % (0.0-4.0); HEMO FLAGS DIFF FINAL; LYMPHOCYTE # 1.1 TH/MM3 (1.0-4.8); MEAN CELL VOLUME 92.5 FL (80.0-100.0); MEAN CORPUSCULAR HGB CONC 32.4 % (32.0-36.0); MONO % 5.3 % (0.0-8.0); NEUT % 83.3 % (16.0-70.0); PLATELET COUNT 387 TH/MM3 (150-450); RED BLOOD COUNT 2.92 MIL/MM3 (4.00-5.30); RED CELL DISTRIBUTION WIDTH 13.9 % (11.6-17.2); WHITE BLOOD COUNT 9.7 TH/MM3 (4.0-11.0)
[2017-02-14 14:04] LABS: APTT (PATIENT) 26.1 SEC (24.3-30.1); INTERNATIONAL NORMALIZED RATIO 1.2 RATIO; PROTHROMBIN TIME - PATIENT 13.6 SEC (9.8-11.6)
--- NOTE | 2017-02-14 14:08 | RADRPT ---
EXAM DATE/TIME: 02/14/2017 13:33 [facility] COMPARISON: CHEST SINGLE AP, February 02, 2017, 2:07. INDICATIONS : Short of breath. MEDICAL HISTORY : Hypercholesterolemia. Arthritis. Hypertension. SURGICAL HISTORY : section. ENCOUNTER: Initial ACUITY: 1 day PAIN SCORE: 0/10 LOCATION: Bilateral chest FINDINGS: Portable AP view of the chest demonstrates a normal size cardiac silhouette. Lungs are underinflated and there is airspace opacity in the mid and lower lung zones bilaterally, similar to the prior study . No pneumothorax is visualized and no definite effusion is seen. Bones and soft tissues demonstrate no acute finding. CONCLUSION: No significant change in appearance of the chest with airspace consolidation bilaterally that is lowe r lung zone predominant. Although nonspecific, pulmonary edema could have this appearance. Willy Suh MD on February 14, 2017 at 14:03 Board Certified Radiologist. This report was verified electronically.
[2017-02-14 14:13] LABS: ALT (GPT) 106 U/L (10-53); ANION GAP 13 MEQ/L (5-15); AST (GOT) 229 U/L (15-37); BICARBONATE 22.6 MEQ/L (21.0-32.0); BLOOD UREA NITROGEN 20 MG/DL (7-18); CHLORIDE 104 MEQ/L (98-107); GLOMERULAR FILTRATION RATE 40 ML/MIN (>89); POTASSIUM 5.3 MEQ/L (3.5-5.1); SODIUM (NA) 140 MEQ/L (136-145)
[2017-02-14 14:15] LABS: ALKALINE PHOSPHATASE 125 U/L (45-117); TOTAL BILIRUBIN ADULT 0.5 MG/DL (0.2-1.0)
[2017-02-14] MEDS ORDERED: PIPERACIL-TAZO 3.375 GM PREMIX 50 ML IV ONE (14:15)
[2017-02-14] MEDS ORDERED: FUROSEMIDE 40 MG/4 ML VIAL IV PUSH ONE (14:15)
[2017-02-14 14:47] VITALS: BP 93/50; PULSE 89
[2017-02-14] MEDS ORDERED: LEVE500 PO (15:11)
[2017-02-14] MEDS ORDERED: SIME80CH CHEW (15:11)
[2017-02-14] MEDS ORDERED: VENL75XR PO (15:11)
[2017-02-14] MEDS ORDERED: WELLTAB39 PO (15:11)
[2017-02-14] MEDS ORDERED: PLAV75TA29 PO (15:11)
[2017-02-14] MEDS ORDERED: GNP3TAB PO (15:11)
[2017-02-14] MEDS ORDERED: FENT50T T-DERMAL (15:11)
[2017-02-14] MEDS ORDERED: ZOFR4TAB PO (15:15)
[2017-02-14] MEDS ORDERED: TIZA4 PO (15:15)
[2017-02-14] MEDS ORDERED: PERC10TA27 PO (15:15)
[2017-02-14] MEDS ORDERED: ZETI10TA5 PO (15:17)
[2017-02-14] MEDS ORDERED: LEVEMIR SQ ×2 (15:32)
[2017-02-14] MEDS ORDERED: NOVOLOGP2 SQ (15:32)
[2017-02-14 16:00] VITALS: BP 127/85; PULSE 66; RESP 20; O2SAT 94
[2017-02-14 16:07] LABS: BLOOD GAS CARBOXYHEMOGLOBIN 1.4 % (0-4); BLOOD GAS HCO3 18 mmol/L (22-26); BLOOD GAS METHEMOGLOBIN 0.5 % (0-2); BLOOD GAS O2 HGB SATURATION 87 % (90-100); BLOOD GAS OXYGEN CONTENT 10.8 Vol % (12.0-20.0); BLOOD GAS PCO2 28 mmHg (38-42); BLOOD GAS PO2 57 mmHG (61-120); BLOOD GAS TOTAL HGB 8.8 G/DL (12.0-16.0); TEMP CORR TO 98.6
[2017-02-14 16:09] LABS: CRITICAL VALUE YES; DRAW SITE RT RADIAL; FIO2 21 %; NUMBER OF ARTERIAL PUNCTURES 1; STAT YES; ULNAR PULSE PRESENT
[2017-02-14 16:51] LABS: BACTERIA, URINE RARE /hpf; BLOOD, URINE NEG (NEG); COMMENT (UR) CULT NOT INDICATED; CULTURE IF INDICATED CULT NOT INDICATED; GLUCOSE,URINE NEG (NEG); KETONE, URINE NEG (NEG); NITRITE,URINE NEG (NEG); PH, URINE 5.5 (5.0-8.5); URINE COLOR YELLOW (YELLW/STRAW)
--- NOTE | 2017-02-14 17:31 | HHI.HP ---
[facility] Service [facility] Primary Care Physician No Primary Care Physician Admission Diagnosis acute hypoxemic resp failure, abd pain Diagnoses: Chief Complaint: Nausea, abdominal pain Travel History International Travel<30 Days: No Contact w/Intl Traveler <30 Da: No Traveled to Known Affected Are: No Sepsis Criteria SIRS Criteria (2 or more): Heart rate over 90, RR > 20 or PaCO2 < 32 Sepsis Criteria (SIRS+source): Infect source susp/known Criteria Outcome: Meets SIRS criteria, Meets sepsis criteria History of Present Illness Patient is a 61-year-old female with known history of hypertension, diabetes, history of CVA in 2013. Ischemic cardiomyopathy. Phantom limb pain, diabetic neuropathy Patient was recently discharged here February 08 after a long hospital course of sepsis presenting us change in mental status. Source of sepsis secondary to biliary pathology Patient had a cholecystostomy tube placed by interventional radiology February 01. Patient was sent home to rehabilitation facility on by mouth Augmentin. Patient states she was doing quite well until yesterday started having any some nausea associated with epigastric pain radiating to the right upper quadrant area associated with loose stools. Patient denies any shortness of breath, cough sputum production. Denies any urinary symptoms. No diarrhea until yesterday. She actually had a good bowel movement brown formed stools here in the emergency room On evaluation at the ER noted to have an O2 sat of 88%. Placed on nasal cannula with improvement. Review of Systems Constitutional: COMPLAINS OF: Fever, Chills Endocrine: DENIES: Abnorml menstrual pattern, Heat/cold intolerance, Polydipsia , Polyuria, Polyphagia Eyes: DENIES: Blurred vision, Diplopia, Eye inflammation, Eye pain, Vision loss , Photosensitivity, Double Vision Ears, nose, mouth, throat: DENIES: Tinnitus, Hearing loss, Vertigo, Nasal discharge, Oral lesions, Throat pain, Hoarseness, Ear Pain, Running Nose, Epistaxis, Sinus Pain, Toothache, Odynophagia Respiratory: DENIES: Apneas, Cough, Snoring, Wheezing, Hemoptysis, Sputum production, Shortness of breath Cardiovascular: DENIES: Chest pain, Palpitations, Syncope, Dyspnea on Exertion , PND, Lower Extremity Edema, Orthopnea, Claudication Gastrointestinal: COMPLAINS OF: Abdominal pain, Nausea Genitourinary: DENIES: Abnormal vaginal bleeding, Dysmenorrhea, Dyspareunia, Sexual dysfunction, Urinary frequency, Urinary incontinence, Urgency, Hematuria , Dysuria, Nocturia, Vaginal discharge Musculoskeletal: COMPLAINS OF: Joint pain, Back pain Integumentary: DENIES: Abnormal pigmentation, Pruritus, Rash, Nail changes, Breast masses, Breast skin changes, Nipple discharge Hematologic/lymphatic: DENIES: Bruising, Lymphadenopathy Immunologic/allergic: DENIES: Eczema, Urticaria Neurologic: COMPLAINS OF: Seizures Psychiatric: COMPLAINS OF: Depression Past Family Social History Past Medical History Hypertension Diabetes type 2 Chronic pain History of CAD History of seizure disorder Past Surgical History Left BKA secondary to diabetic foot infection Reported Medications Lisinopril 5 mg daily Lopressor 100 mg twice a day Protonix 40 mg daily Keppra 500 mg every 12 Melatonin 3 mg at bedtime Hydrocodone 10/325 one tab every 6 hours when necessary for pain Wellbutrin 300 mg XL daily Plavix 75 mg daily Fentanyl patch 50 g every 3 days Effexor 150 mg daily Zofran 4 mg when necessary for nausea Zanaflex when necessary for muscle spasms Telomeres 30 units at bedtime Questionable if she is on Tegretol 3 times a day Allergies: Coded Allergies: *MDRO Multi-Drug Resistant Organism (Verified Allergy, Unknown, 02/15/17) Patient reported H/O MRSA MRSA PCR screen NEGATIVE- 01/27/17 Cleared per Infection Control Family History Noncontributory Social History Quit smoking 2 months ago Denies any alcohol use Physical Exam Vital Signs Vital Signs Date Time Temp Pulse Resp B/P Pulse Ox O2 Delivery O2 Flow Rate FiO2 02/14/17 14:47 89 93/50 02/14/17 13:48 93 Nasal Cannula 2.00 02/14/17 13:30 95 Nasal Cannula 2 02/14/17 13:25 100.0 93 32 155/82 83 Physical Exam GENERAL: Icteric, not in acute distress, awake alert and oriented 3 but slightly confused SKIN: No rashes, ecchymoses or lesions. Cool and dry. HEAD: Atraumatic. Normocephalic. No temporal or scalp tenderness. EYES: Pupils equal round and reactive. Extraocular motions intact. Icteric sclerae ENT: Nose without bleeding, purulent drainage or septal hematoma. Throat without erythema, Uvula midline. Airway patent. NECK: Trachea midline. No JVD or lymphadenopathy. Supple, nontender, no meningeal signs. CARDIOVASCULAR: Regular rate and rhythm without murmurs, gallops, or rubs. RESPIRATORY: Clear to auscultation. Positive fine basal Rales GASTROINTESTINAL: Abdomen soft, positive right upper quadrant and epigastric tenderness. Cholecystostomy tube in place draining bilious fluid MUSCULOSKELETAL: Left BKA stump no signs of infection No calf tenderness. Negative Homans sign bilaterally. NEUROLOGICAL: Awake and alert. Cranial nerves II through XII intact. Motor and sensory grossly within normal limits. Moves all extremities equally. Normal speech. Laboratory Laboratory Tests Test 02/14/17 02/14/17 02/14/17 02/14/17 13:30 15:00 15:30 15:52 White Blood Count 9.7 Red Blood Count 2.92 Hemoglobin 8.8 Hematocrit 27.0 Mean Corpuscular Volume 92.5 Mean Corpuscular Hemoglobin 30.0 Mean Corpuscular Hemoglobin 32.4 Concent Red Cell Distribution Width 13.9 Platelet Count 387 Mean Platelet Volume 9.3 Neutrophils (%) (Auto) 83.3 Lymphocytes (%) (Auto) 11.0 Monocytes (%) (Auto) 5.3 Eosinophils (%) (Auto) 0.1 Basophils (%) (Auto) 0.3 Neutrophils # (Auto) 8.1 Lymphocytes # (Auto) 1.1 Monocytes # (Auto) 0.5 Eosinophils # (Auto) 0.0 Basophils # (Auto) 0.0 CBC Comment DIFF FINAL Differential Comment Prothrombin Time 13.6 Prothromb Time International 1.2 Ratio Activated Partial 26.1 Thromboplast Time Sodium Level 140 Potassium Level 5.3 Chloride Level 104 Carbon Dioxide Level 22.6 Anion Gap 13 Blood Urea Nitrogen 20 Creatinine 1.33 Estimat Glomerular Filtration 40 Rate Random Glucose 96 Calcium Level 8.8 Total Bilirubin 0.5 Aspartate Amino Transf 229 (AST/SGOT) Alanine Aminotransferase 106 (ALT/SGPT) Alkaline Phosphatase 125 Total Protein 7.1 Albumin 2.3 Lipase 47 Urine Color YELLOW Urine Turbidity CLEAR Urine pH 5.5 Urine Specific [place] 1.017 Urine Protein 30 Urine Glucose (UA) NEG Urine Ketones NEG Urine Occult Blood NEG Urine Nitrite NEG Urine Bilirubin NEG Urine Urobilinogen LESS THAN 2.0 Urine Leukocyte Esterase NEG Urine RBC 1 Urine WBC 1 Urine Squamous Epithelial Cells Urine Transitional Epithelial Cells Urine Amorphous Sediment RARE Urine Bacteria RARE Microscopic Urinalysis Comment CULT NOT INDICATED Urine Yeast (Budding) OCC Blood Gas Puncture Site RT RADIAL Blood Gas Patient Temperature 98.6 Blood Gas HCO3 18 Blood Gas Base Excess -5.0 Blood Gas Oxygen Saturation 87 Arterial Blood pH 7.44 Arterial Blood Partial 28 Pressure CO2 Arterial Blood Partial 57 Pressure O2 Arterial Blood Oxygen Content 10.8 Arterial Blood 1.4 Carboxyhemoglobin Arterial Blood Methemoglobin 0.5 Blood Gas Hemoglobin 8.8 Blood Gas Inspired Oxygen 21 Date/Time Procedure Status Source Growth 02/14/17 15:00 Urine Culture Received Urine Clean Catch Pending 02/14/17 13:30 Aerobic Blood Culture Received Blood Peripheral Pending 02/14/17 13:30 Anaerobic Blood Culture Received Blood Peripheral Pending Result Diagram: 02/14/17 1330 02/14/17 1330 Imaging Last Impressions Chest X-Ray 02/14/17 1329 Signed Impressions: Service Date/Time: Tuesday, February 14, 2017 13:33 - CONCLUSION: No significant change in appearance of the chest with airspace consolidation bilaterally that is lower lung zone predominant. Although nonspecific, pulmonary edema could have this appearance. Willy Suh MD Septic Shock Reassessment Heart: Regular rate and rhythm Lungs: Diminished Skin: Warm Peripheral Pulses: Bounding Right Radial Bounding Left Radial Bounding Right Popliteal Bounding Left Popliteal Bounding Right Dorsalis Pedis Bounding Left Dorsalis Pedis Bounding Right Posterior Tibial Bounding Left Posterior Tibial Capillary Refill: Brisk Assessment and Plan Assessment and Plan 61-year-old female presenting with right upper quadrant pain nausea vomiting Sepsis secondary to biliary pathology-- History of obstructive jaundice secondary to cholelithiasis status post cholecystostomy tube - in place Request for blood cultures UA. Send cholecystostomy tube fluid for studies Start patient on Zosyn LFTs are elevated twice from previous discharge. Will get GI and ID consult - for follow-up. Follow LFTs. Acute respiratory alkalosis with Acute hypoxemia. Likely secondary to sepsis. O2 sats improved with nasal cannula 2 L.. History of CAD, ischemic cardiomyopathy with known ejection fraction of 45%. BNP elevated .but clinically appears comfortable now . reassess po diuretics in History of seizure disorder, CVA, left basal ganglia infarct.. Neuro stable Continue on Keppra. Continue on aspirin. Will restart her cardiac medications. Beta-bin lisinopril and adjust dose. Patient got 60 mg IV Lasix at ER Patient was on aspirin from last admission. Will continue this. Will hold off on the Plavix in the event that patient may need a procedure. Acute kidney injury.- pre renal - may be from sepsis This is actually improved from last admission. Last admission patient went into acute kidney injury from sepsis. Mild hyperkalemia. Patient received IV Lasix at ER. recheck in am Anemia chronic. H&H near baseline. History of diabetes type 2 will follow blood sugars Lovenox for DVT prophylaxis Discussed Condition With Patient Physician Certification 2 Midnight Certification Type: Admission for Inpatient Services Order for Inpatient Services The services are ordered in accordance with Medicare regulations or non- Medicare payer requirements, as applicable. In the case of services not specified as inpatient-only, they are appropriately provided as inpatient services in accordance with the 2-midnight benchmark. Estimated LOS (days): 3 days is the estimated time the patient will need to remain in the hospital, assuming treatment plan goals are met and no additional complications. Post-Hospital Plan: Not yet determined Betina Morales MD February 14, 2017 17:31
[2017-02-14] MEDS: PANTOPRAZOLE SODIUM 40 MG VIAL IV PUSH SCH (18:00)
[2017-02-14 18:39] VITALS: BP 153/85; PULSE 85; O2SAT 95
[2017-02-14] MEDS: HYDROmorphone HCL PF 1 MG/ML VIAL IV PUSH PRN (18:57)
[2017-02-14 20:38] VITALS: BP 122/60; PULSE 86; RESP 18; TEMP 98.1; O2SAT 97
[2017-02-14] MEDS ORDERED: MELATONIN 5 MG TAB PO PRN (21:00)
[2017-02-14 21:03] LABS: LACTIC ACID GHOST NOT REPORTABLE
[2017-02-14] MEDS: SODIUM CHLORIDE 0.9% FLUSH 10 ML FLUSH IV FLUSH PRN (22:53)
[2017-02-14] MEDS: ONDANSETRON HCL 4 MG/2 ML VIAL IV PUSH PRN (22:53)
[2017-02-14] MEDS: PIPERACIL-TAZO 3.375 GM PREMIX 50 ML IV SCH (22:55)
[2017-02-14] MEDS: levETIRAcetam 500 MG TAB PO SCH (22:59)
[2017-02-14] MEDS: METOPROLOL TARTRATE 100 MG TAB PO SCH (22:59)
[2017-02-14] MEDS: ENOXAPARIN SODIUM 30 MG/0.3 ML SYRINGE SQ SCH (22:59)
[2017-02-15] VITALS (9 sets, daily range): BP systolic 132–148; BP diastolic 63–71; PULSE 64–88; RESP 18–22; TEMP 97.7–98.7; O2SAT 93–99
[2017-02-15] MEDS: PIPERACIL-TAZO 3.375 GM PREMIX 50 ML IV SCH ×4 (03:55→23:06)
[2017-02-15] MEDS: ONDANSETRON HCL 4 MG/2 ML VIAL IV PUSH PRN ×3 (04:41→18:49)
[2017-02-15] MEDS: HYDROmorphone HCL PF 1 MG/ML VIAL IV PUSH PRN ×4 (05:48→23:26)
[2017-02-15 08:27] LABS: ALT (GPT) 945 U/L (10-53); ANION GAP 13 MEQ/L (5-15); BICARBONATE 21.5 MEQ/L (21.0-32.0); BLOOD UREA NITROGEN 29 MG/DL (7-18); CHLORIDE 105 MEQ/L (98-107); GLOMERULAR FILTRATION RATE 29 ML/MIN (>89); POTASSIUM 5.8 MEQ/L (3.5-5.1); SODIUM (NA) 139 MEQ/L (136-145)
[2017-02-15 08:47] LABS: ALKALINE PHOSPHATASE 116 U/L (45-117); AST (GOT) 2121 U/L (15-37); TOTAL BILIRUBIN ADULT 0.5 MG/DL (0.2-1.0)
[2017-02-15] MEDS ORDERED: LISINOPRIL 5 MG TAB PO SCH (09:00)
[2017-02-15] MEDS: ASPIRIN 81 MG CHEW TAB CHEW SCH (09:51)
[2017-02-15] MEDS: levETIRAcetam 500 MG TAB PO SCH ×2 (09:51→23:08)
[2017-02-15] MEDS: buPROPion HCL 150 MG SUSTAINED RELEASE TAB PO SCH ×2 (09:51→23:07)
[2017-02-15] MEDS: METOPROLOL TARTRATE 100 MG TAB PO SCH ×2 (09:51→23:07)
[2017-02-15] MEDS: VENLAFAXINE HCL XR 75 MG CAP PO SCH (09:51)
--- NOTE | 2017-02-15 11:06 | EC ---
Study Study Date:02/15/2017 STUDY CONCLUSIONS SUMMARY - Procedure narrative: Image quality was fair. The study was technically limited due to poor acoustic window availability. - Left ventricle: The cavity size was normal. Systolic function was moderately reduced. The estimated ejection fraction was in the range of 40% to 45%. Hypokinesis of the anteroseptal and anterior myocardium. - Mitral valve: Mild regurgitation. - Tricuspid valve: Mild regurgitation. - Pulmonary arteries: PA peak pressure: 37mm Hg (S). If LV function is below 40, please consider prescribing an ACEI or ARB or document rationale for non-use. PROCEDURE DATA STUDY STATUS: Elective. Procedure: Transthoracic echocardiography. Image quality was fair. The study was technically limited due to poor acoustic window availability. Scanning was performed from the parasternal, apical, and subcostal acoustic windows. Study completion: The patient tolerated the procedure well. Transthoracic echocardiography. M-mode, complete 2D, complete spectral Doppler, and color Doppler. Height: Height: 64in. Weight: Weight: 162.7lb. Body mass index: BMI: 28kg/m^2. Body surface area: BSA: 1.79m^2. Patient status: Inpatient. CARDIAC ANATOMY LEFT VENTRICLE: The cavity size was normal. Systolic function was moderately reduced. The estimated ejection fraction was in the range of 40% to 45%. Regional wall motion abnormalities: Hypokinesis of the anteroseptal and anterior myocardium. AORTIC VALVE: Trileaflet; mildly thickened leaflets. Doppler: There was no stenosis. No significant regurgitation. Valve area: 2.69cm^2 (Vmax). Indexed valve area: 1.5cm^2/m^2 (Vmax). MITRAL VALVE: The valve appears to be grossly normal. Doppler: There was no evidence for stenosis. Mild regurgitation. Peak gradient: 2mm Hg (D). LEFT ATRIUM: The atrium was at the upper limits of normal in size. PULMONIC VALVE: Not well visualized. Doppler: There was no evidence for stenosis. No significant regurgitation. TRICUSPID VALVE: Not well visualized. Doppler: There was no evidence for stenosis. Mild regurgitation. PERICARDIUM: There was no pericardial effusion. Patient weight: 162.7lb _Ejection fraction:_ 65-75% _Fractional shortening:_ 32% up to 5Kg 5-11.5Kg 11.6-22.9Kg 23-45Kg 45-57Kg Aortic Root 7-13 <17 13-22 17-27 17-27 LA diam 6-13 <23 24-38 33-47 37-40 RVID 10-17 7-15 7-15 7-18 8-17 LVIDd 12-22 <32 24-38 33-47 37-40 LVPW 2-4 3-6 5-7 6-8 7-8 IVS 2-4 3-6 5-7 6-8 7-8 BASIC MEASUREMENTS ADULT NORMAL Left ventricle LV internal dimension, ED, chordal 44.7 mm 43-52 level, PLAX LV internal dimension, ES, chordal 34.8 mm 23-38 level, PLAX Fractional shortening, chordal level, *22 % >29 PLAX LV posterior wall thickness, ED 10.3 mm IVS/LVPW ratio, ED 0.98 <1.3 Ventricular septum Septal thickness, ED 10.1 mm Aortic valve Leaflet separation 21 mm 15-26 BASIC MEASUREMENTS ADULT NORMAL Aortic valve Leaflet separation 21 mm 15-26 Aorta Root diameter, ED 26 mm 20-37 Left atrium Anterior-posterior dimension, ES 36 mm 19-40 Anterior-posterior dimension index, ES 2.01 cm/m^2 <2.2 LA/aortic root ratio 1.38 DOPPLER MEASUREMENTS ADULT NORMAL Main pulmonary artery Pressure, S *37 mm Hg =30 Aortic valve Peak velocity, S 90.9 cm/s Valve area, Vmax 2.69 cm^2 Valve area index, Vmax 1.5 cm^2/m^2 Mitral valve Peak E-wave velocity 78.5 cm/s Peak A-wave velocity 76 cm/s Deceleration time 222 ms 150-230 Peak gradient, D 2 mm Hg Peak E/A ratio 1 Maximal regurgitant velocity 401 cm/s Tricuspid valve Regurgitant peak velocity 267 cm/s Peak RV-RA gradient, S 29 mm Hg Maximal regurgitant velocity 267 cm/s Systemic veins Estimated CVP 10 mm Hg Right ventricle RV pressure, S *39 mm Hg <30 Pulmonic valve Peak velocity, S 62.4 cm/s LEGEND: Mean values are shown as u=mean value. Asterisk (*) nicole values outside specified normal range. Prepared and signed by Luke Moreau [id number]
--- NOTE | 2017-02-15 14:42 | PD.CONS ---
HPI History of Present Illness This is a 61 year old [female] brought from long-term with change in mental status, n/v. Pt noncontributory, hx obtained from daughter, EMR. Her LFTs are elevated, she has had n/v for the last 2 days and has indicated that she is having right sided abdominal pain. SHe has not eaten in 2 days. She was recently discharged with a cholecystomy tube placed 02/01/17. During that visit she was found to have cholelithiasis, cholecystitis, per HIDA, US, and CT, but had previously been told she is not a surgical candidate due to heart disease, she has inoperable multi-vessel CAD. GI was consulted for colonic ileus and worsening LFTs. Colonoscopy (04/21/15)---> colitis in sigmoid colon. Pathology revealed colonic mucosa with mild lamina propria fibrosis- as can be seen in the setting of early ischemia and mucosal prolapse. She reported that she had been having abdominal pain for the past two months. She states that she was told that this was related to her gallbladder. 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 (Jeannie Muniz) Coded Allergies: *MDRO Multi-Drug Resistant Organism (Verified Allergy, Unknown, 02/15/17) Patient reported H/O MRSA MRSA PCR screen NEGATIVE- 01/27/17 Cleared per Infection Control Family History Noncontributory Social History Quit smoking 3 months ago on previous visit, Denied any alcohol use (Jeannie Muniz) Review of Systems ROS noncontributory (Jeannie Muniz) GI Exam Vitals I&O Vital Signs Date Time Temp Pulse Resp B/P Pulse Ox O2 Delivery O2 Flow Rate FiO2 02/15/17 08:03 98.1 70 22 142/65 99 02/15/17 08:00 68 02/15/17 07:15 Nasal Cannula 3.00 02/15/17 04:30 84 02/15/17 04:00 Nasal Cannula 3.00 02/15/17 04:00 97.7 88 18 135/64 94 02/15/17 00:03 98.7 88 18 148/71 95 02/15/17 00:00 Nasal Cannula 3.00 02/14/17 20:38 98.1 86 18 122/60 97 02/14/17 20:00 Nasal Cannula 3.00 02/14/17 19:00 Nasal Cannula 2.00 02/14/17 18:39 85 153/85 95 Nasal Cannula 2 02/14/17 16:00 66 20 127/85 94 Nasal Cannula 02/14/17 14:47 89 93/50 I/O 02/14/17 02/14/17 02/14/17 02/15/17 02/15/17 02/15/17 07:00 15:00 23:00 07:00 15:00 23:00 Intake Total 60 ml Output Total 1060 ml 480 ml Balance -1000 ml -480 ml Intake Oral 60 ml Output Urine Total 600 ml 350 ml Gastric Drainage Total 460 ml Drainage Total 130 ml # Voids 0 # Bowel Movements 3 1 Imaging Last Impressions Chest X-Ray 02/14/17 1329 Signed Impressions: Service Date/Time: Tuesday, February 14, 2017 13:33 - CONCLUSION: No significant change in appearance of the chest with airspace consolidation bilaterally that is lower lung zone predominant. Although nonspecific, pulmonary edema could have this appearance. Willy Suh MD Laboratory Test 02/14/17 02/14/17 02/14/17 02/14/17 15:00 15:30 15:52 18:50 Urine Color YELLOW Urine Turbidity CLEAR Urine pH 5.5 Urine Specific [place] 1.017 Urine Protein mg/dL 30 mg/dL Urine Glucose (UA) mg/dL NEG mg/dL Urine Ketones mg/dL NEG mg/dL Urine Occult Blood NEG Urine Nitrite NEG Urine Bilirubin NEG Urine Urobilinogen MG/DL LESS THAN 2.0 MG/DL Urine Leukocyte Esterase NEG Urine RBC /hpf 1 /hpf Urine WBC /hpf 1 /hpf Urine Squamous Epithelial /hpf Cells Urine Transitional Epithelial /hpf Cells Urine Amorphous Sediment RARE Urine Bacteria /hpf RARE /hpf Microscopic Urinalysis Comment CULT NOT INDICATED Urine Yeast (Budding) OCC Blood Gas Puncture Site RT RADIAL Blood Gas Patient Temperature 98.6 Blood Gas HCO3 18 mmol/L Blood Gas Base Excess -5.0 mmol/L Blood Gas Oxygen Saturation 87 % Arterial Blood pH 7.44 Arterial Blood Partial 28 mmHg Pressure CO2 Arterial Blood Partial 57 mmHG Pressure O2 Arterial Blood Oxygen Content 10.8 Vol % Arterial Blood 1.4 % Carboxyhemoglobin Arterial Blood Methemoglobin 0.5 % Blood Gas Hemoglobin 8.8 G/DL Blood Gas Inspired Oxygen 21 % Lactic Acid Level 3.2 mmol/L Test 02/14/17 02/15/17 22:54 07:24 Lactic Acid Level 2.5 mmol/L Sodium Level 139 MEQ/L Potassium Level 5.8 MEQ/L Chloride Level 105 MEQ/L Carbon Dioxide Level 21.5 MEQ/L Anion Gap 13 MEQ/L Blood Urea Nitrogen 29 MG/DL Creatinine 1.78 MG/DL Estimat Glomerular Filtration 29 ML/MIN Rate Random Glucose 157 MG/DL Calcium Level 8.6 MG/DL Total Bilirubin 0.5 MG/DL Aspartate Amino Transf 2121 U/L (AST/SGOT) Alanine Aminotransferase 945 U/L (ALT/SGPT) Alkaline Phosphatase 116 U/L Total Protein 6.6 GM/DL Albumin 2.1 GM/DL Date/Time Procedure Status Source Growth 02/14/17 18:00 Gram Stain - Final Resulted Fluid Bile Fluid 02/14/17 18:00 Body Fluid Culture - Preliminary Resulted Gram Negative Paco 02/14/17 15:00 Cancelled Urine Clean Catch 02/14/17 13:30 Aerobic Blood Culture - Preliminary Resulted Blood Peripheral NO GROWTH IN 1 DAY 02/14/17 13:30 Anaerobic Blood Culture - Preliminary Resulted Blood Peripheral NO GROWTH IN 1 DAY Physical Examination HEENT: normocephalic; atraumatic; no jaundice. CHEST: Chest is clear to auscultation and percussion. CARDIAC: Regular rate and rhythm with no murmur gallop or rubs. ABDOMEN: Soft, nondistended, RUQ TTP; no hepatosplenomegaly; bowel sounds are present in all four quadrants, cholecystomy drain site clean EXTREMITIES: No clubbing, cyanosis, or edema. SKIN: Normal; no rash; no jaundice. 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 pt with history cholelithiasis and s/p cholecystomy drain, was doing ok now with change in mental status elev LFTs, n/v, and pain. Previously told she is not candidate for surgery. PLAN - CT abd with contrast if possible - hydration - monitor labs - further recommendations based on results above THis pt seen by myself and Dr Barrow (Jeannie Muniz) Physician Comments Patient presenting with abdominal pain with noted elevated liver function tests worsening renal function suggestive of acute renal failure and a recent history of acute cholecystitis status post cholecystostomy tube Most likely her LFT elevation and abdominal pain are related to her cholecystitis We need imaging of the abdomen to further evaluate the position of the tube the situation of the acute cholecystitis Further recommendations will depend on findings (Tai Barrow MD) Jeannie Muniz February 15, 2017 14:42 Tai Barrow MD February 15, 2017 21:08
[2017-02-15] MEDS ORDERED: FUROSEMIDE 40 MG/4 ML VIAL IV PUSH SCH (15:15)
[2017-02-15] MEDS ORDERED: DIATRIZOATE MEGLUM/DIATRIZOATE SOD 9 ML CUP PO ONE (15:30)
--- NOTE | 2017-02-15 15:44 | HHI.PR ---
Subjective Remarks patient weak, no vomiting but feels nauseated, no actual vomiting with persistent intermittent abdominal- right upper quadrant/epigastric pain tolerated fluids /clears very well, thirsty, per patient loose stools irritated that staff wakes her up to assess her Objective Vitals Vital Signs Date Time Temp Pulse Resp B/P Pulse Ox O2 Delivery O2 Flow Rate FiO2 02/15/17 12:03 98.3 64 20 137/63 93 02/15/17 08:03 98.1 70 22 142/65 99 02/15/17 08:00 68 02/15/17 07:15 Nasal Cannula 3.00 02/15/17 04:30 84 02/15/17 04:00 Nasal Cannula 3.00 02/15/17 04:00 97.7 88 18 135/64 94 02/15/17 00:03 98.7 88 18 148/71 95 02/15/17 00:00 Nasal Cannula 3.00 02/14/17 20:38 98.1 86 18 122/60 97 02/14/17 20:00 Nasal Cannula 3.00 02/14/17 19:00 Nasal Cannula 2.00 02/14/17 18:39 85 153/85 95 Nasal Cannula 2 02/14/17 16:00 66 20 127/85 94 Nasal Cannula I/O 02/14/17 02/14/17 02/14/17 02/15/17 02/15/17 02/15/17 07:00 15:00 23:00 07:00 15:00 23:00 Intake Total 60 ml Output Total 1060 ml 480 ml Balance -1000 ml -480 ml Intake Oral 60 ml Output Urine Total 600 ml 350 ml Gastric Drainage Total 460 ml Drainage Total 130 ml # Voids 0 # Bowel Movements 3 1 Result Diagram: 02/14/17 1330 02/15/17 0724 Imaging Last Impressions Chest X-Ray 02/14/17 1329 Signed Impressions: Service Date/Time: Tuesday, February 14, 2017 13:33 - CONCLUSION: No significant change in appearance of the chest with airspace consolidation bilaterally that is lower lung zone predominant. Although nonspecific, pulmonary edema could have this appearance. Willy Suh MD Objective Remarks weak, tired icterisea dry oral mucosa lungs- decrease breath sounds, no rales or wheezes regular rhythm abdomen- distended but soft, + tenderness right upper quadrant and epigastric area- cholecystostomy tube draining extremities no edema neuro non focal A/P Assessment and Plan 61-year-old female presenting with right upper quadrant pain nausea vomiting Sepsis secondary to biliary pathology-- heavy growth of gram negative rods in biliary fluid History of obstructive jaundice secondary to cholelithiasis status post cholecystostomy tube - in place- Start patient on Zosyn. Zofran IV prn LFTs trending up GI saw patient - work up in progress Acute respiratory alkalosis with Acute hypoxemia. Likely secondary to sepsis. O2 sats improved with nasal cannula 2 L.. Acute kidney injury secondary to sepsis- clinically dry Hyperkalemia- mild start gentle IVF History of CAD, ischemic cardiomyopathy with known ejection fraction of 45%. BNP elevated .but clinically appears comfortable started on gentle IVF. ff lung exam. Hold YESENIA due to hyperkalemia History of seizure disorder, CVA, left basal ganglia infarct.. Neuro stable Continue on Keppra. Continue on aspirin. on Beta-bin . Hold YESENIA due to hyperkalemia Patient was on aspirin from last admission. Will continue this. Will hold off on the Plavix in the event that patient may need a procedure. Anemia chronic. H&H near baseline. History of diabetes type 2 will follow blood sugars Lovenox for DVT prophylaxis PPI IV Betina Morales MD February 15, 2017 15:44 Betina Morales MD February 15, 2017 15:44
[2017-02-15] MEDS ORDERED: DEXTROSE 5% IN WATE 1000ML INJ 1,000 ML IV SCH (16:00)
[2017-02-15] MEDS: DEXT 5%-NACL 0.9% 1000 ML INJ 1,000 ML IV SCH (16:00)
--- NOTE | 2017-02-15 17:01 | RADRPT ---
EXAM DATE/TIME: 02/15/2017 16:31 [facility] COMPARISON: CHEST SINGLE AP, February 14, 2017, 13:33. INDICATIONS : Short of breath. MEDICAL HISTORY : Hypercholesterolemia. Hypertension SURGICAL HISTORY : None. ENCOUNTER: Subsequent ACUITY: 2 days PAIN SCORE: 0/10 LOCATION: Bilateral chest FINDINGS: Bilateral perihilar and basilar infiltrates. The slightly improved. Visualiz cardiac contour is gross ly stable. CONCLUSION: Slight improvement in aeration. Willy Mackay MD on February 15, 2017 at 16:59 Board Certified Radiologist. This report was verified electronically.
[2017-02-15] MEDS: PANTOPRAZOLE SODIUM 40 MG VIAL IV PUSH SCH (17:28)
[2017-02-15] MEDS ORDERED: DEXTROSE 50% IN WATER 50 ML VIAL(D50) IV PRN (20:30)
[2017-02-15] MEDS ORDERED: GLUCAGON 1 MG/ML VIAL OTHER PRN (20:30)
--- NOTE | 2017-02-15 20:41 | RADRPT ---
EXAM DATE/TIME: 02/15/2017 20:25 [facility] COMPARISON: ABDOMEN KUB ONLY, February 03, 2017, 2:45. INDICATIONS : Evaluate Biliary drain. ORAL CONTRAST: Partial prescribed oral contrast ingested. RADIATION DOSE: 13.90 CTDIvol (mGy) MEDICAL HISTORY : Cerebrovascular disease. Cardiovascular disease Hypertension.Diabetes SURGICAL HISTORY : Biliary drain ENCOUNTER: Initial ACUITY: 1 day PAIN SCALE: 0/10 LOCATION: abdomen TECHNIQUE: Volumetric scanning of the abdomen was performed. Using automated exposure control and adjustment of the mA and/or kV according to patient size, radiation dose was kept as low as reasonably achievable to obtain optimal diagnostic quality images. FINDINGS: Large bilateral effusions and basilar atelectasis and consolidation coronary artery calcification is noted. Cholelithiasis identified. There is a pigtail catheter in the right upper quadrant directly an terior to or abutting the gallbladder. Atherosclerotic calcifications of the aorta and iliac vessels. Spleen, adrenal glands, pancreas are normal. There is no biliary dilatation. No focal fluid collecti ons. Body wall edema is noted. CONCLUSION: 1. Cholelithiasis. 2. Right upper quadrant catheter is seen as described above. 3. Bilateral pleural effusions and basilar consolidation. Macr Em MD on February 15, 2017 at 20:38 Board Certified Radiologist. This report was verified electronically.
[2017-02-15] MEDS: ENOXAPARIN SODIUM 30 MG/0.3 ML SYRINGE SQ SCH (23:07)
[2017-02-15] MEDS: SODIUM CHLORIDE 0.9% FLUSH 10 ML FLUSH IV FLUSH PRN (23:26)
[2017-02-15 23:42] LABS: C. DIFF EPI 027 PRESUMPTIVE NEGATIVE (NEGATIVE); C. DIFF TOXIN PCR NEGATIVE (NEGATIVE)
[2017-02-16] VITALS (8 sets, daily range): BP systolic 144–160; BP diastolic 73–85; PULSE 67–73; RESP 18–20; TEMP 97.5–98.7; O2SAT 92–99
[2017-02-16] MEDS: PIPERACIL-TAZO 3.375 GM PREMIX 50 ML IV SCH ×4 (04:13→22:08)
[2017-02-16] MEDS: HYDROmorphone HCL PF 1 MG/ML VIAL IV PUSH PRN ×5 (04:15→22:11)
[2017-02-16] MEDS: SODIUM CHLORIDE 0.9% FLUSH 10 ML FLUSH IV FLUSH PRN (04:16)
[2017-02-16] MEDS: DEXT 5%-NACL 0.9% 1000 ML INJ 1,000 ML IV SCH (05:40)
[2017-02-16] MEDS: ONDANSETRON HCL 4 MG/2 ML VIAL IV PUSH PRN (09:51)
[2017-02-16] MEDS: METOPROLOL TARTRATE 100 MG TAB PO SCH ×2 (09:57→22:08)
[2017-02-16] MEDS: levETIRAcetam 500 MG TAB PO SCH ×2 (09:57→22:08)
[2017-02-16] MEDS: ASPIRIN 81 MG CHEW TAB CHEW SCH (09:57)
[2017-02-16] MEDS: VENLAFAXINE HCL XR 75 MG CAP PO SCH (09:57)
[2017-02-16] MEDS: buPROPion HCL 150 MG SUSTAINED RELEASE TAB PO SCH ×2 (09:57→22:08)
--- NOTE | 2017-02-16 11:07 | PD.CONS ---
History of Present Illness Service Infectious disease Consult Requested By Dr Paresh Morales Reason for Consult Evaluate patient for sepsis, recent hospitalization for acute cholecystitis Primary Care Physician No Primary Care Physician Diagnoses: History of Present Illness Patient seen and examined. Records reviewed. Patient is a 62-year-old female into the hospital for evaluation of increasing abdominal pain and diarrhea. Patient was recently hospitalized and was diagnosed to have acute cholecystitis. It was felt that she was not a surgical candidate, and a tube cholecystostomy was placed. Culture of the bile was negative. Her blood cultures were negative. He clinically improved and was discharged to [facility], on oral Augmentin with plans to finish to treatment February 17. He was supposed to have a follow-up with interventional radiology to evaluate her gallbladder to for possible removal. In the [facility] she started having pain in the epigastric area as well as in the right upper quadrant. She was also having some nausea, but no vomiting. She had some loose stools. She presented to the hospital for further evaluation and treatment. CT of the abdomen and pelvis did not show any common bile duct palpitation. She did have evidence of bilateral effusion and atelectasis. Patient however has no respiratory complaint. She had some low- grade temp on admission. Her lactic acid is elevated. Her total bilirubin is normal, but her AST and ALT were elevated. Culture of the bile is now reported as growing Klebsiella, pansensitive. Her initial WBC is normal. Her urinalysis is unremarkable. Stool for C. difficile is negative. Blood cultures are negative so far. Infectious disease consultation has been requested to evaluate the patient. Review of Systems Constitutional: COMPLAINS OF: Fever, Change in appetite, DENIES: Chills Eyes: DENIES: Eye pain Ears, nose, mouth, throat: DENIES: Nasal discharge, Oral lesions, Throat pain, Ear Pain, Sinus Pain, Odynophagia Respiratory: DENIES: Cough, Shortness of breath Cardiovascular: DENIES: Chest pain, Palpitations Gastrointestinal: COMPLAINS OF: Abdominal pain, Diarrhea, Nausea, DENIES: Vomiting, Difficulty Swallowing Genitourinary: DENIES: Urinary frequency, Dysuria Musculoskeletal: DENIES: Joint pain Integumentary: DENIES: Rash Neurologic: DENIES: Headache Psychiatric: DENIES: Hallucinations Past Family Social History Allergies: Coded Allergies: *MDRO Multi-Drug Resistant Organism (Verified Allergy, Unknown, 5/24/17) Patient reported H/O MRSA MRSA PCR screen NEGATIVE- 01/27/17 Cleared per Infection Control Past Medical History Arthritis Depression Diabetes Hypertension Peripheral Neuropathy Pancreatitis Colitis Cholelithiasis CKD PVD CAD non operable multi vessel disease Ischemic cardiomyopathy Hx UTI Anemia CVA Past Surgical History x 4 Neck Fusion Right BKA 2013 Stents in leg Revascularizations for her PVD Active Ordered Medications Aspirin Wellbutrin Lovenox Fentanyl patch Dilaudid Keppra Melatonin Lopressor Zofran Protonix Zosyn Effexor Social History No ETOH Smokes a few cigarettes per day, states she is trying to quit. No illicit drugs Came from the [facility] Physical Exam Vital Signs Vital Signs Date Time Temp Pulse Resp B/P Pulse Ox O2 Delivery O2 Flow Rate FiO2 02/16/17 08:00 97.5 70 18 146/73 94 02/16/17 04:00 Nasal Cannula 3.00 02/16/17 04:00 98.2 72 20 157/81 95 02/16/17 00:00 Nasal Cannula 3.00 02/16/17 00:00 98.0 67 20 149/73 95 02/15/17 20:03 98.2 66 20 132/64 95 02/15/17 20:00 67 02/15/17 20:00 Nasal Cannula 3.00 02/15/17 16:03 98.1 66 20 134/64 95 02/15/17 12:03 98.3 64 20 137/63 93 Physical Exam GENERAL: Patient is a well-nourished, well-developed CF, awake and alert, not in respiratory distress. SKIN: Warm and dry. No generalized rash, no ecchymoses and no evidence of embolic lesions. HEAD: Atraumatic. Normocephalic. No temporal wasting, or tenderness. EYES: [place]aker conjunctiva. No petechia or hemorrhage. Pupils equal, round and reactive to light. Extraocular movements full and intact. No scleral icterus. No injection or drainage. EARS, NOSE AND THROAT: Nose without bleeding or purulent nasal discharge. No sinus tenderness. Mucous membranes pink and moist. No oral lesions noted. No exudate. No oral thrush. NECK: Trachea midline. Supple and not tender, no meningeal signs CARDIOVASCULAR: Regular rate and rhythm. No murmurs, rubs or gallops heard RESPIRATORY: Clear to auscultation. Breath sounds equal bilaterally. No rales , wheezing or rhonchi ABDOMEN: Soft, nondistended, with tenderness on R side and epigastric area. Bowel sounds present and normoactive. No guarding. No rebound. No organomegaly. EXTREMITIES: No clubbing, cyanosis, or edema.No joint effusion, has good ROM. No calf tenderness. Well perfused and warm. NEUROLOGICAL: Awake and alert. Cranial nerves grossly intact. Motor grossly within normal limits. PSYCHIATRIC: Normal affect, calm and cooperative. LINE: No evidence of infection Laboratory Laboratory Tests Test 02/15/17 22:00 Stool C. difficile Toxin (PCR) NEGATIVE Stl C. difficile Toxin PRESUMPTIVE Epiderm 027 NEGATIVE Date/Time Procedure Status Source Growth 02/14/17 18:00 Gram Stain - Final Complete Fluid Bile Fluid 02/14/17 18:00 Body Fluid Culture - Final Complete Klebsiella Pneumoniae 02/14/17 15:00 Cancelled Urine Clean Catch 02/14/17 13:30 Aerobic Blood Culture - Preliminary Resulted Blood Peripheral NO GROWTH IN 1 DAY 02/14/17 13:30 Anaerobic Blood Culture - Preliminary Resulted Blood Peripheral NO GROWTH IN 1 DAY Result Diagram: 02/14/17 1330 02/15/17 0724 Imaging RADIOLOGY STUDIES/FILMS REVIEWED Last Impressions Chest X-Ray 02/15/17 0000 Signed Impressions: Service Date/Time: Wednesday, February 15, 2017 16:31 - CONCLUSION: Slight improvement in aeration. Willy Mackay MD Abdomen CT 02/15/17 0000 Signed Impressions: Service Date/Time: Wednesday, February 15, 2017 20:25 - CONCLUSION: 1. Cholelithiasis. 2. Right upper quadrant catheter is seen as described above. 3. Bilateral pleural effusions and basilar consolidation. Marc Em MD Assessment and Plan Assessment and Plan IMPRESSION Possible sepsis, on admsission due to bilary tract source most likely Recurrent abdominal pain, has tube cholecystostomy for acute cholecystitis - no CBD dil on CT - bile C/S with Klebsiella - ?some malfunction of GB tube - low grade temps better, WBC normal, UA ok Diarrhea, C Diff negative RECOMMENDATION Continue Zosyn GI evaluating ?GB tube exchange - though its draining well Follow C/S Monitor progress I will determine course of Abx once work-up is completed I will follow along with you Thank you for this consultation Nisreen Garcia MD February 16, 2017 11:07
--- NOTE | 2017-02-16 13:20 | HHI.PR ---
Subjective Remarks patient awake and alert, feels weak tolerated liquids very well with no nausea still "hurts same spot" Objective Vitals Vital Signs Date Time Temp Pulse Resp B/P Pulse Ox O2 Delivery O2 Flow Rate FiO2 02/16/17 08:00 97.5 70 18 146/73 94 02/16/17 04:00 Nasal Cannula 3.00 02/16/17 04:00 98.2 72 20 157/81 95 02/16/17 00:00 Nasal Cannula 3.00 02/16/17 00:00 98.0 67 20 149/73 95 02/15/17 20:03 98.2 66 20 132/64 95 02/15/17 20:00 67 02/15/17 20:00 Nasal Cannula 3.00 02/15/17 16:03 98.1 66 20 134/64 95 I/O 02/15/17 02/15/17 02/15/17 02/16/17 02/16/17 02/16/17 07:00 15:00 23:00 07:00 15:00 23:00 Intake Total 120 ml 555 ml 617 ml Output Total 480 ml 400 ml 440 ml 480 ml Balance -480 ml -280 ml 115 ml 137 ml Intake Oral 120 ml 280 ml 120 ml IV Total 275 ml 497 ml Output Urine Total 350 ml 400 ml 400 ml 400 ml Drainage Total 130 ml 40 ml 80 ml # Bowel Movements 1 3 2 1 Result Diagram: 02/14/17 1330 02/15/17 0724 Imaging Last Impressions Chest X-Ray 02/15/17 0000 Signed Impressions: Service Date/Time: Wednesday, February 15, 2017 16:31 - CONCLUSION: Slight improvement in aeration. Willy Mackay MD Abdomen CT 02/15/17 0000 Signed Impressions: Service Date/Time: Wednesday, February 15, 2017 20:25 - CONCLUSION: 1. Cholelithiasis. 2. Right upper quadrant catheter is seen as described above. 3. Bilateral pleural effusions and basilar consolidation. Marc Em MD Objective Remarks awake and alert, appears in pain icteric dry oral mucosa lungs- decrease breath sounds, no rales or wheezes regular rhythm abdomen - soft, + tenderness right upper quadrant and epigastric area- cholecystostomy tube draining extremities no edema neuro non focal Urinary Catheter: Yes Assessment to: Continue Quesada insert reason: Prolonged Immobilization Date of Insertion: February 15, 2017 A/P Assessment and Plan 61-year-old female presenting with right upper quadrant pain nausea vomiting Sepsis secondary to biliary pathology-- heavy growth of gram negative rods in biliary fluid History of obstructive jaundice secondary to cholelithiasis status post cholecystostomy tube - in place- Start patient on Zosyn. Zofran IV prn ff LFTs GI ff. Infectious Disease consult. GS consult Acute respiratory alkalosis with Acute hypoxemia. Likely secondary to sepsis. O2 sats improved with nasal cannula 2 L.. Acute kidney injury secondary to sepsis- clinically dry Hyperkalemia- mild continue IVF- gentle hydration ff BMP. Hold YESENIA History of CAD, ischemic cardiomyopathy with known ejection fraction of 45%. BNP elevated .but clinically appears comfortable started on gentle IVF. ff lung exam. Hold YESENIA due to hyperkalemia History of seizure disorder, CVA, left basal ganglia infarct.. Neuro stable Continue on Keppra. Continue on aspirin. Patient was on aspirin from last admission. Will continue this. Will hold off on the Plavix in the event that patient may need a procedure. Anemia chronic. H&H near baseline. History of diabetes type 2 will follow blood sugars on sliding scale low dose and adjust Lovenox for DVT prophylaxis PPI IV Betina Morales MD February 16, 2017 13:20
--- NOTE | 2017-02-16 14:51 | HHI.GIFU ---
Subjective Remarks Patient continue to have RUQ pain, she was moaning and groaning when I walked in the room. Denies nausea or vomiting (Christal Razo) Objective Vitals I&O Vital Signs Date Time Temp Pulse Resp B/P Pulse Ox O2 Delivery O2 Flow Rate FiO2 02/16/17 08:00 97.5 70 18 146/73 94 02/16/17 04:00 Nasal Cannula 3.00 02/16/17 04:00 98.2 72 20 157/81 95 02/16/17 00:00 Nasal Cannula 3.00 02/16/17 00:00 98.0 67 20 149/73 95 02/15/17 20:03 98.2 66 20 132/64 95 02/15/17 20:00 67 02/15/17 20:00 Nasal Cannula 3.00 02/15/17 16:03 98.1 66 20 134/64 95 I/O 02/15/17 02/15/17 02/15/17 02/16/17 02/16/17 02/16/17 07:00 15:00 23:00 07:00 15:00 23:00 Intake Total 120 ml 555 ml 617 ml Output Total 480 ml 400 ml 440 ml 480 ml Balance -480 ml -280 ml 115 ml 137 ml Intake Oral 120 ml 280 ml 120 ml IV Total 275 ml 497 ml Output Urine Total 350 ml 400 ml 400 ml 400 ml Drainage Total 130 ml 40 ml 80 ml # Bowel Movements 1 3 2 1 Laboratory Laboratory Tests Test 02/15/17 22:00 Stool C. difficile Toxin (PCR) NEGATIVE Stl C. difficile Toxin PRESUMPTIVE Epiderm 027 NEGATIVE Date/Time Procedure Status Source Growth 02/14/17 18:00 Gram Stain - Final Complete Fluid Bile Fluid 02/14/17 18:00 Body Fluid Culture - Final Complete Klebsiella Pneumoniae 02/14/17 15:00 Cancelled Urine Clean Catch 02/14/17 13:30 Aerobic Blood Culture - Preliminary Resulted Blood Peripheral NO GROWTH IN 2 DAYS 02/14/17 13:30 Anaerobic Blood Culture - Preliminary Resulted Blood Peripheral NO GROWTH IN 2 DAYS Imaging Last Impressions Chest X-Ray 02/15/17 0000 Signed Impressions: Service Date/Time: Wednesday, February 15, 2017 16:31 - CONCLUSION: Slight improvement in aeration. Willy Mackay MD Abdomen CT 02/15/17 0000 Signed Impressions: Service Date/Time: Wednesday, February 15, 2017 20:25 - CONCLUSION: 1. Cholelithiasis. 2. Right upper quadrant catheter is seen as described above. 3. Bilateral pleural effusions and basilar consolidation. Marc Em MD Physical Exam HEENT: normocephalic; atraumatic; no jaundice. NECK: Neck is supple, no JVD, no lymphadenopathy. CHEST: Chest is clear to auscultation and percussion. CARDIAC: Regular rate and rhythm with no murmur gallop or rubs. ABDOMEN: Soft, nondistended, RUQ tenderness; no hepatosplenomegaly; bowel sounds are present in all four quadrants. Adrianna tube with drainage bag with scant dark green liquid noted. EXTREMITIES: No clubbing, cyanosis, or edema. SKIN: Normal; no rash; no jaundice. SCIENTIFIC PHOTOGRAPHER: No focal deficits; alert and oriented times three. (Christal Razo) Assessment and Plan Plan ASSESSMENT - elevated LFTs - Today labs pending CT on (02/15/17) showed Cholelithiasis. 2. Right upper quadrant catheter is seen 3. Bilateral pleural effusions and basilar consolidation. - RUQ pain - possibly related to gallbladder. pt with history cholelithiasis and s/p cholecystomy drain, was doing ok now with change in mental status elev LFTs,and pain. Previously told she is not candidate for surgery. PLAN - Clear liquids - Consult surg. - hydration - CMP, CBC in am - monitor labs - further recommendations based on results above This pt seen by myself and Dr Barrow (Christal Razo) Physician Comments Patient seen and examined Agree with above Continue with current supportive care Monitor labs At this point it is not clear if the patient has acute hepatitis secondary to an infectious process possibly involving the gallbladder which doesn't appear to be draining into the cholecystostomy tube or and I think this is more likely that the patient has drug-induced hepatitis and possibly related to the antibiotics We will need to discuss the case further with radiology and infectious disease in the attending physician Based on labs tomorrow we may need to change antibiotics or other medications or reposition cholecystostomy tube (Tai Barrow MD) Christal Razo February 16, 2017 14:51 Tai Barrow MD February 16, 2017 18:44
[2017-02-16 15:27] LABS: ALKALINE PHOSPHATASE 122 U/L (45-117); ALT (GPT) 1768 U/L (10-53); ANION GAP 11 MEQ/L (5-15); BICARBONATE 23.5 MEQ/L (21.0-32.0); BLOOD UREA NITROGEN 49 MG/DL (7-18); CHLORIDE 105 MEQ/L (98-107); GLOMERULAR FILTRATION RATE 20 ML/MIN (>89); POTASSIUM 4.9 MEQ/L (3.5-5.1); SODIUM (NA) 139 MEQ/L (136-145); TOTAL BILIRUBIN ADULT 0.5 MG/DL (0.2-1.0)
--- NOTE | 2017-02-16 16:33 | PD.CONS ---
cc: Jacques Schuster MD HPI Service General Surgery Consult Requested By Dung WRIGHT Reason for Consult Acute Cholecystitis Primary Care Physician No Primary Care Physician History of Present Illness This is a 61 year old female with a past medical history of hypertension, diabetes, CVA, ischemic cardiomyopathy, phantom limb pain, diabetic neuropathy, and left BKA for severe diabetic ulcer. She was recently admitted in early January to [place] with fever, sepsis and alerted mental status. At this time she complained of RIGHT upper quadrant abdominal pain. The patient had a CAT scan of the abdomen and pelvis as well as ultrasound of the liver which all showed cholelithiasis. Interventional radiology was consulted and a cholecystostomy tube was placed on February 01. The patient was discharged to rehab on Augmentin. She comes back to [facility] from rehab for nausea and increased RIGHT upper quadrant pain, 9/10, non radiating, sharp, better with sitting still, worse with food. A General Surgery consultation has been requested. Review of Systems Constitutional: DENIES: Fever Endocrine: DENIES: Polydipsia, Polyuria, Polyphagia Eyes: DENIES: Diplopia Ears, nose, mouth, throat: DENIES: Tinnitus Respiratory: DENIES: Apneas Gastrointestinal: COMPLAINS OF: Abdominal pain, Nausea, Vomiting Genitourinary: DENIES: Urinary frequency Musculoskeletal: DENIES: Joint pain Integumentary: DENIES: Abnormal pigmentation Hematologic/lymphatic: DENIES: Bruising Immunologic/allergic: DENIES: Eczema Neurologic: DENIES: Abnormal gait Psychiatric: DENIES: Mood changes, Depression Past Family Social History Past Medical History Hypertension Diabetes CVA Ischemic cardiomyopathy Phantom limb pain Diabetic neuropathy Past Surgical History Left below knee amputation Cholecystostomy tube placement on February 01, 2017 Reported Medications Cc chart but of note she does take Plavix at home in the hospital she has been on Lovenox and aspirin Allergies: Coded Allergies: *MDRO Multi-Drug Resistant Organism (Verified Allergy, Unknown, 02/15/17) Patient reported H/O MRSA MRSA PCR screen NEGATIVE- 01/27/17 Cleared per Infection Control Active Ordered Medications Current Medications Medications (Trade) Dose Ordered Sig/Jomar Route Start Time Stop Time Status Last Admin Sodium Chloride 2 ml 2 ml UNSCH PRN IV FLUSH 02/14/17 13:30 02/16/17 04:16 (Zosyn 3.375 Gm Premix) 50 ml @ 100 mls/hr Q6H IV 02/14/17 22:00 02/16/17 14:55 (Protonix Inj) 40 mg Q24H IV PUSH 02/14/17 18:00 02/15/17 17:28 (Zofran Inj) 4 mg Q6HR PRN IV PUSH 02/14/17 18:00 02/16/17 09:51 (Dilaudid Pf Inj) 0.5 mg Q4H PRN IV PUSH 02/14/17 18:00 02/16/17 14:54 (Wellbutrin Sr) 150 mg BID PO 02/15/17 09:00 02/16/17 09:57 (Duragesic 50 Mcg Patch.72 Hr) 50 patch Q72H T-DERMAL 02/16/17 20:00 (Keppra) 500 mg Q12HR PO 02/14/17 21:00 02/16/17 09:57 (Lopressor) 100 mg Q12HR PO 02/14/17 21:00 02/16/17 09:57 (Effexor Xr) 225 mg DAILY PO 02/15/17 09:00 02/16/17 09:57 (Melatonin) 5 mg HS PRN PO 02/14/17 21:00 (Aspirin Chew) 81 mg DAILY CHEW 02/15/17 09:00 02/16/17 09:57 Enoxaparin Sodium 30 mg 30 mg Q24H SQ 02/14/17 20:00 02/15/17 23:07 (D5W-NS 1000 ml Inj) 1,000 ml @ 70 mls/hr [id number] IV 02/15/17 16:00 02/16/17 05:40 (D50w (Vial) Inj) 50 ml UNSCH PRN IV 02/15/17 20:30 (Glucagon Inj) 1 mg UNSCH PRN OTHER 02/15/17 20:30 Family History Noncontributory Social History Tobacco--quit 2 months ago Denies EtOH use Denies illicit drug use Physical Exam Vital Signs Vital Signs Date Time Temp Pulse Resp B/P Pulse Ox O2 Delivery O2 Flow Rate FiO2 02/16/17 08:00 97.5 70 18 146/73 94 02/16/17 07:15 Nasal Cannula 3.00 02/16/17 04:00 Nasal Cannula 3.00 02/16/17 04:00 98.2 72 20 157/81 95 02/16/17 00:00 Nasal Cannula 3.00 02/16/17 00:00 98.0 67 20 149/73 95 02/15/17 20:03 98.2 66 20 132/64 95 02/15/17 20:00 67 02/15/17 20:00 Nasal Cannula 3.00 Physical Exam GENERAL: 61 year old female looks older than stated age resting in bed. SKIN: Warm and dry. HEAD: Atraumatic. Normocephalic. EYES: Pupils equal and round. No scleral icterus. No injection or drainage. ENT: No nasal bleeding or discharge. Mucous membranes pink and moist. NECK: Trachea midline. CARDIOVASCULAR: Regular rate and rhythm. RESPIRATORY: No accessory muscle use. Clear to auscultation. Breath sounds equal bilaterally. GASTROINTESTINAL: Abdomen soft. RUQ tenderness with palpation. Cholecystostomy tube in place with minimal green bile-like drainage and collection bag. Insertion site of drain is clean and dry. MUSCULOSKELETAL: Left BKA. NEUROLOGICAL: Awake and alert. No obvious cranial nerve deficits. Motor grossly within normal limits. Five out of 5 muscle strength in the arms and legs. Mumbled speech. PSYCHIATRIC: Appropriate mood and affect; insight and judgment normal. Laboratory Laboratory Tests Test 02/15/17 02/16/17 22:00 14:03 Stool C. difficile Toxin (PCR) NEGATIVE Stl C. difficile Toxin PRESUMPTIVE Epiderm 027 NEGATIVE Sodium Level 139 Potassium Level 4.9 Chloride Level 105 Carbon Dioxide Level 23.5 Anion Gap 11 Blood Urea Nitrogen 49 Creatinine 2.42 Estimat Glomerular Filtration 20 Rate Random Glucose 303 Calcium Level 8.1 Total Bilirubin 0.5 Alanine Aminotransferase 1768 (ALT/SGPT) Alkaline Phosphatase 122 Total Protein 6.2 Albumin 2.0 Date/Time Procedure Status Source Growth 02/14/17 18:00 Gram Stain - Final Complete Fluid Bile Fluid 02/14/17 18:00 Body Fluid Culture - Final Complete Klebsiella Pneumoniae 02/14/17 15:00 Cancelled Urine Clean Catch 02/14/17 13:30 Aerobic Blood Culture - Preliminary Resulted Blood Peripheral NO GROWTH IN 2 DAYS 02/14/17 13:30 Anaerobic Blood Culture - Preliminary Resulted Blood Peripheral NO GROWTH IN 2 DAYS Result Diagram: 02/26/17 0545 02/26/17 0545 Imaging Last 48 hours Impressions Chest X-Ray 02/15/17 0000 Signed Impressions: Service Date/Time: Wednesday, February 15, 2017 16:31 - CONCLUSION: Slight improvement in aeration. Willy Mackay MD Abdomen CT 02/15/17 0000 Signed Impressions: Service Date/Time: Wednesday, February 15, 2017 20:25 - CONCLUSION: 1. Cholelithiasis. 2. Right upper quadrant catheter is seen as described above. 3. Bilateral pleural effusions and basilar consolidation. Marc Em MD Assessment and Plan Assessment and Plan This is a 61-year-old female with multiple medical problems on Plavix with right upper quadrant pain and recent cholecystostomy tube placement. -NPO -Check coags -Cholangiogram tomorrow to evaluate cholecystomy tube -Check livers enzymes in the AM -Continue Zosyn -Patient is a poor surgical candidate -Thank you for this consultation---we will follow along with you Discussed Condition With Dr. Landen Barnett Attending Statement Patient seen at bedside ruq pain s/p sabiha tube possible tube dislodgement tube gram to evaluate placement possible reposition via ir Attestation The exam, history, and the medical decision-making described in the above note were completed with the assistance of the mid-level provider. I reviewed and agree with the findings presented. I attest that I had a [id number] encounter with the patient on the same day, and personally performed and documented my assessment and findings in the medical record. Melissa Whitlock February 16, 2017 16:33 Jacques Schuster MD Feb 26, 2017 21:19
--- NOTE | 2017-02-16 17:41 | EKG ---
Date Performed: 02/15/2017 Time Performed: 08:54:36 PTAGE: 61 years EKG: Sinus rhythm . Prolonged QT interval Anteroseptal infarct - age undetermined Inferior/lateral ST-T changes may be due to myocardial ischemia Generalized low QRS voltages Abnormal ECG Compared to the PREVIOUS TRACING from 01/27/17, rate has decreased and T wave changes are more prominent DOCTOR: Luke Moreau Interpretating Date/Time 02/16/2017 17:41:17
[2017-02-16 17:56] LABS: AST (GOT) 2383 U/L (15-37)
[2017-02-16] MEDS: PANTOPRAZOLE SODIUM 40 MG VIAL IV PUSH SCH (18:32)
[2017-02-16] MEDS: SODIUM CHLOR 0.9% 1000 ML INJ 1,000 ML IV SCH (19:00)
[2017-02-16] MEDS ORDERED: DEXTROSE 50% IN WATER 50 ML VIAL(D50) IV PRN (19:15)
[2017-02-16] MEDS ORDERED: GLUCAGON 1 MG/ML VIAL OTHER PRN (19:15)
[2017-02-16] MEDS: fentaNYL 50 MCG/HR PATCH T-DERMAL SCH (20:00)
[2017-02-16] MEDS: ENOXAPARIN SODIUM 30 MG/0.3 ML SYRINGE SQ SCH (22:08)
[2017-02-16] MEDS: INSULIN NovoLIN REGULAR SUPPLEMENTAL SCALE SQ SCH (22:18)
[2017-02-17] VITALS (7 sets, daily range): BP systolic 127–166; BP diastolic 67–77; PULSE 65–82; RESP 18–20; TEMP 97.3–98.4; O2SAT 96–97
[2017-02-17] MEDS: HYDROmorphone HCL PF 1 MG/ML VIAL IV PUSH PRN ×2 (05:16→09:54)
[2017-02-17] MEDS: PIPERACIL-TAZO 3.375 GM PREMIX 50 ML IV SCH ×4 (05:16→22:20)
[2017-02-17] MEDS: INSULIN NovoLIN REGULAR SUPPLEMENTAL SCALE SQ SCH ×4 (06:27→21:00)
[2017-02-17 07:44] LABS: INTERNATIONAL NORMALIZED RATIO 2.3 RATIO; PROTHROMBIN TIME - PATIENT 26.8 SEC (9.8-11.6)
[2017-02-17 07:53] LABS: BASOPHIL % 0.3 % (0.0-2.0); EOSINOPHIL # 0.1 TH/MM3 (0-0.4); EOSINOPHIL % 1.1 % (0.0-4.0); HEMATOCRIT 25.5 % (35.0-46.0); LYMPH % 21.9 % (9.0-44.0); LYMPHOCYTE # 2.2 TH/MM3 (1.0-4.8); MEAN CORPUSCULAR HEMOGLOBIN 30.3 PG (27.0-34.0); MEAN CORPUSCULAR HGB CONC 32.6 % (32.0-36.0); MONO % 6.8 % (0.0-8.0); NEUT % 69.9 % (16.0-70.0); PLATELET COUNT 262 TH/MM3 (150-450); RED BLOOD COUNT 2.74 MIL/MM3 (4.00-5.30); RED CELL DISTRIBUTION WIDTH 14.2 % (11.6-17.2)
[2017-02-17 07:54] LABS: HEMO FLAGS AUTO DIFF
[2017-02-17 08:14] LABS: ALKALINE PHOSPHATASE 122 U/L (45-117); ALT (GPT) 1524 U/L (10-53); ANION GAP 12 MEQ/L (5-15); AST (GOT) 1800 U/L (15-37); BICARBONATE 22.3 MEQ/L (21.0-32.0); BLOOD UREA NITROGEN 55 MG/DL (7-18); CHLORIDE 107 MEQ/L (98-107); GLOMERULAR FILTRATION RATE 18 ML/MIN (>89); POTASSIUM 4.5 MEQ/L (3.5-5.1); SODIUM (NA) 141 MEQ/L (136-145); TOTAL BILIRUBIN ADULT 0.6 MG/DL (0.2-1.0)
[2017-02-17 09:28] LABS: BANDS 2 % (0-6); CORRECTED NUCLEATED RBC 9 /100 WBC (0-0); EOSINOPHILS 1 % (0-4); NEUTROPHIL # MANUAL DIFF 6.5 TH/MM3 (1.8-7.7); POLYS (SEG NEUTROPHILS) 63 % (16-70); WBC DIFF SAMPLE 100
[2017-02-17 09:29] LABS: PLATELET ESTIMATE SMEAR NORMAL (NORMAL); PLATELET MORPHOLOGY ENLARGED (NORMAL); SCAN/DIFF FINAL DIFF MANUAL
--- NOTE | 2017-02-17 09:56 | HHI.GIFU ---
Subjective Remarks She is still in severe abd pain, GS on the case, plan for cholangiogram for possible adjustment to adrianna tube . (Christal Razo) Objective Vitals I&O Vital Signs Date Time Temp Pulse Resp B/P Pulse Ox O2 Delivery O2 Flow Rate FiO2 02/17/17 08:00 97.9 67 18 155/70 96 02/17/17 04:00 97.4 81 20 148/67 96 02/17/17 00:41 73 02/17/17 00:00 98.2 82 151/72 96 02/16/17 21:23 96 2.00 02/16/17 20:05 Nasal Cannula 3.00 02/16/17 20:00 98.7 70 18 155/79 99 02/16/17 16:00 98.4 73 18 160/85 92 02/16/17 12:00 98.0 68 18 144/74 95 I/O 02/16/17 02/16/17 02/16/17 02/17/17 02/17/17 02/17/17 07:00 15:00 23:00 07:00 15:00 23:00 Intake Total 617 ml 475 ml 520 ml 528 ml Output Total 480 ml 250 ml 65 ml 520 ml Balance 137 ml 225 ml 455 ml 8 ml Intake Oral 120 ml 0 ml 0 ml 0 ml IV Total 497 ml 475 ml 520 ml 528 ml Output Urine Total 400 ml 250 ml 0 ml 500 ml Drainage Total 80 ml 65 ml 20 ml # Bowel Movements 1 1 0 0 Laboratory Laboratory Tests Test 02/16/17 02/17/17 14:03 07:06 Sodium Level 139 141 Potassium Level 4.9 4.5 Chloride Level 105 107 Carbon Dioxide Level 23.5 22.3 Anion Gap 11 12 Blood Urea Nitrogen 49 55 Creatinine 2.42 2.73 Estimat Glomerular Filtration 20 18 Rate Random Glucose 303 242 Calcium Level 8.1 8.2 Total Bilirubin 0.5 0.6 Aspartate Amino Transf 2383 1800 (AST/SGOT) Alanine Aminotransferase 1768 1524 (ALT/SGPT) Alkaline Phosphatase 122 122 Total Protein 6.2 6.0 Albumin 2.0 1.8 White Blood Count 10.0 Red Blood Count 2.74 Hemoglobin 8.3 Hematocrit 25.5 Mean Corpuscular Volume 93.0 Mean Corpuscular Hemoglobin 30.3 Mean Corpuscular Hemoglobin 32.6 Concent Red Cell Distribution Width 14.2 Platelet Count 262 Mean Platelet Volume 10.1 Neutrophils (%) (Auto) 69.9 Lymphocytes (%) (Auto) 21.9 Monocytes (%) (Auto) 6.8 Eosinophils (%) (Auto) 1.1 Basophils (%) (Auto) 0.3 Neutrophils # (Auto) 7.0 Lymphocytes # (Auto) 2.2 Monocytes # (Auto) 0.7 Eosinophils # (Auto) 0.1 Basophils # (Auto) 0.0 CBC Comment AUTO DIFF Differential Total Cells 100 Counted Neutrophils % (Manual) 63 Band Neutrophils % 2 Lymphocytes % 26 Monocytes % 8 Eosinophils % 1 Neutrophils # (Manual) 6.5 Nucleated Red Blood Cells 9 Differential Comment FINAL DIFF MANUAL Platelet Estimate NORMAL Platelet Morphology Comment ENLARGED Prothrombin Time 26.8 Prothromb Time International 2.3 Ratio Date/Time Procedure Status Source Growth 02/14/17 18:00 Gram Stain - Final Complete Fluid Bile Fluid 02/14/17 18:00 Body Fluid Culture - Final Complete Klebsiella Pneumoniae 02/14/17 15:00 Cancelled Urine Clean Catch 02/14/17 13:30 Aerobic Blood Culture - Preliminary Resulted Blood Peripheral NO GROWTH IN 2 DAYS 02/14/17 13:30 Anaerobic Blood Culture - Preliminary Resulted Blood Peripheral NO GROWTH IN 2 DAYS Imaging Last Impressions Chest X-Ray 02/15/17 0000 Signed Impressions: Service Date/Time: Wednesday, February 15, 2017 16:31 - CONCLUSION: Slight improvement in aeration. Willy Mackay MD Abdomen CT 02/15/17 0000 Signed Impressions: Service Date/Time: Wednesday, February 15, 2017 20:25 - CONCLUSION: 1. Cholelithiasis. 2. Right upper quadrant catheter is seen as described above. 3. Bilateral pleural effusions and basilar consolidation. Marc Em MD Physical Exam HEENT: normocephalic; atraumatic; no jaundice. NECK: Neck is supple, no JVD, no lymphadenopathy. CHEST: Chest is clear to auscultation and percussion. CARDIAC: Regular rate and rhythm with no murmur gallop or rubs. ABDOMEN: Soft, nondistended, RUQ tenderness; no hepatosplenomegaly; bowel sounds are present in all four quadrants. Adrianna tube with drainage bag with scant dark green liquid noted. EXTREMITIES: No clubbing, cyanosis, or edema. SKIN: Normal; no rash; no jaundice. CAD TECHNICIAN: alert and oriented. (Christal Razo) Assessment and Plan Plan ASSESSMENT - elevated LFTs - Still high but trending down slowly CT on (02/15/17) showed Cholelithiasis. 2. Right upper quadrant catheter is seen 3. Bilateral pleural effusions and basilar consolidation. - RUQ pain - possibly related to gallbladder. pt with history cholelithiasis and s/p cholecystomy drain, GS on the case, repeat cholangiogram for possible adjustment to adrianna tube elev LFTs,and pain. Previously told she is not candidate for surgery. ID on the case - Possible acute hepatitis drug induced- ID on the case - Acute kidney failure- secondary to sepsis - Anemia- chronic dz, no bleeding reported, PLAN - Patient is NPO today for procedure - Cholangiogram today - Consider changing abx - hydration - LFTs in am - monitor labs - further recommendations based on results above This pt seen by myself and Dr Barrow (Christal Razo) Physician Comments Patient seen and examined Agree with above Continue with current supportive care Monitor labs Await cholangiogram Seeing that the trend for LFTs is down we can hold off on changing medications especially the antibiotics at this point in time (Tai Barrow MD) Christal Razo February 17, 2017 09:56 Tai Barrow MD February 17, 2017 10:35
[2017-02-17] MEDS: SODIUM CHLOR 0.9% 1000 ML INJ 1,000 ML IV SCH ×2 (09:58→22:21)
[2017-02-17] MEDS: METOPROLOL TARTRATE 100 MG TAB PO SCH ×2 (10:00→22:21)
[2017-02-17] MEDS: ASPIRIN 81 MG CHEW TAB CHEW SCH (10:00)
[2017-02-17] MEDS: levETIRAcetam 500 MG TAB PO SCH ×2 (10:00→22:20)
[2017-02-17] MEDS: buPROPion HCL 150 MG SUSTAINED RELEASE TAB PO SCH ×2 (10:00→22:20)
[2017-02-17] MEDS: VENLAFAXINE HCL XR 75 MG CAP PO SCH (10:00)
[2017-02-17] MEDS ORDERED: IOHEXOL 350 MG/ML 50 ML BTL (for RAD DIAG) ONE (13:27)
--- NOTE | 2017-02-17 14:42 | RADRPT ---
EXAM DATE/TIME: 02/17/2017 13:00 [place] COMPARISON: CHOLANGIOGRAM THRU EXISTING CATHETER, February 01, 2017, 0:00. INDICATIONS : Patient with history of cholelithiasis in need of drainage catheter removal. MEDICAL HISTORY : HTN, Diabetes, Chronic pain, CAD, Seizure disorder, HLD, CVA, CHF SURGICAL HISTORY : Right BKA secondary to diabetic foot infection, Cholecystostomy ENCOUNTER: Subsequent ACUITY: 3 weeks PAIN SCORE: 0/10 FLUORO TIME: 0.4 minutes IMAGE SERIES: 2 CONTRAST: 8 cc Omnipaque (iohexol) 350 PROCEDURE : 1. cholangiogram The risks, benefits and alternatives to the procedure were explained and verbal and written consent w as obtained. The site was prepped in sterile fashion. Full sterile technique was used, including ca p, mask, sterile gloves and gown and a large sterile sheet. Hand hygiene and 2% chlorhexidine and/or betadine/alcohol prep was utilized per protocol for cutaneous antisepsis. The skin and subcutaneous tissues were infiltrated with local anesthetic solution. Injection of the tube demonstrates the majority of the tube outside of the gallbladder lumen. There i s extravasation to the peritoneal cavity. The cystic duct cannot be evaluated. The tube was removed. CONCLUSION: 1. Majority of the the tube outside of the gallbladder lumen as above. The tube was removed Obdulio Virk MD on February 17, 2017 at 14:39 Board Certified Radiologist. This report was verified electronically.
--- NOTE | 2017-02-17 14:53 | HHI.PR ---
Subjective Remarks sleeping but wakes up when I call her name, states she wants to urinate but denies any pain. falls back to sleep Objective Vitals Vital Signs Date Time Temp Pulse Resp B/P Pulse Ox O2 Delivery O2 Flow Rate FiO2 02/17/17 08:35 Nasal Cannula 3.00 02/17/17 08:00 68 02/17/17 08:00 97.9 67 18 155/70 96 02/17/17 04:00 97.4 81 20 148/67 96 02/17/17 00:41 73 02/17/17 00:00 98.2 82 151/72 96 02/16/17 21:23 96 2.00 02/16/17 20:05 Nasal Cannula 3.00 02/16/17 20:00 98.7 70 18 155/79 99 02/16/17 16:00 98.4 73 18 160/85 92 I/O 02/16/17 02/16/17 02/16/17 02/17/17 02/17/17 02/17/17 07:00 15:00 23:00 07:00 15:00 23:00 Intake Total 617 ml 475 ml 520 ml 528 ml Output Total 480 ml 250 ml 65 ml 520 ml Balance 137 ml 225 ml 455 ml 8 ml Intake Oral 120 ml 0 ml 0 ml 0 ml IV Total 497 ml 475 ml 520 ml 528 ml Output Urine Total 400 ml 250 ml 0 ml 500 ml Drainage Total 80 ml 65 ml 20 ml # Bowel Movements 1 1 0 0 Result Diagram: 02/17/17 0706 02/17/17 0706 Imaging Last Impressions Cholangiogram 02/17/17 0800 Signed Impressions: Service Date/Time: Friday, February 17, 2017 13:00 - CONCLUSION: 1. Majority of the the tube outside of the gallbladder lumen as above. The tube was removed Obdulio Virk MD Chest X-Ray 02/15/17 0000 Signed Impressions: Service Date/Time: Wednesday, February 15, 2017 16:31 - CONCLUSION: Slight improvement in aeration. Willy Mackay MD Abdomen CT 02/15/17 0000 Signed Impressions: Service Date/Time: Wednesday, February 15, 2017 20:25 - CONCLUSION: 1. Cholelithiasis. 2. Right upper quadrant catheter is seen as described above. 3. Bilateral pleural effusions and basilar consolidation. Marc Em MD Objective Remarks awake and alert, appears somnolent but answers w yes and no then goes back to sleep icteric dry oral mucosa lungs- decrease breath sounds, no rales or wheezes regular rhythm no murmurs abdomen - soft, some discomfort in the right upper quadrant and epigastric area - dressing over the cholecystostomy tube which has been removed in place extremities no edema neuro: somnolent Date of Insertion: February 15, 2017 A/P Assessment and Plan 61-year-old female presenting with right upper quadrant pain nausea vomiting Sepsis secondary to biliary pathology-- growing klebsiella in biliary fluid History of obstructive jaundice secondary to cholelithiasis status post cholecystostomy tube placement which has been removed on Zosyn. Zofran IV prn ff LFTs GI ff. Infectious Disease ff. GS ff Cholangiogram showed cholecystostomy tube outside of the gallbladder; tube was removed Acute respiratory alkalosis with Acute hypoxemia. Likely secondary to sepsis. O2 sats improved with nasal cannula 2 L.. Acute kidney injury secondary to sepsis- Cr 2.73, continue IVFs. Hyperkalemia- resolved continue IVF- gentle hydration ff BMP. Hold YESENIA History of CAD, ischemic cardiomyopathy with known ejection fraction of 45%. BNP elevated .but clinically appears comfortable started on gentle IVF. ff lung exam. Hold YESENIA due CHRISTY History of seizure disorder, CVA, left basal ganglia infarct.. Neuro stable Continue on Keppra. Continue on aspirin. Will hold off on the Plavix in the event that patient may need a procedure. Anemia chronic. H&H near baseline. History of diabetes type 2 will follow blood sugars on sliding scale low dose and adjust Lovenox for DVT prophylaxis PPI IV Discharge Planning appreciate input from ID, GS and GI. d/c pending further recs Rosi Ash MD February 17, 2017 14:53
--- NOTE | 2017-02-17 15:10 | HHI.PR ---
Subjective Subjective Notes Resting in bed Non verbal Objective Vitals/I&O Vital Signs Date Time Temp Pulse Resp B/P Pulse Ox O2 Delivery O2 Flow Rate FiO2 02/17/17 08:35 Nasal Cannula 3.00 02/17/17 08:00 68 02/17/17 08:00 97.9 18 155/70 96 Labs Laboratory Tests Test 02/17/17 07:06 White Blood Count 10.0 Red Blood Count 2.74 Hemoglobin 8.3 Hematocrit 25.5 Mean Corpuscular Volume 93.0 Mean Corpuscular Hemoglobin 30.3 Mean Corpuscular Hemoglobin 32.6 Concent Red Cell Distribution Width 14.2 Platelet Count 262 Mean Platelet Volume 10.1 Neutrophils (%) (Auto) 69.9 Lymphocytes (%) (Auto) 21.9 Monocytes (%) (Auto) 6.8 Eosinophils (%) (Auto) 1.1 Basophils (%) (Auto) 0.3 Neutrophils # (Auto) 7.0 Lymphocytes # (Auto) 2.2 Monocytes # (Auto) 0.7 Eosinophils # (Auto) 0.1 Basophils # (Auto) 0.0 CBC Comment AUTO DIFF Differential Total Cells 100 Counted Neutrophils % (Manual) 63 Band Neutrophils % 2 Lymphocytes % 26 Monocytes % 8 Eosinophils % 1 Neutrophils # (Manual) 6.5 Nucleated Red Blood Cells 9 Differential Comment FINAL DIFF MANUAL Platelet Estimate NORMAL Platelet Morphology Comment ENLARGED Prothrombin Time 26.8 Prothromb Time International 2.3 Ratio Sodium Level 141 Potassium Level 4.5 Chloride Level 107 Carbon Dioxide Level 22.3 Anion Gap 12 Blood Urea Nitrogen 55 Creatinine 2.73 Estimat Glomerular Filtration 18 Rate Random Glucose 242 Calcium Level 8.2 Total Bilirubin 0.6 Aspartate Amino Transf 1800 (AST/SGOT) Alanine Aminotransferase 1524 (ALT/SGPT) Alkaline Phosphatase 122 Total Protein 6.0 Albumin 1.8 Date/Time Procedure Status Source Growth 02/14/17 18:00 Gram Stain - Final Complete Fluid Bile Fluid 02/14/17 18:00 Body Fluid Culture - Final Complete Klebsiella Pneumoniae 02/14/17 15:00 Cancelled Urine Clean Catch 02/14/17 13:30 Aerobic Blood Culture - Preliminary Resulted Blood Peripheral NO GROWTH IN 3 DAYS 02/14/17 13:30 Anaerobic Blood Culture - Preliminary Resulted Blood Peripheral NO GROWTH IN 3 DAYS Radiology Last 48 hours Impressions Chest X-Ray 02/15/17 0000 Signed Impressions: Service Date/Time: Wednesday, February 15, 2017 16:31 - CONCLUSION: Slight improvement in aeration. Willy Mackay MD Abdomen CT 02/15/17 0000 Signed Impressions: Service Date/Time: Wednesday, February 15, 2017 20:25 - CONCLUSION: 1. Cholelithiasis. 2. Right upper quadrant catheter is seen as described above. 3. Bilateral pleural effusions and basilar consolidation. Marc Em MD Cardiovascular: Regular Lungs: Clear Abdomen: Other (cholecystostomy tube removed by IR; RUQ tenderness with palpation ) Extremities: No edema A/P Assessment and Plan 61 year old female with multiple medical problems; cholecystostomy tube placement on February 01--dislodged; continues to have acute cholecystitis -Cholangiogram showed cholecystostomy tube outside of the gallbladder; tube removed -Nothing by mouth -Monitor liver enzymes -Patient is a poor surgical candidate Attending Statement patient seen at bedside persistent ruq pain and cholecystitis discuss possible tube replacement Attestation The exam, history, and the medical decision-making described in the above note were completed with the assistance of the mid-level provider. I reviewed and agree with the findings presented. I attest that I had a [id number] encounter with the patient on the same day, and personally performed and documented my assessment and findings in the medical record. Melissa Whitlock February 17, 2017 15:10 Jacques Schuster MD Mar 08, 2017 09:46
--- NOTE | 2017-02-17 15:23 | HHI.IDPN ---
Subjective Subjective Remarks Patient is a 62-year-old female into the hospital for evaluation of increasing abdominal pain and diarrhea. Patient was recently hospitalized and was diagnosed to have acute cholecystitis. It was felt that she was not a surgical candidate, and a tube cholecystostomy was placed. Culture of the bile was negative. Her blood cultures were negative. He clinically improved and was discharged to the residential, on oral Augmentin with plans to finish to treatment February 17. She was supposed to have a follow-up with interventional radiology to evaluate her gallbladder to for possible removal. In the residential she started having pain in the epigastric area as well as in the right upper quadrant. She was also having some nausea, but no vomiting. She had some loose stools. She presented to the hospital for further evaluation and treatment. CT of the abdomen and pelvis did not show any common bile duct palpitation. She did have evidence of bilateral effusion and atelectasis. Patient however has no respiratory complaint. She had some low- grade temp on admission. Her lactic acid is elevated. Her total bilirubin is normal, but her AST and ALT were elevated. Culture of the bile is now reported as growing Klebsiella, pansensitive. Her initial WBC is normal. Her urinalysis is unremarkable. Stool for C. difficile is negative. Blood cultures are negative so far. Notes reviewed Temps ok Just came back from radiology dept - sleepy GB tube removed, it was not in the GB and in the peritoneal cavity Antibiotics Zosyn Lines PIV Past Medical History Arthritis Depression Diabetes Hypertension Peripheral Neuropathy Pancreatitis Colitis Cholelithiasis CKD PVD CAD non operable multi vessel disease Ischemic cardiomyopathy Hx UTI Anemia CVA Past Surgical History x 4 Neck Fusion Right BKA 2013 Stents in leg Revascularizations for her PVD Allergies: Coded Allergies: *MDRO Multi-Drug Resistant Organism (Verified Allergy, Unknown, 02/15/17) Patient reported H/O MRSA MRSA PCR screen NEGATIVE- 01/27/17 Cleared per Infection Control Objective . Vital Signs Date Time Temp Pulse Resp B/P Pulse Ox O2 Delivery O2 Flow Rate FiO2 02/17/17 08:35 Nasal Cannula 3.00 02/17/17 08:00 68 02/17/17 08:00 97.9 67 18 155/70 96 02/17/17 04:00 97.4 81 20 148/67 96 02/17/17 00:41 73 02/17/17 00:00 98.2 82 151/72 96 02/16/17 21:23 96 2.00 02/16/17 20:05 Nasal Cannula 3.00 02/16/17 20:00 98.7 70 18 155/79 99 02/16/17 16:00 98.4 73 18 160/85 92 02/16/17 02/16/17 02/17/17 15:00 23:00 07:00 Intake Total 475 ml 520 ml 528 ml Output Total 250 ml 65 ml 520 ml Balance 225 ml 455 ml 8 ml Intake Oral 0 ml 0 ml 0 ml IV Total 475 ml 520 ml 528 ml Output Urine Total 250 ml 0 ml 500 ml Drainage Total 65 ml 20 ml # Bowel Movements 1 0 0 . Laboratory Tests Test 02/17/17 07:06 White Blood Count 10.0 TH/MM3 Red Blood Count 2.74 MIL/MM3 Hemoglobin 8.3 GM/DL Hematocrit 25.5 % Mean Corpuscular Volume 93.0 FL Mean Corpuscular Hemoglobin 30.3 PG Mean Corpuscular Hemoglobin 32.6 % Concent Red Cell Distribution Width 14.2 % Platelet Count 262 TH/MM3 Mean Platelet Volume 10.1 FL Neutrophils (%) (Auto) 69.9 % Lymphocytes (%) (Auto) 21.9 % Monocytes (%) (Auto) 6.8 % Eosinophils (%) (Auto) 1.1 % Basophils (%) (Auto) 0.3 % Neutrophils # (Auto) 7.0 TH/MM3 Lymphocytes # (Auto) 2.2 TH/MM3 Monocytes # (Auto) 0.7 TH/MM3 Eosinophils # (Auto) 0.1 TH/MM3 Basophils # (Auto) 0.0 TH/MM3 CBC Comment AUTO DIFF Differential Total Cells 100 Counted Neutrophils % (Manual) 63 % Band Neutrophils % 2 % Lymphocytes % 26 % Monocytes % 8 % Eosinophils % 1 % Neutrophils # (Manual) 6.5 TH/MM3 Nucleated Red Blood Cells 9 /100 WBC Differential Comment FINAL DIFF MANUAL Platelet Estimate NORMAL Platelet Morphology Comment ENLARGED Laboratory Tests Test 02/16/17 02/17/17 14:03 07:06 Sodium Level 139 MEQ/L 141 MEQ/L Potassium Level 4.9 MEQ/L 4.5 MEQ/L Chloride Level 105 MEQ/L 107 MEQ/L Carbon Dioxide Level 23.5 MEQ/L 22.3 MEQ/L Anion Gap 11 MEQ/L 12 MEQ/L Blood Urea Nitrogen 49 MG/DL 55 MG/DL Creatinine 2.42 MG/DL 2.73 MG/DL Estimat Glomerular Filtration 20 ML/MIN 18 ML/MIN Rate Random Glucose 303 MG/DL 242 MG/DL Calcium Level 8.1 MG/DL 8.2 MG/DL Total Bilirubin 0.5 MG/DL 0.6 MG/DL Aspartate Amino Transf 2383 U/L 1800 U/L (AST/SGOT) Alanine Aminotransferase 1768 U/L 1524 U/L (ALT/SGPT) Alkaline Phosphatase 122 U/L 122 U/L Total Protein 6.2 GM/DL 6.0 GM/DL Albumin 2.0 GM/DL 1.8 GM/DL Microbiology Date/Time Procedure Status Source Growth 02/14/17 18:00 Gram Stain - Final Complete Fluid Bile Fluid 02/14/17 18:00 Body Fluid Culture - Final Complete Klebsiella Pneumoniae Imaging Last Impressions Cholangiogram 02/17/17 0800 Signed Impressions: Service Date/Time: Friday, February 17, 2017 13:00 - CONCLUSION: 1. Majority of the the tube outside of the gallbladder lumen as above. The tube was removed Obdulio Virk MD Chest X-Ray 02/15/17 0000 Signed Impressions: Service Date/Time: Wednesday, February 15, 2017 16:31 - CONCLUSION: Slight improvement in aeration. Willy Mackay MD Abdomen CT 02/15/17 0000 Signed Impressions: Service Date/Time: Wednesday, February 15, 2017 20:25 - CONCLUSION: 1. Cholelithiasis. 2. Right upper quadrant catheter is seen as described above. 3. Bilateral pleural effusions and basilar consolidation. Marc Em MD Physical Exam GENERAL: Lethargic, not in distress SKIN: No rashes, ecchymoses or lesions. Cool and dry. HEAD: Atraumatic. Normocephalic. No temporal or scalp tenderness. EYES: Pupils equal round and reactive. Extraocular motions intact. No scleral icterus. No injection or drainage. ENT: Nose without bleeding, purulent drainage or septal hematoma. Dry oral mucosa NECK: Trachea midline. No JVD or lymphadenopathy. Supple, nontender, no meningeal signs. CARDIOVASCULAR: Regular rate and rhythm without murmurs, gallops, or rubs. RESPIRATORY: Clear to auscultation. Breath sounds equal bilaterally. No wheezes , rales, or rhonchi. GASTROINTESTINAL: Abdomen soft, mild tenderness on R side. Dry dressing over previous GB tube site. No guarding. MUSCULOSKELETAL: Extremities without clubbing, cyanosis, or edema. S/P BKA stump well healed NEUROLOGICAL: Lethargic PSYCH: Unable to assess LINE: PIV with no evidence of infection Assessment & Plan Remarks IMPRESSION Possible sepsis, on admsission due to bilary tract source most likely - GB tube in peritoneal cavity and not in right spot Recurrent abdominal pain, has tube cholecystostomy for acute cholecystitis - no CBD dil on CT - bile C/S with Klebsiella - due to malposition of GB tube, removed today - low grade temps better, WBC normal, UA ok Diarrhea, C Diff negative Abnormal LFTs RECOMMENDATION Continue Zosyn Follow C/S Monitor progress I will determine course of Abx once work-up is completed D/W RN Dr Chan covering for id 02/18-02/20 Nisreen Garcia MD February 17, 2017 15:23
[2017-02-17] MEDS: PANTOPRAZOLE SODIUM 40 MG VIAL IV PUSH SCH (17:46)
[2017-02-17] MEDS: ENOXAPARIN SODIUM 30 MG/0.3 ML SYRINGE SQ SCH (22:20)
[2017-02-18] VITALS: BP 142/66; PULSE 67; RESP 18; TEMP 96; O2SAT 96
[2017-02-18] MEDS: HYDROmorphone HCL PF 1 MG/ML VIAL IV PUSH PRN (02:25)
[2017-02-18] MEDS: PIPERACIL-TAZO 3.375 GM PREMIX 50 ML IV SCH ×4 (03:12→21:56)
[2017-02-18 04:00] VITALS: BP 126/72; PULSE 68; RESP 18; TEMP 97.4; O2SAT 99
[2017-02-18] MEDS: INSULIN NovoLIN REGULAR SUPPLEMENTAL SCALE SQ SCH ×4 (05:01→21:38)
--- NOTE | 2017-02-18 07:45 | HHI.PR ---
Subjective Remarks In bed, getting US. Patient sys she had pain, fairly controlled by meds. No n/v/ d/c. Yellow skin and pale. no fevere or chills. Feels very tired. No chest pain Feels sob. Objective Vitals Vital Signs Date Time Temp Pulse Resp B/P Pulse Ox O2 Delivery O2 Flow Rate FiO2 02/18/17 06:10 Nasal Cannula 3.00 02/18/17 04:00 97.4 68 18 126/72 99 02/18/17 01:02 Nasal Cannula 3.00 02/18/17 00:00 96.0 67 18 142/66 96 02/17/17 20:15 Nasal Cannula 3.00 02/17/17 20:00 65 02/17/17 20:00 97.5 67 18 127/68 97 02/17/17 16:30 Nasal Cannula 3.00 02/17/17 16:00 97.3 65 18 155/68 96 02/17/17 12:00 Nasal Cannula 3.00 02/17/17 12:00 98.4 82 18 166/77 96 02/17/17 08:35 Nasal Cannula 3.00 02/17/17 08:00 68 02/17/17 08:00 97.9 67 18 155/70 96 I/O 02/17/17 02/17/17 02/17/17 02/18/17 02/18/17 02/18/17 07:00 15:00 23:00 07:00 15:00 23:00 Intake Total 528 ml 0 ml 528 ml 618 ml Output Total 520 ml 25 ml 25 ml Balance 8 ml 0 ml 503 ml 593 ml Intake Oral 0 ml 0 ml IV Total 528 ml 528 ml 618 ml Output Urine Total 500 ml 25 ml 25 ml Drainage Total 20 ml # Bowel Movements 0 1 Result Diagram: 02/17/17 0706 02/17/17 0706 Imaging Last Impressions Cholangiogram 02/17/17 0800 Signed Impressions: Service Date/Time: Friday, February 17, 2017 13:00 - CONCLUSION: 1. Majority of the the tube outside of the gallbladder lumen as above. The tube was removed Obdulio Virk MD Chest X-Ray 02/15/17 0000 Signed Impressions: Service Date/Time: Wednesday, February 15, 2017 16:31 - CONCLUSION: Slight improvement in aeration. Willy Mackay MD Abdomen CT 02/15/17 0000 Signed Impressions: Service Date/Time: Wednesday, February 15, 2017 20:25 - CONCLUSION: 1. Cholelithiasis. 2. Right upper quadrant catheter is seen as described above. 3. Bilateral pleural effusions and basilar consolidation. Marc Em MD Objective Remarks GA: awake and alert, appears somnolent but answers w yes and no then goes back to sleep SKIN: icteric ENT: dry oral mucosa RESPIRATORY - decrease breath sounds, no rales or wheezes CARDIOVASCULAR: Regular rhythm no murmurs ABDOMEN: - soft, some discomfort in the right upper quadrant and epigastric area - dressing over the cholecystostomy tube which has been removed in place MSK: extremities no edema NEURO: somnolent Date of Insertion: February 15, 2017 A/P Assessment and Plan 61-year-old female presenting with right upper quadrant pain, nausea, vomiting Sepsis secondary to biliary pathology-- growing klebsiella in biliary fluid History of obstructive jaundice secondary to cholelithiasis status post cholecystostomy tube placement which has been removed will need cholecytostomy tube replaced - Dr Rivera gen surg called radiology and left message on Dr. Mackay's voicemail. IR reconsulted for evaluation. on Zosyn. Zofran IV prn ff LFTs GI ff. Infectious Disease ff. GS ff Cholangiogram showed cholecystostomy tube outside of the gallbladder; tube was removed 02/17. IR to reevaluate. POOR SURGICAL CANDIDATE PER GEN SURGERY Acute respiratory alkalosis with Acute hypoxemia. Likely secondary to sepsis. O2 sats improved with nasal cannula 2 L.. Acute kidney injury secondary to sepsis- Cr 2.73, continue IVFs. Hyperkalemia- resolved continue IVF- gentle hydration ff BMP. Hold YESENIA History of CAD, ischemic cardiomyopathy with known ejection fraction of 45%. BNP elevated .but clinically appears comfortable started on gentle IVF. ff lung exam. Hold YESENIA due CHRISTY History of seizure disorder, CVA, left basal ganglia infarct.. Neuro stable Continue on Keppra. Continue on aspirin. Will hold off on the Plavix in the event that patient may need a procedure. Anemia chronic. H&H near baseline. History of diabetes type 2 will follow blood sugars on sliding scale low dose and adjust Lovenox for DVT prophylaxis PPI IV Discharge Planning appreciate input from ID, GS and GI. d/c pending improvement, further recs Discussed with the patient, nurse Dr Blair gen surg Doris Estes MD February 18, 2017 07:45
[2017-02-18 08:00] VITALS: BP 181/77; PULSE 69; RESP 20; TEMP 97.6; O2SAT 100
--- NOTE | 2017-02-18 10:13 | HHI.PR ---
Subjective Subjective Notes still having RUQ pain, did not get sabiha tube replaced Objective Vitals/I&O Vital Signs Date Time Temp Pulse Resp B/P Pulse Ox O2 Delivery O2 Flow Rate FiO2 02/18/17 06:10 Nasal Cannula 3.00 02/18/17 04:00 97.4 68 18 126/72 99 Labs Date/Time Procedure Status Source Growth 02/14/17 18:00 Gram Stain - Final Complete Fluid Bile Fluid 02/14/17 18:00 Body Fluid Culture - Final Complete Klebsiella Pneumoniae 02/14/17 15:00 Cancelled Urine Clean Catch 02/14/17 13:30 Aerobic Blood Culture - Preliminary Resulted Blood Peripheral NO GROWTH IN 3 DAYS 02/14/17 13:30 Anaerobic Blood Culture - Preliminary Resulted Blood Peripheral NO GROWTH IN 3 DAYS Radiology Last 48 hours Impressions Chest X-Ray 02/15/17 0000 Signed Impressions: Service Date/Time: Wednesday, February 15, 2017 16:31 - CONCLUSION: Slight improvement in aeration. Willy Mackay MD Abdomen CT 02/15/17 0000 Signed Impressions: Service Date/Time: Wednesday, February 15, 2017 20:25 - CONCLUSION: 1. Cholelithiasis. 2. Right upper quadrant catheter is seen as described above. 3. Bilateral pleural effusions and basilar consolidation. Marc Em MD Abdomen: Other Narrative Exam tender in RUQ, dressing at old tube site A/P Assessment and Plan cholecystitis not a surgical candidate will need cholecytostomy tube replaced - i called radiology and left message on Dr. Mackay's voicemail. Consult placed in computer as well Doron Blair MD February 18, 2017 10:13
--- NOTE | 2017-02-18 10:57 | RADRPT ---
EXAM DATE/TIME: 02/18/2017 09:40 [facility] COMPARISON: CT ABDOMEN W/O CONTRAST, February 15, 2017, 20:25. INDICATIONS : Evaluate gallbladder, status post cholecystostomy tube removal. MEDICAL HISTORY : Hypercholesterolemia. Inflammatory bowel disease. Arthritis. Peripheral neuropathy. SURGICAL HISTORY : section. Right below the knee amputation. Bilateral leg stents. ENCOUNTER: Subsequent ACUITY: 4-6 days PAIN SCORE: 8/10 LOCATION: Right upper quadrant MEASUREMENTS: LIVER: 15.6 cm length COMMON DUCT: 5 mm RIGHT KIDNEY: 10.0 x 4.3 x 4.8 cm FINDINGS: LIVER: Mild increased echotexture without focal lesion or ductal dilatation. Main portal vein is within nor mal limits. COMMON DUCT: No intraluminal mass or stone visualized. GALLBLADDER: There is a single shadowing stone measuring 17 mm in the gallbladder neck. Gallbladder is moderately distended but no wall thickening is present. Content Publisher reports a positive sonographic Faria's. PANCREAS: The visualized portions are within normal limits. RIGHT KIDNEY: No evidence of hydronephrosis, stone, or mass. There is trace surrounding free fluid. There is a small right pleural effusion and small volume of ascites. CONCLUSION: 1. Gallbladder is mildly distended with 17 mm stone in the gallbladder neck. There is no significant gallbladder wall thickening. There is a positive sonographic Faria sign. 2. Small right pleural effusion and small volume of ascites. 3. Mild hepatic steatosis. Willy Suh MD on February 18, 2017 at 10:53 Board Certified Radiologist. This report was verified electronically.
[2017-02-18] MEDS: levETIRAcetam 500 MG TAB PO SCH ×2 (11:32→21:39)
[2017-02-18] MEDS: VENLAFAXINE HCL XR 75 MG CAP PO SCH (11:32)
[2017-02-18] MEDS: buPROPion HCL 150 MG SUSTAINED RELEASE TAB PO SCH ×2 (11:32→21:39)
[2017-02-18] MEDS: ASPIRIN 81 MG CHEW TAB CHEW SCH (11:32)
[2017-02-18] MEDS: METOPROLOL TARTRATE 100 MG TAB PO SCH ×2 (11:32→21:00)
[2017-02-18 12:00] VITALS: BP 155/74; PULSE 67; RESP 20; TEMP 97.7; O2SAT 99
[2017-02-18 12:30] LABS: AUTOMATED NEUTROPHIL # 6.8 TH/MM3 (1.8-7.7); BASOPHIL % 0.4 % (0.0-2.0); EOSINOPHIL # 0.1 TH/MM3 (0-0.4); EOSINOPHIL % 1.4 % (0.0-4.0); HEMO FLAGS AUTO DIFF; LYMPH % 20.1 % (9.0-44.0); LYMPHOCYTE # 1.9 TH/MM3 (1.0-4.8); MEAN CELL VOLUME 92.3 FL (80.0-100.0); MEAN CORPUSCULAR HEMOGLOBIN 29.8 PG (27.0-34.0); MEAN CORPUSCULAR HGB CONC 32.3 % (32.0-36.0); NEUT % 72.1 % (16.0-70.0); PLATELET COUNT 235 TH/MM3 (150-450); RED BLOOD COUNT 3.25 MIL/MM3 (4.00-5.30); RED CELL DISTRIBUTION WIDTH 14.9 % (11.6-17.2); WHITE BLOOD COUNT 9.5 TH/MM3 (4.0-11.0)
[2017-02-18 12:50] LABS: ALKALINE PHOSPHATASE 127 U/L (45-117); ALT (GPT) 1078 U/L (10-53); ANION GAP 16 MEQ/L (5-15); AST (GOT) 779 U/L (15-37); BICARBONATE 20.5 MEQ/L (21.0-32.0); BLOOD UREA NITROGEN 67 MG/DL (7-18); CHLORIDE 108 MEQ/L (98-107); GLOMERULAR FILTRATION RATE 17 ML/MIN (>89); POTASSIUM 4.3 MEQ/L (3.5-5.1); SODIUM (NA) 144 MEQ/L (136-145); TOTAL BILIRUBIN ADULT 0.7 MG/DL (0.2-1.0)
[2017-02-18 13:02] LABS: BANDS 14 % (0-6); CORRECTED NUCLEATED RBC 8 /100 WBC (0-0); EOSINOPHILS 3 % (0-4); NEUTROPHIL # MANUAL DIFF 7.6 TH/MM3 (1.8-7.7); POLYS (SEG NEUTROPHILS) 66 % (16-70); WBC DIFF SAMPLE 100
[2017-02-18 13:03] LABS: BURR CELLS 1+ (NORMAL); POLYCHROMASIA 2.1 % (0.0-1.9)
[2017-02-18 13:04] LABS: PLATELET ESTIMATE SMEAR NORMAL (NORMAL); PLATELET MORPHOLOGY NORMAL (NORMAL); SCAN/DIFF FINAL DIFF MANUAL
[2017-02-18] MEDS: SODIUM CHLOR 0.9% 1000 ML INJ 1,000 ML IV SCH (13:54)
[2017-02-18] MEDS ORDERED: fentaNYL CITRATE 250 MCG/5 ML AMP ONE (15:05)
[2017-02-18] MEDS ORDERED: MIDAZOLAM HCL 5 MG/5 ML VIAL ONE (15:05)
--- NOTE | 2017-02-18 15:47 | PD.RAD ---
Post Procedure Progress Note Pre Procedure Diagnosis: (1) Acute cholecystitis due to biliary calculus Post Procedure Diagnosis: (1) Acute cholecystitis due to biliary calculus Procedure Date: February 18, 2017 Supervising Radiologist: Willy Mackay Proceduralist/Assist: RT Nilam(R) Anesthesia: Local, Conscious Sedation Plan of Activity Patient to Unit: PACU Patient Condition: Fair See PACS Report for procedural detail/treatment Drainage Procedure Procedure 1 Imaging Guidance: Ultrasound Procedure Type: Cholecystostomy Procedure: Placement Romanian: 7 Drainage: Warren drainage Fluid Description: Bilious Willy Mackay MD February 18, 2017 15:47
[2017-02-18] MEDS ORDERED: *morphine SULFATE 8 MG/ML PERIprocedure ONLY ONE (16:49)
--- NOTE | 2017-02-18 17:18 | HHI.GIFU ---
Subjective Remarks Pt has been afebrile Cholecystostomy tube was replaced today by IR Denies any nausea/vomiting Some abd discomfort in the RUQ post-procedure. (Lauren Charlton) Objective Vitals I&O Vital Signs Date Time Temp Pulse Resp B/P Pulse Ox O2 Delivery O2 Flow Rate FiO2 02/18/17 14:42 99 Nasal Cannula 3.00 02/18/17 12:00 97.7 67 20 155/74 99 02/18/17 08:00 97.6 69 20 181/77 100 02/18/17 06:10 Nasal Cannula 3.00 02/18/17 04:00 97.4 68 18 126/72 99 02/18/17 01:02 Nasal Cannula 3.00 02/18/17 00:00 96.0 67 18 142/66 96 02/17/17 20:15 Nasal Cannula 3.00 02/17/17 20:00 65 02/17/17 20:00 97.5 67 18 127/68 97 I/O 02/17/17 02/17/17 02/17/17 02/18/17 02/18/17 02/18/17 07:00 15:00 23:00 07:00 15:00 23:00 Intake Total 528 ml 0 ml 528 ml 618 ml 1478 ml 300 ml Output Total 520 ml 25 ml 25 ml Balance 8 ml 0 ml 503 ml 593 ml 1478 ml 300 ml Intake Oral 0 ml 0 ml 0 ml IV Total 528 ml 528 ml 618 ml 1478 ml FFP 300 ml Output Urine Total 500 ml 25 ml 25 ml Drainage Total 20 ml # Bowel Movements 0 1 1 Laboratory Laboratory Tests Test 02/18/17 02/18/17 11:40 14:25 White Blood Count 9.5 Red Blood Count 3.25 Hemoglobin 9.7 Hematocrit 30.0 Mean Corpuscular Volume 92.3 Mean Corpuscular Hemoglobin 29.8 Mean Corpuscular Hemoglobin 32.3 Concent Red Cell Distribution Width 14.9 Platelet Count 235 Mean Platelet Volume 10.3 Neutrophils (%) (Auto) 72.1 Lymphocytes (%) (Auto) 20.1 Monocytes (%) (Auto) 6.0 Eosinophils (%) (Auto) 1.4 Basophils (%) (Auto) 0.4 Neutrophils # (Auto) 6.8 Lymphocytes # (Auto) 1.9 Monocytes # (Auto) 0.6 Eosinophils # (Auto) 0.1 Basophils # (Auto) 0.0 CBC Comment AUTO DIFF Differential Total Cells 100 Counted Neutrophils % (Manual) 66 Band Neutrophils % 14 Lymphocytes % 12 Monocytes % 5 Eosinophils % 3 Neutrophils # (Manual) 7.6 Nucleated Red Blood Cells 8 Differential Comment FINAL DIFF MANUAL Platelet Estimate NORMAL Platelet Morphology Comment NORMAL Polychromasia 2.1 [place] Cells 1+ Hematology Comments Sodium Level 144 Potassium Level 4.3 Chloride Level 108 Carbon Dioxide Level 20.5 Anion Gap 16 Blood Urea Nitrogen 67 Creatinine 2.82 Estimat Glomerular Filtration 17 Rate Random Glucose 191 Calcium Level 8.1 Total Bilirubin 0.7 Aspartate Amino Transf 779 (AST/SGOT) Alanine Aminotransferase 1078 (ALT/SGPT) Alkaline Phosphatase 127 Total Protein 5.8 Albumin 1.7 Blood Bank Comment Date/Time Procedure Status Source Growth 02/14/17 18:00 Gram Stain - Final Complete Fluid Bile Fluid 02/14/17 18:00 Body Fluid Culture - Final Complete Klebsiella Pneumoniae 02/14/17 15:00 Cancelled Urine Clean Catch 02/14/17 13:30 Aerobic Blood Culture - Preliminary Resulted Blood Peripheral NO GROWTH IN 4 DAYS 02/14/17 13:30 Anaerobic Blood Culture - Preliminary Resulted Blood Peripheral NO GROWTH IN 4 DAYS Imaging Last Impressions Gall Bladder Ultrasound 02/18/17 0000 Signed Impressions: Service Date/Time: Saturday, February 18, 2017 09:40 - CONCLUSION: 1. Gallbladder is mildly distended with 17 mm stone in the gallbladder neck. There is no significant gallbladder wall thickening. There is a positive sonographic Faria sign. 2. Small right pleural effusion and small volume of ascites. 3. Mild hepatic steatosis. Willy Suh MD Cholangiogram 02/17/17 0800 Signed Impressions: Service Date/Time: Friday, February 17, 2017 13:00 - CONCLUSION: 1. Majority of the the tube outside of the gallbladder lumen as above. The tube was removed Obdulio Virk MD Chest X-Ray 02/15/17 0000 Signed Impressions: Service Date/Time: Wednesday, February 15, 2017 16:31 - CONCLUSION: Slight improvement in aeration. Willy Mackay MD Abdomen CT 02/15/17 0000 Signed Impressions: Service Date/Time: Wednesday, February 15, 2017 20:25 - CONCLUSION: 1. Cholelithiasis. 2. Right upper quadrant catheter is seen as described above. 3. Bilateral pleural effusions and basilar consolidation. Marc Em MD Physical Exam GENERAL: NAD, Alert and oriented CHEST: CTA CARDIAC: Regular ABDOMEN: +BS, soft, RUQ tenderness. Cholecystostomy tube in place with minimal dark green liquid noted. EXTREMITIES: No clubbing, cyanosis, or edema. Left BKA. SKIN: Normal; no rash; no jaundice. (Lauren Charlton) Assessment and Plan Plan ASSESSMENT - Elevated LFTs. Pt was recently discharged on 02/08/17 after a long hospitalization with sepsis thought to from biliary source. Patient had a cholecystostomy tube placed by IR on 02/01/17. Patient was discharged on Augmentin. Pt was brought back to the hospital with N/V and complaints of RUQ abd pain. CT Abd/pelvis (02/15) --> Cholelithiasis and the pigtain drainage catheter in the RUQ directly anterior to or abutting the gallbladder was noted. Pts LFTs anabell significantly on 02/15 and peaked on 02/16 with AST 2383, ALT 1768 and AlkpHos 122. She did have some noted hypotension on . Cholangiogram was checked and the cholecystostomy tube was outside of the gallbladder and was removed on 02/17. IR replaced the cholecystostomy tube on 02/18. Repeat LFTs on 02/18 noted continued improvement to AST 779, ALT 1078, AlkPhos 127. Pts bilirubin remained stable. Bile C/S grew out Klebsiella. Pt is on Zosyn. - RUQ pain. Possibly related to gallbladder. Pt with history cholelithiasis and s/p cholecystomy drain, GS following. Previously told she is not candidate for surgery. - Acute kidney failure- secondary to sepsis - Anemia- chronic dz, no bleeding reported, PLAN - Monitor output from cholecystostomy tube - Cont. Zosyn. - Pain control PRN - Monitor labs - Further recommendations as the case develops - The pt was seen and examined by myself and Dr. Bell, this note was written on his behalf. (Lauren Charlton) Physician Comments Seen and examined with Lauren, pain control for now and follow LFT's Further recommendations to follow. (Tiffani Bell MD) Lauren Charlton February 18, 2017 17:18 Tiffani Bell MD February 19, 2017 04:56
[2017-02-18 17:30] VITALS: BP 123/59; PULSE 64; RESP 20; TEMP 97.2; O2SAT 99
[2017-02-18] MEDS: PANTOPRAZOLE SODIUM 40 MG VIAL IV PUSH SCH (18:51)
[2017-02-18 20:00] VITALS: BP 103/59; PULSE 58; RESP 16; TEMP 97.2; O2SAT 96
[2017-02-18] MEDS: ENOXAPARIN SODIUM 30 MG/0.3 ML SYRINGE SQ SCH (21:39)
[2017-02-19] VITALS (10 sets, daily range): BP systolic 115–159; BP diastolic 56–78; PULSE 59–68; RESP 18–20; TEMP 96.3–98.1; O2SAT 96–100
[2017-02-19] MEDS: PIPERACIL-TAZO 3.375 GM PREMIX 50 ML IV SCH ×4 (04:17→23:21)
[2017-02-19] MEDS: SODIUM CHLOR 0.9% 1000 ML INJ 1,000 ML IV SCH ×2 (04:18→18:30)
[2017-02-19] MEDS: INSULIN NovoLIN REGULAR SUPPLEMENTAL SCALE SQ SCH ×4 (06:28→23:35)
[2017-02-19 07:31] LABS: AUTOMATED NEUTROPHIL # 9.7 TH/MM3 (1.8-7.7); BASOPHIL # 0.1 TH/MM3 (0-0.2); BASOPHIL % 0.4 % (0.0-2.0); EOSINOPHIL # 0.7 TH/MM3 (0-0.4); EOSINOPHIL % 5.2 % (0.0-4.0); HEMATOCRIT 28.3 % (35.0-46.0); LYMPH % 19.9 % (9.0-44.0); LYMPHOCYTE # 2.8 TH/MM3 (1.0-4.8); MEAN CELL VOLUME 100.2 FL (80.0-100.0); MEAN CORPUSCULAR HEMOGLOBIN 30.6 PG (27.0-34.0); MEAN CORPUSCULAR HGB CONC 30.6 % (32.0-36.0); MONO % 5.7 % (0.0-8.0); NEUT % 68.8 % (16.0-70.0); PLATELET COUNT 208 TH/MM3 (150-450); RED BLOOD COUNT 2.83 MIL/MM3 (4.00-5.30); WHITE BLOOD COUNT 14.1 TH/MM3 (4.0-11.0)
[2017-02-19 07:32] LABS: HEMO FLAGS AUTO DIFF
[2017-02-19 07:38] LABS: MAGNESIUM 2.2 MG/DL (1.5-2.5)
[2017-02-19 09:01] LABS: BANDS 14 % (0-6); CORRECTED NUCLEATED RBC 9 /100 WBC (0-0); EOSINOPHILS 7 % (0-4); NEUTROPHIL # MANUAL DIFF 10.4 TH/MM3 (1.8-7.7); POLYS (SEG NEUTROPHILS) 60 % (16-70); WBC DIFF SAMPLE 100
[2017-02-19 09:08] LABS: POLYCHROMASIA 2.3 % (0.0-1.9)
[2017-02-19 09:09] LABS: BURR CELLS 2+ (NORMAL); PLATELET ESTIMATE SMEAR NORMAL (NORMAL); PLATELET MORPHOLOGY NORMAL (NORMAL); SCAN/DIFF FINAL DIFF MANUAL
[2017-02-19] MEDS: ASPIRIN 81 MG CHEW TAB CHEW SCH (09:09)
[2017-02-19] MEDS: METOPROLOL TARTRATE 100 MG TAB PO SCH ×2 (09:10→23:09)
[2017-02-19] MEDS: buPROPion HCL 150 MG SUSTAINED RELEASE TAB PO SCH ×2 (09:10→23:09)
[2017-02-19] MEDS: VENLAFAXINE HCL XR 75 MG CAP PO SCH (09:10)
[2017-02-19] MEDS: levETIRAcetam 500 MG TAB PO SCH ×2 (09:10→23:09)
--- NOTE | 2017-02-19 13:05 | HHI.PR ---
Subjective Remarks Patient in bed, says she doesn't feel improving. Feels very weak and tired. She can barely talk. Has pain in her abdomen. No n/v. Drain was placed yesterday by IR. No fever or chills. She is not eating much. Objective Vitals Vital Signs Date Time Temp Pulse Resp B/P Pulse Ox O2 Delivery O2 Flow Rate FiO2 02/19/17 12:10 97.0 62 18 152/70 100 02/19/17 09:27 62 02/19/17 09:26 100 Nasal Cannula 3.00 02/19/17 09:19 97.5 59 02/19/17 08:20 97.2 59 18 130/66 100 02/19/17 04:38 96.3 61 20 130/62 100 02/19/17 00:00 97.3 60 20 115/56 96 02/18/17 21:00 Nasal Cannula 2.00 02/18/17 20:00 97.2 58 16 103/59 96 02/18/17 17:30 97.2 64 20 123/59 99 02/18/17 17:00 63 23 129/62 100 Nasal Cannula 2 02/18/17 16:45 62 23 130/65 98 Nasal Cannula 2 02/18/17 16:30 62 16 132/59 100 Nasal Cannula 2 02/18/17 16:15 62 18 138/61 100 Nasal Cannula 2 02/18/17 15:58 97.3 63 15 127/58 99 Nasal Cannula 2 02/18/17 14:42 99 Nasal Cannula 3.00 I/O 02/18/17 02/18/17 02/18/17 02/19/17 02/19/17 02/19/17 07:00 15:00 23:00 07:00 15:00 23:00 Intake Total 618 ml 1478 ml 689 ml 887 ml Output Total 25 ml 75 ml 125 ml Balance 593 ml 1478 ml 614 ml 762 ml Intake Oral 0 ml 100 ml IV Total 618 ml 1478 ml 100 ml 787 ml FFP 589 ml Output Urine Total 25 ml 25 ml 125 ml Drainage Total 50 ml # Voids 2 # Bowel Movements 1 Result Diagram: 02/19/1740 02/19/1740 Objective Remarks GA: awake and alert, appears somnolent but answers w yes and no then goes back to sleep SKIN: icteric ENT: dry oral mucosa RESPIRATORY - decrease breath sounds, no rales or wheezes CARDIOVASCULAR: Regular rhythm no murmurs ABDOMEN: - soft, some discomfort in the right upper quadrant and epigastric area - dressing over the cholecystostomy tube which has been replaced 02/18 by IR MSK: extremities no edema NEURO: somnolent Date of Insertion: February 15, 2017 A/P Assessment and Plan 61-year-old female presenting with right upper quadrant pain, nausea, vomiting Sepsis secondary to biliary pathology-- growing klebsiella in biliary fluid History of obstructive jaundice secondary to cholelithiasis status post cholecystostomy tube placement which has been removed Had cholecytostomy tube replaced - by Dr. Mackay's IR on 02/18/17 on Zosyn. Zofran IV prn ff LFTs GI ff. Infectious Disease ff. GS ff Cholangiogram showed cholecystostomy tube outside of the gallbladder; tube was removed 02/17. IR to reevaluate. POOR SURGICAL CANDIDATE PER GEN SURGERY Acute respiratory alkalosis with Acute hypoxemia. Likely secondary to sepsis. O2 sats improved with nasal cannula 2 L.. Acute kidney injury secondary to sepsis- Cr 2.73, continue IVFs. Hyperkalemia- resolved continue IVF- gentle hydration ff BMP. Hold YESNEIA History of CAD, ischemic cardiomyopathy with known ejection fraction of 45%. BNP elevated .but clinically appears comfortable started on gentle IVF. ff lung exam. Hold YESENIA due CHRISTY History of seizure disorder, CVA, left basal ganglia infarct.. Neuro stable Continue on Keppra. Continue on aspirin. Will hold off on the Plavix in the event that patient may need a procedure. Anemia chronic. H&H near baseline. History of diabetes type 2 will follow blood sugars on sliding scale low dose and adjust Lovenox for DVT prophylaxis PPI IV Discharge Planning appreciate input from ID, GS and GI. d/c pending improvement, further recs Discussed with the patient, nurse Doris sEtes MD February 19, 2017 13:05
[2017-02-19] MEDS: PANTOPRAZOLE SODIUM 40 MG VIAL IV PUSH SCH (16:55)
--- NOTE | 2017-02-19 18:37 | HHI.PR ---
Subjective Subjective Notes feels better Objective Vitals/I&O Vital Signs Date Time Temp Pulse Resp B/P Pulse Ox O2 Delivery O2 Flow Rate FiO2 02/19/17 17:25 96.9 62 18 148/78 100 02/19/17 09:26 Nasal Cannula 3.00 Labs Laboratory Tests Test 02/19/17 06:40 White Blood Count 14.1 Red Blood Count 2.83 Hemoglobin 8.7 Hematocrit 28.3 Mean Corpuscular Volume 100.2 Mean Corpuscular Hemoglobin 30.6 Mean Corpuscular Hemoglobin 30.6 Concent Red Cell Distribution Width 16.0 Platelet Count 208 Mean Platelet Volume 10.1 Neutrophils (%) (Auto) 68.8 Lymphocytes (%) (Auto) 19.9 Monocytes (%) (Auto) 5.7 Eosinophils (%) (Auto) 5.2 Basophils (%) (Auto) 0.4 Neutrophils # (Auto) 9.7 Lymphocytes # (Auto) 2.8 Monocytes # (Auto) 0.8 Eosinophils # (Auto) 0.7 Basophils # (Auto) 0.1 CBC Comment AUTO DIFF Differential Total Cells 100 Counted Neutrophils % (Manual) 60 Band Neutrophils % 14 Lymphocytes % 12 Monocytes % 7 Eosinophils % 7 Neutrophils # (Manual) 10.4 Nucleated Red Blood Cells 9 Differential Comment FINAL DIFF MANUAL Platelet Estimate NORMAL Platelet Morphology Comment NORMAL Polychromasia 2.3 [place] Cells 2+ Sodium Level 145 Potassium Level 4.0 Chloride Level 111 Carbon Dioxide Level 19.0 Anion Gap 15 Blood Urea Nitrogen 65 Creatinine 2.87 Estimat Glomerular Filtration 17 Rate Random Glucose 195 Calcium Level 8.0 Magnesium Level 2.2 Radiology Last 48 hours Impressions Chest X-Ray 02/15/17 0000 Signed Impressions: Service Date/Time: Wednesday, February 15, 2017 16:31 - CONCLUSION: Slight improvement in aeration. Willy Mackay MD Abdomen CT 02/15/17 0000 Signed Impressions: Service Date/Time: Wednesday, February 15, 2017 20:25 - CONCLUSION: 1. Cholelithiasis. 2. Right upper quadrant catheter is seen as described above. 3. Bilateral pleural effusions and basilar consolidation. Marc Em MD Abdomen: Non-distended, Non-tender Narrative Exam biliary drain in RUQ A/P Assessment and Plan 61yo female with cholecystitis, not a surgical candidate s/p cholecystostomy tube placement, stable. continue medical management/ABX. can have low fat diet Yoel Crouch MD February 19, 2017 18:37
--- NOTE | 2017-02-19 23:05 | RADRPT ---
EXAM DATE/TIME: 02/18/2017 14:43 [facility] COMPARISON: No previous studies available for comparison. INDICATIONS : Patient with cholecystitis and cholelithiasis in need of cholecystostomy tube placement. 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 Ultrasound guided puncture of the gallbladder. 2. Percutaneous cholangiogram. 3. Percutaneous cholecystostomy tube placement. 4. Conscious sedation with continuous EKG and oximetry monitoring. The risks, benefits and alternatives to the procedure were explained and verbal and written consent w as obtained. The site was prepped in sterile fashion. Full sterile technique was used, including ca p, mask, sterile gloves and gown and a large sterile sheet. Hand hygiene and 2% chlorhexidine and/or betadine/alcohol prep was utilized per protocol for cutaneous antisepsis. The skin and subcutaneous tissues were infiltrated with local anesthetic solution. With ultrasound and fluoroscopic guidance the gallbladder was punctured with a micropuncture set and a 4 [place] dilator was placed. Injection of positive contrast demonstrates position within the gallb ladder. A 0.035 guidewire was placed within the gallbladder lumen and dilatation was performed to ac cept the prescribed catheter. Conscious sedation was performed with the prescribed dosages and duration as above in the presence of an independent trained radiology nurse to assist in the monitoring of the patient. EKG and oximetry remained stable throughout the procedure. The patient tolerated the procedure well and there were n o complications. The patient was sent to post anesthesia recovery in stable condition. CONCLUSION: Uncomplicated percutaneous cholecystostomy as above. Willy Mackay MD on February 19, 2017 at 23:03 Board Certified Radiologist. This report was verified electronically.
[2017-02-19] MEDS: ENOXAPARIN SODIUM 30 MG/0.3 ML SYRINGE SQ SCH (23:08)
[2017-02-19] MEDS: fentaNYL 50 MCG/HR PATCH T-DERMAL SCH (23:21)
[2017-02-20] VITALS (8 sets, daily range): BP systolic 134–150; BP diastolic 60–80; PULSE 60–89; RESP 16–20; TEMP 96.4–97.5; O2SAT 96–100
[2017-02-20] MEDS: PIPERACIL-TAZO 3.375 GM PREMIX 50 ML IV SCH ×2 (05:09→09:42)
[2017-02-20] MEDS: INSULIN NovoLIN REGULAR SUPPLEMENTAL SCALE SQ SCH ×4 (06:04→21:00)
[2017-02-20] MEDS: SODIUM CHLOR 0.9% 1000 ML INJ 1,000 ML IV SCH ×2 (06:05→21:34)
[2017-02-20] MEDS: levETIRAcetam 500 MG TAB PO SCH ×2 (09:00→09:39)
[2017-02-20] MEDS: buPROPion HCL 150 MG SUSTAINED RELEASE TAB PO SCH ×2 (09:38→21:00)
[2017-02-20] MEDS: METOPROLOL TARTRATE 100 MG TAB PO SCH ×2 (09:39→21:33)
[2017-02-20] MEDS: VENLAFAXINE HCL XR 75 MG CAP PO SCH (09:39)
[2017-02-20] MEDS: ASPIRIN 81 MG CHEW TAB CHEW SCH (09:39)
--- NOTE | 2017-02-20 10:19 | HHI.PR ---
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 Has decreased appetite and feels too weak. Feels very tired. No n/v/d/c. No fever or chills. Has sob, no cough. Pain in abdomen controlled. Objective Vitals Vital Signs Date Time Temp Pulse Resp B/P Pulse Ox O2 Delivery O2 Flow Rate FiO2 02/20/17 08:07 97.3 89 18 135/80 96 02/20/17 08:00 97.2 64 20 138/72 100 02/20/17 05:36 97.2 68 19 143/65 100 02/20/17 00:39 97.5 68 19 134/64 99 02/19/17 22:40 Nasal Cannula 3.00 02/19/17 20:59 98.1 68 20 159/73 100 02/19/17 20:00 67 02/19/17 17:25 96.9 62 18 148/78 100 02/19/17 14:30 96.9 62 18 148/78 100 02/19/17 12:10 97.0 62 18 152/70 100 I/O 02/19/17 02/19/17 02/19/17 02/20/17 02/20/17 02/20/17 07:00 15:00 23:00 07:00 15:00 23:00 Intake Total 887 ml 1631 ml 660 ml Output Total 125 ml 115 ml 140 ml Balance 762 ml 1516 ml 520 ml Intake Oral 100 ml IV Total 787 ml 1631 ml 660 ml Output Urine Total 125 ml 100 ml 100 ml Drainage Total 15 ml 40 ml Result Diagram: 02/19/17 0640 02/19/17 0640 Imaging Last Impressions Percutaneous Cholangiogram 02/18/17 0000 Signed Impressions: Service Date/Time: Saturday, February 18, 2017 14:43 - CONCLUSION: Uncomplicated percutaneous cholecystostomy as above. Willy Mackay MD Gall Bladder Ultrasound 02/18/17 0000 Signed Impressions: Service Date/Time: Saturday, February 18, 2017 09:40 - CONCLUSION: 1. Gallbladder is mildly distended with 17 mm stone in the gallbladder neck. There is no significant gallbladder wall thickening. There is a positive sonographic Faria sign. 2. Small right pleural effusion and small volume of ascites. 3. Mild hepatic steatosis. Willy Suh MD Cholangiogram 02/17/17 0800 Signed Impressions: Service Date/Time: Friday, February 17, 2017 13:00 - CONCLUSION: 1. Majority of the the tube outside of the gallbladder lumen as above. The tube was removed Obdulio Virk MD Chest X-Ray 02/15/17 0000 Signed Impressions: Service Date/Time: Wednesday, February 15, 2017 16:31 - CONCLUSION: Slight improvement in aeration. Willy Mackay MD Abdomen CT 02/15/17 0000 Signed Impressions: Service Date/Time: Wednesday, February 15, 2017 20:25 - CONCLUSION: 1. Cholelithiasis. 2. Right upper quadrant catheter is seen as described above. 3. Bilateral pleural effusions and basilar consolidation. Marc Em MD Objective Remarks GA: awake and alert, appears somnolent but answers w yes and no then goes back to sleep SKIN: icteric ENT: dry oral mucosa RESPIRATORY - decrease breath sounds, no rales or wheezes CARDIOVASCULAR: Regular rhythm no murmurs ABDOMEN: - soft, some discomfort in the right upper quadrant and epigastric area - dressing over the cholecystostomy tube which has been replaced 02/18 by IR MSK: extremities no edema NEURO: somnolent Date of Insertion: February 15, 2017 A/P Assessment and Plan 61-year-old female presenting with right upper quadrant pain, nausea, vomiting Sepsis secondary to biliary pathology-- growing klebsiella in biliary fluid History of obstructive jaundice secondary to cholelithiasis status post cholecystostomy tube placement which has been removed Had cholecytostomy tube replaced - by Dr. Mackay's IR on 02/18/17 on Zosyn IV. Zofran IV prn ff LFTs GI ff. Infectious Disease ff. GS ff Cholangiogram showed cholecystostomy tube outside of the gallbladder; tube was removed 02/17. IR to reevaluate. POOR SURGICAL CANDIDATE PER GEN SURGERY Acute respiratory alkalosis with Acute hypoxemia. Likely secondary to sepsis. O2 sats improved with nasal cannula 2 L.. Acute kidney injury secondary to sepsis- Cr 2.73, continue IVFs. Hyperkalemia- resolved continue IVF- gentle hydration ff BMP. Hold YESENIA History of CAD, ischemic cardiomyopathy with known ejection fraction of 45%. BNP elevated .but clinically appears comfortable started on gentle IVF. ff lung exam. Hold YESENIA due CHRISTY History of seizure disorder, CVA, left basal ganglia infarct.. Neuro stable Continue on Keppra, will change to liquid form as can;t swallow keppra pills. Will also consult swallow eval. Continue on aspirin. Will hold off on the Plavix in the event that patient may need a procedure. Anemia chronic. H&H near baseline. History of diabetes type 2 will follow blood sugars on sliding scale low dose and adjust Lovenox for DVT prophylaxis PPI IV Discharge Planning appreciate input from ID, GS and GI. d/c pending improvement, further recs Discussed with the patient, nurse Doris Estes MD February 20, 2017 10:19
--- NOTE | 2017-02-20 11:44 | HHI.PR ---
Subjective Subjective Notes DAILY PROGRESS NOTE FOR SURGICAL ATTENDING, DR. MAL BOWEN Resting in bed RN at bedside Objective Vitals/I&O Vital Signs Date Time Temp Pulse Resp B/P Pulse Ox O2 Delivery O2 Flow Rate FiO2 02/20/17 08:07 97.3 89 18 135/80 96 02/19/17 22:40 Nasal Cannula 3.00 Labs Laboratory Tests Test 02/17/17 02/18/17 02/18/17 02/19/17 07:06 11:40 14:25 06:40 Prothrombin Time 26.8 SEC Prothromb Time International 2.3 RATIO Ratio Hematology Comments Total Bilirubin 0.7 MG/DL Aspartate Amino Transf 779 U/L (AST/SGOT) Alanine Aminotransferase 1078 U/L (ALT/SGPT) Alkaline Phosphatase 127 U/L Total Protein 5.8 GM/DL Albumin 1.7 GM/DL Blood Bank Comment White Blood Count 14.1 TH/MM3 Red Blood Count 2.83 MIL/MM3 Hemoglobin 8.7 GM/DL Hematocrit 28.3 % Mean Corpuscular Volume 100.2 FL Mean Corpuscular Hemoglobin 30.6 PG Mean Corpuscular Hemoglobin 30.6 % Concent Red Cell Distribution Width 16.0 % Platelet Count 208 TH/MM3 Mean Platelet Volume 10.1 FL Neutrophils (%) (Auto) 68.8 % Lymphocytes (%) (Auto) 19.9 % Monocytes (%) (Auto) 5.7 % Eosinophils (%) (Auto) 5.2 % Basophils (%) (Auto) 0.4 % Neutrophils # (Auto) 9.7 TH/MM3 Lymphocytes # (Auto) 2.8 TH/MM3 Monocytes # (Auto) 0.8 TH/MM3 Eosinophils # (Auto) 0.7 TH/MM3 Basophils # (Auto) 0.1 TH/MM3 CBC Comment AUTO DIFF Differential Total Cells 100 Counted Neutrophils % (Manual) 60 % Band Neutrophils % 14 % Lymphocytes % 12 % Monocytes % 7 % Eosinophils % 7 % Neutrophils # (Manual) 10.4 TH/MM3 Nucleated Red Blood Cells 9 /100 WBC Differential Comment FINAL DIFF MANUAL Platelet Estimate NORMAL Platelet Morphology Comment NORMAL Polychromasia 2.3 % [place] Cells 2+ Sodium Level 145 MEQ/L Potassium Level 4.0 MEQ/L Chloride Level 111 MEQ/L Carbon Dioxide Level 19.0 MEQ/L Anion Gap 15 MEQ/L Blood Urea Nitrogen 65 MG/DL Creatinine 2.87 MG/DL Estimat Glomerular Filtration 17 ML/MIN Rate Random Glucose 195 MG/DL Calcium Level 8.0 MG/DL Magnesium Level 2.2 MG/DL Radiology Last 48 hours Impressions Chest X-Ray 02/15/17 0000 Signed Impressions: Service Date/Time: Wednesday, February 15, 2017 16:31 - CONCLUSION: Slight improvement in aeration. Willy Mackay MD Abdomen CT 02/15/17 0000 Signed Impressions: Service Date/Time: Wednesday, February 15, 2017 20:25 - CONCLUSION: 1. Cholelithiasis. 2. Right upper quadrant catheter is seen as described above. 3. Bilateral pleural effusions and basilar consolidation. Marc Em MD Cardiovascular: Regular Lungs: Clear Abdomen: Other (sabiha tube in place with bilious drainage in gravity bag ) Extremities: No edema A/P Problem List: (1) Left-sided weakness (2) Stroke of unknown etiology (3) Acute pancreatitis (4) Diabetes (5) CKD (chronic kidney disease) stage 3, GFR 30-59 ml/min (6) Acute cholecystitis due to biliary calculus (7) Abdominal pain Assessment and Plan 61 year old female with multiple medical problems; cholecystostomy tube placement on February 01--dislodged; continues to have acute cholecystitis -Cholecystostomy replaced; continue drainage bag to gravity -Diet as tolerated -Monitor liver enzymes -Patient is a poor surgical candidate Attending Statement NOTE FOR SURGICAL ATTENDING, DR. MAL BOWEN I agree with above assessment and plan. The exam, history, and the medical decision-making described in the above note were completed with the assistance of the mid-level provider. I reviewed and agree with the findings presented. Reviewed case with the nurse at the bedside Continue cholecystotomy tube is I attest that I had a [id number] encounter with the patient on the same day, and personally performed and documented my assessment and findings in the medical record. The following services were provided during this hospital visit: Chart data review, vital sign assessments/reviewing monitor data Review of consultations notes if present. Medication orders/review and/or management Ordering and/or reviewing lab tests Ordering and/or interpreting/reviewing x-rays and/or diagnostic studies Care of the patient and discussion of the patient with the care team Documentation time To help prompt me to consider important information that might be impacting today's encounter and assessment, information from prior notes written by myself or my colleagues may have been "brought forward/copy and pasted" into today's note. Problem Qualifiers (1) Abdominal pain: Qualified Code: R10.11 - Right upper quadrant abdominal pain Melissa Whitlock February 20, 2017 11:44 Mal Bowen MD February 20, 2017 12:50
[2017-02-20] MEDS: levETIRAcetam 500 MG/5 ML UDC NG SCH ×2 (14:20→21:34)
[2017-02-20] MEDS ORDERED: SODIUM CHLOR 0.9% 1000 ML INJ 1,000 ML IV ONE (15:45)
[2017-02-20] MEDS: PIPERACIL-TAZO 2.25 GM PREMIX 50 ML IV SCH ×2 (17:15→21:34)
[2017-02-20] MEDS: PANTOPRAZOLE SODIUM 40 MG VIAL IV PUSH SCH (17:16)
[2017-02-20] MEDS ORDERED: OXYBUTYNIN CHLORIDE 5 MG TAB PO ONE (18:45)
[2017-02-20] MEDS: ENOXAPARIN SODIUM 30 MG/0.3 ML SYRINGE SQ SCH (21:33)
[2017-02-20] MEDS: OXYBUTYNIN CHLORIDE 5 MG TAB PO SCH (21:34)
[2017-02-20] MEDS ORDERED: DEXTROSE 50% IN WATER 50 ML VIAL(D50) IV PRN (22:15)
[2017-02-20] MEDS ORDERED: GLUCAGON 1 MG/ML VIAL IM PRN (22:15)
[2017-02-21] VITALS (7 sets, daily range): BP systolic 125–164; BP diastolic 71–80; PULSE 61–80; RESP 18–20; TEMP 97–97.9; O2SAT 93–100
[2017-02-21] MEDS: HYDROmorphone HCL PF 1 MG/ML VIAL IV PUSH PRN (00:42)
[2017-02-21] MEDS: PIPERACIL-TAZO 2.25 GM PREMIX 50 ML IV SCH ×4 (04:08→21:38)
--- NOTE | 2017-02-21 07:37 | HHI.PR ---
Subjective Remarks With low urine OP. Increased fluids. Received 1 L bolus NS. She has decreased appetite. Quesada is noted with leakage, started ditropan. Patient feels very weak, she can barely talk, she is not eating much , encouraged PO intake, diet changed to soft. Pain is controlled. Not following commands because feesl very weak. Objective Vitals Vital Signs Date Time Temp Pulse Resp B/P Pulse Ox O2 Delivery O2 Flow Rate FiO2 02/21/17 04:00 97.9 69 18 125/78 02/21/17 00:00 97.4 65 18 129/71 100 02/20/17 20:00 97.3 63 16 144/78 100 02/20/17 20:00 Nasal Cannula 3.00 02/20/17 20:00 60 02/20/17 16:00 97.0 65 20 150/68 98 02/20/17 12:00 97.3 63 20 135/60 100 02/20/17 11:20 96.4 77 18 135/71 99 02/20/17 08:07 97.3 89 18 135/80 96 02/20/17 08:00 97.2 64 20 138/72 100 I/O 02/20/17 02/20/17 02/20/17 02/21/17 02/21/17 02/21/17 07:00 15:00 23:00 07:00 15:00 23:00 Intake Total 660 ml 60 ml 1511 ml 773 ml Output Total 140 ml 170 ml 170 ml Balance 520 ml 60 ml 1341 ml 603 ml Intake Oral 60 ml IV Total 660 ml 1511 ml 773 ml Output Urine Total 100 ml 100 ml 100 ml Drainage Total 40 ml 70 ml 70 ml # Voids 1 # Bowel Movements 2 0 Result Diagram: 02/19/1740 02/19/17 0640 Imaging Last Impressions Percutaneous Cholangiogram 02/18/17 0000 Signed Impressions: Service Date/Time: Saturday, February 18, 2017 14:43 - CONCLUSION: Uncomplicated percutaneous cholecystostomy as above. Willy Mackay MD Gall Bladder Ultrasound 02/18/17 0000 Signed Impressions: Service Date/Time: Saturday, February 18, 2017 09:40 - CONCLUSION: 1. Gallbladder is mildly distended with 17 mm stone in the gallbladder neck. There is no significant gallbladder wall thickening. There is a positive sonographic Faria sign. 2. Small right pleural effusion and small volume of ascites. 3. Mild hepatic steatosis. Willy Suh MD Cholangiogram 02/17/17 0800 Signed Impressions: Service Date/Time: Friday, February 17, 2017 13:00 - CONCLUSION: 1. Majority of the the tube outside of the gallbladder lumen as above. The tube was removed bOdulio Virk MD Chest X-Ray 02/15/17 0000 Signed Impressions: Service Date/Time: Wednesday, February 15, 2017 16:31 - CONCLUSION: Slight improvement in aeration. Willy Mackay MD Abdomen CT 02/15/17 0000 Signed Impressions: Service Date/Time: Wednesday, February 15, 2017 20:25 - CONCLUSION: 1. Cholelithiasis. 2. Right upper quadrant catheter is seen as described above. 3. Bilateral pleural effusions and basilar consolidation. Marc Em MD Objective Remarks GA: awake and alert, appears somnolent, chronically ill patient, in bed, she answers with yes and no then goes back to sleep SKIN: Icteric improved somehow ENT: Dry oral mucosa RESPIRATORY - Decrease breath sounds, no rales or wheezes CARDIOVASCULAR: Regular rhythm no murmurs ABDOMEN: Soft, some discomfort in the right upper quadrant and epigastric area - dressing over the cholecystostomy tube which has been replaced 02/18 by IR MSK: Extremities no edema NEURO: Somnolent, very weak. Date of Insertion: February 15, 2017 A/P Assessment and Plan 61-year-old female presenting with right upper quadrant pain, nausea, vomiting Sepsis secondary to biliary pathology-- growing klebsiella in biliary fluid History of obstructive jaundice secondary to cholelithiasis status post cholecystostomy tube placement which has been removed Had cholecytostomy tube replaced - by Dr. Mackay's IR on 02/18/17 on Zosyn IV. Zofran IV prn ff LFTs GI ff. Infectious Disease ff. GS ff Cholangiogram showed cholecystostomy tube outside of the gallbladder; tube was removed 02/17. IR to reevaluate. POOR SURGICAL CANDIDATE PER GEN SURGERY Acute respiratory alkalosis with Acute hypoxemia. Likely secondary to sepsis. O2 sats improved with nasal cannula 2 L.. Acute kidney injury secondary to sepsis- Cr 2.73, continue IVFs. Consult nephrology as noted worsening kidney function. Urinary bladder spasm start ditropan. Monitor closely UOP. Patient with low UOP 2/2 poor PO intake. Received 1L NS and increased IVF rate to 100 cc/h . Monitor closely UOP. Hyperkalemia- resolved continue IVF- gentle hydration ff BMP. Hold YESENIA History of CAD, ischemic cardiomyopathy with known ejection fraction of 45%. BNP elevated .but clinically appears comfortable started on gentle IVF. ff lung exam. Hold YESENIA due CHRISTY History of seizure disorder, CVA, left basal ganglia infarct.. Neuro stable Continue on Keppra, will change to liquid form as can;t swallow keppra pills. Will also consult swallow eval. Continue on aspirin. Will hold off on the Plavix in the event that patient may need a procedure. Anemia chronic. H&H near baseline. Diabetes mellitus type 2, uncontrolled a1c id 7.9 ( on 02/08) will follow blood sugars on sliding scale low dose and adjust Lovenox for DVT prophylaxis PPI IV Discharge Planning appreciate input from ID, GS and GI. d/c pending improvement, further recs Discussed with the patient, nurse Doris Estes MD February 21, 2017 07:37
[2017-02-21 07:56] LABS: ALKALINE PHOSPHATASE 102 U/L (45-117); ALT (GPT) 427 U/L (10-53); ANION GAP 14 MEQ/L (5-15); AST (GOT) 151 U/L (15-37); BICARBONATE 17.8 MEQ/L (21.0-32.0); CHLORIDE 112 MEQ/L (98-107); GLOMERULAR FILTRATION RATE 14 ML/MIN (>89); POTASSIUM 4.2 MEQ/L (3.5-5.1); SODIUM (NA) 144 MEQ/L (136-145); TOTAL BILIRUBIN ADULT 0.7 MG/DL (0.2-1.0)
[2017-02-21] MEDS: SODIUM CHLOR 0.9% 1000 ML INJ 1,000 ML IV SCH (07:57)
[2017-02-21] MEDS: METOPROLOL TARTRATE 100 MG TAB PO SCH ×2 (08:02→21:37)
[2017-02-21] MEDS: buPROPion HCL 150 MG SUSTAINED RELEASE TAB PO SCH ×2 (08:02→21:37)
[2017-02-21] MEDS: levETIRAcetam 500 MG/5 ML UDC NG SCH ×2 (08:02→21:37)
[2017-02-21] MEDS: VENLAFAXINE HCL XR 75 MG CAP PO SCH (08:02)
[2017-02-21] MEDS: OXYBUTYNIN CHLORIDE 5 MG TAB PO SCH ×2 (08:02→21:37)
[2017-02-21] MEDS: ASPIRIN 81 MG CHEW TAB CHEW SCH (08:02)
[2017-02-21 08:09] LABS: BLOOD UREA NITROGEN 67 MG/DL (7-18)
[2017-02-21 10:26] LABS: AUTOMATED NEUTROPHIL # 4.8 TH/MM3 (1.8-7.7); BASOPHIL # 0.1 TH/MM3 (0-0.2); EOSINOPHIL # 0.5 TH/MM3 (0-0.4); EOSINOPHIL % 6.8 % (0.0-4.0); HEMATOCRIT 26.9 % (35.0-46.0); LYMPH % 25.1 % (9.0-44.0); MEAN CORPUSCULAR HEMOGLOBIN 30.5 PG (27.0-34.0); MEAN CORPUSCULAR HGB CONC 31.7 % (32.0-36.0); MONO % 6.5 % (0.0-8.0); NEUT % 60.6 % (16.0-70.0); RED CELL DISTRIBUTION WIDTH 15.6 % (11.6-17.2)
--- NOTE | 2017-02-21 10:41 | HHI.PR ---
Subjective Subjective Notes Resting in bed Shakes head no when asked about abdominal pain Objective Vitals/I&O Vital Signs Date Time Temp Pulse Resp B/P Pulse Ox O2 Delivery O2 Flow Rate FiO2 02/21/17 08:19 Nasal Cannula 3.00 02/21/17 08:00 97.4 61 18 146/73 93 Labs Laboratory Tests Test 02/21/17 06:20 Sodium Level 144 Potassium Level 4.2 Chloride Level 112 Carbon Dioxide Level 17.8 Anion Gap 14 Blood Urea Nitrogen 67 Creatinine 3.23 Estimat Glomerular Filtration 14 Rate Random Glucose 213 Calcium Level 7.6 Total Bilirubin 0.7 Aspartate Amino Transf 151 (AST/SGOT) Alanine Aminotransferase 427 (ALT/SGPT) Alkaline Phosphatase 102 Total Protein 5.0 Albumin 1.8 Lipase 226 Radiology Last 48 hours Impressions Chest X-Ray 02/15/17 0000 Signed Impressions: Service Date/Time: Wednesday, February 15, 2017 16:31 - CONCLUSION: Slight improvement in aeration. Willy Mackay MD Abdomen CT 02/15/17 0000 Signed Impressions: Service Date/Time: Wednesday, February 15, 2017 20:25 - CONCLUSION: 1. Cholelithiasis. 2. Right upper quadrant catheter is seen as described above. 3. Bilateral pleural effusions and basilar consolidation. Marc Em MD Cardiovascular: Regular Lungs: Clear Abdomen: Non-distended, Other (sabiha tube in place with bilious drainage; no RUQ pain with palpation ) Extremities: No edema A/P Problem List: (1) Left-sided weakness (2) Stroke of unknown etiology (3) Acute pancreatitis (4) Diabetes (5) CKD (chronic kidney disease) stage 3, GFR 30-59 ml/min (6) Acute cholecystitis due to biliary calculus (7) Abdominal pain Assessment and Plan 61 year old female with multiple medical problems; cholecystostomy tube placement on February 01--dislodged; continues to have acute cholecystitis -Cholecystostomy replaced; continue drainage bag to gravity -Diet as tolerated -Monitor liver enzymes---trending down -Patient is a poor surgical candidate -General Surgery will follow peripherally; place call with questions Attestation The exam, history, and the medical decision-making described in the above note were completed with the assistance of the mid-level provider. I reviewed and agree with the findings presented. I attest that I had a [id number] encounter with the patient on the same day, and personally performed and documented my assessment and findings in the medical record. Problem Qualifiers (1) Abdominal pain: Qualified Code: R10.11 - Right upper quadrant abdominal pain Melissa Whitlock February 21, 2017 10:41 Jacques Schuster MD Feb 27, 2017 22:21
[2017-02-21 11:02] LABS: HEMO FLAGS AUTO DIFF
[2017-02-21 11:13] LABS: ACANTHOCYTES 1+ (NORMAL); BANDS 15 % (0-6); BURR CELLS 1+ (NORMAL); EOSINOPHILS 11 % (0-4); NEUTROPHIL # MANUAL DIFF 4.6 TH/MM3 (1.8-7.7); OVALOCYTES 1+ (NORMAL); PLATELET ESTIMATE SMEAR NORMAL (NORMAL); POLYCHROMASIA 2.6 % (0.0-1.9); POLYS (SEG NEUTROPHILS) 42 % (16-70); SCAN/DIFF FINAL DIFF MANUAL; WBC DIFF SAMPLE 100
[2017-02-21 11:14] LABS: PLATELET MORPHOLOGY ENLARGED (NORMAL)
[2017-02-21] MEDS: PANTOPRAZOLE SODIUM 40 MG VIAL IV PUSH SCH (17:22)
--- NOTE | 2017-02-21 18:10 | MB ---
cc: HETAL LEE MD DATE OF CONSULTATION 02/21/17 REASON FOR CONSULTATION Elevated BUN and creatinine for evaluation. HISTORY OF PRESENT ILLNESS This is a 62-year-old female with past medical history of hypertension, diabetes mellitus, history of ischemic heart disease, cerebrovascular accident, chronic kidney disease with history of acute kidney injury in the past who was admitted because of respiratory failure and hypoxemia. I was called to see the patient because of elevated BUN and creatinine. The patient was found to have creatinine of 1.3 on admission and it has been gradually going up and now is 3.2. The patient previously had acute kidney injury when she was here three weeks ago and, at that time, the creatinine was as high as 3.1. She was seen by Dr. Knowles and her renal function improved at that time and the creatinine went down to 1.0-1.1. The patient was diagnosed here with pneumonia and she has one Cultures growing Klebsiella. this was done from the gallbladder and she was diagnosed with acute cholecystitis with calculous. GI has been following the patient. The patient had a cholecystostomy tube placed and then replaced by IR on 02/18. The patient has been following with infectious disease and has been getting multiple antibiotics. Currently she is on Zosyn. The patient is not eating well and she is being started on IV fluids. PAST MEDICAL HISTORY 1. Hypertension, 2. Diabetes mellitus 3. Cerebrovascular accident, 4. History of acute kidney injury with mild chronic kidney disease, 5. History of seizure disorder, 6. Ischemic heart disease. PAST SURGICAL HISTORY Right below-knee amputation. REVIEW OF SYSTEMS The patient denies any headache, dizziness. She has not been eating very well. She does not have any shortness of breath. No chest pain. Her appetite is low. She occasionally has nausea. There is no vomiting. She has mild abdominal pain off and on. No history of diarrhea. SOCIAL HISTORY The patient has past history of smoking, stopped 2-3 months ago. There is no history of heavy alcoholism FAMILY HISTORY Noncontributory. ALLERGIES NO KNOWN DRUG ALLERGIES. MEDICATIONS Currently 1. Wellbutrin 150 mg b.i.d. 2. Effexor 225 mg once a day. 3. Aspirin 81 mg daily. 4. Metoprolol 100 mg q. 12 h. 5. Keppra 500 mg q. 12-hour day. 6. Ditropan 5 mg q. 12-hour. 7. Protonix 40 mg q.24 h. 8. Lovenox 30 mg q.24 h. 9. Zosyn 2.25 grams IV q. 6-hour. 10. Fentanyl patch. 11. Zofran as needed 12. Dilaudid as needed PHYSICAL EXAMINATION GENERAL: The patient is awake, alert. She is not in acute distress. VITAL SIGNS: Last blood pressure is 164/78, temperature 97.0, oxygen saturation on 3 liters is 100%. There is no significant hypotensive episode in the last few days. HEENT: Pupils equally reacting to light. Nonicteric sclerae, conjunctivae pale. NECK: Supple. JVD is not elevated. LUNGS: The patient has bilateral decreased air entry with occasional wheezing. HEART: S1, S2 regular rhythm. ABDOMEN: Distended, soft, lax. There is no tenderness. EXTREMITIES: The left leg has mild edema, right she has below-knee amputation. LABORATORY DATA WBC count is 8.0, hemoglobin 8.5, platelet count of 208. Sodium 144. Potassium 4.2, chloride 112, bicarb 17.8, BUN 67, creatinine 3.2. Calcium 7.6, AST is 151, ALT is 427, total protein is 5.0. Albumin is 1.8. Lipase 226, INR 2.3. Urinalysis is showing that there is minimal proteinuria, rate bacteria and the culture is showing Klebsiella pneumonia in the fluid from the gallbladder. IMAGING STUDIES The patient had gallbladder ultrasound done which shows gallbladder is mildly distended, small right pleural effusion, mild hepatic steatosis. Right kidney showed no evidence of ____ necrosis, small right pleural effusion. CT of the abdomen without IV contrast was done on 02/15 and it shows cholelithiasis, bilateral pleural effusion. ASSESSMENT/PLAN 1. Acute cholecystitis. 2. Acute kidney injury with history of mild chronic kidney disease. 3. History of cerebrovascular accident 4. Elevated liver enzymes. 5. Diabetes mellitus 6. Anemia The patient has elevated BUN and creatinine. Bicarb is also low and the patient has been nonoliguric and has low urine output. The differential diagnosis for acute kidney injury would be either acute interstitial nephritis or possibility of acute tubular necrosis. I will check the urine sodium osmolality and urine for eosinophils, agree with continuing IV fluid. Avoid any nephrotoxins. Get the ultrasound of the kidney. Thank you for the consultation and I will follow the patient while she is in the hospital. MD CARL Byrd/ /4:17 PM /5:55 PM
[2017-02-21] MEDS: ENOXAPARIN SODIUM 30 MG/0.3 ML SYRINGE SQ SCH (21:37)
[2017-02-22] VITALS: BP 160/62; PULSE 67; RESP 20; TEMP 97.5; O2SAT 99
[2017-02-22] MEDS: PIPERACIL-TAZO 2.25 GM PREMIX 50 ML IV SCH ×4 (04:52→21:23)
[2017-02-22] MEDS: SODIUM CHLOR 0.9% 1000 ML INJ 1,000 ML IV SCH ×3 (04:52→16:17)
[2017-02-22 06:04] VITALS: BP 151/70; PULSE 68; RESP 20; TEMP 97.6; O2SAT 100
[2017-02-22 08:00] VITALS: BP 147/63; PULSE 79; RESP 18; TEMP 97.8; O2SAT 99
[2017-02-22] MEDS: buPROPion HCL 150 MG SUSTAINED RELEASE TAB PO SCH ×2 (08:09→21:09)
[2017-02-22] MEDS: VENLAFAXINE HCL XR 75 MG CAP PO SCH (08:09)
[2017-02-22] MEDS: ASPIRIN 81 MG CHEW TAB CHEW SCH (08:10)
[2017-02-22] MEDS: OXYBUTYNIN CHLORIDE 5 MG TAB PO SCH ×2 (08:10→21:10)
[2017-02-22] MEDS: levETIRAcetam 500 MG/5 ML UDC NG SCH ×2 (08:10→21:10)
[2017-02-22] MEDS: METOPROLOL TARTRATE 100 MG TAB PO SCH ×2 (08:10→21:10)
--- NOTE | 2017-02-22 09:21 | HHI.PR ---
Subjective Remarks Patient in bed, appears chronically ill, weak voice. No n/v/d/c. denies chest pain. She does have pain in her belly at the surgical site. No n//v/d/c. Objective Vitals Vital Signs Date Time Temp Pulse Resp B/P Pulse Ox O2 Delivery O2 Flow Rate FiO2 02/22/17 06:04 97.6 68 20 151/70 100 02/21/17 21:54 97.3 71 20 163/80 100 02/21/17 20:30 Nasal Cannula 3.00 02/21/17 20:17 80 02/21/17 16:00 97.5 70 20 150/73 94 02/21/17 12:00 97.0 63 20 164/78 100 I/O 02/21/17 02/21/17 02/21/17 02/22/17 02/22/17 02/22/17 07:00 15:00 23:00 07:00 15:00 23:00 Intake Total 773 ml 120 ml 850 ml 900 ml Output Total 170 ml 150 ml 190 ml 290 ml Balance 603 ml -30 ml 660 ml 610 ml Intake Oral 120 ml IV Total 773 ml 850 ml 900 ml Output Urine Total 100 ml 150 ml 100 ml 200 ml Gastric Drainage Total 90 ml Drainage Total 70 ml 90 ml # Bowel Movements 1 0 Result Diagram: 02/21/17 0937 02/21/17 0620 Imaging Last Impressions Renal Ultrasound 02/22/17 0000 Signed Impressions: Service Date/Time: Wednesday, February 22, 2017 08:16 - CONCLUSION: 1. 6 mm calcified density in the mid right kidney, likely vascular as this was not noted on recent ultrasound of the abdomen. A non-obstructing renal calculus cannot be entirely excluded. 2. Otherwise, no evidence for obstructive uropathy as questioned. 3. Incidental note of small right pleural effusion and trace ascites. Rustam Capellan MD Percutaneous Cholangiogram 02/18/17 0000 Signed Impressions: Service Date/Time: Saturday, February 18, 2017 14:43 - CONCLUSION: Uncomplicated percutaneous cholecystostomy as above. Willy Mackay MD Gall Bladder Ultrasound 02/18/17 0000 Signed Impressions: Service Date/Time: Saturday, February 18, 2017 09:40 - CONCLUSION: 1. Gallbladder is mildly distended with 17 mm stone in the gallbladder neck. There is no significant gallbladder wall thickening. There is a positive sonographic Faria sign. 2. Small right pleural effusion and small volume of ascites. 3. Mild hepatic steatosis. Willy Suh MD Cholangiogram 02/17/17 0800 Signed Impressions: Service Date/Time: Friday, February 17, 2017 13:00 - CONCLUSION: 1. Majority of the the tube outside of the gallbladder lumen as above. The tube was removed Obdulio Virk MD Chest X-Ray 02/15/17 0000 Signed Impressions: Service Date/Time: Wednesday, February 15, 2017 16:31 - CONCLUSION: Slight improvement in aeration. Willy Mackay MD Abdomen CT 02/15/17 0000 Signed Impressions: Service Date/Time: Wednesday, February 15, 2017 20:25 - CONCLUSION: 1. Cholelithiasis. 2. Right upper quadrant catheter is seen as described above. 3. Bilateral pleural effusions and basilar consolidation. Marc Em MD Objective Remarks GA: awake and alert, appears somnolent, chronically ill patient, in bed, she answers with yes and no then goes back to sleep SKIN: Icteric improving ENT: Dry oral mucosa RESPIRATORY - Decrease breath sounds, no rales or wheezes CARDIOVASCULAR: Regular rhythm no murmurs ABDOMEN: Soft, some discomfort in the right upper quadrant and epigastric area - dressing over the cholecystostomy tube which has been replaced 02/18 by IR MSK: Extremities no edema NEURO: Somnolent, very weak. Date of Insertion: February 15, 2017 A/P Assessment and Plan 61-year-old female presenting with right upper quadrant pain, nausea, vomiting Sepsis secondary to biliary pathology-- growing klebsiella in biliary fluid History of obstructive jaundice secondary to cholelithiasis status post cholecystostomy tube placement which has been removed Had cholecystostomy tube replaced - by Dr. Mackay's IR on 02/18/17 on Zosyn IV. Zofran IV prn. Dr Arellano ID following. Can switch to oral Abx once C/S available - ?levo and Flagyl per ID specialist . Follow up final re -cultures fluid 02/22 ff LFTs GI ff. Infectious Disease ff. GS ff Cholangiogram showed cholecystostomy tube outside of the gallbladder; tube was removed 02/17. IR to reevaluate. POOR SURGICAL CANDIDATE PER GEN SURGERY Acute respiratory alkalosis with Acute hypoxemia. Likely secondary to sepsis. O2 sats improved with nasal cannula 2 L.. Acute kidney injury secondary to sepsis- Cr 2.73, continue IVFs. Consult nephrology as noted worsening kidney function. Urinary bladder spasm start ditropan. Monitor closely UOP. Patient with low UOP 2/2 poor PO intake. Received 1L NS and increased IVF rate to 100 cc/h . Monitor closely UOP. Hyperkalemia- resolved continue IVF- gentle hydration ff BMP. Hold YESENIA History of CAD, ischemic cardiomyopathy with known ejection fraction of 45%. BNP elevated .but clinically appears comfortable started on gentle IVF. ff lung exam. Hold YESENIA due CHRISTY History of seizure disorder, CVA, left basal ganglia infarct.. Neuro stable Continue on Keppra, will change to liquid form as can't swallow keppra pills. Will also consult swallow eval, change diet to soft. Continue on aspirin. Will hold off on the Plavix in the event that patient may need a procedure. Anemia chronic. H&H near baseline. Diabetes mellitus type 2, uncontrolled a1c id 7.9 ( on 02/08) will follow blood sugars on sliding scale low dose and adjust Lovenox for DVT prophylaxis PPI IV Discharge Planning appreciate input from ID, GS and GI. d/c pending improvement, further recs Discussed with the patient, nurse, Doris Hernández MD February 22, 2017 09:21
--- NOTE | 2017-02-22 10:44 | RADRPT ---
EXAM DATE/TIME: 02/22/2017 08:16 [facility] COMPARISON: No previous studies available for comparison. INDICATIONS : Increased Bun/Creat. MEDICAL HISTORY : Stroke. Hypercholesterolemia. Neck pain. Dental problems. Peripheral neuropathy. Cardiac disorders. Numbness. Congestive heart failure. Hypertension. Gastrointestinal disorders. Gallbladder disease. A bdominal pain. Diarrhea. Nausea. Vomiting. Appetite changes. Arthritis. Osteoporosis. Back pain. Diab etes. Liver disease. Psychiatric problems. SURGICAL HISTORY : section. Joint replacement in neck. Right below knee amputation. Stents in bilateral leg s. ENCOUNTER: Subsequent ACUITY: 3 days PAIN SCORE: 2/10 LOCATION: Bilateral flank MEASUREMENTS: RIGHT KIDNEY: 9.9 x 4.7 x 5.9 cm LEFT KIDNEY: 11.1 x 4.4 x 5.4 cm BLADDER: FINDINGS: RIGHT KIDNEY: Renal cortex is normal in thickness and echotexture. There is a 6 mm calcified density noted in the mid right kidney and a which was not noted on recent abdominal ultrasound exam. This is likely vascul ar in etiology although a nonobstructing renal calculus cannot be entirely excluded. Otherwise, no hy dronephrosis or mass. No hydronephrosis, stone, or mass. LEFT KIDNEY: Renal cortex is normal in thickness and echotexture. No hydronephrosis, stone, or mass. BLADDER: Completely decompressed secondary to Quesada catheter. Additional findings include small right pleural effusion and trace amount of ascites with perihepatic and perirenal fluid. CONCLUSION: 1. 6 mm calcified density in the mid right kidney, likely vascular as this was not noted on recent ul trasound of the abdomen. A non-obstructing renal calculus cannot be entirely excluded. 2. Otherwise, no evidence for obstructive uropathy as questioned. 3. Incidental note of small right pleural effusion and trace ascites. Rustam Capellan MD on February 22, 2017 at 10:34 Board Certified Radiologist. This report was verified electronically.
[2017-02-22 12:00] VITALS: BP 142/74; PULSE 71; RESP 18; TEMP 97.4; O2SAT 98
--- NOTE | 2017-02-22 12:24 | HHI.GIFU ---
Subjective Remarks Pt resting in bed, non verbal. Indicates no pain or nausea. (Jeannie Muniz) Objective Vitals I&O Vital Signs Date Time Temp Pulse Resp B/P Pulse Ox O2 Delivery O2 Flow Rate FiO2 02/22/17 10:14 Nasal Cannula 3.00 02/22/17 06:04 97.6 68 20 151/70 100 02/21/17 21:54 97.3 71 20 163/80 100 02/21/17 20:30 Nasal Cannula 3.00 02/21/17 20:17 80 02/21/17 16:00 97.5 70 20 150/73 94 I/O 02/21/17 02/21/17 02/21/17 02/22/17 02/22/17 02/22/17 07:00 15:00 23:00 07:00 15:00 23:00 Intake Total 773 ml 120 ml 850 ml 900 ml Output Total 170 ml 150 ml 190 ml 290 ml Balance 603 ml -30 ml 660 ml 610 ml Intake Oral 120 ml IV Total 773 ml 850 ml 900 ml Output Urine Total 100 ml 150 ml 100 ml 200 ml Gastric Drainage Total 90 ml Drainage Total 70 ml 90 ml # Bowel Movements 1 0 Laboratory Laboratory Tests Test 02/22/17 07:00 Urine Eosinophils RARE Urine Osmolality 416 Urine Random Sodium 39 Physical Exam GENERAL: NAD, non verbal CHEST: CTA CARDIAC: Regular ABDOMEN: +BS, soft, RUQ tenderness. Cholecystostomy tube in place with minimal dark green liquid noted. EXTREMITIES: No clubbing, cyanosis, or edema. Left BKA. SKIN: Normal; no rash; no jaundice. (Jeannie Muniz) Assessment and Plan Plan ASSESSMENT - Elevated LFTs. Improving. Pt was recently discharged on 02/08/17 after a long hospitalization with sepsis thought to from biliary source. Patient had a cholecystostomy tube placed by IR on 02/01/17. Patient was discharged on Augmentin. Pt was brought back to the hospital with N/V and complaints of RUQ abd pain. CT Abd/pelvis (02/15) --> Cholelithiasis and the pigtain drainage catheter in the RUQ directly anterior to or abutting the gallbladder was noted. Pts LFTs anabell significantly on 02/15 and peaked on 02/16 with AST 2383, ALT 1768 and AlkpHos 122. She did have some noted hypotension on . Cholangiogram was checked and the cholecystostomy tube was outside of the gallbladder and was removed on 02/17. IR replaced the cholecystostomy tube on 02/18. Repeat LFTs on 02/18 noted continued improvement. Pts bilirubin remained stable. Bile C/S grew out Klebsiella. Pt is on Zosyn. - RUQ pain. Possibly related to gallbladder. Pt with history cholelithiasis and s/p cholecystomy drain, GS following. Previously told she is not candidate for surgery. - Acute kidney failure- secondary to sepsis - Anemia- chronic dz, no bleeding reported, PLAN - Monitor output from cholecystostomy tube - Cont. Zosyn. - Pain control PRN - Monitor labs - Further recommendations as the case develops - The pt was seen and examined by myself and Dr. Bell, this note was written on his behalf. (Jeannie Muniz) Physician Comments Seen and examined, plan as above. Will sign off for now, please notify us if needed. (Tiffani Bell MD) Jeannie Muniz February 22, 2017 12:24 Tiffani Bell MD February 22, 2017 12:51
--- NOTE | 2017-02-22 12:31 | HHI.IDPN ---
Subjective Subjective Remarks Patient is a 62-year-old female into the hospital for evaluation of increasing abdominal pain and diarrhea. Patient was recently hospitalized and was diagnosed to have acute cholecystitis. It was felt that she was not a surgical candidate, and a tube cholecystostomy was placed. Culture of the bile was negative. Her blood cultures were negative. He clinically improved and was discharged to the long term, on oral Augmentin with plans to finish to treatment February 17. She was supposed to have a follow-up with interventional radiology to evaluate her gallbladder to for possible removal. In the long term she started having pain in the epigastric area as well as in the right upper quadrant. She was also having some nausea, but no vomiting. She had some loose stools. She presented to the hospital for further evaluation and treatment. CT of the abdomen and pelvis did not show any common bile duct palpitation. She did have evidence of bilateral effusion and atelectasis. Patient however has no respiratory complaint. She had some low- grade temp on admission. Her lactic acid is elevated. Her total bilirubin is normal, but her AST and ALT were elevated. Culture of the bile is now reported as growing Klebsiella, pansensitive. Her initial WBC is normal. Her urinalysis is unremarkable. Stool for C. difficile is negative. Blood cultures are negative so far. Notes reviewed Temps ok Has new tube to her GB LFT improving Poor po intake Good output from the GB tube Antibiotics Zosyn Lines PIV Past Medical History Arthritis Depression Diabetes Hypertension Peripheral Neuropathy Pancreatitis Colitis Cholelithiasis CKD PVD CAD non operable multi vessel disease Ischemic cardiomyopathy Hx UTI Anemia CVA Past Surgical History x 4 Neck Fusion Right BKA 2013 Stents in leg Revascularizations for her PVD Allergies: Coded Allergies: *MDRO Multi-Drug Resistant Organism (Verified Allergy, Unknown, 02/15/17) Patient reported H/O MRSA MRSA PCR screen NEGATIVE- 01/27/17 Cleared per Infection Control Objective . Vital Signs Date Time Temp Pulse Resp B/P Pulse Ox O2 Delivery O2 Flow Rate FiO2 02/22/17 10:14 Nasal Cannula 3.00 02/22/17 06:04 97.6 68 20 151/70 100 02/21/17 21:54 97.3 71 20 163/80 100 02/21/17 20:30 Nasal Cannula 3.00 02/21/17 20:17 80 02/21/17 16:00 97.5 70 20 150/73 94 02/21/17 02/21/17 02/22/17 15:00 23:00 07:00 Intake Total 120 ml 850 ml 900 ml Output Total 150 ml 190 ml 290 ml Balance -30 ml 660 ml 610 ml Intake Oral 120 ml IV Total 850 ml 900 ml Output Urine Total 150 ml 100 ml 200 ml Gastric Drainage Total 90 ml Drainage Total 90 ml # Bowel Movements 1 0 . Laboratory Tests Test 02/21/17 09:37 White Blood Count 8.0 TH/MM3 Red Blood Count 2.80 MIL/MM3 Hemoglobin 8.5 GM/DL Hematocrit 26.9 % Mean Corpuscular Volume 96.0 FL Mean Corpuscular Hemoglobin 30.5 PG Mean Corpuscular Hemoglobin 31.7 % Concent Red Cell Distribution Width 15.6 % Platelet Count TH/MM3 Mean Platelet Volume 10.5 FL Neutrophils (%) (Auto) 60.6 % Lymphocytes (%) (Auto) 25.1 % Monocytes (%) (Auto) 6.5 % Eosinophils (%) (Auto) 6.8 % Basophils (%) (Auto) 1.0 % Neutrophils # (Auto) 4.8 TH/MM3 Lymphocytes # (Auto) 2.0 TH/MM3 Monocytes # (Auto) 0.5 TH/MM3 Eosinophils # (Auto) 0.5 TH/MM3 Basophils # (Auto) 0.1 TH/MM3 CBC Comment AUTO DIFF Differential Total Cells 100 Counted Neutrophils % (Manual) 42 % Band Neutrophils % 15 % Lymphocytes % 30 % Monocytes % 2 % Eosinophils % 11 % Neutrophils # (Manual) 4.6 TH/MM3 Differential Comment FINAL DIFF MANUAL Platelet Estimate NORMAL Platelet Morphology Comment ENLARGED Polychromasia 2.6 % Ovalocytes 1+ Nicolas Cells 1+ Acanthocytes 1+ Hematology Comments Laboratory Tests Test 02/21/17 06:20 Sodium Level 144 MEQ/L Potassium Level 4.2 MEQ/L Chloride Level 112 MEQ/L Carbon Dioxide Level 17.8 MEQ/L Anion Gap 14 MEQ/L Blood Urea Nitrogen 67 MG/DL Creatinine 3.23 MG/DL Estimat Glomerular Filtration 14 ML/MIN Rate Random Glucose 213 MG/DL Calcium Level 7.6 MG/DL Total Bilirubin 0.7 MG/DL Aspartate Amino Transf 151 U/L (AST/SGOT) Alanine Aminotransferase 427 U/L (ALT/SGPT) Alkaline Phosphatase 102 U/L Total Protein 5.0 GM/DL Albumin 1.8 GM/DL Lipase 226 U/L Imaging Renal Ultrasound 02/22/17 0000 Signed Impressions: Service Date/Time: Wednesday, February 22, 2017 08:16 - CONCLUSION: 1. 6 mm calcified density in the mid right kidney, likely vascular as this was not noted on recent ultrasound of the abdomen. A non-obstructing renal calculus cannot be entirely excluded. 2. Otherwise, no evidence for obstructive uropathy as questioned. 3. Incidental note of small right pleural effusion and trace ascites. Rustam Capellan MD Last Impressions Cholangiogram 02/17/17 0800 Signed Impressions: Service Date/Time: Friday, February 17, 2017 13:00 - CONCLUSION: 1. Majority of the the tube outside of the gallbladder lumen as above. The tube was removed Obdulio Virk MD Chest X-Ray 02/15/17 0000 Signed Impressions: Service Date/Time: Wednesday, February 15, 2017 16:31 - CONCLUSION: Slight improvement in aeration. Willy Mackay MD Abdomen CT 02/15/17 0000 Signed Impressions: Service Date/Time: Wednesday, February 15, 2017 20:25 - CONCLUSION: 1. Cholelithiasis. 2. Right upper quadrant catheter is seen as described above. 3. Bilateral pleural effusions and basilar consolidation. Marc Em MD Physical Exam GENERAL: awakens easily, but slow to answer, not in distress SKIN: No rashes, ecchymoses or lesions. Cool and dry. HEAD: Atraumatic. Normocephalic. No temporal or scalp tenderness. EYES: Pupils equal round and reactive. Extraocular motions intact. No scleral icterus. No injection or drainage. ENT: Nose without bleeding, purulent drainage or septal hematoma. Dry oral mucosa NECK: Trachea midline. No JVD or lymphadenopathy. Supple, nontender, no meningeal signs. CARDIOVASCULAR: Regular rate and rhythm without murmurs, gallops, or rubs. RESPIRATORY: Decreased BS at bases GASTROINTESTINAL: Abdomen soft, less tender, GB tube with dark green fluid. No guarding. MUSCULOSKELETAL: Extremities without clubbing, cyanosis, or edema. S/P BKA stump well healed NEUROLOGICAL: Lethargic PSYCH: Calm LINE: PIV with no evidence of infection Assessment & Plan Remarks IMPRESSION Possible sepsis, on admsission due to bilary tract source most likely - better - GB tube in peritoneal cavity and not in right spot Recurrent abdominal pain, has tube cholecystostomy for acute cholecystitis - no CBD dil on CT - bile C/S with Klebsiella - due to malposition of GB tube, removed today - low grade temps better, WBC normal, UA ok Diarrhea, C Diff negative Abnormal LFTs RECOMMENDATION Continue Zosyn Follow new C/S Hopefully, can switch to oral Abx once C/S available - ?levo and Flagyl Monitor progress Nisreen Garcia MD February 22, 2017 12:31
--- NOTE | 2017-02-22 14:17 | HHI.NPPN ---
Subjective History of Present Illness 62 year old with ARF/CKD, Acute cholecystitis s/p cholecystotomy Objective Data Data 02/21/17 02/22/17 19:00 07:00 Intake Total 120 ml 1750 ml Output Total 150 ml 480 ml Balance -30 ml 1270 ml Intake Oral 120 ml IV Total 1750 ml Output Urine Total 150 ml 300 ml Gastric Drainage Total 90 ml Drainage Total 90 ml # Bowel Movements 1 0 Vital Signs Date Time Temp Pulse Resp B/P Pulse Ox O2 Delivery O2 Flow Rate FiO2 02/22/17 12:00 97.4 71 18 142/74 98 02/22/17 10:14 Nasal Cannula 3.00 02/22/17 08:00 97.8 79 18 147/63 99 02/22/17 06:04 97.6 68 20 151/70 100 02/21/17 21:54 97.3 71 20 163/80 100 02/21/17 20:30 Nasal Cannula 3.00 02/21/17 20:17 80 02/21/17 16:00 97.5 70 20 150/73 94 -: 02/21/17 0937 02/21/17 0620 Microbiology 02/22/17 Gram Stain, Received Pending 02/22/17 Body Fluid Culture, Received Pending Physical Exam General Appearance: Well Developed Neck Neck Exam: Neck Supple Pulmonary Resp Exam: Clear Bilaterally, Breath Sounds Equal Cardiology CV Exam: Regular Gastrointestinal/Abdomen GI Exam: Bowel Sounds Hypoactive Extremeties Extremities Exam: No Edema Assessment/Plan Problem List: (1) Acute renal failure Plan: change IVF NS at 84 cc BMP ordered US mid rt kidney possible stone small no hydro (2) Acute cholecystitis due to biliary calculus Plan: patient has dehydration treated for Kleb Pneumonia on Zosyn change IVF NS at 84 cc /hr follow BMP (3) Dehydration Plan: due to sepsis (4) Diabetes Plan: follow Salome Hoffman MD February 22, 2017 14:17
[2017-02-22 16:00] VITALS: BP 147/70; PULSE 65; RESP 20; TEMP 97; O2SAT 97
[2017-02-22] MEDS: INSULIN ASPART SUPPLEMENTAL SCALE SQ SCH ×2 (16:27→21:06)
[2017-02-22] MEDS: PANTOPRAZOLE SODIUM 40 MG VIAL IV PUSH SCH (17:05)
[2017-02-22 20:00] VITALS: BP 135/72; PULSE 68; RESP 19; TEMP 98.1; O2SAT 100
[2017-02-22] MEDS: fentaNYL 50 MCG/HR PATCH T-DERMAL SCH (20:00)
[2017-02-22] MEDS: ENOXAPARIN SODIUM 30 MG/0.3 ML SYRINGE SQ SCH (21:08)
[2017-02-23] VITALS (7 sets, daily range): BP systolic 123–144; BP diastolic 61–75; PULSE 65–77; RESP 18–20; TEMP 97.5–98.6; O2SAT 97–99
[2017-02-23] MEDS: SODIUM CHLOR 0.9% 1000 ML INJ 1,000 ML IV SCH ×2 (04:18→14:05)
[2017-02-23] MEDS: PIPERACIL-TAZO 2.25 GM PREMIX 50 ML IV SCH ×2 (04:18→10:00)
[2017-02-23] MEDS: INSULIN ASPART SUPPLEMENTAL SCALE SQ SCH ×4 (06:03→21:08)
[2017-02-23 07:41] LABS: BICARBONATE 20.3 MEQ/L (21.0-32.0); POTASSIUM 3.7 MEQ/L (3.5-5.1)
[2017-02-23] MEDS: METOPROLOL TARTRATE 100 MG TAB PO SCH ×2 (09:00→21:00)
[2017-02-23] MEDS: ASPIRIN 81 MG CHEW TAB CHEW SCH (09:00)
[2017-02-23] MEDS: levETIRAcetam 500 MG/5 ML UDC NG SCH ×2 (09:00→21:00)
[2017-02-23] MEDS: VENLAFAXINE HCL XR 75 MG CAP PO SCH (09:00)
[2017-02-23] MEDS: OXYBUTYNIN CHLORIDE 5 MG TAB PO SCH ×2 (09:00→21:00)
[2017-02-23] MEDS: buPROPion HCL 150 MG SUSTAINED RELEASE TAB PO SCH ×2 (09:00→21:00)
[2017-02-23] MEDS: HYDROmorphone HCL PF 1 MG/ML VIAL IV PUSH PRN (09:23)
--- NOTE | 2017-02-23 10:17 | HHI.PR ---
Subjective Subjective Notes Resting in bed No acute events overnight Objective Vitals/I&O Vital Signs Date Time Temp Pulse Resp B/P Pulse Ox O2 Delivery O2 Flow Rate FiO2 02/23/17 04:00 98.1 69 18 123/70 99 02/22/17 19:45 Nasal Cannula 3.00 Labs Laboratory Tests Test 02/23/17 06:21 Sodium Level 148 Potassium Level 3.7 Chloride Level 116 Carbon Dioxide Level 20.3 Anion Gap 12 Blood Urea Nitrogen 66 Creatinine 3.53 Estimat Glomerular Filtration 13 Rate Random Glucose 212 Calcium Level 8.1 Date/Time Procedure Status Source Growth 02/22/17 12:45 Gram Stain - Final Resulted Fluid Bile Fluid 02/22/17 12:45 Body Fluid Culture Resulted Fluid Bile Fluid Pending Radiology Last 48 hours Impressions Chest X-Ray 02/15/17 0000 Signed Impressions: Service Date/Time: Wednesday, February 15, 2017 16:31 - CONCLUSION: Slight improvement in aeration. Willy Mackay MD Abdomen CT 02/15/17 0000 Signed Impressions: Service Date/Time: Wednesday, February 15, 2017 20:25 - CONCLUSION: 1. Cholelithiasis. 2. Right upper quadrant catheter is seen as described above. 3. Bilateral pleural effusions and basilar consolidation. Marc Em MD Cardiovascular: Regular Lungs: Clear Abdomen: Other (sabiha tube in place with dark bile draining ) Extremities: No edema A/P Problem List: (1) Left-sided weakness (2) Stroke of unknown etiology (3) Acute pancreatitis (4) Diabetes (5) CKD (chronic kidney disease) stage 3, GFR 30-59 ml/min (6) Acute cholecystitis due to biliary calculus (7) Abdominal pain Assessment and Plan 61 year old female with multiple medical problems; cholecystostomy tube placement on February 01--dislodged; continues to have acute cholecystitis -Cholecystostomy replaced; continue drainage bag to gravity -Diet as tolerated -Patient is a poor surgical candidate -ID following -General Surgery will follow peripherally; place call with questions Attending Statement patient seen at bedside replaced sabiha tube- draining bile abdomen benign Attestation The exam, history, and the medical decision-making described in the above note were completed with the assistance of the mid-level provider. I reviewed and agree with the findings presented. I attest that I had a [id number] encounter with the patient on the same day, and personally performed and documented my assessment and findings in the medical record. Problem Qualifiers (1) Abdominal pain: Qualified Code: R10.11 - Right upper quadrant abdominal pain Melissa Whitlock Feb 23, 2017 10:17 Jacques Schuster MD Mar 04, 2017 22:11
--- NOTE | 2017-02-23 11:50 | HHI.PR ---
Subjective Remarks In bed, opens eyes and has a very weak voice, very ill appearing. Doesn't follow commands says she is too weak. No fevr or chills. 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 Objective Vitals Vital Signs Date Time Temp Pulse Resp B/P Pulse Ox O2 Delivery O2 Flow Rate FiO2 02/23/17 08:00 97.7 65 18 137/65 99 02/23/17 04:00 98.1 69 18 123/70 99 02/23/17 00:00 98.6 66 18 123/70 99 02/22/17 20:00 98.1 68 19 135/72 100 02/22/17 20:00 68 02/22/17 19:45 Nasal Cannula 3.00 02/22/17 16:00 97.0 65 20 147/70 97 02/22/17 12:00 97.4 71 18 142/74 98 I/O 02/22/17 02/22/17 02/22/17 02/23/17 02/23/17 02/23/17 07:00 15:00 23:00 07:00 15:00 23:00 Intake Total 900 ml 240 ml Output Total 290 ml 300 ml 300 ml Balance 610 ml -60 ml -300 ml Intake Oral 240 ml IV Total 900 ml Output Urine Total 200 ml 300 ml 300 ml Drainage Total 90 ml # Bowel Movements 1 Result Diagram: 02/21/17 0937 02/23/17 0621 Objective Remarks GA: awake and alert, appears somnolent, chronically ill patient, in bed, she answers with yes and no then goes back to sleep SKIN: Icteric improving ENT: Dry oral mucosa RESPIRATORY - Decrease breath sounds, no rales or wheezes CARDIOVASCULAR: Regular rhythm no murmurs ABDOMEN: Soft, some discomfort in the right upper quadrant and epigastric area - dressing over the cholecystostomy tube which has been replaced 02/18 by IR MSK: Extremities no edema NEURO: Somnolent, very weak. Date of Insertion: February 15, 2017 A/P Assessment and Plan 61-year-old female presenting with right upper quadrant pain, nausea, vomiting Sepsis secondary to biliary pathology-- growing klebsiella in biliary fluid History of obstructive jaundice secondary to cholelithiasis status post cholecystostomy tube placement which has been removed Had cholecystostomy tube replaced - by Dr. Mackay's IR on 02/18/17 on Zosyn IV. Zofran IV prn. Dr Arellano ID following. Can switch to oral Abx once C/S available - ?levo and Flagyl per ID specialist . Follow up final re -cultures fluid 02/22 ff LFTs GI ff. Infectious Disease ff. GS ff Cholangiogram showed cholecystostomy tube outside of the gallbladder; tube was removed 02/17. IR to reevaluated and tube replaced, continue drain to gravity. POOR SURGICAL CANDIDATE PER GEN SURGERY Acute respiratory alkalosis with Acute hypoxemia. Likely secondary to sepsis. O2 sats improved with nasal cannula 2 L.. Acute kidney injury secondary to sepsis- Cr 2.73, continue IVFs. Consult nephrology as noted worsening kidney function. Urinary bladder spasm start ditropan. Monitor closely UOP. Patient with low UOP 2/2 poor PO intake. Received 1L NS and increased IVF rate to 100 cc/h . Monitor closely UOP. Hyperkalemia- resolved continue IVF- gentle hydration ff BMP. Hold YESENIA History of CAD, ischemic cardiomyopathy with known ejection fraction of 45%. BNP elevated .but clinically appears comfortable started on gentle IVF. ff lung exam. Hold YESENIA due CHRISTY History of seizure disorder, CVA, left basal ganglia infarct.. Neuro stable Continue on Keppra, will change to liquid form as can't swallow keppra pills. Will also consult swallow eval, change diet to soft. Continue on aspirin. Will hold off on the Plavix in the event that patient may need a procedure. Anemia chronic. H&H near baseline. Diabetes mellitus type 2, uncontrolled a1c id 7.9 ( on 02/08) will follow blood sugars on sliding scale low dose and adjust Lovenox for DVT prophylaxis PPI IV Discharge Planning appreciate input from ID, GS and GI. d/c pending improvement, further recs Discussed with the patient, Doris Del Angel MD Feb 23, 2017 11:50
--- NOTE | 2017-02-23 13:40 | HHI.NPPN ---
Subjective History of Present Illness 62 year old with ARF/CKD, Acute cholecystitis s/p cholecystotomy Objective Data Data 02/22/17 02/23/17 19:00 07:00 Intake Total 240 ml Output Total 300 ml 300 ml Balance -60 ml -300 ml Intake Oral 240 ml Output Urine Total 300 ml 300 ml # Bowel Movements 1 Vital Signs Date Time Temp Pulse Resp B/P Pulse Ox O2 Delivery O2 Flow Rate FiO2 02/23/17 12:00 97.5 65 18 144/71 98 02/23/17 08:00 96 Nasal Cannula 3.00 02/23/17 08:00 97.7 65 18 137/65 99 02/23/17 04:00 98.1 69 18 123/70 99 02/23/17 00:00 98.6 66 18 123/70 99 02/22/17 20:00 98.1 68 19 135/72 100 02/22/17 20:00 68 02/22/17 19:45 Nasal Cannula 3.00 02/22/17 16:00 97.0 65 20 147/70 97 -: 02/21/17 0937 02/23/17 0621 Physical Exam General Appearance: Well Developed Neck Neck Exam: Neck Supple Pulmonary Resp Exam: Clear Bilaterally, Breath Sounds Equal Cardiology CV Exam: Regular Gastrointestinal/Abdomen GI Exam: Bowel Sounds Hypoactive Extremeties Extremities Exam: No Edema Assessment/Plan Problem List: (1) Acute renal failure Plan: change IVF NS at 84 cc US mid rt kidney possible stone small no hydro UOP low Cr 3.5 tired lethargic not eating well try diuresis consider dialysis Albumin/Bumex ordered (2) Acute cholecystitis due to biliary calculus Plan: patient has dehydration treated for Kleb Pneumonia on Zosyn change IVF NS at 84 cc /hr follow BMP (3) Dehydration Plan: due to sepsis (4) Diabetes Plan: follow Salome Hoffman MD Feb 23, 2017 13:40
[2017-02-23] MEDS: BUMETANIDE INJ 1 MG/4 ML VIAL IV PUSH SCH ×2 (13:45→17:56)
[2017-02-23] MEDS: ALBUMIN HUMAN 25% 25 GM/100 ML BAGP IV SCH (14:00)
--- NOTE | 2017-02-23 15:52 | HHI.IDPN ---
Subjective Subjective Remarks Patient is a 62-year-old female into the hospital for evaluation of increasing abdominal pain and diarrhea. Patient was recently hospitalized and was diagnosed to have acute cholecystitis. It was felt that she was not a surgical candidate, and a tube cholecystostomy was placed. Culture of the bile was negative. Her blood cultures were negative. He clinically improved and was discharged to the intermediate, on oral Augmentin with plans to finish to treatment February 17. She was supposed to have a follow-up with interventional radiology to evaluate her gallbladder to for possible removal. In the intermediate she started having pain in the epigastric area as well as in the right upper quadrant. She was also having some nausea, but no vomiting. She had some loose stools. She presented to the hospital for further evaluation and treatment. CT of the abdomen and pelvis did not show any common bile duct palpitation. She did have evidence of bilateral effusion and atelectasis. Patient however has no respiratory complaint. She had some low- grade temp on admission. Her lactic acid is elevated. Her total bilirubin is normal, but her AST and ALT were elevated. Culture of the bile is now reported as growing Klebsiella, pansensitive. Her initial WBC is normal. Her urinalysis is unremarkable. Stool for C. difficile is negative. Blood cultures are negative so far. Notes reviewed Temps ok UO low Creatinine rising Very weak Has new tube to her GB - repeat C/S negative so far LFT improving Poor po intake Good output from the GB tube Antibiotics Zosyn Lines PIV Past Medical History Arthritis Depression Diabetes Hypertension Peripheral Neuropathy Pancreatitis Colitis Cholelithiasis CKD PVD CAD non operable multi vessel disease Ischemic cardiomyopathy Hx UTI Anemia CVA Past Surgical History x 4 Neck Fusion Right BKA 2013 Stents in leg Revascularizations for her PVD Allergies: Coded Allergies: *MDRO Multi-Drug Resistant Organism (Verified Allergy, Unknown, 02/15/17) Patient reported H/O MRSA MRSA PCR screen NEGATIVE- 01/27/17 Cleared per Infection Control Objective . Vital Signs Date Time Temp Pulse Resp B/P Pulse Ox O2 Delivery O2 Flow Rate FiO2 02/23/17 12:00 97.5 65 18 144/71 98 02/23/17 08:00 96 Nasal Cannula 3.00 02/23/17 08:00 97.7 65 18 137/65 99 02/23/17 04:00 98.1 69 18 123/70 99 6/1/17 00:00 98.6 66 18 123/70 99 02/22/17 20:00 98.1 68 19 135/72 100 02/22/17 20:00 68 02/22/17 19:45 Nasal Cannula 3.00 02/22/17 16:00 97.0 65 20 147/70 97 02/22/17 02/22/17 02/23/17 15:00 23:00 07:00 Intake Total 240 ml Output Total 300 ml 300 ml Balance -60 ml -300 ml Intake Oral 240 ml Output Urine Total 300 ml 300 ml # Bowel Movements 1 . Laboratory Tests Test 02/23/17 06:21 Sodium Level 148 MEQ/L Potassium Level 3.7 MEQ/L Chloride Level 116 MEQ/L Carbon Dioxide Level 20.3 MEQ/L Anion Gap 12 MEQ/L Blood Urea Nitrogen 66 MG/DL Creatinine 3.53 MG/DL Estimat Glomerular Filtration 13 ML/MIN Rate Random Glucose 212 MG/DL Calcium Level 8.1 MG/DL Microbiology Date/Time Procedure Status Source Growth 02/22/17 12:45 Gram Stain - Final Resulted Fluid Bile Fluid 02/22/17 12:45 Body Fluid Culture - Preliminary Resulted Fluid Bile Fluid NO GROWTH IN 24 HOURS. Imaging Renal Ultrasound 02/22/17 0000 Signed Impressions: Service Date/Time: Wednesday, February 22, 2017 08:16 - CONCLUSION: 1. 6 mm calcified density in the mid right kidney, likely vascular as this was not noted on recent ultrasound of the abdomen. A non-obstructing renal calculus cannot be entirely excluded. 2. Otherwise, no evidence for obstructive uropathy as questioned. 3. Incidental note of small right pleural effusion and trace ascites. Rustam Capellan MD Last Impressions Cholangiogram 02/17/17 0800 Signed Impressions: Service Date/Time: Friday, February 17, 2017 13:00 - CONCLUSION: 1. Majority of the the tube outside of the gallbladder lumen as above. The tube was removed Obdulio Virk MD Chest X-Ray 02/15/17 0000 Signed Impressions: Service Date/Time: Wednesday, February 15, 2017 16:31 - CONCLUSION: Slight improvement in aeration. Willy Mackay MD Abdomen CT 02/15/17 0000 Signed Impressions: Service Date/Time: Wednesday, February 15, 2017 20:25 - CONCLUSION: 1. Cholelithiasis. 2. Right upper quadrant catheter is seen as described above. 3. Bilateral pleural effusions and basilar consolidation. Marc Em MD Physical Exam GENERAL: awakens easily, but slow to answer, not in distress SKIN: No rashes, ecchymoses or lesions. Cool and dry. HEAD: Atraumatic. Normocephalic. No temporal or scalp tenderness. EYES: Pupils equal round and reactive. No scleral icterus. No injection or drainage. ENT: Nose without bleeding, purulent drainage or septal hematoma. Dry oral mucosa NECK: Trachea midline. No JVD or lymphadenopathy. Supple, nontender, no meningeal signs. CARDIOVASCULAR: Regular rate and rhythm without murmurs, gallops, or rubs. RESPIRATORY: Decreased BS at bases GASTROINTESTINAL: Abdomen soft, less tender, GB tube with dark green fluid. No guarding. MUSCULOSKELETAL: Extremities without clubbing, cyanosis, or edema. S/P BKA stump well healed NEUROLOGICAL: Lethargic PSYCH: Unable to assess LINE: PIV with no evidence of infection Assessment & Plan Remarks IMPRESSION Possible sepsis, on admsission due to bilary tract source most likely - better - GB tube in peritoneal cavity and not in right spot Recurrent abdominal pain, has tube cholecystostomy for acute cholecystitis - no CBD dil on CT - bile C/S with Klebsiella - due to malposition of GB tube, removed today - low grade temps better, WBC normal, UA ok Diarrhea, C Diff negative Abnormal LFTs Worsening renal function RECOMMENDATION Stop Zosyn Levaquin and Flagyl x 14 days Renal following - may need HD Follow new C/S Monitor progress Nisreen Garcia MD Feb 23, 2017 15:52
[2017-02-23] MEDS ORDERED: LEVOFLOXACIN 250 MG TAB PO SCH (16:00)
[2017-02-23] MEDS: LEVOFLOXACIN 250 MG PREMIX INJ 50 ML IV SCH (17:00)
[2017-02-23] MEDS: PANTOPRAZOLE SODIUM 40 MG VIAL IV PUSH SCH (17:56)
[2017-02-23] MEDS: ENOXAPARIN SODIUM 30 MG/0.3 ML SYRINGE SQ SCH (21:09)
[2017-02-23] MEDS: metroNIDAZOLE 250 MG TAB PO SCH (21:10)
[2017-02-23] MEDS ORDERED: metroNIDAZOLE 250 MG TAB PO SCH (22:00)
[2017-02-24] VITALS (14 sets, daily range): BP systolic 123–175; BP diastolic 66–97; PULSE 78–91; RESP 18–24; TEMP 97.8–98.9; O2SAT 88–100
[2017-02-24] MEDS: SODIUM CHLOR 0.9% 1000 ML INJ 1,000 ML IV SCH (02:00)
[2017-02-24] MEDS: ALBUMIN HUMAN 25% 25 GM/100 ML BAGP IV SCH ×2 (02:18→14:00)
[2017-02-24] MEDS: metroNIDAZOLE 250 MG TAB PO SCH ×3 (06:04→23:24)
[2017-02-24] MEDS: INSULIN ASPART SUPPLEMENTAL SCALE SQ SCH ×4 (06:08→21:53)
--- NOTE | 2017-02-24 08:12 | HHI.PR ---
Subjective Remarks Patient in bed, appearing chronically ill, barely talking. Appears sob and wheezy. No fever or chills. Objective Vitals Vital Signs Date Time Temp Pulse Resp B/P Pulse Ox O2 Delivery O2 Flow Rate FiO2 02/24/17 04:00 97.9 87 18 123/66 95 02/24/17 00:00 98.9 78 18 137/70 95 02/23/17 20:00 Nasal Cannula 3.00 02/23/17 20:00 98.0 77 19 144/61 98 02/23/17 16:00 98.0 68 20 137/75 97 02/23/17 12:00 97.5 65 18 144/71 98 02/23/17 11:00 67 I/O 02/23/17 02/23/17 02/23/17 02/24/17 02/24/17 02/24/17 07:00 15:00 23:00 07:00 15:00 23:00 Intake Total 60 ml 258 ml Output Total 510 ml 750 ml Balance -450 ml -750 ml 258 ml Intake Oral 60 ml IV Total 258 ml Output Urine Total 400 ml 750 ml Drainage Total 110 ml # Bowel Movements 1 Result Diagram: 02/21/17 0937 02/23/17 0621 Imaging Last Impressions Renal Ultrasound 02/22/17 0000 Signed Impressions: Service Date/Time: Wednesday, February 22, 2017 08:16 - CONCLUSION: 1. 6 mm calcified density in the mid right kidney, likely vascular as this was not noted on recent ultrasound of the abdomen. A non-obstructing renal calculus cannot be entirely excluded. 2. Otherwise, no evidence for obstructive uropathy as questioned. 3. Incidental note of small right pleural effusion and trace ascites. Rustam Capellan MD Percutaneous Cholangiogram 02/18/17 0000 Signed Impressions: Service Date/Time: Saturday, February 18, 2017 14:43 - CONCLUSION: Uncomplicated percutaneous cholecystostomy as above. Willy Mackay MD Gall Bladder Ultrasound 02/18/17 0000 Signed Impressions: Service Date/Time: Saturday, February 18, 2017 09:40 - CONCLUSION: 1. Gallbladder is mildly distended with 17 mm stone in the gallbladder neck. There is no significant gallbladder wall thickening. There is a positive sonographic Faria sign. 2. Small right pleural effusion and small volume of ascites. 3. Mild hepatic steatosis. Willy Suh MD Cholangiogram 02/17/17 0800 Signed Impressions: Service Date/Time: Friday, February 17, 2017 13:00 - CONCLUSION: 1. Majority of the the tube outside of the gallbladder lumen as above. The tube was removed Obdulio Virk MD Chest X-Ray 02/15/17 0000 Signed Impressions: Service Date/Time: Wednesday, February 15, 2017 16:31 - CONCLUSION: Slight improvement in aeration. Willy Mackay MD Abdomen CT 02/15/17 0000 Signed Impressions: Service Date/Time: Wednesday, February 15, 2017 20:25 - CONCLUSION: 1. Cholelithiasis. 2. Right upper quadrant catheter is seen as described above. 3. Bilateral pleural effusions and basilar consolidation. Marc Em MD Objective Remarks GA: awake and alert, somnolent, chronically ill patient, in bed, she answers with yes and no then goes back to sleep, lethargic. SKIN: Icteric improving ENT: Dry oral mucosa RESPIRATORY - Decrease breath sounds, scattered wheezes CARDIOVASCULAR: Regular rhythm no murmurs ABDOMEN: Soft, some discomfort in the right upper quadrant and epigastric area - dressing over the cholecystostomy tube which has been replaced 02/18 by IR MSK: Extremities 1+ edema. NEURO: Somnolent, lethargic, very weak. Date of Insertion: February 15, 2017 A/P Assessment and Plan 61-year-old female presenting with right upper quadrant pain, nausea, vomiting Sepsis secondary to biliary pathology-- growing klebsiella in biliary fluid History of obstructive jaundice secondary to cholelithiasis status post cholecystostomy tube placement which has been removed Had cholecystostomy tube replaced - by Dr. Mackay's IR on 02/18/17 on Zosyn IV. Zofran IV prn. Dr Arellano ID following. Can switch to oral Abx once C/S available - ?levo and Flagyl per ID specialist . Follow up final re -cultures fluid 02/22 are negative ff LFTs GI ff. Infectious Disease ff. GS ff Cholangiogram showed cholecystostomy tube outside of the gallbladder; tube was removed 02/17. IR to reevaluated and tube replaced, continue drain to gravity. POOR SURGICAL CANDIDATE PER GEN SURGERY Acute respiratory alkalosis with Acute hypoxemia. Likely secondary to sepsis. O2 sats improved with nasal cannula 2 L.. Repeat CXR 02/24 , add duonebs q2 hrs prn as patient noted wheezing Acute kidney failure. POss hepato-renal sdr, ATN? Consult nephrology as noted worsening kidney function. Received albumin and bumex per nephro. Poss needs dialysis. Nephrology following. Urinary bladder spasm start ditropan. Monitor closely UOP. Patient with low UOP 2/2 poor PO intake. Received 1L NS and increased IVF rate to 100 cc/h . Monitor closely UOP. Hyperkalemia- resolved continue IVF- gentle hydration ff BMP. Hold YESENIA History of CAD, ischemic cardiomyopathy with known ejection fraction of 45%. BNP elevated .but clinically appears comfortable started on gentle IVF. ff lung exam. Hold YESENIA due CHRISTY History of seizure disorder, CVA, left basal ganglia infarct.. Neuro stable Continue on Keppra, will change to liquid form as can't swallow keppra pills. Will also consult swallow eval, change diet to soft. Continue on aspirin. Will hold off on the Plavix in the event that patient may need a procedure. Anemia chronic. H&H near baseline. Diabetes mellitus type 2, uncontrolled a1c id 7.9 ( on 02/08) will follow blood sugars on sliding scale low dose and adjust Lovenox for DVT prophylaxis PPI IV Discharge Planning appreciate input from ID, GS and GI. d/c pending improvement, further recs, patient is not improving. Discussed with the patient, nurse Doris Estes MD Feb 24, 2017 08:12
[2017-02-24] MEDS: VENLAFAXINE HCL XR 75 MG CAP PO SCH (09:00)
[2017-02-24] MEDS ORDERED: RESP: ALBUTEROL 2.5 MG/IPRATROPIUM 0.5 MG NEB (SCH) NEB ONE (09:15)
--- NOTE | 2017-02-24 10:07 | RADRPT ---
EXAM DATE/TIME: 02/24/2017 09:20 [facility] COMPARISON: CHEST SINGLE AP, February 15, 2017, 16:31. INDICATIONS : Shortness of breath. MEDICAL HISTORY : Hypertension. Hypercholesterolemia. Stroke. Congestive heart failure. SURGICAL HISTORY : None. ENCOUNTER: Initial ACUITY: 1 day PAIN SCORE: Non-responsive. LOCATION: Bilateral chest FINDINGS: Single AP view of the chest. Moderate severity diffuse bilateral pulmonary parenchymal opacity with i ncrease when compared to the prior study. Small bilateral pleural effusions. No evidence of pneumotho rax. Cardiomediastinal silhouette unchanged. CONCLUSION: Bilateral diffuse pulmonary opacity. Differential diagnosis is pulmonary edema and infection. Mekhi Painter MD on February 24, 2017 at 10:03 Board Certified Radiologist. This report was verified electronically.
[2017-02-24 10:48] LABS: BLOOD GAS BASE EXCESS -12.8 mmol/L (-2-2); BLOOD GAS CARBOXYHEMOGLOBIN 1.6 % (0-4); BLOOD GAS HCO3 13 mmol/L (22-26); BLOOD GAS METHEMOGLOBIN 0.9 % (0-2); BLOOD GAS O2 HGB SATURATION 88 % (90-100); BLOOD GAS OXYGEN CONTENT 10.6 Vol % (12.0-20.0); BLOOD GAS PCO2 30 mmHg (38-42); BLOOD GAS PO2 66 mmHg (61-120); BLOOD GAS TOTAL HGB 8.5 G/DL (12.0-16.0); CRITICAL VALUE YES; DRAW SITE RT RADIAL; LITER FLOW 4 L/M; NUMBER OF ARTERIAL PUNCTURES 1; OXYGEN DEVICE NASAL CANNULA; TEMP CORR TO 98.6; ULNAR PULSE PRESENT
[2017-02-24 10:49] LABS: STAT YES
[2017-02-24] MEDS ORDERED: SODIUM CHLOR 0.9% 1000 ML INJ 1,000 ML IV PRN ×3 (11:02)
[2017-02-24] MEDS ORDERED: SODIUM BICARBONATE 8.4% INJ 50 ML ONE ×2 (11:05→11:08)
--- NOTE | 2017-02-24 11:08 | HHI.NPPN ---
Subjective History of Present Illness 62 year old with ARF/CKD, Acute cholecystitis s/p cholecystotomy Additional Remarks patient lethargic transferred to ICU volume overload Objective Data Data 02/23/17 02/24/17 19:00 07:00 Intake Total 60 ml 258 ml Output Total 510 ml 750 ml Balance -450 ml -492 ml Intake Oral 60 ml IV Total 258 ml Output Urine Total 400 ml 750 ml Drainage Total 110 ml # Bowel Movements 1 Vital Signs Date Time Temp Pulse Resp B/P Pulse Ox O2 Delivery O2 Flow Rate FiO2 02/24/17 10:47 88 Nasal Cannula 4.00 02/24/17 10:40 4.00 02/24/17 08:00 98.0 86 18 168/92 90 02/24/17 04:00 97.9 87 18 123/66 95 02/24/17 00:00 98.9 78 18 137/70 95 02/23/17 20:00 Nasal Cannula 3.00 02/23/17 20:00 98.0 77 19 144/61 98 02/23/17 16:00 98.0 68 20 137/75 97 02/23/17 12:00 97.5 65 18 144/71 98 -: 02/21/17 0937 02/23/17 0621 Physical Exam General Appearance: Well Developed Neck Neck Exam: Neck Supple Pulmonary Resp Exam: Crackles, Rhonchi, Decreased Bases, Diminished Breath Sounds Cardiology CV Exam: Tachycardia Gastrointestinal/Abdomen GI Exam: Bowel Sounds Hypoactive Extremeties Extremities Exam: Moderate Edema Assessment/Plan Problem List: (1) Acute renal failure Plan: ARF ATN CHF now getting intubated need vascath and dialysis US mid rt kidney possible stone small no hydro UOP low Cr 3.5 yesterday lethargic not eating well poor response to diuretics need hemodialysis d/w Dr. Willy Kruse going to put a vascath in HD today (2) Acute cholecystitis due to biliary calculus Plan: patient has dehydration treated for Kleb Pneumonia on Zosyn change IVF NS at 84 cc /hr follow BMP (3) Diabetes Plan: follow Salome Hoffman MD Feb 24, 2017 11:08
[2017-02-24] MEDS ORDERED: ETOMIDATE 20 MG/10 ML VIAL ONE (11:11)
[2017-02-24] MEDS ORDERED: ROCURONIUM INJ 50 MG/5 ML VIAL ONE (11:11)
[2017-02-24] MEDS ORDERED: ONDANSETRON HCL 4 MG/2 ML VIAL IV PRN (11:15)
[2017-02-24] MEDS ORDERED: HEPARIN SODIUM - IV 10,000 UNITS/10 ML VIAL IVF PRN (11:15)
[2017-02-24] MEDS ORDERED: GELATIN 12 MM/7 MM FOAM TOP PRN (11:15)
[2017-02-24] MEDS ORDERED: cloNIDine HCL 0.1 MG TAB PO PRN (11:15)
[2017-02-24] MEDS ORDERED: diphenhydrAMINE HCL 25 MG CAP PO PRN (11:15)
[2017-02-24] MEDS ORDERED: MANNITOL 12.5 GM/50 ML VIAL IV PRN (11:15)
[2017-02-24] MEDS ORDERED: SODIUM CHLORIDE 0.9% FLUSH 10 ML FLUSH IV FLUSH PRN (11:15)
[2017-02-24] MEDS ORDERED: ACETAMINOPHEN 325 MG TAB PO PRN (11:15)
[2017-02-24] MEDS ORDERED: NITROGLYCERIN 0.4 MG SL 25 TABS/BTL SL PRN (11:15)
[2017-02-24] MEDS ORDERED: PROPOFOL 1000 MG/100 ML INJ 100 ML ONE (11:17)
[2017-02-24 12:29] LABS: APTT (PATIENT) 28.7 SEC (24.3-30.1); INTERNATIONAL NORMALIZED RATIO 1.8 RATIO; PROTHROMBIN TIME - PATIENT 20.6 SEC (9.8-11.6)
[2017-02-24 12:33] LABS: BLOOD GAS BASE EXCESS -9.5 mmol/L (-2-2); BLOOD GAS CARBOXYHEMOGLOBIN 1.9 % (0-4); BLOOD GAS HCO3 14 mmol/L (22-26); BLOOD GAS METHEMOGLOBIN 1.1 % (0-2); BLOOD GAS O2 HGB SATURATION 97 % (90-100); BLOOD GAS PCO2 21 mmHg (38-42); BLOOD GAS PO2 324 mmHg (61-120); BLOOD GAS TOTAL HGB 8.2 G/DL (12.0-16.0); TEMP CORR TO 98.6
[2017-02-24 12:34] LABS: CRITICAL VALUE YES; DRAW SITE RT RADIAL; FIO2 100 %; NUMBER OF ARTERIAL PUNCTURES 1; OXYGEN DEVICE VENTILATOR; STAT NO; ULNAR PULSE PRESENT; VENT SETTINGS AC 550/24/8PEEP
[2017-02-24 12:40] LABS: ALKALINE PHOSPHATASE 80 U/L (45-117); ALT (GPT) 199 U/L (10-53); ANION GAP 16 MEQ/L (5-15); AST (GOT) 106 U/L (15-37); BICARBONATE 19.6 MEQ/L (21.0-32.0); CHLORIDE 116 MEQ/L (98-107); GLOMERULAR FILTRATION RATE 14 ML/MIN (>89); POTASSIUM 3.8 MEQ/L (3.5-5.1); SODIUM (NA) 152 MEQ/L (136-145); TOTAL BILIRUBIN ADULT 0.9 MG/DL (0.2-1.0)
[2017-02-24 12:51] LABS: BLOOD UREA NITROGEN 62 MG/DL (7-18); CREATINE KINASE 24 U/L (26-192)
--- NOTE | 2017-02-24 12:55 | RADRPT ---
EXAM DATE/TIME: 02/24/2017 12:22 [facility] COMPARISON: CHEST SINGLE AP, February 24, 2017, 9:20. INDICATIONS : Post ET placement, Vas Cath and CVP Line Placement MEDICAL HISTORY : Hypercholesterolemia. Hypertension Cervical SURGICAL HISTORY : section. ENCOUNTER: Subsequent ACUITY: 2 weeks PAIN SCORE: Non-responsive. LOCATION: Bilateral chest FINDINGS: The patient is intubated with the ET tube 5 cm from the daniel in good position. An NG tube is direct ed into the stomach. There are bilateral internal jugular central line is in place with the tips over lying the SVC. The heart size is enlarged. The lungs are show diffuse mixed interstitial and alveolar consolidation. There is a mild right pleural effusion. There is an anterior cervical fusion plate pr esent. CONCLUSION: 1. Bilateral internal jugular central lines in good position. The ET tube and NG tube are well placed . 2. Diffuse mixed interstitial and alveolar consolidation likely representing pulmonary edema. There i s a mild right pleural effusion. Willy Chirinos MD on February 24, 2017 at 12:47 Board Certified Radiologist. This report was verified electronically.
--- NOTE | 2017-02-24 13:44 | HHI.IDPN ---
Subjective Subjective Remarks Patient is a 62-year-old female into the hospital for evaluation of increasing abdominal pain and diarrhea. Patient was recently hospitalized and was diagnosed to have acute cholecystitis. It was felt that she was not a surgical candidate, and a tube cholecystostomy was placed. Culture of the bile was negative. Her blood cultures were negative. He clinically improved and was discharged to the [facility], on oral Augmentin with plans to finish to treatment February 17. She was supposed to have a follow-up with interventional radiology to evaluate her gallbladder to for possible removal. In the [facility] she started having pain in the epigastric area as well as in the right upper quadrant. She was also having some nausea, but no vomiting. She had some loose stools. She presented to the hospital for further evaluation and treatment. CT of the abdomen and pelvis did not show any common bile duct palpitation. She did have evidence of bilateral effusion and atelectasis. Patient however has no respiratory complaint. She had some low- grade temp on admission. Her lactic acid is elevated. Her total bilirubin is normal, but her AST and ALT were elevated. Culture of the bile is now reported as growing Klebsiella, pansensitive. Her initial WBC is normal. Her urinalysis is unremarkable. Stool for C. difficile is negative. Blood cultures are negative so far. Notes reviewed D/W RN Obtunded this morning Also SOB and wheezy Transferred to [facility] and now intubated Patient getting ready for HD Temps ok BP ok Good output from the GB tube Antibiotics Levaquin Flagyl Lines LIJ Vascath RIJ TLC Past Medical History Arthritis Depression Diabetes Hypertension Peripheral Neuropathy Pancreatitis Colitis Cholelithiasis CKD PVD CAD non operable multi vessel disease Ischemic cardiomyopathy Hx UTI Anemia CVA Past Surgical History x 4 Neck Fusion Right BKA 2013 Stents in leg Revascularizations for her PVD Allergies: Coded Allergies: *MDRO Multi-Drug Resistant Organism (Verified Allergy, Unknown, 02/15/17) Patient reported H/O MRSA MRSA PCR screen NEGATIVE- 01/27/17 Cleared per Infection Control Objective . Vital Signs Date Time Temp Pulse Resp B/P Pulse Ox O2 Delivery O2 Flow Rate FiO2 02/24/17 11:15 100 100 02/24/17 10:47 88 Nasal Cannula 4.00 02/24/17 10:40 4.00 02/24/17 08:00 98.0 86 18 168/92 90 6/2/17 04:00 97.9 87 18 123/66 95 02/24/17 00:00 98.9 78 18 137/70 95 02/23/17 20:00 Nasal Cannula 3.00 02/23/17 20:00 98.0 77 19 144/61 98 02/23/17 16:00 98.0 68 20 137/75 97 02/23/17 02/23/17 02/24/17 15:00 23:00 07:00 Intake Total 60 ml 258 ml Output Total 510 ml 750 ml Balance -450 ml -750 ml 258 ml Intake Oral 60 ml IV Total 258 ml Output Urine Total 400 ml 750 ml Drainage Total 110 ml # Bowel Movements 1 . Laboratory Tests Test 02/23/17 02/24/17 02/24/17 06:21 11:40 11:45 Sodium Level 148 MEQ/L 152 MEQ/L Potassium Level 3.7 MEQ/L 3.8 MEQ/L Chloride Level 116 MEQ/L 116 MEQ/L Carbon Dioxide Level 20.3 MEQ/L 19.6 MEQ/L Anion Gap 12 MEQ/L 16 MEQ/L Blood Urea Nitrogen 66 MG/DL 62 MG/DL Creatinine 3.53 MG/DL 3.35 MG/DL Estimat Glomerular Filtration 13 ML/MIN 14 ML/MIN Rate Random Glucose 212 MG/DL 177 MG/DL Calcium Level 8.1 MG/DL 8.5 MG/DL Phosphorus Level 4.2 MG/DL Magnesium Level 2.0 MG/DL Total Bilirubin 0.9 MG/DL Aspartate Amino Transf 106 U/L (AST/SGOT) Alanine Aminotransferase 199 U/L (ALT/SGPT) Alkaline Phosphatase 80 U/L Total Creatine Kinase 24 U/L Total Protein 6.2 GM/DL Albumin 2.7 GM/DL Lactic Acid Level 5.4 mmol/L Microbiology Date/Time Procedure Status Source Growth 02/22/17 12:45 Gram Stain - Final Resulted Fluid Bile Fluid 02/22/17 12:45 Body Fluid Culture - Preliminary Resulted Fluid Bile Fluid NO GROWTH IN 48 HOURS. 02/24/17 12:45 Gram Stain Received Sputum Endotracheal Pending 02/24/17 12:45 Sputum Culture Received Sputum Endotracheal Pending Imaging Renal Ultrasound 02/22/17 0000 Signed Impressions: Service Date/Time: Wednesday, February 22, 2017 08:16 - CONCLUSION: 1. 6 mm calcified density in the mid right kidney, likely vascular as this was not noted on recent ultrasound of the abdomen. A non-obstructing renal calculus cannot be entirely excluded. 2. Otherwise, no evidence for obstructive uropathy as questioned. 3. Incidental note of small right pleural effusion and trace ascites. Rustam Capellan MD Last Impressions Cholangiogram 02/17/17 0800 Signed Impressions: Service Date/Time: Friday, February 17, 2017 13:00 - CONCLUSION: 1. Majority of the the tube outside of the gallbladder lumen as above. The tube was removed Obdulio Virk MD Chest X-Ray 02/15/17 0000 Signed Impressions: Service Date/Time: Wednesday, February 15, 2017 16:31 - CONCLUSION: Slight improvement in aeration. Willy Mackay MD Abdomen CT 02/15/17 0000 Signed Impressions: Service Date/Time: Wednesday, February 15, 2017 20:25 - CONCLUSION: 1. Cholelithiasis. 2. Right upper quadrant catheter is seen as described above. 3. Bilateral pleural effusions and basilar consolidation. Marc Em MD Physical Exam GENERAL: Sedated on the vent SKIN: Cool and dry. No rash HEAD: Atraumatic. Normocephalic. No temporal or scalp tenderness. EYES: Hardesty conjunctivae. No scleral icterus. No injection or drainage. ENT: Nose without bleeding, purulent drainage. Orally intubated NECK: Supple. Lines ok CARDIOVASCULAR: Regular rate and rhythm without murmurs, gallops, or rubs. RESPIRATORY: Decreased BS at bases GASTROINTESTINAL: Abdomen soft, less tender, GB tube with dark green fluid. No guarding. MUSCULOSKELETAL: Extremities without clubbing, cyanosis, or edema. S/P BKA stump well healed NEUROLOGICAL: Sedated PSYCH: Unable to assess LINE: PIV with no evidence of infection Assessment & Plan Remarks IMPRESSION Possible sepsis, on admsission due to bilary tract source most likely - better - GB tube in peritoneal cavity and not in right spot Recurrent abdominal pain, has tube cholecystostomy for acute cholecystitis - no CBD dil on CT - bile C/S with Klebsiella - due to malposition of GB tube, removed today Respiratory failure, due to fluid overload - started on HD Renal failure, started on HD 6/2 Diarrhea, C Diff negative Abnormal LFTs RECOMMENDATION Continue Levaquin and Flagyl x 14 days Started on HD today Clinically her problems looks more of fluid overload Will get 2 BC Monitor progress D/W RN Dr Billy Kruse available if with any ID issue or question this weekend Nisreen Garcia MD Feb 24, 2017 13:44
[2017-02-24] MEDS: EPOETIN ALFA 10,000 UNITS/ML VIAL IV PRN (14:31)
[2017-02-24] MEDS: HEPARIN SODIUM - IV 10,000 UNITS/10 ML VIAL PRN (14:32)
[2017-02-24] MEDS: GENTAMICIN SULFATE (DIALYSIS USE ONLY) 20 MG/2 ML VIAL IV PRN (14:32)
--- NOTE | 2017-02-24 14:32 | PD.PROCEDR ---
Central Line Procedure REASON FOR PROCEDURE Central venous access PROCEDURE PERFORMED Central line placement: Right internal jugular vein CONSENT Informed consent for procedure was obtained. ANESTHESIA Local injection of 1% Lidocaine DESCRIPTION OF THE PROCEDURE The patient was placed in supine, mild Trendelenburg position. The area was exposed and cleansed with ChloraPrep, times two. Large sterile drape was used to cover the patient, with the site exposed, under sterile conditions including cap, face mask, sterile gown, and sterile gloves. On single attempt, the introducer needle was inserted with negative pressure in syringe and venous flash was obtained. The guide wire was then advanced without any restriction and the needle was removed. The dilator was used without any complications. Using Seldinger technique a 20 cm antimicrobial coated triple lumen catheter was advanced over the guide wire to a depth of 18 centimeters. The guide wire was removed. All ports were aspirated with dark venous blood return and flushed easily with sterile saline. All ports were capped. Antibiotic disc was placed around central line at puncture site. The central line was secured to the skin with two interrupted 2.0 silk sutures. The area was bandaged with sterile see-through central line bandage. RADIOLOGICAL DATA Ultrasound guidance was used to locate the right internal jugular vein. Doppler /color flow was used to confirm venous flow. COMPLICATIONS: No apparent complications ESTIMATED BLOOD LOSS: 4 cc. Kenny Kruse MD Feb 24, 2017 14:32
--- NOTE | 2017-02-24 14:39 | PD.PROCEDR ---
Procedure Note Procedure Preop diagnosis: Acute respiratory failure, acute kidney injury/chronic kidney disease, sepsis Postop diagnosis: Same Informed consent: Obtained from family and documented in chart Anesthesia: 1% lidocaine for local infiltration anesthesia Procedure: Dialysis catheter placement Site: Left internal jugular vein Ultrasound guidance : Yes After sterile prepping and draping using 1% lidocaine for local infiltration anesthesia, left internal jugular vein was visualized using an ultrasound was finder and under direct visualization was cannulated using an introducer needle with dark nonpulsatile blood return. A Guidewire was passed through the introducer needle without any resistance and the needle was then removed. After making a skin neck and dilation of tract, a 20 cm dual lumen dialysis catheter was passed over the guidewire by modified seldinger's technique into the left internal jugular vein up to the 19 cm catherine and the guidewire was then removed. Good blood return obtained through both ports which were then flushed with saline and subsequently hep-locked. After suturing the catheter in place, a Bio- occlusive dressing with biopatch was applied to the site. Post procedure chest x -ray was ordered and reviewed with good placement of left IJ dialysis catheter with tip reaching SVC, no pneumothorax on postprocedure film. Patient tolerated the procedure well with no immediate complications noted. Kenny Kruse MD Feb 24, 2017 14:39
--- NOTE | 2017-02-24 14:41 | PD.PROCEDR ---
Procedure Note Procedure Procedure: Endotracheal intubation Preop diagnosis: Acute respiratory failure, sepsis, CHRISTY/CKD Postop diagnosis: Same Sedation used: Etomidate 20 mg, rocuronium 50 mg IV Procedure: Patient was preoxygenated with 100% oxygen via Ambu bag with bag mask ventilation, following induction of sedation and neuromuscular blockade, direct laryngoscopy was performed using a Mac 4 blade with good visualization of vocal cords. An 8 Prydeinig ET tube was passed through the vocal cords under direct visualization up to the 23 centimeter catherine and after inflating cuff of ET tube, correct placement was confirmed using bagging with good color change on CO2 detector, 5 point auscultation and chest rise with ventilation. Patient was connected to mechanical ventilation. Patient tolerated the procedure well with no immediate complications noted. Postprocedure chest x-ray was ordered. Kenny Kruse MD Feb 24, 2017 14:41
--- NOTE | 2017-02-24 15:20 | PD.CONS ---
HPI Service Critical Care Medicine Consult Requested By Dr. Estes Reason for Consult Acute resp failure Primary Care Physician No Primary Care Physician History of Present Illness 61 year old female brought from halfway with change in mental status, n/v. LFTs elevated on admission and she had n/v/ right sided abd pain for 2 days [employer]. SHe had not eaten in 2 days. She was recently discharged with a cholecystomy tube placed 02/01/17. During that visit she was found to have cholelithiasis, cholecystitis, per HIDA, US, and CT, but had previously been told she is not a surgical candidate due to heart disease, she has inoperable multi-vessel CAD. Bile growing Klebsiella from 02/14. Cholangiogram showed cholecystostomy tube outside of the gallbladder; tube was removed 02/17. Had cholecystostomy tube replaced - by Dr. Mackay in IR on . Patient has been declining over the last few days. She has developed worsening kidney function and today developed worsening encephalopathy and respiratory distress. She was transferred to the ICU. I evaluated the patient following her arrival to the ICU. She appeared to be encephalopathic and in significant respiratory distress. Chest x-ray showed fluid overload. She was emergently intubated and placed on mechanical ventilation. History was obtained by reviewing records and discussion with nursing staff. Dr. Knowles from nephrology evaluated patient and recommended immediate hemodialysis. I emergently placed a central line and a Vas-Cath. 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 Coded Allergies: *MDRO Multi-Drug Resistant Organism (Verified Allergy, Unknown, 02/15/17) Patient reported H/O MRSA MRSA PCR screen NEGATIVE- 01/27/17 Cleared per Infection Control Administered Medications Medications (Trade) Dose Ordered Sig/Jomar Route PRN Reason Start Time Stop Time Status Last Admin Dose Admin Sodium Chloride (NS Flush) 2 ml UNSCH PRN IV FLUSH FLUSH AFTER USING IV ACCESS 02/14/17 13:30 02/16/17 04:16 Pantoprazole Sodium (Protonix Inj) 40 mg Q24H IV PUSH 02/14/17 18:00 02/23/17 17:56 Ondansetron HCl (Zofran Inj) 4 mg Q6HR PRN IV PUSH NAUSEA 02/14/17 18:00 02/16/17 09:51 Bupropion HCl (Wellbutrin Sr) 150 mg BID PO 02/15/17 09:00 02/22/17 21:09 Levetriacetam (Keppra) 500 mg Q12HR PO 02/14/17 21:00 Hold 02/19/17 23:09 Metoprolol Tartrate (Lopressor) 100 mg Q12HR PO 02/14/17 21:00 02/22/17 21:10 Venlafaxine HCl (Effexor Xr) 225 mg DAILY PO 02/15/17 09:00 02/23/17 09:00 Aspirin (Aspirin Chew) 81 mg DAILY CHEW 02/15/17 09:00 02/22/17 08:10 Enoxaparin Sodium (Lovenox Inj) 30 mg Q24H SQ 02/14/17 20:00 02/23/17 21:09 Levetriacetam (Keppra Liq) 500 mg Q12HR NG 02/20/17 11:45 02/23/17 09:00 Oxybutynin Chloride 5 mg 5 mg Q12HR PO 02/20/17 21:00 02/22/17 21:10 Sodium Chloride (NS 1000 ml Inj) 1,000 ml @ 84 mls/hr [id number] IV 02/22/17 14:15 02/23/17 14:05 Albumin Human (Albumin 25% Inj) 25 gm Q12H IV 02/23/17 14:00 02/24/17 02:18 Bumetanide 1 mg 1 mg BID@09,18 IV PUSH 02/23/17 13:45 02/23/17 17:56 Levofloxacin/ Dextrose (Levaquin 250 Mg Premix Inj) 50 ml @ 50 mls/hr Q24H IV 02/23/17 17:00 03/09/17 16:59 02/23/17 17:00 Metronidazole (Flagyl) 250 mg Q8HR PO 02/23/17 22:00 03/09/17 21:59 02/24/17 06:04 Family History Noncontributory Social History Quit smoking 3 months ago on previous visit, Denied any alcohol use Review of Systems ROS Limitations: Clinical Condition, Intubated, Altered Mental Status Physical Exam Vital Signs Vital Signs Date Time Temp Pulse Resp B/P Pulse Ox O2 Delivery O2 Flow Rate FiO2 02/24/17 11:15 100 100 02/24/17 10:47 88 Nasal Cannula 4.00 02/24/17 10:40 4.00 02/24/17 08:00 98.0 86 18 168/92 90 02/24/17 04:00 97.9 87 18 123/66 95 02/24/17 00:00 98.9 78 18 137/70 95 02/23/17 20:00 Nasal Cannula 3.00 02/23/17 20:00 98.0 77 19 144/61 98 02/23/17 16:00 98.0 68 20 137/75 97 Physical Exam HEENT/ Neuro: Sedated, orally intubated, Pallor present, no icterus, tongue/ mucosa dry Neck: No JVD Chest/Pulm: on mech vent, good air entry bilaterally, scattered rhonchi, no wheezing or crackles CVS: S1-S2 regular, no murmur GI/abdomen: soft, nontender, bowel sounds sluggish. Cholecystostomy tube in place with bilious drainage Extremities: Right above-knee amputation stump noted, left lower extremity warm , no edema. Laboratory Laboratory Tests Test 02/24/17 02/24/17 02/24/17 02/24/17 10:35 11:30 11:40 11:45 Blood Gas Puncture Site RT RADIAL Blood Gas Patient Temperature 98.6 Blood Gas HCO3 13 mmol/L Blood Gas Base Excess -12.8 mmol/L Blood Gas Oxygen Saturation 88 % Arterial Blood pH 7.26 Arterial Blood Partial 30 mmHg Pressure CO2 Arterial Blood Partial 66 mmHg Pressure O2 Arterial Blood Oxygen Content 10.6 Vol % Arterial Blood 1.6 % Carboxyhemoglobin Arterial Blood Methemoglobin 0.9 % Blood Gas Hemoglobin 8.5 G/DL Oxygen Delivery Device NASAL CANNULA Blood Gas Liter Flow 4 L/M Hepatitis A IgM Antibody NEGATIVE Hepatitis B Surface Antigen NEGATIVE Hepatitis B Core IgM Antibody NEGATIVE Hepatitis C Antibody NEGATIVE Prothrombin Time 20.6 SEC Prothromb Time International 1.8 RATIO Ratio Activated Partial 28.7 SEC Thromboplast Time Fibrinogen 366 mg/dL Sodium Level 152 MEQ/L Potassium Level 3.8 MEQ/L Chloride Level 116 MEQ/L Carbon Dioxide Level 19.6 MEQ/L Anion Gap 16 MEQ/L Blood Urea Nitrogen 62 MG/DL Creatinine 3.35 MG/DL Estimat Glomerular Filtration 14 ML/MIN Rate Random Glucose 177 MG/DL Calcium Level 8.5 MG/DL Phosphorus Level 4.2 MG/DL Magnesium Level 2.0 MG/DL Total Bilirubin 0.9 MG/DL Aspartate Amino Transf 106 U/L (AST/SGOT) Alanine Aminotransferase 199 U/L (ALT/SGPT) Alkaline Phosphatase 80 U/L Total Creatine Kinase 24 U/L Total Protein 6.2 GM/DL Albumin 2.7 GM/DL Lactic Acid Level 5.4 mmol/L Test 02/24/17 12:25 Blood Gas Puncture Site RT RADIAL Blood Gas Patient Temperature 98.6 Blood Gas HCO3 14 mmol/L Blood Gas Base Excess -9.5 mmol/L Blood Gas Oxygen Saturation 97 % Arterial Blood pH 7.44 Arterial Blood Partial 21 mmHg Pressure CO2 Arterial Blood Partial 324 mmHg Pressure O2 Arterial Blood Oxygen Content 12.0 Vol % Arterial Blood 1.9 % Carboxyhemoglobin Arterial Blood Methemoglobin 1.1 % Blood Gas Hemoglobin 8.2 G/DL Oxygen Delivery Device VENTILATOR Blood Gas Ventilator Setting AC 550/24/8PEEP Blood Gas Inspired Oxygen 100 % Microbiology Date/Time Procedure Status Source Growth 02/24/17 12:45 Gram Stain Received Sputum Endotracheal Pending 02/24/17 12:45 Sputum Culture Received Sputum Endotracheal Pending 02/22/17 12:45 Gram Stain - Final Resulted Fluid Bile Fluid 02/22/17 12:45 Body Fluid Culture - Preliminary Resulted Fluid Bile Fluid NO GROWTH IN 48 HOURS. Result Diagram: 02/21/17 0937 02/24/17 1140 Imaging Last Impressions Chest X-Ray 02/24/17 0000 Signed Impressions: Service Date/Time: Friday, February 24, 2017 12:22 - CONCLUSION: 1. Bilateral internal jugular central lines in good position. The ET tube and NG tube are well placed. 2. Diffuse mixed interstitial and alveolar consolidation likely representing pulmonary edema. There is a mild right pleural effusion. Willy Chirinos MD Renal Ultrasound 02/22/17 0000 Signed Impressions: Service Date/Time: Wednesday, February 22, 2017 08:16 - CONCLUSION: 1. 6 mm calcified density in the mid right kidney, likely vascular as this was not noted on recent ultrasound of the abdomen. A non-obstructing renal calculus cannot be entirely excluded. 2. Otherwise, no evidence for obstructive uropathy as questioned. 3. Incidental note of small right pleural effusion and trace ascites. Rustam Capellan MD Percutaneous Cholangiogram 02/18/17 0000 Signed Impressions: Service Date/Time: Saturday, February 18, 2017 14:43 - CONCLUSION: Uncomplicated percutaneous cholecystostomy as above. Willy Mackay MD Gall Bladder Ultrasound 02/18/17 0000 Signed Impressions: Service Date/Time: Saturday, February 18, 2017 09:40 - CONCLUSION: 1. Gallbladder is mildly distended with 17 mm stone in the gallbladder neck. There is no significant gallbladder wall thickening. There is a positive sonographic Faria sign. 2. Small right pleural effusion and small volume of ascites. 3. Mild hepatic steatosis. Willy Suh MD Cholangiogram 02/17/17 0800 Signed Impressions: Service Date/Time: Friday, February 17, 2017 13:00 - CONCLUSION: 1. Majority of the the tube outside of the gallbladder lumen as above. The tube was removed Obdulio Virk MD Abdomen CT 02/15/17 0000 Signed Impressions: Service Date/Time: Wednesday, February 15, 2017 20:25 - CONCLUSION: 1. Cholelithiasis. 2. Right upper quadrant catheter is seen as described above. 3. Bilateral pleural effusions and basilar consolidation. Marc Em MD Septic Shock Reassessment Heart: Regular rate and rhythm Lungs: Clear Skin: Warm Peripheral Pulses: Bounding Right Radial Capillary Refill: Brisk Assessment and Plan Assessment and Plan Encephalopathy Acute respiratory failure requiring mechanical ventilation Sepsis secondary to cholecystitis/cholangitis Lactic acidosis Fluid overload AK/CKD Hypertension Diabetes type 2 Chronic pain History of CAD History of ischemic CVA with left basal ganglia infarct History of seizure disorder Depression peripheral neuropathy pancreatitis cholelithiasis ischemic cardiomyopathy Plan: Neuro: Sedation with propofol. Fentanyl patch discontinued in view of encephalopathy in the setting of worsening renal function. Will use fentanyl 100 mics IV every 6 hourly when necessary for pain. Continue Keppra for seizures Daily sedation vacation. Follow neuro status. Cardiovascular: Patient to be initiated on hemodialysis for fluid removal in view of fluid overload in the setting of worsening renal function. Antihypertensives as needed. Watch for hypotension. Continue aspirin. Check cardiac enzymes Pulmonary: Continue mechanical ventilation, vent bundle, bronchodilators as needed. To be dialyzed for fluid removal. GI/liver: Place OG tube and start tube feeds, advance to goal as tolerated. Cholecystostomy tube in place. GI follow-up. Patient not felt to be a surgical candidate in view of comorbidities for gallbladder removal. Renal/: Strict intake output, monitor and replete electro lites, follow BUN/ creatinine. Being initiated on hemodialysis on 02/24. Vas-Cath placed in left IJ. ID: On antibiotic coverage with IV Levaquin and Flagyl per Dr. Sterling,. Deleon cultures ordered. Antibiotics per ID. Endocrine: SSI for glycemic control. Heme: Follow CBC. Prophylaxis: PPI/SCDs/Lovenox Lines: Left IJ Vas-Cath placed 02/24, right IJ central line placed 02/24 Condition critical Time spent on critical care excluding procedures 60 minutes Kenny Kruse MD Feb 24, 2017 15:20
[2017-02-24 16:10] LABS: AUTOMATED NEUTROPHIL # 10.6 TH/MM3 (1.8-7.7); BASOPHIL % 0.3 % (0.0-2.0); EOSINOPHIL % 0.2 % (0.0-4.0); HEMATOCRIT 27.1 % (35.0-46.0); LYMPH % 15.8 % (9.0-44.0); LYMPHOCYTE # 2.1 TH/MM3 (1.0-4.8); MEAN CELL VOLUME 94.2 FL (80.0-100.0); MEAN CORPUSCULAR HEMOGLOBIN 30.4 PG (27.0-34.0); MEAN CORPUSCULAR HGB CONC 32.2 % (32.0-36.0); MONO % 3.8 % (0.0-8.0); NEUT % 79.9 % (16.0-70.0); PLATELET COUNT 113 TH/MM3 (150-450); RED BLOOD COUNT 2.88 MIL/MM3 (4.00-5.30); RED CELL DISTRIBUTION WIDTH 16.8 % (11.6-17.2); WHITE BLOOD COUNT 13.3 TH/MM3 (4.0-11.0)
[2017-02-24 16:20] LABS: HEMO FLAGS AUTO DIFF
[2017-02-24] MEDS: LEVOFLOXACIN 250 MG PREMIX INJ 50 ML IV SCH (17:00)
[2017-02-24 17:10] LABS: BANDS 6 % (0-6); BASOPHILS 1 % (0-2); CORRECTED NUCLEATED RBC 1 /100 WBC (0-0); EOSINOPHILS 1 % (0-4); MYELOCYTES 1 % (0-0); NEUTROPHIL # MANUAL DIFF 10.5 TH/MM3 (1.8-7.7); POLYS (SEG NEUTROPHILS) 72 % (16-70); WBC DIFF SAMPLE 100
[2017-02-24 17:12] LABS: ACANTHOCYTES OCC (NORMAL); STOMATOCYTES 1+ (NORMAL)
[2017-02-24 17:13] LABS: PLATELET ESTIMATE SMEAR LOW (NORMAL); PLATELET MORPHOLOGY ENLARGED (NORMAL); SCAN/DIFF FINAL DIFF MANUAL
[2017-02-24] MEDS: BUMETANIDE INJ 1 MG/4 ML VIAL IV PUSH SCH (18:00)
[2017-02-24] MEDS: PANTOPRAZOLE SODIUM 40 MG VIAL IV PUSH SCH (18:00)
[2017-02-24] MEDS: SODIUM CHLOR 0.45% 1000 ML INJ 1,000 ML IV SCH (18:30)
[2017-02-24] MEDS: hydrALAZINE HCL 20 MG/ML VIAL IV PRN (18:35)
[2017-02-24] MEDS: CHLORHEXIDINE 0.12% (ORAL KIT) 15 ML CUP MT SCH (20:00)
[2017-02-24] MEDS: ENOXAPARIN SODIUM 30 MG/0.3 ML SYRINGE SQ SCH (21:50)
[2017-02-24] MEDS: METOPROLOL TARTRATE 100 MG TAB PO SCH (21:51)
[2017-02-24] MEDS: OXYBUTYNIN CHLORIDE 5 MG TAB PO SCH (21:52)
[2017-02-24] MEDS: PROPOFOL 1000 MG/100 ML INJ 100 ML IV SCH (21:53)
[2017-02-24] MEDS: levETIRAcetam 500 MG/5 ML UDC NG SCH (21:54)
[2017-02-24] MEDS: buPROPion HCL 150 MG SUSTAINED RELEASE TAB PO SCH (21:54)
[2017-02-25] VITALS (14 sets, daily range): BP systolic 142–179; BP diastolic 70–86; PULSE 67–72; RESP 16–24; TEMP 97.7–98.5; O2SAT 100
[2017-02-25] MEDS: ALBUMIN HUMAN 25% 25 GM/100 ML BAGP IV SCH ×2 (02:38→13:50)
[2017-02-25] MEDS: INSULIN ASPART SUPPLEMENTAL SCALE SQ SCH ×4 (05:44→21:45)
[2017-02-25] MEDS: metroNIDAZOLE 250 MG TAB PO SCH ×3 (05:45→21:43)
[2017-02-25] MEDS: PROPOFOL 1000 MG/100 ML INJ 100 ML IV SCH ×3 (05:45→21:08)
[2017-02-25] MEDS: SODIUM CHLOR 0.45% 1000 ML INJ 1,000 ML IV SCH (06:36)
[2017-02-25 08:08] LABS: AUTOMATED NEUTROPHIL # 8.4 TH/MM3 (1.8-7.7); BASOPHIL % 0.4 % (0.0-2.0); EOSINOPHIL # 0.2 TH/MM3 (0-0.4); EOSINOPHIL % 1.4 % (0.0-4.0); HEMATOCRIT 23.9 % (35.0-46.0); LYMPH % 22.1 % (9.0-44.0); LYMPHOCYTE # 2.6 TH/MM3 (1.0-4.8); MEAN CELL VOLUME 95.8 FL (80.0-100.0); MEAN CORPUSCULAR HEMOGLOBIN 31.3 PG (27.0-34.0); MEAN CORPUSCULAR HGB CONC 32.7 % (32.0-36.0); MONO % 5.1 % (0.0-8.0); PLATELET COUNT 107 TH/MM3 (150-450); RED BLOOD COUNT 2.49 MIL/MM3 (4.00-5.30); WHITE BLOOD COUNT 11.8 TH/MM3 (4.0-11.0)
[2017-02-25 08:14] LABS: HEMO FLAGS AUTO DIFF
[2017-02-25 08:54] LABS: ACANTHOCYTES OCC (NORMAL)
[2017-02-25 08:55] LABS: KERATOCYTES OCC (NORMAL); PLATELET ESTIMATE SMEAR LOW (NORMAL); PLATELET MORPHOLOGY ENLARGED (NORMAL); SCAN/DIFF AUTO DIFF CONFIRMED; TOXIC GRANULATION 1+ (NORMAL)
[2017-02-25 09:00] LABS: ALKALINE PHOSPHATASE 72 U/L (45-117); ALT (GPT) 161 U/L (10-53); ANION GAP 17 MEQ/L (5-15); AST (GOT) 102 U/L (15-37); BICARBONATE 20.1 MEQ/L (21.0-32.0); BLOOD UREA NITROGEN 46 MG/DL (7-18); CHLORIDE 110 MEQ/L (98-107); GLOMERULAR FILTRATION RATE 19 ML/MIN (>89); SODIUM (NA) 147 MEQ/L (136-145); TOTAL BILIRUBIN ADULT 1.3 MG/DL (0.2-1.0)
[2017-02-25] MEDS: METOPROLOL TARTRATE 100 MG TAB PO SCH ×2 (09:00→21:43)
[2017-02-25] MEDS: ASPIRIN 81 MG CHEW TAB CHEW SCH ×3 (09:00→09:08)
[2017-02-25] MEDS: VENLAFAXINE HCL XR 75 MG CAP PO SCH (09:00)
[2017-02-25] MEDS: buPROPion HCL 150 MG SUSTAINED RELEASE TAB PO SCH ×2 (09:00→21:00)
[2017-02-25] MEDS: OXYBUTYNIN CHLORIDE 5 MG TAB PO SCH ×2 (09:04→21:43)
[2017-02-25] MEDS: CHLORHEXIDINE 0.12% (ORAL KIT) 15 ML CUP MT SCH ×2 (09:05→21:49)
[2017-02-25] MEDS: BUMETANIDE INJ 1 MG/4 ML VIAL IV PUSH SCH ×2 (09:05→17:49)
[2017-02-25 09:06] LABS: POTASSIUM 2.8 MEQ/L (3.5-5.1)
[2017-02-25] MEDS: levETIRAcetam 500 MG/5 ML UDC NG SCH ×2 (09:06→21:43)
--- NOTE | 2017-02-25 10:18 | HHI.NPPN ---
Subjective History of Present Illness 62 year old with ARF/CKD, Acute cholecystitis s/p cholecystotomy Additional Remarks she is non oliguric. Seen during dialysis. On the ventilator. Anasarca is noted. Objective Data Data 02/24/17 02/25/17 19:00 07:00 Intake Total 332 ml 1166 ml Output Total 3730 ml 750 ml Balance -3398 ml 416 ml Intake Oral 0 ml 0 ml IV Total 332 ml 1166 ml Output Urine Total 400 ml 750 ml Drainage Total 330 ml Hemodialysis 3000 ml # Bowel Movements 0 0 Vital Signs Date Time Temp Pulse Resp B/P Pulse Ox O2 Delivery O2 Flow Rate FiO2 02/25/17 08:36 100 40 02/25/17 04:51 100 40 02/25/17 04:00 40 02/25/17 04:00 98.4 67 24 164/70 100 02/25/17 00:36 100 40 02/25/17 00:00 71 24 142/73 100 02/25/17 00:00 40 02/24/17 20:38 100 40 02/24/17 20:00 40 02/24/17 20:00 83 02/24/17 20:00 83 02/24/17 20:00 97.8 83 24 162/80 100 02/24/17 18:00 85 18 161/89 96 02/24/17 16:00 98.2 83 24 158/83 98 02/24/17 16:00 98 Mechanical Ventilator 100 02/24/17 16:00 40 02/24/17 15:14 100 40 02/24/17 14:00 100 02/24/17 14:00 81 02/24/17 13:00 84 24 162/88 96 02/24/17 13:00 50 02/24/17 12:00 88 24 162/78 93 02/24/17 11:33 50 02/24/17 11:30 98.7 91 18 175/97 100 02/24/17 11:15 100 100 02/24/17 10:47 88 Nasal Cannula 4.00 02/24/17 10:40 4.00 -: 02/25/17 0745 02/25/17 0600 Microbiology 02/24/17 Gram Stain - Final, Resulted 02/24/17 Sputum Culture, Resulted Pending 02/24/17 Aerobic Blood Culture, Received Pending 02/24/17 Anaerobic Blood Culture, Received Pending 02/24/17 Aerobic Blood Culture, Received Pending 02/24/17 Anaerobic Blood Culture, Received Pending Physical Exam General Appearance: Well Developed Neck Neck Exam: Neck Supple Pulmonary Resp Exam: Crackles, Rhonchi, Decreased Bases, Diminished Breath Sounds Gastrointestinal/Abdomen GI Exam: Bowel Sounds Hypoactive Extremeties Extremities Exam: Moderate Edema Extremeties Remarks right BKA Assessment/Plan Problem List: (1) Acute renal failure Plan: Initiated on HD yesterday, dialysis again today, on 4K, UF of 2 liters. She is non oliguric, demonstrates fluid overload. Needs diuresis. Dialysis as needed. Repeat potassium level about 4 hours after dialysis. Replace if needed. Stop IVF. Increase Bumex to 2 mg IV Q12 hours. (2) Acute cholecystitis due to biliary calculus Plan: She is now on Levaquin. (3) Diabetes Plan: follow Driss Germain MD Feb 25, 2017 10:18
--- NOTE | 2017-02-25 14:26 | EKG ---
Date Performed: 02/24/2017 Time Performed: 13:06:07 PTAGE: 62 years EKG: Sinus rhythm LOW QRS VOLTAGE ANTEROSEPTAL MYOCARDIAL INFARCTION , OF INDETERMINATE AGE Compared to previous arabella ng, the T wave changes anterolaterally have improved. ABNORMAL ECG PREVIOUS TRACING : 02/15/2017 08.54 DOCTOR: Misha Gill Interpretating Date/Time 02/25/2017 14:26:00
[2017-02-25] MEDS: LEVOFLOXACIN 250 MG PREMIX INJ 50 ML IV SCH (15:45)
[2017-02-25] MEDS: PANTOPRAZOLE SODIUM 40 MG VIAL IV PUSH SCH (17:49)
[2017-02-25] MEDS ORDERED: POTASSIUM CHLORIDE 20 MEQ PWD PACKET OG-TUBE ONE (19:45)
[2017-02-25] MEDS: ENOXAPARIN SODIUM 30 MG/0.3 ML SYRINGE SQ SCH (21:43)
[2017-02-26] VITALS (17 sets, daily range): BP systolic 147–183; BP diastolic 71–89; PULSE 67–86; RESP 16–28; TEMP 97.7–98.8; O2SAT 95–100
[2017-02-26] MEDS: ALBUMIN HUMAN 25% 25 GM/100 ML BAGP IV SCH ×2 (01:28→13:27)
[2017-02-26] MEDS: PROPOFOL 1000 MG/100 ML INJ 100 ML IV SCH (03:57)
[2017-02-26] MEDS: metroNIDAZOLE 250 MG TAB PO SCH ×3 (04:33→20:53)
[2017-02-26] MEDS: INSULIN ASPART SUPPLEMENTAL SCALE SQ SCH ×4 (05:55→20:51)
[2017-02-26 06:31] LABS: AUTOMATED NEUTROPHIL # 9.6 TH/MM3 (1.8-7.7); BASOPHIL # 0.1 TH/MM3 (0-0.2); BASOPHIL % 0.5 % (0.0-2.0); EOSINOPHIL # 0.4 TH/MM3 (0-0.4); HEMATOCRIT 26.8 % (35.0-46.0); LYMPH % 16.9 % (9.0-44.0); LYMPHOCYTE # 2.2 TH/MM3 (1.0-4.8); MEAN CELL VOLUME 96.2 FL (80.0-100.0); MEAN CORPUSCULAR HEMOGLOBIN 30.1 PG (27.0-34.0); MEAN CORPUSCULAR HGB CONC 31.3 % (32.0-36.0); MONO % 4.9 % (0.0-8.0); NEUT % 74.7 % (16.0-70.0); PLATELET COUNT 95 TH/MM3 (150-450); RED BLOOD COUNT 2.78 MIL/MM3 (4.00-5.30); RED CELL DISTRIBUTION WIDTH 21.4 % (11.6-17.2); WHITE BLOOD COUNT 12.9 TH/MM3 (4.0-11.0)
[2017-02-26 06:36] LABS: HEMO FLAGS AUTO DIFF
[2017-02-26 07:24] LABS: ALKALINE PHOSPHATASE 77 U/L (45-117); ALT (GPT) 120 U/L (10-53); ANION GAP 14 MEQ/L (5-15); AST (GOT) 74 U/L (15-37); BICARBONATE 23.3 MEQ/L (21.0-32.0); BLOOD UREA NITROGEN 31 MG/DL (7-18); CHLORIDE 107 MEQ/L (98-107); GLOMERULAR FILTRATION RATE 26 ML/MIN (>89); SODIUM (NA) 144 MEQ/L (136-145); TOTAL BILIRUBIN ADULT 1.7 MG/DL (0.2-1.0)
[2017-02-26 07:53] LABS: POTASSIUM 2.9 MEQ/L (3.5-5.1)
[2017-02-26] MEDS: levETIRAcetam 500 MG/5 ML UDC NG SCH ×2 (07:58→20:53)
[2017-02-26] MEDS: BUMETANIDE INJ 1 MG/4 ML VIAL IV PUSH SCH ×2 (07:58→16:19)
[2017-02-26] MEDS: OXYBUTYNIN CHLORIDE 5 MG TAB PO SCH ×2 (07:59→20:53)
[2017-02-26] MEDS: ASPIRIN 81 MG CHEW TAB CHEW SCH (08:00)
[2017-02-26] MEDS: CHLORHEXIDINE 0.12% (ORAL KIT) 15 ML CUP MT SCH ×2 (08:00→20:00)
[2017-02-26] MEDS: VENLAFAXINE HCL XR 75 MG CAP PO SCH (08:00)
[2017-02-26] MEDS: buPROPion HCL 150 MG SUSTAINED RELEASE TAB PO SCH ×2 (08:01→20:53)
--- NOTE | 2017-02-26 08:01 | RADRPT ---
EXAM DATE/TIME: 02/26/2017 07:35 [facility] COMPARISON: CHEST SINGLE AP, February 24, 2017, 12:22. INDICATIONS : Respiratory failure. MEDICAL HISTORY : Hypercholesterolemia. Hypertension SURGICAL HISTORY : None. ENCOUNTER: Subsequent ACUITY: 2 weeks PAIN SCORE: Non-responsive. LOCATION: Bilateral chest FINDINGS: Single AP view of the chest. Endotracheal tube, nasogastric tube, left IJ central venous catheter, ri ght IJ central venous catheter remain in place. Persistent bilateral pulmonary opacity with consolida tion versus atelectasis at the left lung base and bilateral hazy opacity with pulmonary vasculature i ndistinctness. No significant interval change. Small bilateral pleural effusions. No evidence of pneu mothorax. Cardiomediastinal silhouette unchanged. CONCLUSION: No significant interval change with evidence of bilateral pulmonary opacities suggesting pulmonary ed william and superimposed left lower lobe consolidation versus atelectasis. Small bilateral pleural effusi ons. Mekhi Painter MD on February 26, 2017 at 7:58 Board Certified Radiologist. This report was verified electronically.
[2017-02-26] MEDS: hydrALAZINE HCL 20 MG/ML VIAL IV PRN (08:03)
[2017-02-26 08:38] LABS: ACANTHOCYTES OCC (NORMAL); KERATOCYTES OCC (NORMAL)
[2017-02-26 08:39] LABS: PLATELET ESTIMATE SMEAR LOW (NORMAL); PLATELET MORPHOLOGY ENLARGED (NORMAL); POLYCHROMASIA 2.3 % (0.0-1.9); SCAN/DIFF AUTO DIFF CONFIRMED
[2017-02-26] MEDS ORDERED: POTASSIUM CHLOR 40 MEQ PREMIX 100 ML IV ONE (09:30)
[2017-02-26] MEDS ORDERED: POTASSIUM CHLORIDE 20 MEQ PWD PACKET OG-TUBE ONE (09:30)
--- NOTE | 2017-02-26 10:15 | HHI.NPPN ---
Subjective History of Present Illness 62 year old with ARF/CKD, Acute cholecystitis s/p cholecystotomy Additional Remarks Remains on the ventilator. Unresponsive. Non oliguric. Had dialysis yesterday with removal of 6 liters in UF. Patient remains edematous. Objective Data Data 02/25/17 02/26/17 19:00 07:00 Intake Total 500 ml 399 ml Output Total 6550 ml 1350 ml Balance -6050 ml -951 ml IV Total 500 ml 399 ml Output Urine Total 300 ml 1175 ml Drainage Total 250 ml 175 ml Hemodialysis 6000 ml # Bowel Movements 1 1 Vital Signs Date Time Temp Pulse Resp B/P Pulse Ox O2 Delivery O2 Flow Rate FiO2 02/26/17 09:03 30 02/26/17 09:03 99 30 02/26/17 08:00 35 02/26/17 08:00 Mechanical Ventilator 35 02/26/17 06:00 68 02/26/17 04:40 100 35 02/26/17 04:00 97.7 67 16 150/74 100 02/26/17 04:00 40 02/26/17 04:00 Mechanical Ventilator 40 02/26/17 04:00 67 02/26/17 02:00 67 02/26/17 01:18 100 40 02/26/17 00:00 40 02/26/17 00:00 68 02/26/17 00:00 Mechanical Ventilator 40 02/26/17 00:00 97.8 68 16 158/89 100 02/25/17 22:08 100 40 02/25/17 22:00 72 02/25/17 20:00 Mechanical Ventilator 40 02/25/17 20:00 97.7 71 16 161/81 100 02/25/17 20:00 40 02/25/17 20:00 71 02/25/17 19:18 100 40 02/25/17 16:51 100 40 02/25/17 16:00 40 02/25/17 16:00 Mechanical Ventilator 40 02/25/17 16:00 98.5 69 16 161/86 100 02/25/17 12:00 Mechanical Ventilator 40 02/25/17 12:00 40 02/25/17 12:00 98.4 69 16 157/85 100 02/25/17 11:37 100 40 -: 02/26/17 0545 02/26/17 0545 Physical Exam General Appearance: Well Developed Neck Neck Exam: Neck Supple Pulmonary Resp Exam: Crackles, Rhonchi, Decreased Bases, Diminished Breath Sounds Gastrointestinal/Abdomen GI Exam: Bowel Sounds Hypoactive Extremeties Extremities Exam: Moderate Edema Extremeties Remarks right ANU Assessment/Plan Problem List: (1) Acute renal failure Plan: Initiated on HD on 02/24, dialyzed again on 02/25. She is non oliguric, demonstrates fluid overload. Continue Bumex. No need for dialysis today. Replace potassium. Avoid nephrotoxic agents. (2) Acute cholecystitis due to biliary calculus Plan: She is now on Levaquin. (3) Diabetes Plan: follow Driss Germain MD Feb 26, 2017 10:15
--- NOTE | 2017-02-26 11:07 | HHI.CCPN ---
Subjective Remarks/Hospital Course Delayed entry: This note is for encounter on 02/25/17. 02/24: 61 [facility] old female brought from [facility] with change in mental status, n/v. LFTs elevated on admission and she had n/v/ right sided abd pain for 2 days [employer]. SHe had not eaten in 2 days. She was recently discharged with a cholecystomy tube placed 02/01/17. During that visit she was found to have cholelithiasis, cholecystitis, per HIDA, US, and CT, but had previously been told she is not a surgical candidate due to heart disease, she has inoperable multi-vessel CAD. Bile growing Klebsiella from 02/14. Cholangiogram showed cholecystostomy tube outside of the gallbladder; tube was removed 02/17. Had cholecystostomy tube replaced - by Dr. Macaky in IR on . Patient has been declining over the last few days. She has developed worsening kidney function and today developed worsening encephalopathy and respiratory distress. She was transferred to the ICU. I evaluated the patient following her arrival to the ICU. She appeared to be encephalopathic and in significant respiratory distress. Chest x-ray showed fluid overload. She was emergently intubated and placed on mechanical ventilation. History was obtained by reviewing records and discussion with nursing staff. Dr. Knowles from nephrology evaluated patient and recommended immediate hemodialysis. I emergently placed a central line and a Vas-Cath. 02/25: Patient remains sedated, orally intubated on mechanical ventilation at the time of my evaluation. being dialyzed at the time of my evaluation on 02/25. Objective Afebrile, heart rate 60s, respiratory rate 16, blood pressure 150s by 60s, O2 sat 95% on assist control volume control mechanical ventilation FiO2 30%, PEEP + 5 Result Diagram: 02/26/17 0545 02/26/17 0545 Other Results Microbiology Date/Time Procedure Status Source Growth 02/24/17 12:45 Gram Stain - Final Complete Sputum Endotracheal 02/24/17 12:45 Sputum Culture - Final Complete Sputum Endotracheal NO GROWTH IN 48 HOURS. Imaging Last Impressions Chest X-Ray 02/24/17 0000 Signed Impressions: Service Date/Time: Friday, February 24, 2017 12:22 - CONCLUSION: 1. Bilateral internal jugular central lines in good position. The ET tube and NG tube are well placed. 2. Diffuse mixed interstitial and alveolar consolidation likely representing pulmonary edema. There is a mild right pleural effusion. Willy Chirinos MD Renal Ultrasound 02/22/17 0000 Signed Impressions: Service Date/Time: Wednesday, February 22, 2017 08:16 - CONCLUSION: 1. 6 mm calcified density in the mid right kidney, likely vascular as this was not noted on recent ultrasound of the abdomen. A non-obstructing renal calculus cannot be entirely excluded. 2. Otherwise, no evidence for obstructive uropathy as questioned. 3. Incidental note of small right pleural effusion and trace ascites. Rustam Capellan MD Percutaneous Cholangiogram 02/18/17 Signed Impressions: Service Date/Time: Saturday, February 18, 2017 14:43 - CONCLUSION: Uncomplicated percutaneous cholecystostomy as above. Willy Mackay MD Gall Bladder Ultrasound 02/18/17 Signed Impressions: Service Date/Time: Saturday, February 18, 2017 09:40 - CONCLUSION: 1. Gallbladder is mildly distended with 17 mm stone in the gallbladder neck. There is no significant gallbladder wall thickening. There is a positive sonographic Faria sign. 2. Small right pleural effusion and small volume of ascites. 3. Mild hepatic steatosis. Willy Suh MD Cholangiogram 02/17/17 0800 Signed Impressions: Service Date/Time: Friday, February 17, 2017 13:00 - CONCLUSION: 1. Majority of the the tube outside of the gallbladder lumen as above. The tube was removed Obdulio Virk MD Abdomen CT 02/15/17 Signed Impressions: Service Date/Time: Wednesday, February 15, 2017 20:25 - CONCLUSION: 1. Cholelithiasis. 2. Right upper quadrant catheter is seen as described above. 3. Bilateral pleural effusions and basilar consolidation. Marc Em MD Objective Remarks HEENT/ Neuro: Sedated, orally intubated, Pallor present, no icterus, tongue/ mucosa dry Neck: No JVD Chest/Pulm: on mech vent, good air entry bilaterally, scattered rhonchi, no wheezing or crackles CVS: S1-S2 regular, no murmur GI/abdomen: soft, nontender, bowel sounds sluggish. Cholecystostomy tube in place with bilious drainage Extremities: Right above-knee amputation stump noted, left lower extremity warm , no edema. 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 Fentanyl patch discontinued in view of encephalopathy in the setting of worsening renal function. fentanyl 100 mics IV every 6 hourly when necessary for pain. Continue Keppra for seizures Daily sedation vacation. Follow neuro status. Cardiovascular: Patient on hemodialysis for fluid removal in view of fluid overload in the setting of worsening renal function. Antihypertensives as needed. Watch for hypotension. Continue aspirin. Check cardiac enzymes Pulmonary: Continue mechanical ventilation, vent bundle, bronchodilators as needed. Dialyzed for fluid removal. GI/liver: Start tube feeds, advance to goal as tolerated. Cholecystostomy tube in place. GI follow-up. Patient not felt to be a surgical candidate in view of comorbidities for gallbladder removal. Renal/: Strict intake output, monitor and replete electro lites, follow BUN/ creatinine. Being initiated on hemodialysis on 02/24. Vas-Cath placed in left IJ. ID: On antibiotic coverage with IV Levaquin and Flagyl per Dr. Garcia,. Deleon cultures ordered. Antibiotics per ID. Endocrine: SSI for glycemic control. Heme: Follow CBC. Prophylaxis: PPI/SCDs/Lovenox Lines: Left IJ Vas-Cath placed 02/24, right IJ central line placed 02/24 Condition critical Time spent on critical care excluding procedures 30 minutes Kenny Kruse MD Feb 26, 2017 11:07
--- NOTE | 2017-02-26 11:10 | HHI.CCPN ---
Subjective Remarks/Hospital Course This note is for encounter on 02/26/17. 02/24: 61 year old female brought from intermediate with change in mental status, n/v. 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 SHe had not eaten in 2 days. She was recently discharged with a cholecystomy tube placed 02/01/17. During that visit she was found to have cholelithiasis, cholecystitis, per HIDA, US, and CT, but had previously been told she is not a surgical candidate due to heart disease, she has inoperable multi-vessel CAD. Bile growing Klebsiella from 02/14. Cholangiogram showed cholecystostomy tube outside of the gallbladder; tube was removed 02/17. Had cholecystostomy tube replaced - by Dr. Mackay in IR on . Patient has been declining over the last few days. She has developed worsening kidney function and today developed worsening encephalopathy and respiratory distress. She was transferred to the ICU. I evaluated the patient following her arrival to the ICU. She appeared to be encephalopathic and in significant respiratory distress. Chest x-ray showed fluid overload. She was emergently intubated and placed on mechanical ventilation. History was obtained by reviewing records and discussion with nursing staff. Dr. Knowles from nephrology evaluated patient and recommended immediate hemodialysis. I emergently placed a central line and a Vas-Cath. 02/25: Patient remains sedated, orally intubated on mechanical ventilation at the time of my evaluation. being dialyzed at the time of my evaluation on 02/25. 02/26: Remains sedated, orally intubated on mechanical ventilation this morning at the time of my evaluation on 02/26. Objective Vital Signs Date Time Temp Pulse Resp B/P Pulse Ox O2 Delivery O2 Flow Rate FiO2 02/26/17 10:47 97 30 02/26/17 08:00 Mechanical Ventilator 02/26/17 06:00 68 02/26/17 04:00 97.7 16 150/74 02/24/17 10:47 4.00 Intake and Output 02/25/17 02/25/17 02/26/17 08:00 16:00 00:00 Intake Total 782 ml 500 ml 242 ml Output Total 400 ml 6550 ml 750 ml Balance 382 ml -6050 ml -508 ml Result Diagram: 02/26/17 0545 02/26/17 0545 Other Results Microbiology Date/Time Procedure Status Source Growth 02/24/17 12:45 Gram Stain - Final Complete Sputum Endotracheal 02/24/17 12:45 Sputum Culture - Final Complete Sputum Endotracheal NO GROWTH IN 48 HOURS. Imaging Last Impressions Chest X-Ray 02/24/17 0000 Signed Impressions: Service Date/Time: Friday, February 24, 2017 12:22 - CONCLUSION: 1. Bilateral internal jugular central lines in good position. The ET tube and NG tube are well placed. 2. Diffuse mixed interstitial and alveolar consolidation likely representing pulmonary edema. There is a mild right pleural effusion. Willy Chirinos MD Renal Ultrasound 02/22/17 0000 Signed Impressions: Service Date/Time: Wednesday, February 22, 2017 08:16 - CONCLUSION: 1. 6 mm calcified density in the mid right kidney, likely vascular as this was not noted on recent ultrasound of the abdomen. A non-obstructing renal calculus cannot be entirely excluded. 2. Otherwise, no evidence for obstructive uropathy as questioned. 3. Incidental note of small right pleural effusion and trace ascites. Rustam Capellan MD Percutaneous Cholangiogram 02/18/17 0000 Signed Impressions: Service Date/Time: Saturday, February 18, 2017 14:43 - CONCLUSION: Uncomplicated percutaneous cholecystostomy as above. Willy Mackay MD Gall Bladder Ultrasound 02/18/17 0000 Signed Impressions: Service Date/Time: Saturday, February 18, 2017 09:40 - CONCLUSION: 1. Gallbladder is mildly distended with 17 mm stone in the gallbladder neck. There is no significant gallbladder wall thickening. There is a positive sonographic Faria sign. 2. Small right pleural effusion and small volume of ascites. 3. Mild hepatic steatosis. Willy Suh MD Cholangiogram 02/17/17 0800 Signed Impressions: Service Date/Time: Friday, February 17, 2017 13:00 - CONCLUSION: 1. Majority of the the tube outside of the gallbladder lumen as above. The tube was removed Obdulio Virk MD Abdomen CT 02/15/17 0000 Signed Impressions: Service Date/Time: Wednesday, February 15, 2017 20:25 - CONCLUSION: 1. Cholelithiasis. 2. Right upper quadrant catheter is seen as described above. 3. Bilateral pleural effusions and basilar consolidation. Marc Em MD Objective Remarks HEENT/ Neuro: Sedated, orally intubated, Pallor present, no icterus, tongue/ mucosa dry Neck: No JVD Chest/Pulm: on mech vent, good air entry bilaterally, scattered rhonchi, no wheezing or crackles CVS: S1-S2 regular, no murmur GI/abdomen: soft, nontender, bowel sounds sluggish. Cholecystostomy tube in place with bilious drainage Extremities: Right above-knee amputation stump noted, left lower extremity warm , no edema. 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 Fentanyl patch discontinued in view of encephalopathy in the setting of worsening renal function. fentanyl prn held. Continue Keppra for seizures Daily sedation vacation. Follow neuro status. Daily sedation vacation Cardiovascular: Status post hemodialysis for fluid removal on and in view of fluid overload in the setting of worsening renal function. Antihypertensives as needed. Watch for hypotension. Continue aspirin. Check cardiac enzymes Pulmonary: Continue mechanical ventilation, vent bundle, bronchodilators as needed. Dialyzed for fluid removal. Start daily C Pap trials to decide extubation GI/liver: Start tube feeds, advance to goal as tolerated. Cholecystostomy tube in place. GI follow-up. Patient not felt to be a surgical candidate in view of comorbidities for gallbladder removal. Renal/: Strict intake output, monitor and replete electro lites, follow BUN/ creatinine. Started on hemodialysis on 02/24. Dialyzed again on 02/25. Being followed by nephrology. ID: On antibiotic coverage with IV Levaquin and Flagyl per Dr. Garcia,. Deleon cultures ordered. Antibiotics per ID. Endocrine: SSI for glycemic control. Heme: Follow CBC. Prophylaxis: PPI/SCDs/Lovenox Lines: Left IJ Vas-Cath placed 02/24, right IJ central line placed 02/24 Condition critical Time spent on critical care excluding procedures 30 minutes Kenny Kruse MD Feb 26, 2017 11:10
[2017-02-26] MEDS: METOPROLOL TARTRATE 50 MG TAB PO SCH ×2 (13:27→20:53)
[2017-02-26] MEDS: LEVOFLOXACIN 250 MG PREMIX INJ 50 ML IV SCH (16:18)
[2017-02-26] MEDS: PANTOPRAZOLE SODIUM 40 MG VIAL IV PUSH SCH (16:19)
[2017-02-26] MEDS: ENOXAPARIN SODIUM 30 MG/0.3 ML SYRINGE SQ SCH (20:00)
[2017-02-27] VITALS (8 sets, daily range): BP systolic 148–155; BP diastolic 84–88; PULSE 81–102; RESP 26–27; TEMP 97.7–98.3; O2SAT 93–95
[2017-02-27] MEDS: ALBUMIN HUMAN 25% 25 GM/100 ML BAGP IV SCH (01:52)
[2017-02-27] MEDS: METOPROLOL TARTRATE 50 MG TAB PO SCH (01:52)
[2017-02-27] MEDS: metroNIDAZOLE 250 MG TAB PO SCH (01:52)
[2017-02-27 05:19] LABS: AUTOMATED NEUTROPHIL # 9.9 TH/MM3 (1.8-7.7); BASOPHIL % 0.2 % (0.0-2.0); EOSINOPHIL % 0.3 % (0.0-4.0); HEMATOCRIT 25.2 % (35.0-46.0); LYMPH % 12.7 % (9.0-44.0); LYMPHOCYTE # 1.5 TH/MM3 (1.0-4.8); MEAN CELL VOLUME 97.2 FL (80.0-100.0); MEAN CORPUSCULAR HEMOGLOBIN 31.3 PG (27.0-34.0); MEAN CORPUSCULAR HGB CONC 32.2 % (32.0-36.0); MONO % 4.5 % (0.0-8.0); NEUT % 82.3 % (16.0-70.0); PLATELET COUNT 110 TH/MM3 (150-450); RED BLOOD COUNT 2.59 MIL/MM3 (4.00-5.30); RED CELL DISTRIBUTION WIDTH 21.4 % (11.6-17.2)
[2017-02-27 05:24] LABS: HEMO FLAGS AUTO DIFF
[2017-02-27 05:41] LABS: ALKALINE PHOSPHATASE 82 U/L (45-117); ALT (GPT) 172 U/L (10-53); ANION GAP 16 MEQ/L (5-15); AST (GOT) 204 U/L (15-37); BICARBONATE 22.8 MEQ/L (21.0-32.0); BLOOD UREA NITROGEN 36 MG/DL (7-18); CHLORIDE 107 MEQ/L (98-107); GLOMERULAR FILTRATION RATE 21 ML/MIN (>89); SODIUM (NA) 146 MEQ/L (136-145); TOTAL BILIRUBIN ADULT 2.4 MG/DL (0.2-1.0)
[2017-02-27 05:48] LABS: BLOOD GAS BASE EXCESS -7.3 mmol/L (-2-2); BLOOD GAS HCO3 17 mmol/L (22-26); BLOOD GAS METHEMOGLOBIN 1.1 % (0-2); BLOOD GAS O2 HGB SATURATION 90 % (90-100); BLOOD GAS OXYGEN CONTENT 10.5 Vol % (12.0-20.0); BLOOD GAS PCO2 29 mmHg (38-42); BLOOD GAS PO2 71 mmHg (61-120); BLOOD GAS TOTAL HGB 8.2 G/DL (12.0-16.0); CRITICAL VALUE NO; DRAW SITE RT RADIAL; LITER FLOW 4 L/M; NUMBER OF ARTERIAL PUNCTURES 1; OXYGEN DEVICE NASAL CANNULA; STAT YES; TEMP CORR TO 98.6; ULNAR PULSE PRESENT
[2017-02-27 07:00] LABS: BANDS 3 % (0-6); CORRECTED NUCLEATED RBC 7 /100 WBC (0-0); MYELOCYTES 1 % (0-0); NEUTROPHIL # MANUAL DIFF 10.9 TH/MM3 (1.8-7.7); POLYS (SEG NEUTROPHILS) 87 % (16-70); WBC DIFF SAMPLE 100
[2017-02-27] MEDS: INSULIN ASPART SUPPLEMENTAL SCALE SQ SCH (07:00)
[2017-02-27 07:06] LABS: HELMET CELLS OCC (NORMAL)
[2017-02-27 07:07] LABS: ACANTHOCYTES OCC (NORMAL)
[2017-02-27 07:08] LABS: PLATELET ESTIMATE SMEAR LOW (NORMAL); PLATELET MORPHOLOGY NORMAL (NORMAL); SCAN/DIFF FINAL DIFF MANUAL
[2017-02-27 07:15] LABS: STOMATOCYTES 1+ (NORMAL)
[2017-02-27] MEDS: SODIUM CHLORIDE 0.9% FLUSH 10 ML FLUSH IV FLUSH PRN (08:55)
[2017-02-27] MEDS: BUMETANIDE INJ 1 MG/4 ML VIAL IV PUSH SCH (08:55)
--- NOTE | 2017-02-27 09:08 | RADRPT ---
EXAM DATE/TIME: 02/27/2017 08:29 [facility] COMPARISON: ABDOMEN KUB ONLY, February 03, 2017, 2:45. chest x-ray 02/24/17 MEDICAL HISTORY : Venous insufficiency. unotainable SURGICAL HISTORY : unobtainable ENCOUNTER: Initial ACUITY: 1 day PAIN SCORE: Non-responsive. LOCATION: Left upper quadrant FINDINGS: Feeding-type nasoenteric catheter with tip in the distal stomach at the junction of the duodenal bulb . Redemonstration of bilateral lower lung zone airspace disease and likely trace bilateral pleural ef fusions. Remainder of the exam is unchanged. CONCLUSION: 1. Nasoenteric feeding type catheter (Dobbhoff catheter) tip in the distal stomach projecting near th e duodenal bulb. Rustam Capellan MD on February 27, 2017 at 9:04 Board Certified Radiologist. This report was verified electronically.
--- NOTE | 2017-02-27 10:12 | HHI.IDPN ---
Subjective Subjective Remarks Patient is a 62-year-old female into the hospital for evaluation of increasing abdominal pain and diarrhea. Patient was recently hospitalized and was diagnosed to have acute cholecystitis. It was felt that she was not a surgical candidate, and a tube cholecystostomy was placed. Culture of the bile was negative. Her blood cultures were negative. He clinically improved and was discharged to the correction, on oral Augmentin with plans to finish to treatment February 17. She was supposed to have a follow-up with interventional radiology to evaluate her gallbladder to for possible removal. In the correction she started having pain in the epigastric area as well as in the right upper quadrant. She was also having some nausea, but no vomiting. She had some loose stools. She presented to the hospital for further evaluation and treatment. CT of the abdomen and pelvis did not show any common bile duct palpitation. She did have evidence of bilateral effusion and atelectasis. Patient however has no respiratory complaint. She had some low- grade temp on admission. Her lactic acid is elevated. Her total bilirubin is normal, but her AST and ALT were elevated. Culture of the bile is now reported as growing Klebsiella, pansensitive. Her initial WBC is normal. Her urinalysis is unremarkable. Stool for C. difficile is negative. Blood cultures are negative so far. Notes reviewed D/W RN Has been extubated yesterday On nasal O2 Eyes, not tracking, not following Making urine Has output from GB tube Tbil rising WBC lower BC negative Sputum negative Bile C/S negative Temps ok JUAN LUIS ok Getting ready to start HD Had HD 02/24 and 02/25 Antibiotics Levaquin Flagyl Lines LIJ Vascath RIJ TLC Past Medical History Arthritis Depression Diabetes Hypertension Peripheral Neuropathy Pancreatitis Colitis Cholelithiasis CKD PVD CAD non operable multi vessel disease Ischemic cardiomyopathy Hx UTI Anemia CVA Past Surgical History x 4 Neck Fusion Right BKA 2013 Stents in leg Revascularizations for her PVD Allergies: Coded Allergies: *MDRO Multi-Drug Resistant Organism (Verified Allergy, Unknown, 02/15/17) Patient reported H/O MRSA MRSA PCR screen NEGATIVE- 01/27/17 Cleared per Infection Control Objective . Vital Signs Date Time Temp Pulse Resp B/P Pulse Ox O2 Delivery O2 Flow Rate FiO2 02/27/17 08:00 98.0 81 27 148/84 95 02/27/17 08:00 81 02/27/17 08:00 95 Nasal Cannula 4.00 02/27/17 07:00 93 Nasal Cannula 3.00 02/27/17 06:00 89 02/27/17 04:01 86 02/27/17 04:00 98.3 86 27 155/88 94 02/27/17 04:00 94 Nasal Cannula 4.00 02/27/17 02:00 88 02/27/17 00:00 97.7 86 26 152/86 94 02/27/17 00:00 94 Nasal Cannula 4.00 02/27/17 00:00 86 02/26/17 22:00 86 02/26/17 21:06 95 Nasal Cannula 2.00 02/26/17 20:00 95 Nasal Cannula 4.00 02/26/17 20:00 84 02/26/17 20:00 97.8 84 28 148/83 95 02/26/17 16:00 98.8 80 26 160/87 97 02/26/17 16:00 Nasal Cannula 4.00 02/26/17 13:33 96 Nasal Cannula 3 02/26/17 12:00 Mechanical Ventilator 35 02/26/17 12:00 98.3 83 25 147/71 98 02/26/17 11:02 97 30 02/26/17 10:47 97 30 02/26/17 02/26/17 02/27/17 15:00 23:00 07:00 Intake Total 200 ml 122 ml Output Total 900 ml 900 ml Balance -700 ml -778 ml IV Total 200 ml 122 ml Output Urine Total 750 ml 825 ml Drainage Total 150 ml 75 ml # Bowel Movements 1 . Laboratory Tests Test 02/26/17 02/27/17 05:45 04:35 White Blood Count 12.9 TH/MM3 12.0 TH/MM3 Red Blood Count 2.78 MIL/MM3 2.59 MIL/MM3 Hemoglobin 8.4 GM/DL 8.1 GM/DL Hematocrit 26.8 % 25.2 % Mean Corpuscular Volume 96.2 FL 97.2 FL Mean Corpuscular Hemoglobin 30.1 PG 31.3 PG Mean Corpuscular Hemoglobin 31.3 % 32.2 % Concent Red Cell Distribution Width 21.4 % 21.4 % Platelet Count 95 TH/MM3 110 TH/MM3 Mean Platelet Volume 11.9 FL 11.8 FL Neutrophils (%) (Auto) 74.7 % 82.3 % Lymphocytes (%) (Auto) 16.9 % 12.7 % Monocytes (%) (Auto) 4.9 % 4.5 % Eosinophils (%) (Auto) 3.0 % 0.3 % Basophils (%) (Auto) 0.5 % 0.2 % Neutrophils # (Auto) 9.6 TH/MM3 9.9 TH/MM3 Lymphocytes # (Auto) 2.2 TH/MM3 1.5 TH/MM3 Monocytes # (Auto) 0.6 TH/MM3 0.5 TH/MM3 Eosinophils # (Auto) 0.4 TH/MM3 0.0 TH/MM3 Basophils # (Auto) 0.1 TH/MM3 0.0 TH/MM3 CBC Comment AUTO DIFF AUTO DIFF Differential Comment AUTO DIFF FINAL DIFF CONFIRMED MANUAL Platelet Estimate LOW LOW Platelet Morphology Comment ENLARGED NORMAL Polychromasia 2.3 % Acanthocytes OCC OCC Keratocytes OCC Differential Total Cells 100 Counted Neutrophils % (Manual) 87 % Band Neutrophils % 3 % Lymphocytes % 8 % Monocytes % 1 % Neutrophils # (Manual) 10.9 TH/MM3 Myelocytes 1 % Nucleated Red Blood Cells 7 /100 WBC Atypical Lymphocytes % Ovalocytes Stomatocytes 1+ Helmet Cells OCC Laboratory Tests Test 02/25/17 02/26/17 02/27/17 17:40 05:45 04:35 Potassium Level 2.8 MEQ/L 2.9 MEQ/L 4.0 MEQ/L Sodium Level 144 MEQ/L 146 MEQ/L Chloride Level 107 MEQ/L 107 MEQ/L Carbon Dioxide Level 23.3 MEQ/L 22.8 MEQ/L Anion Gap 14 MEQ/L 16 MEQ/L Blood Urea Nitrogen 31 MG/DL 36 MG/DL Creatinine 1.93 MG/DL 2.36 MG/DL Estimat Glomerular Filtration 26 ML/MIN 21 ML/MIN Rate Random Glucose 193 MG/DL 131 MG/DL Calcium Level 9.0 MG/DL 9.0 MG/DL Total Bilirubin 1.7 MG/DL 2.4 MG/DL Aspartate Amino Transf 74 U/L 204 U/L (AST/SGOT) Alanine Aminotransferase 120 U/L 172 U/L (ALT/SGPT) Alkaline Phosphatase 77 U/L 82 U/L Total Protein 6.2 GM/DL 6.6 GM/DL Albumin 3.4 GM/DL 4.0 GM/DL Microbiology Date/Time Procedure Status Source Growth 02/24/17 12:45 Gram Stain - Final Complete Sputum Endotracheal 02/24/17 12:45 Sputum Culture - Final Complete Sputum Endotracheal NO GROWTH IN 48 HOURS. 02/24/17 15:33 Aerobic Blood Culture - Preliminary Resulted Blood Line NO GROWTH IN 2 DAYS 02/24/17 15:33 Anaerobic Blood Culture - Preliminary Resulted Blood Line NO GROWTH IN 2 DAYS 02/24/17 18:44 Aerobic Blood Culture - Preliminary Resulted Blood Line NO GROWTH IN 2 DAYS 02/24/17 18:44 Anaerobic Blood Culture - Preliminary Resulted Blood Line NO GROWTH IN 2 DAYS Imaging Abdomen X-Ray 02/27/17 0000 Signed Impressions: Service Date/Time: Monday, February 27, 2017 08:29 - CONCLUSION: 1. Nasoenteric feeding type catheter (Dobbhoff catheter) tip in the distal stomach projecting near the duodenal bulb. Rustam Capellan MD Chest X-Ray 02/26/17 0000 Signed Impressions: Service Date/Time: Sunday, February 26, 2017 07:35 - CONCLUSION: No significant interval change with evidence of bilateral pulmonary opacities suggesting pulmonary edema and superimposed left lower lobe consolidation versus atelectasis. Small bilateral pleural effusions. Mekhi Painter MD Renal Ultrasound 02/22/17 0000 Signed Impressions: Service Date/Time: Wednesday, February 22, 2017 08:16 - CONCLUSION: 1. 6 mm calcified density in the mid right kidney, likely vascular as this was not noted on recent ultrasound of the abdomen. A non-obstructing renal calculus cannot be entirely excluded. 2. Otherwise, no evidence for obstructive uropathy as questioned. 3. Incidental note of small right pleural effusion and trace ascites. Rustam Capellan MD Last Impressions Cholangiogram 02/17/17 0800 Signed Impressions: Service Date/Time: Friday, February 17, 2017 13:00 - CONCLUSION: 1. Majority of the the tube outside of the gallbladder lumen as above. The tube was removed Obdulio Virk MD Chest X-Ray 02/15/17 0000 Signed Impressions: Service Date/Time: Wednesday, February 15, 2017 16:31 - CONCLUSION: Slight improvement in aeration. Willy Mackay MD Abdomen CT 02/15/17 0000 Signed Impressions: Service Date/Time: Wednesday, February 15, 2017 20:25 - CONCLUSION: 1. Cholelithiasis. 2. Right upper quadrant catheter is seen as described above. 3. Bilateral pleural effusions and basilar consolidation. Marc Em MD Physical Exam GENERAL: Eyes open, not tracking, on nasal O2, not in distress SKIN: Cool and dry. Sallow color. NO generalized rash HEAD: Atraumatic. Normocephalic. No temporal or scalp tenderness. EYES: Pupils equal round and reactive. . No scleral icterus. No injection or drainage. ENT: Nose without bleeding, purulent drainage or septal hematoma. Dry oral mucosa NECK: Supple, nontender, no meningeal signs. Lines look ok CARDIOVASCULAR: Regular rate and rhythm without murmurs, gallops, or rubs. RESPIRATORY: Decreased BS at bases, with scattered rhonchi GASTROINTESTINAL: Abdomen soft, less tender, GB tube with dark green fluid. No guarding. MUSCULOSKELETAL: Extremities without clubbing, cyanosis, or edema. S/P BKA stump well healed NEUROLOGICAL: Lethargic PSYCH: Unable to assess LINE: NO evidence of infection Assessment & Plan Remarks IMPRESSION Possible sepsis, on admsission due to bilary tract source most likely - better - GB tube in peritoneal cavity and not in right spot Recurrent abdominal pain, has tube cholecystostomy for acute cholecystitis - no CBD dil on CT; due to malposition of GB tube - has new GB tube: Tbil rising again, though seem to have good output from the GB tube - initial bile C/S with Klebsiella; followup C/S negative Respiratory failure, due to fluid overload - started on HD 6/ - sputum C/S negative Renal failure, started on HD 02/24 Diarrhea, C Diff negative Abnormal LFTs, rising Encephalopathy, ?due to ongoing sepsis, metabolic RECOMMENDATION Continue Levaquin and Flagyl x 14 days - for her cholecystitis Clinically her problems looks more of fluid overload Patient getting HD again for her fluid overload Follow LFT since rising again - repeat LFT in AM - if continues to rise, will do US liver Monitor respiratory status Monitor mental status Follow C/S Monitor progress D/W Nisreen Escoto MD Feb 27, 2017 10:12
[2017-02-27] MEDS ORDERED: SODIUM BICARBONATE 8.4% INJ 50 ML ONE (10:34)
--- NOTE | 2017-02-27 10:37 | HHI.NPPN ---
Subjective History of Present Illness 62 year old with ARF/CKD, Acute cholecystitis s/p cholecystotomy Additional Remarks was extubated lethargic Objective Data Data 02/26/17 02/27/17 18:59 06:59 Intake Total 200 ml 122 ml Output Total 900 ml 900 ml Balance -700 ml -778 ml IV Total 200 ml 122 ml Output Urine Total 750 ml 825 ml Drainage Total 150 ml 75 ml # Bowel Movements 1 Vital Signs Date Time Temp Pulse Resp B/P Pulse Ox O2 Delivery O2 Flow Rate FiO2 02/27/17 08:00 98.0 81 27 148/84 95 02/27/17 08:00 81 02/27/17 08:00 95 Nasal Cannula 4.00 02/27/17 07:00 93 Nasal Cannula 3.00 02/27/17 06:00 89 02/27/17 04:01 86 02/27/17 04:00 98.3 86 27 155/88 94 02/27/17 04:00 94 Nasal Cannula 4.00 02/27/17 02:00 88 02/27/17 00:00 97.7 86 26 152/86 94 02/27/17 00:00 94 Nasal Cannula 4.00 02/27/17 00:00 86 02/26/17 22:00 86 02/26/17 21:06 95 Nasal Cannula 2.00 02/26/17 20:00 95 Nasal Cannula 4.00 02/26/17 20:00 84 02/26/17 20:00 97.8 84 28 148/83 95 02/26/17 16:00 98.8 80 26 160/87 97 02/26/17 16:00 Nasal Cannula 4.00 02/26/17 13:33 96 Nasal Cannula 3 02/26/17 12:00 Mechanical Ventilator 35 02/26/17 12:00 98.3 83 25 147/71 98 02/26/17 11:02 97 30 02/26/17 10:47 97 30 -: 02/27/17 0435 02/27/17 0435 Physical Exam General Appearance: Well Developed Neck Neck Exam: Neck Supple Pulmonary Resp Exam: Crackles, Rhonchi, Decreased Bases, Diminished Breath Sounds Gastrointestinal/Abdomen GI Exam: Bowel Sounds Hypoactive Extremeties Extremities Exam: Moderate Edema Assessment/Plan Problem List: (1) Acute renal failure Plan: Initiated on HD on 6/2,seen during dialysis UF 2 L planned has acidosis may require intubation again Avoid nephrotoxic agents. (2) Acute cholecystitis due to biliary calculus Plan: She is now on Levaquin. (3) Diabetes Plan: follow Salome Hoffman MD Feb 27, 2017 10:37
[2017-02-27] MEDS: ALBUMIN HUMAN 25% 25 GM/100 ML BAGP IV PRN ×2 (10:45→10:48)
[2017-02-27] MEDS: GENTAMICIN SULFATE (DIALYSIS USE ONLY) 20 MG/2 ML VIAL IV PRN (10:47)
[2017-02-27] MEDS: EPOETIN ALFA 10,000 UNITS/ML VIAL IV PRN (10:47)
[2017-02-27] MEDS: HEPARIN SODIUM - IV 10,000 UNITS/10 ML VIAL PRN (10:47)
[2017-02-27] MEDS ORDERED: EPINEPHrine HCL (1:10,000) 1 MG/10 ML SYRINGE IV ONE (11:23)
[2017-02-27] MEDS ORDERED: diphenhydrAMINE HCL 50 MG/ML VIAL IV ONE (11:23)
[2017-02-27] MEDS ORDERED: SODIUM BICARBONATE 8.4% INJ 50 MEQ/50 ML SYR IV ONE (11:23)
[2017-02-27] MEDS ORDERED: MORPHINE SULFATE 8 MG/ML INJ ONE (11:25)
--- NOTE | 2017-02-27 11:37 | PD.PROCEDR ---
Procedure Note Procedure Procedure: CPR Preop diagnosis: Cardiac arrest(PEA) Postoperative diagnosis: Same Responded to CODE BLUE cardiac arrest code activation. Patient was on hemodialysis and was initially short of breath however maintaining O2 sats on nasal cannula. Subsequently became unresponsive suddenly and stopped breathing. She did have a sinus rhythm on the monitor however no palpable pulse. CODE BLUE cardiac arrest code called. CPR/ ACLS protocol initiated. Patient was intubated during ACLS protocol. Patient remained unresponsive without a pulse. Patient's daughter was contacted and wanted us to stop ACLS and change her to DNR status. CPR/ACLS stopped, patient remained unresponsive without a pulse and was pronounced at 11:24 AM. Kenny Kruse MD Feb 27, 2017 11:37
--- NOTE | 2017-02-27 11:42 | HHI.DS ---
Summary Note Date of : Feb 27, 2017 Time Of : 11:24 Admission Date February 14, 2017 at 16:53 Admitting Diagnosis acute hypoxemic resp failure, abd pain Diagnosis at Time of : (1) Severe sepsis ICD Code: A41.9 (2) Acute cholecystitis due to biliary calculus ICD Code: K80.00 (3) Acute renal failure ICD Code: N17.9 (4) Acute hypoxemic respiratory failure ICD Code: J96.01 (5) Left-sided weakness ICD Code: M62.89 (6) Sepsis ICD Code: A41.9 (7) Uncontrolled diabetes mellitus ICD Code: E11.65 (8) Cholelithiasis ICD Code: K80.20 (9) High triglycerides ICD Code: E78.1 (10) Ulnar neuropathy ICD Code: G56.20 Brief History Patient is a 61-year-old female with known history of hypertension, diabetes, history of CVA in 2013. Ischemic cardiomyopathy. Phantom limb pain, diabetic neuropathy Patient was recently discharged here February 08 after a long hospital course of sepsis presenting us change in mental status. Source of sepsis secondary to biliary pathology Patient had a cholecystostomy tube placed by interventional radiology February 01. Patient was sent home to rehabilitation facility on by mouth Augmentin. Patient states she was doing quite well until yesterday started having any some nausea associated with epigastric pain radiating to the right upper quadrant area associated with loose stools. Patient denies any shortness of breath, cough sputum production. Denies any urinary symptoms. No diarrhea until yesterday. She actually had a good bowel movement brown formed stools here in the emergency room On evaluation at the ER noted to have an O2 sat of 88%. Placed on nasal cannula with improvement. CBC/BMP: 02/27/17 0435 02/27/17 0435 Significant Findings Laboratory Tests Test 02/24/17 02/24/17 02/24/17 02/24/17 11:40 11:45 12:25 15:33 Prothrombin Time 20.6 SEC (9.8-11.6) Sodium Level 152 MEQ/L (136-145) Chloride Level 116 MEQ/L (98-107) Carbon Dioxide Level 19.6 MEQ/L (21.0-32.0) Anion Gap 16 MEQ/L (5-15) Blood Urea Nitrogen 62 MG/DL (7-18) Creatinine 3.35 MG/DL (0.50-1.00) Estimat Glomerular Filtration 14 ML/MIN (>89) Rate Random Glucose 177 MG/DL (74-106) Aspartate Amino Transf 106 U/L (15-37) (AST/SGOT) Alanine Aminotransferase 199 U/L (10-53) (ALT/SGPT) Total Creatine Kinase 24 U/L (26-192) Total Protein 6.2 GM/DL (6.4-8.2) Albumin 2.7 GM/DL (3.4-5.0) Lactic Acid Level 5.4 mmol/L (0.4-2.0) Blood Gas HCO3 14 mmol/L (22-26) Blood Gas Base Excess -9.5 mmol/L (-2-2) Arterial Blood pH 7.44 (7.380-7.420) Arterial Blood Partial 21 mmHg (38-42) Pressure CO2 Arterial Blood Partial 324 mmHg Pressure O2 (61-120) Blood Gas Hemoglobin 8.2 G/DL (12.0-16.0) White Blood Count 13.3 TH/MM3 (4.0-11.0) Red Blood Count 2.88 MIL/MM3 (4.00-5.30) Hemoglobin 8.7 GM/DL (11.6-15.3) Hematocrit 27.1 % (35.0-46.0) Platelet Count 113 TH/MM3 (150-450) Mean Platelet Volume 11.2 FL (7.0-11.0) Neutrophils (%) (Auto) 79.9 % (16.0-70.0) Neutrophils # (Auto) 10.6 TH/MM3 (1.8-7.7) Neutrophils % (Manual) 72 % (16-70) Neutrophils # (Manual) 10.5 TH/MM3 (1.8-7.7) Myelocytes 1 % (0-0) Nucleated Red Blood Cells 1 /100 WBC (0-0) Platelet Estimate LOW (NORMAL) Platelet Morphology Comment ENLARGED (NORMAL) Stomatocytes 1+ (NORMAL) Acanthocytes OCC (NORMAL) Test 02/25/17 02/25/17 02/25/17 02/26/17 06:00 07:45 17:40 05:45 Sodium Level 147 MEQ/L (136-145) Potassium Level 2.8 MEQ/L 2.8 MEQ/L 2.9 MEQ/L (3.5-5.1) (3.5-5.1) (3.5-5.1) Chloride Level 110 MEQ/L (98-107) Carbon Dioxide Level 20.1 MEQ/L (21.0-32.0) Anion Gap 17 MEQ/L (5-15) Blood Urea Nitrogen 46 MG/DL (7-18) 31 MG/DL (7-18) Creatinine 2.57 MG/DL 1.93 MG/DL (0.50-1.00) (0.50-1.00) Estimat Glomerular Filtration 19 ML/MIN (>89) 26 ML/MIN (>89) Rate Random Glucose 205 MG/DL 193 MG/DL (74-106) (74-106) Calcium Level 8.4 MG/DL (8.5-10.1) Total Bilirubin 1.3 MG/DL 1.7 MG/DL (0.2-1.0) (0.2-1.0) Aspartate Amino Transf 102 U/L (15-37) 74 U/L (15-37) (AST/SGOT) Alanine Aminotransferase 161 U/L (10-53) 120 U/L (10-53) (ALT/SGPT) Total Protein 6.0 GM/DL 6.2 GM/DL (6.4-8.2) (6.4-8.2) Albumin 3.2 GM/DL (3.4-5.0) White Blood Count 11.8 TH/MM3 12.9 TH/MM3 (4.0-11.0) (4.0-11.0) Red Blood Count 2.49 MIL/MM3 2.78 MIL/MM3 (4.00-5.30) (4.00-5.30) Hemoglobin 7.8 GM/DL 8.4 GM/DL (11.6-15.3) (11.6-15.3) Hematocrit 23.9 % 26.8 % (35.0-46.0) (35.0-46.0) Red Cell Distribution Width 18.0 % 21.4 % (11.6-17.2) (11.6-17.2) Platelet Count 107 TH/MM3 95 TH/MM3 (150-450) (150-450) Neutrophils (%) (Auto) 71.0 % 74.7 % (16.0-70.0) (16.0-70.0) Neutrophils # (Auto) 8.4 TH/MM3 9.6 TH/MM3 (1.8-7.7) (1.8-7.7) Toxic Granulation 1+ (NORMAL) Platelet Estimate LOW (NORMAL) LOW (NORMAL) Platelet Morphology Comment ENLARGED ENLARGED (NORMAL) (NORMAL) Polychromasia 2.0 % (0.0-1.9) 2.3 % (0.0-1.9) Acanthocytes OCC (NORMAL) OCC (NORMAL) Keratocytes OCC (NORMAL) OCC (NORMAL) Lactic Acid Level 2.3 mmol/L (0.4-2.0) Mean Corpuscular Hemoglobin 31.3 % Concent (32.0-36.0) Mean Platelet Volume 11.9 FL (7.0-11.0) Test 02/27/17 02/27/17 04:35 05:36 White Blood Count 12.0 TH/MM3 (4.0-11.0) Red Blood Count 2.59 MIL/MM3 (4.00-5.30) Hemoglobin 8.1 GM/DL (11.6-15.3) Hematocrit 25.2 % (35.0-46.0) Red Cell Distribution Width 21.4 % (11.6-17.2) Platelet Count 110 TH/MM3 (150-450) Mean Platelet Volume 11.8 FL (7.0-11.0) Neutrophils (%) (Auto) 82.3 % (16.0-70.0) Neutrophils # (Auto) 9.9 TH/MM3 (1.8-7.7) Neutrophils % (Manual) 87 % (16-70) Lymphocytes % 8 % (9-44) Neutrophils # (Manual) 10.9 TH/MM3 (1.8-7.7) Myelocytes 1 % (0-0) Nucleated Red Blood Cells 7 /100 WBC (0-0) Platelet Estimate LOW (NORMAL) Stomatocytes 1+ (NORMAL) Acanthocytes OCC (NORMAL) Sodium Level 146 MEQ/L (136-145) Anion Gap 16 MEQ/L (5-15) Blood Urea Nitrogen 36 MG/DL (7-18) Creatinine 2.36 MG/DL (0.50-1.00) Estimat Glomerular Filtration 21 ML/MIN (>89) Rate Random Glucose 131 MG/DL (74-106) Total Bilirubin 2.4 MG/DL (0.2-1.0) Aspartate Amino Transf 204 U/L (15-37) (AST/SGOT) Alanine Aminotransferase 172 U/L (10-53) (ALT/SGPT) Blood Gas HCO3 17 mmol/L (22-26) Blood Gas Base Excess -7.3 mmol/L (-2-2) Arterial Blood Partial 29 mmHg (38-42) Pressure CO2 Arterial Blood Oxygen Content 10.5 Vol % (12.0-20.0) Blood Gas Hemoglobin 8.2 G/DL (12.0-16.0) Imaging Last Impressions Chest X-Ray 02/24/17 0000 Signed Impressions: Service Date/Time: Friday, February 24, 2017 12:22 - CONCLUSION: 1. Bilateral internal jugular central lines in good position. The ET tube and NG tube are well placed. 2. Diffuse mixed interstitial and alveolar consolidation likely representing pulmonary edema. There is a mild right pleural effusion. Willy Chirinos MD Renal Ultrasound 02/22/17 0000 Signed Impressions: Service Date/Time: Wednesday, February 22, 2017 08:16 - CONCLUSION: 1. 6 mm calcified density in the mid right kidney, likely vascular as this was not noted on recent ultrasound of the abdomen. A non-obstructing renal calculus cannot be entirely excluded. 2. Otherwise, no evidence for obstructive uropathy as questioned. 3. Incidental note of small right pleural effusion and trace ascites. Rustam Capellan MD Percutaneous Cholangiogram 02/18/17 0000 Signed Impressions: Service Date/Time: Saturday, February 18, 2017 14:43 - CONCLUSION: Uncomplicated percutaneous cholecystostomy as above. Willy Mackay MD Gall Bladder Ultrasound 02/18/17 0000 Signed Impressions: Service Date/Time: Saturday, February 18, 2017 09:40 - CONCLUSION: 1. Gallbladder is mildly distended with 17 mm stone in the gallbladder neck. There is no significant gallbladder wall thickening. There is a positive sonographic Faria sign. 2. Small right pleural effusion and small volume of ascites. 3. Mild hepatic steatosis. Willy Suh MD Cholangiogram 02/17/17 0800 Signed Impressions: Service Date/Time: Friday, February 17, 2017 13:00 - CONCLUSION: 1. Majority of the the tube outside of the gallbladder lumen as above. The tube was removed Obdulio Virk MD Abdomen CT 02/15/17 0000 Signed Impressions: Service Date/Time: Wednesday, February 15, 2017 20:25 - CONCLUSION: 1. Cholelithiasis. 2. Right upper quadrant catheter is seen as described above. 3. Bilateral pleural effusions and basilar consolidation. Marc Em MD Hospital Course 02/24: 61 year old female brought from half-way with change in mental status, n/v. 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 SHe had not eaten in 2 days. She was recently discharged with a cholecystomy tube placed 02/01/17. During that visit she was found to have cholelithiasis, cholecystitis, per HIDA, US, and CT, but had previously been told she is not a surgical candidate due to heart disease, she has inoperable multi-vessel CAD. Bile growing Klebsiella from 02/14. Cholangiogram showed cholecystostomy tube outside of the gallbladder; tube was removed 02/17. Had cholecystostomy tube replaced - by Dr. Mackay in IR on . Patient has been declining over the last few days. She has developed worsening kidney function and today developed worsening encephalopathy and respiratory distress. She was transferred to the ICU. I evaluated the patient following her arrival to the ICU. She appeared to be encephalopathic and in significant respiratory distress. Chest x-ray showed fluid overload. She was emergently intubated and placed on mechanical ventilation. History was obtained by reviewing records and discussion with nursing staff. Dr. Knowles from nephrology evaluated patient and recommended immediate hemodialysis. Dr. Kruse emergently placed a central line and a Vas-Cath following which patient was initiated on hemodialysis. 02/25: Patient remains sedated, orally intubated on mechanical ventilation at the time of my evaluation. being dialyzed at the time of my evaluation on 02/25. 02/26: Extubated following C Pap trial and placed on nasal cannula. Encephalopathy Acute respiratory failure Sepsis secondary to cholecystitis/cholangitis Lactic acidosis Fluid overload AK/CKD Hypertension Diabetes type 2 Chronic pain History of CAD History of ischemic CVA with left basal ganglia infarct History of seizure disorder Depression peripheral neuropathy pancreatitis cholelithiasis ischemic cardiomyopathy Plan: Neuro: Continue Keppra for seizures Daily sedation vacation. Follow neuro status. Cardiovascular: Status post hemodialysis for fluid removal on 02/24 and 02/25 in view of fluid overload in the setting of worsening renal function. Antihypertensives as needed. Watch for hypotension. Continue aspirin. Pulmonary: Extubated 02/26. bronchodilators as needed. Dialyzed for fluid removal. GI/liver: Cholecystostomy tube in place. GI follow-up. Patient not felt to be a surgical candidate in view of comorbidities for gallbladder removal. Tube feeds as tolerated. Renal/: Strict intake output, monitor and replete electro lites, follow BUN/ creatinine. Started on hemodialysis on 02/24. Dialyzed again on 02/25. Being followed by nephrology. ID: On antibiotic coverage with IV Levaquin and Flagyl per Dr. Garcia,. Deleon cultures sent. Antibiotics per ID. Endocrine: SSI for glycemic control. Heme: Follow CBC. Prophylaxis: PPI/SCDs/Lovenox Lines: Left IJ Vas-Cath placed 02/24, right IJ central line placed 02/24 Condition critical 02/27: Patient had been on nasal cannula since extubation. She was initiated on hemodialysis as she was still having metabolic acidosis. 6 L of fluid had been removed previously with 2 sessions of hemodialysis. During dialysis patient became very tachypneic however was maintaining her O2 sats on nasal cannula. Subsequently dialysis circuit clotted off patient became unresponsive and pulseless in PEA arrest. CODE BLUE cardiac arrest code was activated. CPR/ACLS protocol was initiated. Patient was intubated during ACLS protocol and CPR was continued. Patient's daughter was contacted while CPR was in progress and wanted us to stop further chest compressions and ACLS protocol. ACLS/CPR was stopped and patient was given 4 mg morphine IV as she remained pulseless, unresponsive with occasional agonal respiration and was subsequently pronounced at 11:24 AM on 02/27/2017. Kenny Kruse MD Feb 27, 2017 11:42
--- NOTE | 2017-02-27 12:03 | HHI.PR ---
Subjective Subjective Notes Patient seen and examined at 0930 Receiving HD; HD RN at bedside RN Anna at bedside Patient has labored breathing and atrial fib on monitor ---- HR in the 150s Objective Vitals/I&O Vital Signs Date Time Temp Pulse Resp B/P Pulse Ox O2 Delivery O2 Flow Rate FiO2 02/27/17 08:00 98.0 81 27 148/84 95 02/27/17 08:00 Nasal Cannula 4.00 02/26/17 12:00 35 Labs Laboratory Tests Test 02/27/17 02/27/17 04:35 05:36 White Blood Count 12.0 Red Blood Count 2.59 Hemoglobin 8.1 Hematocrit 25.2 Mean Corpuscular Volume 97.2 Mean Corpuscular Hemoglobin 31.3 Mean Corpuscular Hemoglobin 32.2 Concent Red Cell Distribution Width 21.4 Platelet Count 110 Mean Platelet Volume 11.8 Neutrophils (%) (Auto) 82.3 Lymphocytes (%) (Auto) 12.7 Monocytes (%) (Auto) 4.5 Eosinophils (%) (Auto) 0.3 Basophils (%) (Auto) 0.2 Neutrophils # (Auto) 9.9 Lymphocytes # (Auto) 1.5 Monocytes # (Auto) 0.5 Eosinophils # (Auto) 0.0 Basophils # (Auto) 0.0 CBC Comment AUTO DIFF Differential Total Cells 100 Counted Neutrophils % (Manual) 87 Band Neutrophils % 3 Lymphocytes % 8 Monocytes % 1 Neutrophils # (Manual) 10.9 Myelocytes 1 Nucleated Red Blood Cells 7 Differential Comment FINAL DIFF MANUAL Atypical Lymphocytes Platelet Estimate LOW Platelet Morphology Comment NORMAL Ovalocytes Stomatocytes 1+ Helmet Cells OCC Acanthocytes OCC Sodium Level 146 Potassium Level 4.0 Chloride Level 107 Carbon Dioxide Level 22.8 Anion Gap 16 Blood Urea Nitrogen 36 Creatinine 2.36 Estimat Glomerular Filtration 21 Rate Random Glucose 131 Calcium Level 9.0 Total Bilirubin 2.4 Aspartate Amino Transf 204 (AST/SGOT) Alanine Aminotransferase 172 (ALT/SGPT) Alkaline Phosphatase 82 Total Protein 6.6 Albumin 4.0 Blood Gas Puncture Site RT RADIAL Blood Gas Patient Temperature 98.6 Blood Gas HCO3 17 Blood Gas Base Excess -7.3 Blood Gas Oxygen Saturation 90 Arterial Blood pH 7.38 Arterial Blood Partial 29 Pressure CO2 Arterial Blood Partial 71 Pressure O2 Arterial Blood Oxygen Content 10.5 Arterial Blood 2.0 Carboxyhemoglobin Arterial Blood Methemoglobin 1.1 Blood Gas Hemoglobin 8.2 Oxygen Delivery Device NASAL CANNULA Blood Gas Liter Flow 4 Blood Gas Ventilator Setting Date/Time Procedure Status Source Growth 02/24/17 18:44 Aerobic Blood Culture - Preliminary Resulted Blood Line NO GROWTH IN 3 DAYS 02/24/17 18:44 Anaerobic Blood Culture - Preliminary Resulted Blood Line NO GROWTH IN 3 DAYS 02/24/17 12:45 Gram Stain - Final Complete Sputum Endotracheal 02/24/17 12:45 Sputum Culture - Final Complete Sputum Endotracheal NO GROWTH IN 48 HOURS. Radiology Last 48 hours Impressions Chest X-Ray 02/15/17 0000 Signed Impressions: Service Date/Time: Wednesday, February 15, 2017 16:31 - CONCLUSION: Slight improvement in aeration. Willy Mackay MD Abdomen CT 02/15/17 0000 Signed Impressions: Service Date/Time: Wednesday, February 15, 2017 20:25 - CONCLUSION: 1. Cholelithiasis. 2. Right upper quadrant catheter is seen as described above. 3. Bilateral pleural effusions and basilar consolidation. Marc Em MD Cardiovascular: Regular Lungs: Upper airway course sound Abdomen: Non-distended, Non-tender, Other (adrianna tube in place with bile in drainage collection bag ) Extremities: No edema A/P Problem List: (1) Left-sided weakness (2) Stroke of unknown etiology (3) Acute pancreatitis (4) Diabetes (5) CKD (chronic kidney disease) stage 3, GFR 30-59 ml/min (6) Acute cholecystitis due to biliary calculus (7) Abdominal pain Assessment and Plan 61 year old female with multiple medical problems; cholecystostomy tube placement on February 01--dislodged; continues to have acute cholecystitis -Dr. Kruse notified by RN about respiratory distress and atrial fib -Adrianna tube in place without any complications -Liver enzymes trending up---continue to monitor -ARF---on hemodialysis -Patient continues to be a poor surgical candidate Attending Statement patient seen at bedside multiple medical issues poor surgical candidate Dr. Kruse updated on respiratory status Attestation The exam, history, and the medical decision-making described in the above note were completed with the assistance of the mid-level provider. I reviewed and agree with the findings presented. I attest that I had a [id number] encounter with the patient on the same day, and personally performed and documented my assessment and findings in the medical record. Problem Qualifiers (1) Abdominal pain: Qualified Code: R10.11 - Right upper quadrant abdominal pain Melissa Whitlock Feb 27, 2017 12:03 Jacques Schuster MD Mar 08, 2017 09:49
--- NOTE | 2017-02-27 13:51 | PD.PROCEDR ---
Procedure Note Procedure Procedure: Endotracheal intubation Preop diagnosis: Cardiac arrest Postop diagnosis: Same Sedation used: None as patient unresponsive and cardiac arrest Procedure: Patient was preoxygenated with 100% oxygen via Ambu bag with bag mask ventilation, direct laryngoscopy was performed using a Mac 4 blade with good visualization of vocal cords. An 8 Danish ET tube was passed through the vocal cords under direct visualization up to the 22 centimeter catherine and after inflating cuff of ET tube, correct placement was confirmed using bagging with good color change on CO2 detector, 5 point auscultation and chest rise with ventilation. CPR/ACLS protocol was continued. Kenny Kruse MD Feb 27, 2017 13:51
== END 2017-02-27 11:24 | disposition expired | DRG 853 ==
LOC: NEPC 13:06 → NEDA 16:53 → N04B 19:04 → HIME 02-24 10:55
PROVIDERS: ADMIT Internal Medicine Critical Care Medicine; ATTEND Internal Medicine Critical Care Medicine
PROC: 0FP430Z Removal of Drainage Device from Gallbladder, Percutaneous Approach (ICD-10-PCS; principal; 2017-02-17)
PROC: 0F9430Z Drainage of Gallbladder with Drainage Device, Percutaneous Approach (ICD-10-PCS; 2017-02-18)
PROC: 30233K1 Transfusion of Nonautologous Frozen Plasma into Peripheral Vein, Percutaneous Approach (ICD-10-PCS; 2017-02-18)
PROC: 0F9430Z Drainage of Gallbladder with Drainage Device, Percutaneous Approach (ICD-10-PCS; 2017-02-19)
PROC: 5A1945Z Respiratory Ventilation, 24-96 Consecutive Hours (ICD-10-PCS; 2017-02-24)
PROC: 02HV33Z Insertion of Infusion Device into Superior Vena Cava, Percutaneous Approach (ICD-10-PCS; 2017-02-24)
PROC: B543ZZA Ultrasonography of Right Jugular Veins, Guidance (ICD-10-PCS; 2017-02-24)
PROC: 02HV33Z Insertion of Infusion Device into Superior Vena Cava, Percutaneous Approach (ICD-10-PCS; 2017-02-24)
PROC: B544ZZA Ultrasonography of Left Jugular Veins, Guidance (ICD-10-PCS; 2017-02-24)
PROC: 0BH17EZ Insertion of Endotracheal Airway into Trachea, Via Natural or Artificial Opening (ICD-10-PCS; 2017-02-24)
PROC: 0CJS8ZZ Inspection of Larynx, Via Natural or Artificial Opening Endoscopic (ICD-10-PCS; 2017-02-24)
PROC: 5A1D60Z (ICD-10-PCS; 2017-02-24)
PROC: 5A12012 Performance of Cardiac Output, Single, Manual (ICD-10-PCS; 2017-02-27)
PROC: 0BH17EZ Insertion of Endotracheal Airway into Trachea, Via Natural or Artificial Opening (ICD-10-PCS; 2017-02-27)
DX: A41.59 Other Gram-negative sepsis (principal); J96.01 Acute respiratory failure with hypoxia; N17.0 Acute kidney failure with tubular necrosis; G93.41 Metabolic encephalopathy; K85.90 Acute pancreatitis without necrosis or infection, unspecified; E87.4 Mixed disorder of acid-base balance; K83.0 Cholangitis; N18.3 Chronic kidney disease, stage 3 (moderate); N17.9 Acute kidney failure, unspecified; K80.01 Calculus of gallbladder with acute cholecystitis with obstruction; J98.11 Atelectasis; I13.0 Hypertensive heart and chronic kidney disease with heart failure and stage 1 through stage 4 chronic kidney disease, or unspecified chronic kidney disease; K80.00 Calculus of gallbladder with acute cholecystitis without obstruction; Z66 Do not resuscitate; R65.20 Severe sepsis without septic shock; E11.22 Type 2 diabetes mellitus with diabetic chronic kidney disease; E11.40 Type 2 diabetes mellitus with diabetic neuropathy, unspecified; E87.5 Hyperkalemia; I25.5 Ischemic cardiomyopathy; I50.9 Heart failure, unspecified; I25.10 Atherosclerotic heart disease of native coronary artery without angina pectoris; G40.909 Epilepsy, unspecified, not intractable, without status epilepticus; I73.9 Peripheral vascular disease, unspecified; I46.9 Cardiac arrest, cause unspecified; K75.9 Inflammatory liver disease, unspecified; D63.8 Anemia in other chronic diseases classified elsewhere; T85.9XXA Unspecified complication of internal prosthetic device, implant and graft, initial encounter; M19.90 Unspecified osteoarthritis, unspecified site; F32.9 Major depressive disorder, single episode, unspecified; N32.89 Other specified disorders of bladder; E86.0 Dehydration; E11.65 Type 2 diabetes mellitus with hyperglycemia; E78.1 Pure hyperglyceridemia; Z79.4 Long term (current) use of insulin; Z86.14 Personal history of Methicillin resistant Staphylococcus aureus infection; Z86.73 Personal history of transient ischemic attack (TIA), and cerebral infarction without residual deficits; Z87.891 Personal history of nicotine dependence; Z89.511 Acquired absence of right leg below knee; Z98.1 Arthrodesis status
CPT/HCPCS: 31500; 36430; 36556; 36600; 47490; 47531; 71010; 74000; 74150; 76705; 76775; 76937; 80048; 80053; 80074; 81001; 82550; 82805; 82948; 83605; 83690; 83735; 83880; 83935; 84100; 84132; 84300; 85007; 85025; 85027; 85384; 85610; 85730; 86927; 87040; 87070; 87077; 87086; 87186; 87205; 87493; 90935; 93005; 93306; 94002; 94003; 94640; 94664; 96374; 96375; 99152; 99153; C1729; C1769; C9113; J0171; J0360; J1170; J1200; J1580; J1644; J1650; J1815; J1940; J1956; J2250; J2270; J2405; J2543; J3010; J3480; J7030; J7042; P9017; P9047; Q4081; Q9963; Q9967